=== PATIENT | male | born 1940 | race Caucasian/White ===

== ENCOUNTER → 2017-01-26 | Outpatient (CLI) | payer OTHER, MEDICARE ==
[~2017-01-26] MED LIST: ACET-1311 PO; AMLO-114 PO; AMLO5TAB2 PO; BROM0.0911 OPL; CALC667C4 PO; CLBCRM30 EXT; CYAN100020 PO; DIFL0.0519 OPL; FLUT0.0529 NAE; FLUT0.15 NAE; FRS/40 PO; FURO80TA63 PO; HYDR-4716 PO; HYDR25TA4 PO; LANS30CA12 PO; LOSA1TAB PO; MCRK20 PO; MELO15TA4 PO; MTR500 PO; ONDA4TAB46 PO; PRLSR20 PO; SODI650T8 PO; TAMS0.4C38 PO; ZNTT/150 PO; [UNRECOGNIZED DRUG - CODE] PO
--- NOTE | 2017-01-26 14:50 | DIAGNOSTIC IMAGING REPORT ---
LEFT TOE(S) MIN 2 VIEWS CLINICAL HISTORY: S99.922A Injury of left [id number] COMPARISON STUDY: None. FINDINGS: 3 views of the left first through third toes. Nondisplaced fractures at the base of the distal phalanx of the left first toe. There is associated soft tissue swelling. This extends to the DIP joint. No fracture or dislocation within the second or third toes. Mild osteoarthritis at the first MTP joint IMPRESSION: Nondisplaced fractures at the base of the distal phalanx of the left first toe. Electronically signed by: Oleg Navarro M.D. 01/26/2017 2:47 PM Dictated Date/Time: 01/26/2017 2:46 PM
== END | disposition home or self-care (01) ==
LOC: C.RADBC 13:57
PROVIDERS: ATTEND Family Medicine
DX: S92.425A Nondisplaced fracture of distal phalanx of left great toe, initial encounter for closed fracture (principal); X58.XXXA Exposure to other specified factors, initial encounter

== ENCOUNTER → 2017-02-16 | Outpatient (CLI) | payer OTHER, MEDICARE ==
[2017-02-16 14:57] LABS: ALB/GLOB RATIO 1.3 (0.9-2); ALKALINE PHOSPHATASE 52 U/L (45-117); ALT/SGPT 24 U/L (12-78); AST/SGOT 18 U/L (15-37); BLOOD UREA NITROGEN 22 mg/dl (7-18); BUN/CREATININE RATIO 20.3 (10-20); CALCIUM 8.8 mg/dl (8.5-10.1); CARBON DIOXIDE 26 mmol/L (21-32); CHLORIDE 106 mmol/L (98-107); GLUCOSE 91 mg/dl (70-99); MAGNESIUM 2.3 mg/dl (1.8-2.4); POTASSIUM 4.4 mmol/L (3.5-5.1); SODIUM 140 mmol/L (136-145)
== END | disposition home or self-care (01) ==
LOC: C.LAB1850 13:42
PROVIDERS: ATTEND Family Medicine
DX: G47.62 Sleep related leg cramps (principal); N40.1 Benign prostatic hyperplasia with lower urinary tract symptoms; I10 Essential (primary) hypertension

== ENCOUNTER → 2017-05-12 | Day surgery (SDC) | payer OTHER, MEDICARE ==
[2017-04-08 12:36] VITALS: Ht 180.3 cm; Wt 81.8 kg
[~2017-05-12] VITALS: Ht 180.3 cm; Wt 81.8 kg
[~2017-05-12] MED LIST changes: +500ML BSS 0.3ML EPI 1:1000PF IRRIG ONE; +ACETAMINOPHEN 325 MG TAB PO PRN; -AMLO5TAB2 PO; +AMVISC PLAIN 0.8ML SYRINGE INT OCU ONE; +AMVISC PLUS 0.8ML SYRINGE INT OCU ONE; +APR/25 PO; +ATROPINE SULFATE 0.1 MG/ML 5ML SYR IV PRN; +BSS FLUSH ONE; +EpHEDrine SULFATE INJ 50 MG/ML AMP IV PRN; +EpINEphrine INJ 1MG/ML AMP 1 MG/ML AMP ONE; -HYDR-4716 PO; +LACTATED RINGER'S 1000ML 500 ML IV SCH; +LIDOCAINE 3.5% OPH GEL PER APPLICATION CHARGE ONE; +LIDOCAINE HCL 1% MPF 2 ML VIAL ONE; +MIDAZOLAM HCL 1 MG/ML 2ML VIAL ONE; +OCUCOAT 1 ML SOLN IO ONE; +ONDANSETRON INJ 2 MG/ML 2 ML VIAL IV PRN; +PHENYLEPHRINE HCL 10% OP SOLN PER DROP CHARGE OPL SCH; +POVIDONE-IODINE OP SOLN 30 ML BTL ONE; -PRLSR20 PO; +PROPARACAINE 0.5% OP SOLN PER DROP CHARGE OPL SCH; +TOBRAMYCIN/DEXAMETHASONE OPH OINT PER APPLN CHARGE ONE; -[UNRECOGNIZED DRUG - CODE] PO
[2017-05-12] MEDS: PHENYLEPHRINE HCL 2.5% OP SOLN PER DROP CHARGE OPL SCH ×2 (08:33→08:38)
[2017-05-12] MEDS: TROPICAMIDE 1% OP SOLN PER DROP CHARGE OPL SCH ×2 (08:34→08:38)
[2017-05-12] MEDS: CYCLOPENTOLATE HCL 1% OP SOLN PER DROP CHARGE OPL SCH ×2 (08:35→08:39)
[2017-05-12] MEDS: KETOROLAC 0.5% OP SOLN PER DROP CHARGE OPL SCH ×2 (08:36→08:39)
[2017-05-12] MEDS: GATIFLOXACIN OP SOLN PER DROP CHARGE OPL SCH ×2 (08:36→08:45)
--- NOTE | 2017-05-12 09:08 | History & Physical Bridge - SC ---
H&P Re-Evaluation Bridge Note: I have examined the patient, reviewed the History & Physical and in the interval since the performance of the History & Physical I have noted the following changes of clinical significance: No changes noted
--- NOTE | 2017-05-12 09:47 | Discharge Instructions-SurgCtr ---
Discharge Instructions Date of Service May 12, 2017. Visit Reason for Visit: Cataract Left Eye Discharge Discharge Diagnosis / Problem: cataract Discharge Goals Goal(s): Improve function Activity Recommendations Activity Limitations: per Instructions/Follow-up section Anesthesia . Post Anesthesia Instructions: If you have had General Anesthesia or IV Sedation: * Do not drive today. * Resume driving when surgeon permits. * Do not make important decisions or sign legal documents today. * Call surgeon for: 1. Temperature elevations greater than 101 degrees F. 2. Uncontrollable pain. 3. Excessive bleeding. 4. Persistent nausea and vomiting. 5. Medication intolerance (nausea, vomiting or rash). * For nausea and vomiting use only clear liquids such as: tea, soda, bouillon until nausea subsides, then gradually increase diet as tolerated. * If you have any concerns or questions, call your surgeon's office. If physician is unavailable and it is an emergency, call 911 or go to the nearest emergency room. . Instructions / Follow-Up Instructions / Follow-Up ACTIVITY RECOMMENDATIONS: * No strenuous lifting, jogging or running for 4 days * No swimming or yard work for 1 week. * Limited bending is permitted, such as putting on shoes. RETURN TO SCHOOL/WORK: No work until seen by physician in office. MEDICATIONS: Resume previous medications unless instructed otherwise by your surgeon. This includes eye drops for glaucoma. Zymaxid/Gatifloxacin (levi cap) - one drop every 2 hours until bedtime Nevanac/Ilevro/Prolensa/Ketorolac (ramirez cap) - one drop every 4 hours until bedtime Prednisolone/Durezol (white/pink cap, SHAKE WELL) - one drop every 2 hours until bedtime Starting tomorrow - all 3 drops every 4 hours until seen in the office Optive drops - as needed for discomfort SPECIAL CARE INSTRUCTIONS: * Wear eyeshield when sleeping, for four nights. * You may wear your own glasses or sunglasses while awake. * You may read or watch TV * You may shower and wash your face, but be gentle around the eye and pat dry. * Blurry vision and mild irritation are normal. * Call office if pain is more severe or vision becomes dark at . FOLLOW UP VISIT: Follow-up with Dr Salazar tomorrow. Diet Recommendations Home Diet: resume previous diet Procedures Procedures Performed: Left Cataract Phacoemulsification With Intraocular Lens Implant, Toric Lens Pending Studies Studies pending at discharge: no Medical Emergencies . Who to Call and When: Medical Emergencies: If at any time you feel your situation is an emergency, please call 911 immediately. . Non-Emergent Contact Non-Emergency issues call your: Restaurant Kitchen Manager . . "Provider Documentation" section prepared by Timothy Salazar. .
--- NOTE | 2017-05-12 09:48 | [facility] Operative Report ---
Operative Report Date of Service May 12, 2017. Operative Report 1. PREOPERATIVE DIAGNOSIS: Cataract of the left eye. 2. POSTOPERATIVE DIAGNOSIS: Same. 3. PROCEDURE: Phacoemulsification with intraocular lens implantation of the left eye. SURGEON: Dr. Timothy Salazar. ANESTHESIA: Topical Lidocaine gel, 1% Non- Preserved intracameral Lidocaine, and monitored intravenous sedation. INDICATIONS FOR THE PROCEDURE: The patient is a 76 - year-old male with a history of cataract of the left eye causing significant visual impairment. The details of the proposed procedure were explained to the patient who asked appropriate questions and following discussion of all risks, benefits and alternatives agreed to have the procedure done. Patient had corneal astigmatism and therefore elected to have a toric lens placed. 4. OPERATION AND FINDINGS: DESCRIPTION OF PROCEDURE: After informed consent was obtained, patient was placed in an upright position and the cornea was marked at 168 degrees using the CeQur corneal marking tool. The the patient was brought to the Operating Room at the [facility]. The patient was placed in a supine position and then the left eye was prepped and draped in the usual sterile fashion for intraocular surgery. A drop of topical Lidocaine gel was placed in the operative eye. A wire lid speculum was then placed in the fornices. A corneal paracentesis was then created temporally. The Non-Preserved Lidocaine was then instilled into the anterior chamber. The anterior chamber was then pressurized with viscoelastic. A 2.0 mm clear corneal incision was then created temporally. A cystotome was inserted into the anterior chamber and used to create a tear in the anterior lens capsule. This capsular tear was then used to create a small flap and the flap was dragged in a counterclockwise direction in order to create a continuous curvilinear capsulorrhexis. Hydrodissection was accomplished with balanced salt solution. Phacoemulsification of the lens nucleus was then performed in a standard divide- and-conquer technique. The phaco time was 28 seconds with an average power of 12 %. The remaining cortical material was removed using irrigation aspiration. The capsular bag was then filled with viscoelastic. A Elliot [id number] +22.0 diopters lens was then loaded into the injector and injected into the capsular bag. The lens was aligned with the previously made corneal kemp. The remaining viscoelastic was removed with the irrigation aspiration handpiece. The wound was hydrated and then checked and found to be watertight. The intraocular pressure was checked and found to be adequate. The wire lid speculum was removed and the patient's face was cleaned and dried. TobraDex ointment was placed in the inferior fornix. The patient was discharged to the Recovery Room having tolerated the procedure well. There were no complications. The patient will be seen tomorrow in the office for follow-up. I attest to the content of the Intraoperative Record and any orders documented therein. Any exceptions are noted below.
--- NOTE | 2017-05-12 09:55 | Anesthesia Progress Nt - [facility] ---
Anesthesia Post Op Note Date & Time May 12, 2017 at 09:55 Vital Signs Pain Intensity: 0 Vital Signs Past 12 Hours Date Time Temp Pulse Resp B/P (MAP) Pulse Ox O2 Delivery O2 Flow Rate FiO2 05/12/17 08:23 36.6 69 16 129/77 (94) 97 Room Air Notes Mental Status: alert / awake / arousable, participated in evaluation Pt Amnestic to Procedure: Yes Nausea / Vomiting: adequately controlled Pain: adequately controlled Airway Patency, RR, SpO2: stable & adequate BP & HR: stable & adequate Hydration State: stable & adequate Anesthetic Complications: no major complications apparent
[2017-05-12 10:11] VITALS: BP 139/75; PULSE 64; O2SAT 97
== END | disposition home or self-care (01) ==
LOC: X.SURG 07:51
PROVIDERS: ATTEND Ophthalmology
DX: H26.9 Unspecified cataract (principal); N40.0 Benign prostatic hyperplasia without lower urinary tract symptoms; N13.8 Other obstructive and reflux uropathy; C44.81 Basal cell carcinoma of overlapping sites of skin; I10 Essential (primary) hypertension; K21.9 Gastro-esophageal reflux disease without esophagitis; N48.6 Induration penis plastica; G47.33 Obstructive sleep apnea (adult) (pediatric); Z87.891 Personal history of nicotine dependence

== ENCOUNTER 2017-05-16 16:07 | Inpatient (IN) | payer OTHER, MEDICARE ==
[~2017-05-16] VITALS: Ht 180.3 cm; Wt 84.8 kg
[~2017-05-16 16:07] MED LIST changes: -500ML BSS 0.3ML EPI 1:1000PF IRRIG ONE; -ACET-1311 PO; -ACETAMINOPHEN 325 MG TAB PO PRN; -AMVISC PLAIN 0.8ML SYRINGE INT OCU ONE; -AMVISC PLUS 0.8ML SYRINGE INT OCU ONE; -APR/25 PO; -ATROPINE SULFATE 0.1 MG/ML 5ML SYR IV PRN; -BROM0.0911 OPL; -BSS FLUSH ONE; -CALC667C4 PO; -DIFL0.0519 OPL; -EpHEDrine SULFATE INJ 50 MG/ML AMP IV PRN; -EpINEphrine INJ 1MG/ML AMP 1 MG/ML AMP ONE; -FLUT0.15 NAE; -FRS/40 PO; -FURO80TA63 PO; -HYDR25TA4 PO; -LACTATED RINGER'S 1000ML 500 ML IV SCH; -LANS30CA12 PO; -LIDOCAINE 3.5% OPH GEL PER APPLICATION CHARGE ONE; -LIDOCAINE HCL 1% MPF 2 ML VIAL ONE; -MCRK20 PO; -MIDAZOLAM HCL 1 MG/ML 2ML VIAL ONE; -MTR500 PO; -OCUCOAT 1 ML SOLN IO ONE; -ONDA4TAB46 PO; -ONDANSETRON INJ 2 MG/ML 2 ML VIAL IV PRN; -PHENYLEPHRINE HCL 10% OP SOLN PER DROP CHARGE OPL SCH; -POVIDONE-IODINE OP SOLN 30 ML BTL ONE; -PROPARACAINE 0.5% OP SOLN PER DROP CHARGE OPL SCH; -SODI650T8 PO; -TOBRAMYCIN/DEXAMETHASONE OPH OINT PER APPLN CHARGE ONE
[2017-05-16] MEDS ORDERED: ONDANSETRON INJ 2 MG/ML 2 ML VIAL IV STA (16:44)
[2017-05-16] MEDS ORDERED: SODIUM CHLORIDE 0.9% 1000ML 1,000 ML IV STA ×2 (16:44→18:16)
--- NOTE | 2017-05-16 17:00 | EMERGENCY ROOM VISIT NOTE ---
History Report prepared by Vicente: Ela Hernández Under the Supervision of: Dr. Segundo Muse D.O. First contact with patient: 16:38 Chief Complaint: NAUSEA Stated Complaint: NAUSEA,COLD Nursing Triage Summary: Nausea, chills, aches all over per the pt, noticed yellowing under his eyelids per pt. History of Present Illness The patient is a 76 year old male who presents to the Emergency Room with complaints of persistent weakness for the past week. He also reports lower abdominal pain, sneezing, nausea, rhinorrhea, and fatigue. He has slept for 90% of the past week. He thinks that he might have the flu. His significant other has recently been sick with the flu. He had cataract surgery less than 1 week ago. He noticed some jaundice in his left eye today. He is urinating less than usual. He denies any chest pain, SOB, or cough. He has not had these symptoms before. He has a history of hypertension, hernia surgery, skin cancer, and TURP. He admits to drinking alcohol daily. He has had a colonoscopy in the past which was normal. He quit tobacco over 30 years ago. Source of History: patient, spouse/significant other Onset: past week Position: other (global) Quality: other (weakness) Timing: other (persistent) Associated Symptoms: + nausea, + abdominal pain, + fatigue, No cough, No chest pain, No SOB Note: Pt reports sneezing, rhinorrhea, jaundice to the eye, urinating less than usual. Review of Systems See HPI for pertinent positives & negatives. A total of 10 systems reviewed and were otherwise negative. Past Medical & Surgical Medical Problems: (1) Basal cell carcinoma (2) Chronic back pain (3) Gastroesophageal reflux disease Family History No pertinent family history stated. Social History Smoking Status: Former Smoker Alcohol Use: other (daily) Marital Status: in relationship Occupation Status: employed Current/Historical Medications Scheduled Amlodipine (Norvasc), 10 MG PO DAILY Clobetasol Propionate (Clobetasol Propionate Cream 0.05%), 1 APPLN EXT DIRECTED Cyanocobalamin (Vitamin B12), 1,000 MCG PO DAILY Fluticasone Propionate (Nasal) (Flonase Allergy Relief), 4 SPRAYS JAMILAH QPM Losartan Potassium (Cozaar), 25 MG PO DAILY Meloxicam (Meloxicam), 15 MG PO DAILY Ranitidine (Zantac), 150 MG PO DAILY Allergies Coded Allergies: No Known Allergies (Verified , 05/12/17) Physical Exam Vital Signs Date Time Temp Pulse Resp B/P (MAP) Pulse Ox O2 Delivery O2 Flow Rate FiO2 05/16/17 21:47 70 18 135/68 93 Room Air 05/16/17 19:53 147/77 05/16/17 19:39 147/77 05/16/17 18:47 69 20 05/16/17 18:37 74 19 05/16/17 18:27 70 17 05/16/17 18:17 69 19 05/16/17 18:07 69 19 05/16/17 17:57 68 19 05/16/17 17:54 153/75 05/16/17 17:53 73 18 153/75 96 Room Air 05/16/17 17:47 66 18 05/16/17 17:37 66 16 05/16/17 17:30 67 05/16/17 16:12 36.3 78 18 148/74 96 Room Air Physical Exam GENERAL: Patient is awake, alert, and in no acute distress. Patient is resting comfortably and showing no signs of anxiety EYES: Slight jaundice noted at the sclera. The pupils are equal round and reactive to light. EARS, NOSE, MOUTH AND THROAT: The nose is without any evidence of any deformity. Mucous membranes are moist tongue is midline NECK: The neck is nontender and supple. RESPIRATORY: Normal respiratory effort is noted there is no evidence of wheezing rhonchi or rales CARDIOVASCULAR: Regular rate and rhythm noted there no murmurs rubs or gallops normal S1 normal S2 GASTROINTESTINAL: The abdomen is mildly distended and diffusely tender, no guarding or rigidity noted. MUSCULOSKELETAL/EXTREMITIES: There is no evidence of gross deformity full range of motion is noted in the hips and shoulders SKIN: There is trace pedal edema bilaterally. NEUROLOGIC: Patient is awake alert and oriented x3 Medical Decision & Procedures ER Provider Diagnostic Interpretation: X-ray results as stated below per interpretation by me and the radiologist. Radiology results as stated below per my review and radiologist interpretation: CHEST ONE VIEW PORTABLE CLINICAL HISTORY: ABDOMINAL PAIN/GI COMPARISON STUDY: Chest radiograph and chest CT June 17, 2013. FINDINGS: Lung volumes are normal. No pneumothorax or pleural effusion is present. There is no consolidation to suggest pneumonia and there is no evidence of pulmonary edema. Cardiomediastinal silhouette is normal. IMPRESSION: No acute cardiopulmonary findings. Electronically signed by: Manny Topete M.D. 05/16/2017 5:50 PM Dictated Date/Time: 05/16/2017 5:50 PM ABD/PELVIS ORAL CONT ONLY CLINICAL HISTORY: Right-sided abdominal pain. COMPARISON STUDY: CT of the abdomen and pelvis June 17, 2013. TECHNIQUE: Axial images of the abdomen and pelvis were obtained without IV contrast. Oral contrast was administered. FINDINGS: Groundglass opacities within visualized portions of the lungs suggest atelectasis. A 5 mm subpleural right lower lobe nodule shown image 21 of [address] of June 17, 2013. This is benign. The heart is mildly enlarged. Evaluation of the abdomen and pelvis is suboptimal on this unenhanced exam. A left hepatic lobe cyst is noted. Right hepatic lobe calcifications are present. Unenhanced images of the spleen, adrenal glands, kidneys and pancreas are unremarkable. There is no hydronephrosis. There may be punctate right renal calculi. There are no ureteral calculi. There is colonic diverticulosis. The appendix is normal. Note is made of multifocal moderate colonic wall thickening which is most pronounced within the cecum, ascending colon, transverse colon and proximal descending colon. There is no free air or abscess. A small amount of ascites is noted. No suspicious skeletal lesions are present. There is no lymphadenopathy. IMPRESSION: 1. Moderate multifocal colonic wall thickening with mild pericolonic infiltration and ascites, most pronounced within the cecum, ascending colon and proximal descending colon. This reflects a nonspecific colitis, although an infectious etiology is favored. Normal appendix. No free air, pneumatosis or portal venous gas. 2. No bowel obstruction. 3. Colonic diverticulosis without evidence of acute diverticulitis. Electronically signed by: Manny Topete M.D. 05/16/2017 8:48 PM Dictated Date/Time: 05/16/2017 8:38 PM Laboratory Results 05/16/17 17:10 Red Blood Count 4.07, Mean Corpuscular Volume 84.8, Mean Corpuscular Hemoglobin 29.7, Mean Corpuscular Hemoglobin Concent 35.1, Mean Platelet Volume 10.4, Neutrophils (%) (Auto) 70.7, Lymphocytes (%) (Auto) 15.2, Monocytes (%) (Auto) 9.9, Eosinophils (%) (Auto) 1.9, Basophils (%) (Auto) 0.4, Neutrophils # (Auto) 5.31, Lymphocytes # (Auto) 1.14, Monocytes # (Auto) 0.74, Eosinophils # (Auto) 0.14, Basophils # (Auto) 0.03 05/16/17 17:10 Test 05/16/17 17:10 05/16/17 20:00 White Blood Count 7.50 K/uL (4.8-10.8) Red Blood Count 4.07 M/uL (4.7-6.1) Hemoglobin 12.1 g/dL (14.0-18.0) Hematocrit 34.5 % (42-52) Mean Corpuscular Volume 84.8 fL (80-100) Mean Corpuscular Hemoglobin 29.7 pg (25-34) Mean Corpuscular Hemoglobin Concent 35.1 g/dl (32-36) Platelet Count 40 K/uL (130-400) Mean Platelet Volume 10.4 fL (7.4-10.4) Neutrophils (%) (Auto) 70.7 % Lymphocytes (%) (Auto) 15.2 % Monocytes (%) (Auto) 9.9 % Eosinophils (%) (Auto) 1.9 % Basophils (%) (Auto) 0.4 % Neutrophils # (Auto) 5.31 K/uL (1.4-6.5) Lymphocytes # (Auto) 1.14 K/uL (1.2-3.4) Monocytes # (Auto) 0.74 K/uL (0.11-0.59) Eosinophils # (Auto) 0.14 K/uL (0-0.5) Basophils # (Auto) 0.03 K/uL (0-0.2) RDW Standard Deviation 42.7 fL (36.4-46.3) RDW Coefficient of Variation 13.8 % (11.5-14.5) Immature Granulocyte % (Auto) 1.9 % Immature Granulocyte # (Auto) 0.14 K/uL (0.00-0.02) Platelet Estimate DECREASED Absolute Reticulocyte Count 0.06 10^6/uL (0.02-0.10) Percent Reticulocyte Count 1.3 % (0.5-2.0) Immature Reticulocyte Fraction 5.1 % (2.3-13.4) Reticulocyte Hemoglobin Content 31.8 PG (28.2-36.6) Prothrombin Time 10.4 SECONDS (9.0-12.0) Prothromb Time International Ratio 1.0 (0.9-1.1) Activated Partial Thromboplast Time 31.0 SECONDS (21.0-31.0) Partial Thromboplastin Ratio 1.2 Anion Gap 8.0 mmol/L (3-11) Est Creatinine Clear Calc Drug Dose 26.1 ml/min Estimated GFR () 26.8 Estimated GFR (Non- 23.1 BUN/Creatinine Ratio 30.6 (10-20) Calcium Level 8.5 mg/dl (8.5-10.1) Total Bilirubin 2.7 mg/dl (0.2-1) Direct Bilirubin 0.4 mg/dl (0-0.2) Aspartate Amino Transf (AST/SGOT) 71 U/L (15-37) Alanine Aminotransferase (ALT/SGPT) 20 U/L (12-78) Alkaline Phosphatase 63 U/L (45-117) Total Creatine Kinase 110 U/L (39-308) Creatine Kinase MB 0.8 ng/ml (0.5-3.6) Creatine Kinase MB Ratio 0.7 (0-3.0) Troponin I < 0.015 ng/ml (0-0.045) Total Protein 6.5 gm/dl (6.4-8.2) Albumin 3.0 gm/dl (3.4-5.0) Lipase 154 U/L (73-393) Hepatitis B Surface Antigen NEG (NEG) Hepatitis C Antibody NEG (NEG) Urine Color DK YELLOW Urine Appearance TURBID (CLEAR) Urine pH 5.0 (4.5-7.5) Urine Specific [place] 1.027 (1.000-1.030) Urine Protein 4+ (NEG) Urine Glucose (UA) NEG (NEG) Urine Ketones TRACE (NEG) Urine Occult Blood 3+ (NEG) Urine Nitrite POS (NEG) Urine Bilirubin NEG (NEG) Urine Urobilinogen NEG (NEG) Urine Leukocyte Esterase TRACE (NEG) Urine WBC (Auto) 10-30 /hpf (0-5) Urine RBC (Auto) 10-30 /hpf (0-4) Urine Hyaline Casts (Auto) 10-30 /lpf (0-5) Urine Epithelial Cells (Auto) >30 /lpf (0-5) Urine Bacteria (Auto) NEG (NEG) Urine Renal Epithelial Cells /lpf (0-5) Urine Pathogenic Casts 5-10 GRANULAR CASTS /lpf (0) Urine Yeast (Auto) (NONE PRSENT) Laboratory results per my review. Medications Administered Medications (Trade) Dose Ordered Sig/Aziza Route Start Time Stop Time Status Last Admin Dose Admin Sodium Chloride 1,000 ml @ 999 mls/hr Q1H1M STAT IV 05/16/17 16:44 05/16/17 17:44 DC 05/16/17 17:11 999 MLS/HR Ondansetron HCl (Zofran Inj) 4 mg NOW STAT IV 05/16/17 16:44 05/16/17 16:45 DC 05/16/17 17:11 4 MG Sodium Chloride 1,000 ml @ 999 mls/hr Q1H1M STAT IV 05/16/17 18:16 05/16/17 19:16 DC 05/16/17 18:53 999 MLS/HR Ceftriaxone Sodium (Rocephin Inj) 1 gm NOW STAT IV 05/16/17 20:50 05/16/17 20:52 DC 05/16/17 21:47 1 GM ECG Indication: weakness Rate (beats per minute): 65 Rhythm: normal sinus Findings: RBBB, other (no PVC) Comparison ECG Date: 21-Sep-2015 Change: no significant change ED Course 1641: The patient was evaluated in room B6. A complete history and physical examination were performed. 1643: Zofran Inj 4 mg IV, NSS 1000 ml @ 999 mls/hr IV. 1815: NSS 1000 ml @ 999 mls/hr IV. 2049: Rocephin Inj 1 gm IV. 2057: Upon reevaluation, the patient is resting comfortably. I discussed results and treatment plan with him. He verbalizes agreement and understanding. The patient will be evaluated for further management and care. 2110: I discussed the patient's case with Dr. Ye, [facility] hospitalist. The patient will be evaluated for further management. Medical Decision Prior records/ancillary studies reviewed. Triage Nursing notes reviewed. Additional history obtained from significant other. The patient's history was concerning for abdominal pain. Differential diagnosis: Etiologies such as appendicitis, diverticulitis, PUD, biliary pathology, UTI, pancreatitis, obstruction, mesenteric ischemia, aortic pathology, infections, inflammatory bowel disease, renal colic, as well as others were entertained. The patient is a 76-year-old male who presented to the emergency department for evaluation of generalized weakness nausea and jaundice. The patient was treated with IV fluids in the emergency department. He was reevaluated multiple times. He was also started on IV antibiotics for presumed urinary tract infection. I discussed the patient's laboratory and radiographic studies with him. I also discussed his case with the on-call [facility] hospitalist. They've agreed to evaluate the patient in the [facility] department for further management and disposition. Medication Reconcilliation Current Medication List: was personally reviewed by me Blood Pressure Screening Patient's blood pressure: Elevated blood pressure Blood pressure disposition: Elevated BP felt to be situational Consults Time Called: 2057 Consulting Physician: Dr. Ye, [facility] hospitalist Returned Call: 2110 I discussed the patient's case with him. The patient will be evaluated for further management. Impression Primary Impression: UTI (urinary tract infection) Additional Impressions: Acute kidney injury Colitis Indirect hyperbilirubinemia Heart murmur Scribe Attestation The scribe's documentation has been prepared under my direction and personally reviewed by me in its entirety. I confirm that the note above accurately reflects all work, treatment, procedures, and medical decision making performed by me. Departure Information Dispostion Being Evaluated By Hospitalist Referrals No Doctor, Assigned (PCP) Patient Instructions My [facility] Problem Qualifiers Primary Impression: UTI (urinary tract infection)
[2017-05-16] MEDS ORDERED: FLUT0.15 NAE (17:13)
[2017-05-16 17:30] LABS: PARTIAL THROMBOPLASTIN RATIO 1.2; PROTHROMBIN TIME (PATIENT) 10.4 SECONDS (9.0-12.0)
--- NOTE | 2017-05-16 17:52 | DIAGNOSTIC IMAGING REPORT ---
CHEST ONE VIEW PORTABLE CLINICAL HISTORY: ABDOMINAL PAIN/GI COMPARISON STUDY: Chest radiograph and chest CT June 17, 2013. FINDINGS: Lung volumes are normal. No pneumothorax or pleural effusion is present. There is no consolidation to suggest pneumonia and there is no evidence of pulmonary edema. Cardiomediastinal silhouette is normal. IMPRESSION: No acute cardiopulmonary findings. Electronically signed by: Manny Topete M.D. 05/16/2017 5:50 PM Dictated Date/Time: 05/16/2017 5:50 PM
[2017-05-16 17:58] LABS: ALKALINE PHOSPHATASE 63 U/L (45-117); ALT/SGPT 20 U/L (12-78); AST/SGOT 71 U/L (15-37); BLOOD UREA NITROGEN 80 mg/dl (7-18); BUN/CREATININE RATIO 30.6 (10-20); CALCIUM 8.5 mg/dl (8.5-10.1); CARBON DIOXIDE 24 mmol/L (21-32); CHLORIDE 108 mmol/L (98-107); CKMB/CK RATIO 0.7 (0-3.0); GLUCOSE 95 mg/dl (70-99); POTASSIUM 4.3 mmol/L (3.5-5.1); SODIUM 140 mmol/L (136-145)
[2017-05-16 18:05] LABS: HEMATOCRIT 34.5 % (42-52); MEAN CELL VOLUME 84.8 fL (80-100); MEAN CORPUSCULAR HEMOGLOBIN 29.7 pg (25-34); MEAN CORPUSCULAR HGB CONC 35.1 g/dl (32-36); MEAN PLATELET VOLUME 10.4 fL (7.4-10.4); PLATELET COUNT 40 K/uL (130-400); RED BLOOD COUNT 4.07 M/uL (4.7-6.1)
[2017-05-16 18:07] LABS: BASO % 0.4 %; BASO ABS # 0.03 K/uL (0-0.2); COMPLETE YES; EOS % 1.9 %; IG% 1.9 %; LYMPH % 15.2 %; LYMPH ABS # 1.14 K/uL (1.2-3.4); MONO % 9.9 %; NEUT % 70.7 %; PLT ESTIMATE DECREASED
[2017-05-16 19:08] LABS: IMMATURE RETIC FRACTION 5.1 % (2.3-13.4); RETHE 31.8 PG (28.2-36.6)
[2017-05-16 20:42] LABS: URINE APPEARANCE TURBID (CLEAR); URINE EPITHELIAL CELL AUTO >30 /lpf (0-5); URINE NITRITE POS (NEG); URINE SPECIFIC GRAVITY 1.027 (1.000-1.030); UROBILINOGEN NEG (NEG)
[2017-05-16 20:44] LABS: MANUAL MICROSCOPIC REQUIRED? NO; REVIEW REQ? YES; URINE COLOR DK YELLOW
[2017-05-16 20:47] LABS: URINE BILIRUBIN NEG (NEG)
[2017-05-16 20:48] LABS: URINE PATH CASTS 5-10 GRANULAR CASTS /lpf (0)
[2017-05-16] MEDS ORDERED: CEFTRIAXONE SOD INJ 1 GM ADDVIAL IV STA (20:50)
--- NOTE | 2017-05-16 20:50 | DIAGNOSTIC IMAGING REPORT ---
ABD/PELVIS ORAL CONT ONLY CLINICAL HISTORY: Right-sided abdominal pain. COMPARISON STUDY: CT of the abdomen and pelvis June 17, 2013. TECHNIQUE: Axial images of the abdomen and pelvis were obtained without IV contrast. Oral contrast was administered. FINDINGS: Groundglass opacities within visualized portions of the lungs suggest atelectasis. A 5 mm subpleural right lower lobe nodule shown image 21 of [address] of June 17, 2013. This is benign. The heart is mildly enlarged. Evaluation of the abdomen and pelvis is suboptimal on this unenhanced exam. A left hepatic lobe cyst is noted. Right hepatic lobe calcifications are present. Unenhanced images of the spleen, adrenal glands, kidneys and pancreas are unremarkable. There is no hydronephrosis. There may be punctate right renal calculi. There are no ureteral calculi. There is colonic diverticulosis. The appendix is normal. Note is made of multifocal moderate colonic wall thickening which is most pronounced within the cecum, ascending colon, transverse colon and proximal descending colon. There is no free air or abscess. A small amount of ascites is noted. No suspicious skeletal lesions are present. There is no lymphadenopathy. IMPRESSION: 1. Moderate multifocal colonic wall thickening with mild pericolonic infiltration and ascites, most pronounced within the cecum, ascending colon and proximal descending colon. This reflects a nonspecific colitis, although an infectious etiology is favored. Normal appendix. No free air, pneumatosis or portal venous gas. 2. No bowel obstruction. 3. Colonic diverticulosis without evidence of acute diverticulitis. Electronically signed by: Manny Topete M.D. 05/16/2017 8:48 PM Dictated Date/Time: 05/16/2017 8:38 PM
[2017-05-16] MEDS ORDERED: CLOBETASOL PROPIONATE EXT SCH (23:00)
[2017-05-16] MEDS ORDERED: [UNRECOGNIZED DRUG - OTHER] EXT SCH (23:00)
[2017-05-16] MEDS ORDERED: APPL EXT SCH (23:00)
[2017-05-16 23:32] VITALS: BP 133/71; PULSE 64; TEMP 36.7; Ht 180.3 cm; Wt 84.8 kg
[2017-05-16] MEDS ORDERED: PIPERACILL/TAZOBAC CONSULT ACTIVE PRN (23:45)
[2017-05-16] MEDS ORDERED: VANCOMYCIN CONSULT ACTIVE PRN (23:45)
--- NOTE | 2017-05-16 23:54 | History and Physical ---
History & Physical Date & Time of Service: May 16, 2017 at 23:53 Chief Complaint: Acute Renal Insufficiency, Colitis Primary Care Physician: No Doctor, Assigned History of Present Illness Source: patient This patient is a 76-year-old male who reports progressively worsening generalized weakness, lower abdominal pain, sneezing, nausea, rhinorrhea and excessive sleepiness over the past week. He describes his symptoms as similar to that of the flu. He did have cataract surgery within the past week, and he also reports a trip to [place] about one week ago as well. He feels that he is urinating less than usual, although because of his increased sleepiness, he is overall eating and drinking less than usual. He drinks alcohol on daily basis area. He reports that his significant other at the initial similar start to symptoms, but she is resolved at this time. Past Medical/Surgical History Medical Problems: (1) Basal cell carcinoma Status: Chronic (2) Chronic back pain Status: Chronic (3) Gastroesophageal reflux disease Status: Chronic Family History noncontributory Social History Smoking Status: Former Smoker Smokeless Tobacco Use: No Alcohol Use: none Drug Use: none Marital Status: in relationship Housing status: lives with family Occupational Status: employed Immunizations History of Influenza Vaccine: Yes History of Tetanus Vaccine?: >10 yrs History of Pneumococcal: Yes History of Hepatitis B Vaccine: Unknown Multi-Drug Resistant Organisms History of MDRO: No Allergies Coded Allergies: No Known Allergies (Verified , 05/12/17) Home Medications Scheduled Amlodipine (Norvasc), 10 MG PO DAILY Clobetasol Propionate (Clobetasol Propionate Cream 0.05%), 1 APPLN EXT DIRECTED Cyanocobalamin (Vitamin B12), 1,000 MCG PO DAILY Fluticasone Propionate (Nasal) (Flonase Allergy Relief), 4 SPRAYS JAMILAH QPM Losartan Potassium (Cozaar), 25 MG PO DAILY Meloxicam (Meloxicam), 15 MG PO DAILY Ranitidine (Zantac), 150 MG PO DAILY Review of Systems The patient denies chest pain, palpitations, shortness of breath, lower extremity swelling, sore throat, fevers, chills, sweats, weight change, vomiting , blood in urine or stool, dysuria, urinary frequency or urgency, headache, memory loss, rash, abnormal bruising or bleeding, imbalance, focal weakness, numbness or tingling in arms or legs, back or neck pain. He is not aware of any tick bites. The review of systems is otherwise negative other than for that already noted above, and at least 10 systems have been reviewed. Physical Exam Vital Signs Date Time Temp Pulse Resp B/P (MAP) Pulse Ox O2 Delivery O2 Flow Rate FiO2 05/16/17 22:13 66 05/16/17 21:47 70 18 135/68 93 Room Air 05/16/17 19:53 147/77 05/16/17 19:39 147/77 05/16/17 18:47 69 20 05/16/17 18:37 74 19 05/16/17 18:27 70 17 05/16/17 18:17 69 19 05/16/17 18:07 69 19 05/16/17 17:57 68 19 05/16/17 17:54 153/75 05/16/17 17:53 73 18 153/75 96 Room Air 05/16/17 17:47 66 18 05/16/17 17:37 66 16 05/16/17 17:30 67 05/16/17 16:12 36.3 78 18 148/74 96 Room Air The patient is awake, well-developed and adequately nourished, alert and oriented 3, normocephalic and atraumatic, looks fatigued, lying in bed and in no acute distress. HEENT--PERRL, EOMI, mucous membranes and oropharynx dry. Neck--supple, no JVD or bruits, thyroid normal, trachea midline, no adenopathy. Heart--normal S1 and S2, no extra beats, no murmurs, rubs or gallops. Lungs--clear bilaterally but diminished throughout, no respiratory distress, no accessory muscle use. Abdomen--normal bowel sounds and soft, nontender and nondistended, no hernias or masses, no organomegaly. Extremities--no cyanosis, clubbing or edema. There are good distal pulses b/l. Dermatologic--normal skin turgor, normal color, warm and dry, no abnormal lymph nodes, no rash. Neurologic--cranial nerves II through XII grossly intact, motor and sensory examination normal. Rheumatologic--normal range of motion, nontender, muscles and joints. Psychiatric--normal affect. Diagnostics Laboratory Results Results Past 24 Hours Test 05/16/17 17:10 05/16/17 20:00 Range/Units White Blood Count 7.50 4.8-10.8 K/uL Red Blood Count 4.07 4.7-6.1 M/uL Hemoglobin 12.1 14.0-18.0 g/dL Hematocrit 34.5 42-52 % Mean Corpuscular Volume 84.8 80-100 fL Mean Corpuscular Hemoglobin 29.7 25-34 pg Mean Corpuscular Hemoglobin Concent 35.1 32-36 g/dl Platelet Count 40 130-400 K/uL Mean Platelet Volume 10.4 7.4-10.4 fL Neutrophils (%) (Auto) 70.7 % Lymphocytes (%) (Auto) 15.2 % Monocytes (%) (Auto) 9.9 % Eosinophils (%) (Auto) 1.9 % Basophils (%) (Auto) 0.4 % Neutrophils # (Auto) 5.31 1.4-6.5 K/uL Lymphocytes # (Auto) 1.14 1.2-3.4 K/uL Monocytes # (Auto) 0.74 0.11-0.59 K/uL Eosinophils # (Auto) 0.14 0-0.5 K/uL Basophils # (Auto) 0.03 0-0.2 K/uL RDW Standard Deviation 42.7 36.4-46.3 fL RDW Coefficient of Variation 13.8 11.5-14.5 % Immature Granulocyte % (Auto) 1.9 % Immature Granulocyte # (Auto) 0.14 0.00-0.02 K/uL Platelet Estimate DECREASED Absolute Reticulocyte Count 0.06 0.02-0.10 10^6/uL Percent Reticulocyte Count 1.3 0.5-2.0 % Immature Reticulocyte Fraction 5.1 2.3-13.4 % Reticulocyte Hemoglobin Content 31.8 28.2-36.6 PG Prothrombin Time 10.4 9.0-12.0 SECONDS Prothromb Time International Ratio 1.0 0.9-1.1 Activated Partial Thromboplast Time 31.0 21.0-31.0 SECONDS Partial Thromboplastin Ratio 1.2 Sodium Level 140 136-145 mmol/L Potassium Level 4.3 3.5-5.1 mmol/L Chloride Level 108 98-107 mmol/L Carbon Dioxide Level 24 21-32 mmol/L Anion Gap 8.0 3-11 mmol/L Blood Urea Nitrogen 80 7-18 mg/dl Creatinine 2.60 0.60-1.40 mg/dl Est Creatinine Clear Calc Drug Dose 26.1 ml/min Estimated GFR () 26.8 Estimated GFR (Non- 23.1 BUN/Creatinine Ratio 30.6 10-20 Random Glucose 95 70-99 mg/dl Calcium Level 8.5 8.5-10.1 mg/dl Total Bilirubin 2.7 0.2-1 mg/dl Direct Bilirubin 0.4 0-0.2 mg/dl Aspartate Amino Transf (AST/SGOT) 71 15-37 U/L Alanine Aminotransferase (ALT/SGPT) 20 12-78 U/L Alkaline Phosphatase 63 45-117 U/L Total Creatine Kinase 110 39-308 U/L Creatine Kinase MB 0.8 0.5-3.6 ng/ml Creatine Kinase MB Ratio 0.7 0-3.0 Troponin I < 0.015 0-0.045 ng/ml Total Protein 6.5 6.4-8.2 gm/dl Albumin 3.0 3.4-5.0 gm/dl Lipase 154 73-393 U/L Hepatitis B Surface Antigen NEG NEG Hepatitis C Antibody NEG NEG Urine Color DK YELLOW Urine Appearance TURBID CLEAR Urine pH 5.0 4.5-7.5 Urine Specific [place] 1.027 1.000-1.030 Urine Protein 4+ NEG Urine Glucose (UA) NEG NEG Urine Ketones TRACE NEG Urine Occult Blood 3+ NEG Urine Nitrite POS NEG Urine Bilirubin NEG NEG Urine Urobilinogen NEG NEG Urine Leukocyte Esterase TRACE NEG Urine WBC (Auto) 10-30 0-5 /hpf Urine RBC (Auto) 10-30 0-4 /hpf Urine Hyaline Casts (Auto) 10-30 0-5 /lpf Urine Epithelial Cells (Auto) >30 0-5 /lpf Urine Bacteria (Auto) NEG NEG Urine Renal Epithelial Cells 0-5 /lpf Urine Pathogenic Casts 5-10 GRANULAR CASTS 0 /lpf Urine Yeast (Auto) NONE PRSENT Microbiology Results 05/16/17 Urine Culture, Received Pending Diagnostic Radiology Patient Name: ABBY FOX Unit Number: [id number] Dictated: 05/16/171749 Transcribed: 05/16/171749 [facility] Printed Date/Time: [~ rep prt dt]/[~ rep prt tm] [~ rep ct labl] - [~ rep ct ivnm] [facility] [place] [address] Dictated: 05/16/171749 Transcribed: 05/16/171749 JA Printed Date/Time: [~ rep prt dt]/[~ rep prt tm] [~ rep ct labl] - [~ rep ct ivnm] CHEST ONE VIEW PORTABLE CLINICAL HISTORY: ABDOMINAL PAIN/GI COMPARISON STUDY: Chest radiograph and chest CT June 17, 2013. FINDINGS: Lung volumes are normal. No pneumothorax or pleural effusion is present. There is no consolidation to suggest pneumonia and there is no evidence of pulmonary edema. Cardiomediastinal silhouette is normal. IMPRESSION: No acute cardiopulmonary findings. Electronically signed by: Manny Topete M.D. 05/16/2017 5:50 PM Dictated Date/Time: 05/16/2017 5:50 PM The status of this report is Signed. Draft = Not yet reviewed or approved by Radiologist. Signed = Reviewed and approved by Radiologist. <AttendingPhy></AttendingPhy> <FamilyPhy>No Doctor, Assigned</FamilyPhy> < PrimaryPhy>No Doctor, Assigned</PrimaryPhy> <UnitNumber>[id number]</UnitNumber> <VisitNumber>[id number]</VisitNumber> <PatientName>ABBY FOX JR</ PatientName> <DateOfBirth>1940</DateOfBirth> <Location>C[facility]</Location> < ServiceDate>05/16/17</ServiceDate> <MNE>ESINDI</MNE> <OrderingPhy>Segundo Muse D.O.</OrderingPhy> <OrderingPhyMNE>f rep ord dr choudhury</OrderingPhyMNE> <DictatingPhyMNE>f rep dict dr choudhury</DictatingPhyMNE> <CCListMNE>f rep ct traciee</ CCListMNE> <AdmittingPhyMNE>f pt admit dr choudhury</AdmittingPhyMNE> <AttendingPhyMNE >f pt attend dr choudhury</AttendingPhyMNE> <ConsultingPhyMNE>f pt consult dr choudhury</ConsultingPhyMNE> <FamilyPhyMNE>f pt fam dr choudhury</FamilyPhyMNE> <OtherPhyMNE>f pt other dr choudhury</OtherPhyMNE> < PrimaryPhyMNE>f pt prim care dr choudhury</PrimaryPhyMNE> <ReferringPhyMNE>f pt referring dr choudhury</ReferringPhyMNE> Patient Name: ABBY FOX JR Unit Number: [id number] Dictated: 05/16/172037 Transcribed: 05/16/172037 [facility] Printed Date/Time: [~ rep prt dt]/[~ rep prt tm] [~ rep ct labl] - [~ rep ct ivnm] [facility] Radiology Department [place] [id number] Dictated: 05/16/172037 Transcribed: 05/16/172037 [facility] Printed Date/Time: [~ rep prt dt]/[~ rep prt tm] [~ rep ct labl] - [~ rep ct ivnm] ABD/PELVIS ORAL CONT ONLY CLINICAL HISTORY: Right-sided abdominal pain. COMPARISON STUDY: CT of the abdomen and pelvis June 17, 2013. TECHNIQUE: Axial images of the abdomen and pelvis were obtained without IV contrast. Oral contrast was administered. FINDINGS: Groundglass opacities within visualized portions of the lungs suggest atelectasis. A 5 mm subpleural right lower lobe nodule shown image 21 of [address] of June 17, 2013. This is benign. The heart is mildly enlarged. Evaluation of the abdomen and pelvis is suboptimal on this unenhanced exam. A left hepatic lobe cyst is noted. Right hepatic lobe calcifications are present. Unenhanced images of the spleen, adrenal glands, kidneys and pancreas are unremarkable. There is no hydronephrosis. There may be punctate right renal calculi. There are no ureteral calculi. There is colonic diverticulosis. The appendix is normal. Note is made of multifocal moderate colonic wall thickening which is most pronounced within the cecum, ascending colon, transverse colon and proximal descending colon. There is no free air or abscess. A small amount of ascites is noted. No suspicious skeletal lesions are present. There is no lymphadenopathy. IMPRESSION: 1. Moderate multifocal colonic wall thickening with mild pericolonic infiltration and ascites, most pronounced within the cecum, ascending colon and proximal descending colon. This reflects a nonspecific colitis, although an infectious etiology is favored. Normal appendix. No free air, pneumatosis or portal venous gas. 2. No bowel obstruction. 3. Colonic diverticulosis without evidence of acute diverticulitis. Electronically signed by: Manny Topete M.D. 05/16/2017 8:48 PM Dictated Date/Time: 05/16/2017 8:38 PM The status of this report is Signed. Draft = Not yet reviewed or approved by Radiologist. Signed = Reviewed and approved by Radiologist. <AttendingPhy></AttendingPhy> <FamilyPhy>No Doctor, Assigned</FamilyPhy> < PrimaryPhy>No Doctor, Assigned</PrimaryPhy> <UnitNumber>[id number]</UnitNumber> <VisitNumber>[id number]</VisitNumber> <PatientName>ABBY FOX JR</ PatientName> <DateOfBirth>1940</DateOfBirth> <Location>C.EDB</Location> < ServiceDate>05/16/17</ServiceDate> <MNE>ESINDI</MNE> <OrderingPhy>Segundo Muse D.O.</OrderingPhy> <OrderingPhyMNE>f rep ord dr choudhury</OrderingPhyMNE> <DictatingPhyMNE>f rep dict dr choudhury</DictatingPhyMNE> <CCListMNE>f rep ct kei</ CCListMNE> <AdmittingPhyMNE>f pt admit dr choudhury</AdmittingPhyMNE> <AttendingPhyMNE >f pt attend dr choudhury</AttendingPhyMNE> <ConsultingPhyMNE>f pt consult dr choudhury</ConsultingPhyMNE> <FamilyPhyMNE>f pt fam dr choudhury</FamilyPhyMNE> <OtherPhyMNE>f pt other dr choudhury</OtherPhyMNE> < PrimaryPhyMNE>f pt prim care dr choudhury</PrimaryPhyMNE> <ReferringPhyMNE>f pt referring dr choudhury</ReferringPhyMNE> EKG EKG shows normal sinus rhythm at 65 bpm, right bundle branch block, no change compared to 09/21/2015. Impression Assessment and Plan Colitis/ascites/urinary tract infection/acute renal insufficiency--of symptoms have been present over the past week. He'll be placed empirically on vancomycin IV and Zosyn IV. Follow urine culture and sensitivity results and blood culture results. Renal insufficiency/hypertension--creatinine on admission was 2.6. We'll hold losartan 25 mg by mouth daily and meloxicam 15 mg by mouth daily. Follow serial BMP and magnesium levels. place on normal saline at 100 ML's per hour. Continue amlodipine 10 mg by mouth daily. Thrombocytopenia unknown etiology at this time, send peripheral smear for pathology review. Hold ranitidine and meloxicam. Daily alcohol use--will not place him on CIWA protocol at this time, but he will need to be followed closely. This may be a contributing factor to several of the conditions above. Abnormal LFTs--be secondary to alcohol use, may be secondary to general colitis issue. Acute hepatitis panel is pending. No obvious abnormality on CT. Level of Care Med/Surg Advanced Directives Existing Advance Directive: No Existing Living Will: No Existing Power of [place] Clerk: No Resuscitation Status FULL RESUSCITATION VTE Prophylaxis VTE Risk Assessment Done? Y/N: Yes Risk Level: Moderate Given or contraindicated: SCD's Social Service Consult None Apply
[2017-05-17] MEDS: SODIUM CHLORIDE 0.9% 1000ML 1,000 ML IV SCH ×3 (00:12→19:38)
[2017-05-17] MEDS ORDERED: VANCOMYCIN INJ 2,100 MG in SODIUM CHLORIDE 0.9% 250ML 250 ML IV ONE (00:30)
[2017-05-17] MEDS ORDERED: PIPERACILL/TAZOBAC IV 3.375 GM in DEXTROSE 5% 100ML 100 ML IV ONE (00:30)
[2017-05-17] MEDS: PIPERACILL/TAZOBAC IV 3.375 GM in DEXTROSE 5% 100ML 100 ML IV SCH ×2 (05:33→14:01)
[2017-05-17 07:09] VITALS: BP 110/61; PULSE 60; TEMP 36.5; O2SAT 96
[2017-05-17 08:20] LABS: HEMATOCRIT 28.3 % (42-52); MEAN CELL VOLUME 84.7 fL (80-100); MEAN CORPUSCULAR HEMOGLOBIN 29.6 pg (25-34); RED BLOOD COUNT 3.34 M/uL (4.7-6.1); WHITE BLOOD COUNT 6.29 K/uL (4.8-10.8)
[2017-05-17 08:36] LABS: PLATELET COUNT 32 K/uL (130-400)
[2017-05-17 08:39] LABS: BUN/CREATININE RATIO 31.4 (10-20); CALCIUM 7.8 mg/dl (8.5-10.1); CREATININE 2.9 mg/dl (0.60-1.40); MAGNESIUM 2.2 mg/dl (1.8-2.4)
[2017-05-17] MEDS ORDERED: AMLODIPINE BESYLATE 5 MG TAB PO SCH (09:00)
[2017-05-17 09:01] LABS: BASO % 0.3 %; BASO ABS # 0.02 K/uL (0-0.2); EOS % 2.1 %; HELMET CELLS 1+; IG% 2.2 %; LYMPH % 14.5 %; LYMPH ABS # 0.91 K/uL (1.2-3.4); MONO % 12.7 %; NEUT % 68.2 %; SCHISTOCYTES 1+; SPHEROCYTE 1+
[2017-05-17] MEDS: CYANOCOBALAMIN 500 MCG TAB (VIT B-12) PO SCH (09:04)
[2017-05-17] MEDS ORDERED: METRONIDAZOLE / NSS 500 MG in PREMIXED NSS 100 ML IV SCH (10:00)
[2017-05-17 12:53] LABS: LYME DISEASE AB IGG NEG (NEG)
[2017-05-17 12:54] LABS: LYME DISEASE AB IGM NEG (NEG)
[2017-05-17 13:20] LABS: MEAN CELL VOLUME 84.4 fL (80-100); MEAN CORPUSCULAR HEMOGLOBIN 29.5 pg (25-34); RED BLOOD COUNT 3.08 M/uL (4.7-6.1); WHITE BLOOD COUNT 5.63 K/uL (4.8-10.8)
[2017-05-17 13:34] LABS: PLATELET COUNT 30 K/uL (130-400)
[2017-05-17 13:37] LABS: BUN/CREATININE RATIO 28.9 (10-20); CALCIUM 7.9 mg/dl (8.5-10.1); CREATININE 3.1 mg/dl (0.60-1.40); POTASSIUM 3.9 mmol/L (3.5-5.1)
[2017-05-17 13:41] LABS: HELMET CELLS 1+; PLT ESTIMATE SIGNIFIC DECREASED; SCHISTOCYTES 1+; SPHEROCYTE 1+
[2017-05-17 13:46] LABS: COMPLETE YES; LYMPH ABS # 0.56 K/uL (1.2-3.4)
--- NOTE | 2017-05-17 14:43 | Pharmacy Progress Note ---
Pharmacy Antibiotic Consult Date of Service: May 17, 2017. Pharmacy Dosing Scope Pharmacy is consulted to initiate Zosyn and vancomycin IV dosing therapy, order appropriate labs and adjust drug dose/frequency. Subjective The patient is a 76 year old male admitted on May 16, 2017 at 22:51 with abdominal pain, possibly colitis or complicated UTI. Objective Height (Feet): 5 Height (Inches): 11.00 Weight (Kilograms): 84.800 Lab Results (24hrs): Test 05/16/17 17:10 05/16/17 20:00 05/17/17 07:10 05/17/17 12:41 White Blood Count 7.50 K/uL (4.8-10.8) 6.29 K/uL (4.8-10.8) 5.63 K/uL (4.8-10.8) Red Blood Count 4.07 M/uL (4.7-6.1) 3.34 M/uL (4.7-6.1) 3.08 M/uL (4.7-6.1) Hemoglobin 12.1 g/dL (14.0-18.0) 9.9 g/dL (14.0-18.0) 9.1 g/dL (14.0-18.0) Hematocrit 34.5 % (42-52) 28.3 % (42-52) 26.0 % (42-52) Mean Corpuscular Volume 84.8 fL (80-100) 84.7 fL (80-100) 84.4 fL (80-100) Mean Corpuscular Hemoglobin 29.7 pg (25-34) 29.6 pg (25-34) 29.5 pg (25-34) Mean Corpuscular Hemoglobin Concent 35.1 g/dl (32-36) 35.0 g/dl (32-36) 35.0 g/dl (32-36) Platelet Count 40 K/uL (130-400) 32 K/uL (130-400) 30 K/uL (130-400) Mean Platelet Volume 10.4 fL (7.4-10.4) fL (7.4-10.4) Neutrophils (%) (Auto) 70.7 % 68.2 % Lymphocytes (%) (Auto) 15.2 % 14.5 % Monocytes (%) (Auto) 9.9 % 12.7 % Eosinophils (%) (Auto) 1.9 % 2.1 % Basophils (%) (Auto) 0.4 % 0.3 % Neutrophils # (Auto) 5.31 K/uL (1.4-6.5) 4.29 K/uL (1.4-6.5) Lymphocytes # (Auto) 1.14 K/uL (1.2-3.4) 0.91 K/uL (1.2-3.4) Monocytes # (Auto) 0.74 K/uL (0.11-0.59) 0.80 K/uL (0.11-0.59) Eosinophils # (Auto) 0.14 K/uL (0-0.5) 0.13 K/uL (0-0.5) Basophils # (Auto) 0.03 K/uL (0-0.2) 0.02 K/uL (0-0.2) Immature Granulocyte % (Auto) 1.9 % 2.2 % Immature Granulocyte # (Auto) 0.14 K/uL (0.00-0.02) 0.14 K/uL (0.00-0.02) Platelet Estimate DECREASED SIGNIFIC DECREASED Absolute Reticulocyte Count 0.06 10^6/uL (0.02-0.10) Percent Reticulocyte Count 1.3 % (0.5-2.0) Immature Reticulocyte Fraction 5.1 % (2.3-13.4) Reticulocyte Hemoglobin Content 31.8 PG (28.2-36.6) Prothrombin Time 10.4 SECONDS (9.0-12.0) Prothromb Time International Ratio 1.0 (0.9-1.1) Activated Partial Thromboplast Time 31.0 SECONDS (21.0-31.0) Partial Thromboplastin Ratio 1.2 Total Bilirubin 2.7 mg/dl (0.2-1) 1.8 mg/dl (0.2-1) Direct Bilirubin 0.4 mg/dl (0-0.2) 0.4 mg/dl (0-0.2) Aspartate Amino Transf (AST/SGOT) 71 U/L (15-37) 59 U/L (15-37) Alanine Aminotransferase (ALT/SGPT) 20 U/L (12-78) 16 U/L (12-78) Alkaline Phosphatase 63 U/L (45-117) 48 U/L (45-117) Total Creatine Kinase 110 U/L (39-308) Creatine Kinase MB 0.8 ng/ml (0.5-3.6) Creatine Kinase MB Ratio 0.7 (0-3.0) Troponin I < 0.015 ng/ml (0-0.045) Total Protein 6.5 gm/dl (6.4-8.2) 5.3 gm/dl (6.4-8.2) Albumin 3.0 gm/dl (3.4-5.0) 2.5 gm/dl (3.4-5.0) Lipase 154 U/L (73-393) Hepatitis B Surface Antigen NEG (NEG) Hepatitis C Antibody NEG (NEG) Urine Color DK YELLOW Urine Appearance TURBID (CLEAR) Urine pH 5.0 (4.5-7.5) Urine Specific [place] 1.027 (1.000-1.030) Urine Protein 4+ (NEG) Urine Glucose (UA) NEG (NEG) Urine Ketones TRACE (NEG) Urine Occult Blood 3+ (NEG) Urine Nitrite POS (NEG) Urine Bilirubin NEG (NEG) Urine Urobilinogen NEG (NEG) Urine Leukocyte Esterase TRACE (NEG) Urine WBC (Auto) 10-30 /hpf (0-5) Urine RBC (Auto) 10-30 /hpf (0-4) Urine Hyaline Casts (Auto) 10-30 /lpf (0-5) Urine Epithelial Cells (Auto) >30 /lpf (0-5) Urine Bacteria (Auto) NEG (NEG) Urine Renal Epithelial Cells /lpf (0-5) Urine Pathogenic Casts 5-10 GRANULAR CASTS /lpf (0) Urine Yeast (Auto) (NONE PRSENT) RDW Standard Deviation 43.8 fL (36.4-46.3) 43.3 fL (36.4-46.3) RDW Coefficient of Variation 14.0 % (11.5-14.5) 14.2 % (11.5-14.5) Spherocytes 1+ 1+ Helmet Cells 1+ 1+ Schistocytes 1+ 1+ Sodium Level 142 mmol/L (136-145) 141 mmol/L (136-145) Potassium Level 4.0 mmol/L (3.5-5.1) 3.9 mmol/L (3.5-5.1) Chloride Level 110 mmol/L (98-107) 109 mmol/L (98-107) Carbon Dioxide Level 21 mmol/L (21-32) 22 mmol/L (21-32) Anion Gap 11.0 mmol/L (3-11) 10.0 mmol/L (3-11) Blood Urea Nitrogen 91 mg/dl (7-18) 90 mg/dl (7-18) Creatinine 2.90 mg/dl (0.60-1.40) 3.10 mg/dl (0.60-1.40) Est Creatinine Clear Calc Drug Dose 23.4 ml/min 21.9 ml/min Estimated GFR () 23.4 21.6 Estimated GFR (Non- 20.2 18.7 BUN/Creatinine Ratio 31.4 (10-20) 28.9 (10-20) Random Glucose 88 mg/dl (70-99) 97 mg/dl (70-99) Calcium Level 7.8 mg/dl (8.5-10.1) 7.9 mg/dl (8.5-10.1) Magnesium Level 2.2 mg/dl (1.8-2.4) Lyme Disease IgG Antibody NEG (NEG) Lyme Disease IgM Antibody NEG (NEG) Neutrophils % (Manual) 83.0 % Lymphocytes % (Manual) 10.0 % Monocytes % (Manual) 5.0 % Eosinophils % (Manual) 2.0 % Neutrophils # (Manual) 4.67 K/uL (1.4-6.5) Total Absolute Neutrophils 4.67 K/uL (1.4-6.5) Lymphocytes # (Manual) 0.56 K/uL (1.2-3.4) Total Absolute Lymphocytes 0.56 K/uL (1.2-3.4) Monocytes # (Manual) 0.28 K/uL (0.11-0.59) Eosinophils # (Manual) 0.11 K/uL (0-0.5) Test 05/17/17 14:28 05/17/17 14:32 Micro Results: 05/16 clean catch urine NG Recent Pertinent Medications Item Value Date Time Metronidazole 500 100 ml @ 100 mls/hr 05/17/17 1000 mg/Prmx Q8H/IV 05/17/17 1013 Piperacillin Sod/ 115 ml @ 28.75 mls/hr 05/17/17 0600 Tazobactam Sod Q8@0600,1400,2200/IV 05/17/17 1401 3.375 gm/Dextrose Vancomycin HCl 292 ml @ 200 mls/hr 05/17/17 0030 2100 mg/Sodium NOW ONCE/IV 05/17/17 0012 Chloride Piperacillin Sod/ 115 ml @ 230 mls/hr 05/17/17 0030 Tazobactam Sod NOW ONCE/IV 05/17/17 0012 3.375 gm/Dextrose Ceftriaxone Sodium 1 gm 05/16/172049 (Rocephin Inj) NOW STAT/IV 05/16/172146 Assessment & Plan Loading dose: vancomycin 2100 mg IV X 1 dose (~25 mg/kg) then: since renal function is getting worse, will redose empirically when random vanco level is less than 18 (or expected to be less than 18). Goal trough level estimate: between 15-20 mcg/mL. Random level has been ordered for: 05/18/17 with am labs. Zosyn 3.375 Gm IV (infused over 4 hours) every 8 hours if CrCl is greater than 20 ml/min, or 3.375 Gm (infused over 4 hr) every 12 hours if CrCl is less than 20 ml/min. Pharmacy will continue to follow and will adjust dose/frequency as necessary. Thank you
[2017-05-17 15:31] VITALS: BP 138/72; PULSE 68; TEMP 36.7; O2SAT 97
--- NOTE | 2017-05-17 15:34 | Oncology Consultation ---
Oncology/Heme Consultation Date of Consultation: May 17, 2017. Attending Physician: Fredy Becerra D.O. Reason for Consultation: Hemolytic uremic syndrome History of Present Illness Mr. Tadeo is a 76 year old gentleman with a history of hypertension and chronic back pain treated with NSAIDs. He returned from a vacation to [place] last weekend. On his way home, on last Thursday, he ate at what his describes as a "gross " [employer] and he had a hamburger that tasted odd. They both experienced flu- like symptoms and diarrhea over the last week since. He also notes abdominal pain and excess fatigue. He denies any hematochezia or fevers. His got better, but he has spent the last few days mostly sleeping, so they came to the ER. Here, he was found to be anemic and thrombocytopenic with a hyperbilirubinemia. He reports cola-colored urine. Since admission, his hemoglobin fell from 12 to 9, but has been stable since. His bilirubin is also down a bit from yesterday. He denies any confusion, delirium, or loss of consciousness. He did not start any new medications recently. He has no personal or family history of blood disorders, though his father of leukemia. Past Medical/Surgical History Medical Problems: (1) Acute kidney injury Status: Acute (2) Colitis Status: Acute (3) Heart murmur Status: Acute (4) Indirect hyperbilirubinemia Status: Acute (5) UTI (urinary tract infection) Status: Acute Social History Smoking Status: Never Smoker Smokeless Tobacco Use: No Alcohol Use: none Drug Use: none Marital Status: in relationship Occupation Status: employed Allergies Coded Allergies: No Known Allergies (Verified , 05/12/17) Home Medications Scheduled Amlodipine (Norvasc), 10 MG PO DAILY Clobetasol Propionate (Clobetasol Propionate Cream 0.05%), 1 APPLN EXT DIRECTED Cyanocobalamin (Vitamin B12), 1,000 MCG PO DAILY Fluticasone Propionate (Nasal) (Flonase Allergy Relief), 4 SPRAYS JAMILAH QPM Losartan Potassium (Cozaar), 25 MG PO DAILY Meloxicam (Meloxicam), 15 MG PO DAILY Ranitidine (Zantac), 150 MG PO DAILY Current Inpatient Medications Current Inpatient Medications Medications (Trade) Dose Ordered Sig/Aziza Route Start Time Stop Time Status Last Admin Dose Admin Amlodipine Besylate (Norvasc Tab) 10 mg DAILY PO 05/17/17 09:00 06/16/17 08:59 05/17/17 09:04 10 MG Fluticasone Propionate (Flonase Nasal [place]) 2 sprays QPM JAMILAH 05/17/17 21:00 06/16/17 20:59 Cyanocobalamin (Vitamin B-12 Tab) 1,000 mcg QAM PO 05/17/17 09:00 06/16/17 08:59 05/17/17 09:04 1,000 MCG Ondansetron HCl (Zofran Inj) 4 mg Q6H PRN IV 05/16/17 23:00 06/15/17 22:59 Piperacillin Sod/ Tazobactam Sod 3.375 gm/Dextrose 115 ml @ 28.75 mls/ hr Q8@0600,1400,2200 IV 05/17/17 06:00 05/27/17 05:59 05/17/17 14:01 28.75 MLS/HR Sodium Chloride 1,000 ml @ 100 mls/hr Q10H IV 05/16/17 23:15 06/15/17 23:14 05/17/17 09:04 100 MLS/HR Vancomycin HCl (Consult) 1 ea UD PRN N/A 05/16/17 23:45 06/15/17 23:44 Piperacillin Sod/ Tazobactam Sod (Consult) 1 ea UD PRN N/A 05/16/17 23:45 06/15/17 23:44 Miscellaneous Information (Order Awaiting Action) 1 ea QS N/A 05/17/17 08:00 06/16/17 07:59 Review of Systems Constitutional: + weakness, + fatigue, No fever Eyes: No worsening of vision ENT: No unusual epistaxis Respiratory: No cough, No shortness of breath, No hemoptysis Cardiovascular: No chest pain Abdomen: + pain, + nausea, + diarrhea, No GI bleeding Musculoskeletal: No joint pain, No muscle pain Genitourinary - Male: No hematuria, No dysuria Hematologic / Lymphatic: No abnormal bleeding/bruising, No night sweats Integumentary: No rash, No color change Physical Exam Date Time Temp Pulse Resp B/P (MAP) Pulse Ox O2 Delivery O2 Flow Rate FiO2 05/17/17 08:15 Room Air 05/17/17 07:09 36.5 60 16 110/61 (77) 96 Room Air 05/16/17 23:32 Room Air 05/16/17 23:32 36.7 64 18 133/71 05/16/17 22:13 66 05/16/17 21:47 70 18 135/68 93 Room Air 05/16/17 19:53 147/77 05/16/17 19:39 147/77 05/16/17 18:47 69 20 05/16/17 18:37 74 19 05/16/17 18:27 70 17 05/16/17 18:17 69 19 05/16/17 18:07 69 19 05/16/17 17:57 68 19 05/16/17 17:54 153/75 05/16/17 17:53 73 18 153/75 96 Room Air 05/16/17 17:47 66 18 05/16/17 17:37 66 16 05/16/17 17:30 67 05/16/17 16:12 36.3 78 18 148/74 96 Room Air General Appearance: WD/WN, no apparent distress Eyes: EOMI, sclerae normal (anicteric) ENT: pharynx normal (no purpura or bleeding) Respiratory/Chest: lungs clear Cardiovascular: regular rate, rhythm, no murmur Abdomen/GI: non tender, soft Extremities/Musculoskelatal: no pedal edema 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, alert, oriented x 3 Skin: normal color, no rash Laboratory Results Last 24 Hours Test 05/16/17 17:10 05/16/17 20:00 05/17/17 07:10 05/17/17 12:41 White Blood Count 7.50 K/uL 6.29 K/uL 5.63 K/uL Red Blood Count 4.07 M/uL 3.34 M/uL 3.08 M/uL Hemoglobin 12.1 g/dL 9.9 g/dL 9.1 g/dL Hematocrit 34.5 % 28.3 % 26.0 % Mean Corpuscular Volume 84.8 fL 84.7 fL 84.4 fL Mean Corpuscular Hemoglobin 29.7 pg 29.6 pg 29.5 pg Mean Corpuscular Hemoglobin Concent 35.1 g/dl 35.0 g/dl 35.0 g/dl Platelet Count 40 K/uL 32 K/uL 30 K/uL Mean Platelet Volume 10.4 fL fL Neutrophils (%) (Auto) 70.7 % 68.2 % Lymphocytes (%) (Auto) 15.2 % 14.5 % Monocytes (%) (Auto) 9.9 % 12.7 % Eosinophils (%) (Auto) 1.9 % 2.1 % Basophils (%) (Auto) 0.4 % 0.3 % Neutrophils # (Auto) 5.31 K/uL 4.29 K/uL Lymphocytes # (Auto) 1.14 K/uL 0.91 K/uL Monocytes # (Auto) 0.74 K/uL 0.80 K/uL Eosinophils # (Auto) 0.14 K/uL 0.13 K/uL Basophils # (Auto) 0.03 K/uL 0.02 K/uL RDW Standard Deviation 42.7 fL 43.8 fL 43.3 fL RDW Coefficient of Variation 13.8 % 14.0 % 14.2 % Immature Granulocyte % (Auto) 1.9 % 2.2 % Immature Granulocyte # (Auto) 0.14 K/uL 0.14 K/uL Platelet Estimate DECREASED SIGNIFIC DECREASED Absolute Reticulocyte Count 0.06 10^6/uL Percent Reticulocyte Count 1.3 % Immature Reticulocyte Fraction 5.1 % Reticulocyte Hemoglobin Content 31.8 PG Prothrombin Time 10.4 SECONDS Prothromb Time International Ratio 1.0 Activated Partial Thromboplast Time 31.0 SECONDS Partial Thromboplastin Ratio 1.2 Sodium Level 140 mmol/L 142 mmol/L 141 mmol/L Potassium Level 4.3 mmol/L 4.0 mmol/L 3.9 mmol/L Chloride Level 108 mmol/L 110 mmol/L 109 mmol/L Carbon Dioxide Level 24 mmol/L 21 mmol/L 22 mmol/L Anion Gap 8.0 mmol/L 11.0 mmol/L 10.0 mmol/L Blood Urea Nitrogen 80 mg/dl 91 mg/dl 90 mg/dl Creatinine 2.60 mg/dl 2.90 mg/dl 3.10 mg/dl Est Creatinine Clear Calc Drug Dose 26.1 ml/min 23.4 ml/min 21.9 ml/min Estimated GFR () 26.8 23.4 21.6 Estimated GFR (Non- 23.1 20.2 18.7 BUN/Creatinine Ratio 30.6 31.4 28.9 Random Glucose 95 mg/dl 88 mg/dl 97 mg/dl Calcium Level 8.5 mg/dl 7.8 mg/dl 7.9 mg/dl Total Bilirubin 2.7 mg/dl 1.8 mg/dl Direct Bilirubin 0.4 mg/dl 0.4 mg/dl Aspartate Amino Transf (AST/SGOT) 71 U/L 59 U/L Alanine Aminotransferase (ALT/SGPT) 20 U/L 16 U/L Alkaline Phosphatase 63 U/L 48 U/L Total Creatine Kinase 110 U/L Creatine Kinase MB 0.8 ng/ml Creatine Kinase MB Ratio 0.7 Troponin I < 0.015 ng/ml Total Protein 6.5 gm/dl 5.3 gm/dl Albumin 3.0 gm/dl 2.5 gm/dl Lipase 154 U/L Hepatitis B Surface Antigen NEG Hepatitis C Antibody NEG Urine Color DK YELLOW Urine Appearance TURBID Urine pH 5.0 Urine Specific [place] 1.027 Urine Protein 4+ Urine Glucose (UA) NEG Urine Ketones TRACE Urine Occult Blood 3+ Urine Nitrite POS Urine Bilirubin NEG Urine Urobilinogen NEG Urine Leukocyte Esterase TRACE Urine WBC (Auto) 10-30 /hpf Urine RBC (Auto) 10-30 /hpf Urine Hyaline Casts (Auto) 10-30 /lpf Urine Epithelial Cells (Auto) >30 /lpf Urine Bacteria (Auto) NEG Urine Renal Epithelial Cells /lpf Urine Pathogenic Casts 5-10 GRANULAR CASTS /lpf Urine Yeast (Auto) Spherocytes 1+ 1+ Helmet Cells 1+ 1+ Schistocytes 1+ 1+ Magnesium Level 2.2 mg/dl Lyme Disease IgG Antibody NEG Lyme Disease IgM Antibody NEG Neutrophils % (Manual) 83.0 % Lymphocytes % (Manual) 10.0 % Monocytes % (Manual) 5.0 % Eosinophils % (Manual) 2.0 % Neutrophils # (Manual) 4.67 K/uL Total Absolute Neutrophils 4.67 K/uL Lymphocytes # (Manual) 0.56 K/uL Total Absolute Lymphocytes 0.56 K/uL Monocytes # (Manual) 0.28 K/uL Eosinophils # (Manual) 0.11 K/uL Test 05/17/17 15:07 Assessment & Plan Mr. Tadeo's blood smear revealed 3-4 schistocytes/high-powered field and markedly reduced platelets with occasional giant platelets. His WBCs also revealed a modest left-shift with toxic granulation. 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 Given his classic presentation, I am less suspicious of atypical HUS, though if his workup for E. coli and shiga toxin is negative, this diagnosis needs to be entertained. His mentation is normal and he has been afebrile, making TTP less likely than HUS. However, TTP can present in atypical ways and remains in the differential. He has been ordered for a haptoglobin, LDH, [id number] activity, stool cultures, and shiga toxin assay. Dr. Ricks from Nephrology has also been consulted and I reviewed this case extensively with him. Treatment for HUS is primarily supportive. However, more severe cases do sometimes require urgent dialysis or even plasmapheresis. For now, he can likely be safely observed with frequent lab checks. If any of his laboratory or clinical parameters worsen, especially the development of fevers or altered mental status, he will need urgent transfer to [place] for consideration of plasma exchange.
--- NOTE | 2017-05-17 15:40 | Progress Note ---
Subjective Date of Service: May 17, 2017. Subjective Pt evaluation today including: conversation w/ patient, conversation w/ family (), physical exam, lab review, review of studies, conversation w/ business system consultant , review of inpatient medication list Pain: no pain PO Intake: tolerating clears Voiding: no voiding problems visited with patient and patient still feeling weak, moved his bowels this AM but mostly oral contrast as discussed in H&P, had some diarrhea earlier in the week, no bloody diarrhea poor appetite, no vomiting had the same illness but she recovered fully in 4 days he was not drinking much at all, sleeping most of the day yesterday his noticed yellow discoloration, though he needed to be seen in hospital reviewed lab work, Cr trending up despite IV fluids and Hb dropped from 12 to 9.9, platelets low, Bili at 2.7 discussed results with patient and planned to repeat labs repeat labs this afternoon show Cr worsening, Hb dropped to 9.1, schistocytes seen on smear consulted nephrology and oncology, d/w Dr. Ricks and Dr. Proctor most likely HUS, ate an undercooked hamburger at a restaurant in [facility] one week ago will follow labs closely, no need for transfer to tertiary care at this time Problem List Medical Problems: (1) Acute kidney injury Status: Acute (2) Colitis Status: Acute (3) Heart murmur Status: Acute (4) Indirect hyperbilirubinemia Status: Acute (5) UTI (urinary tract infection) Status: Acute Review of Systems Constitutional: + weakness, + fatigue Abdomen: + diarrhea (earlier in the week, no blood, since resolved), + problem reported (poor appetite) All Other Systems: Reviewed and Negative Medications Current Inpatient Medications Medications (Trade) Dose Ordered Sig/Aziza Route Start Time Stop Time Status Last Admin Dose Admin Amlodipine Besylate (Norvasc Tab) 10 mg DAILY PO 05/17/17 09:00 06/16/17 08:59 05/17/17 09:04 10 MG Fluticasone Propionate (Flonase Nasal [place]) 2 sprays QPM JAMILAH 05/17/17 21:00 06/16/17 20:59 Cyanocobalamin (Vitamin B-12 Tab) 1,000 mcg QAM PO 05/17/17 09:00 06/16/17 08:59 05/17/17 09:04 1,000 MCG Ondansetron HCl (Zofran Inj) 4 mg Q6H PRN IV 05/16/17 23:00 06/15/17 22:59 Piperacillin Sod/ Tazobactam Sod 3.375 gm/Dextrose 115 ml @ 28.75 mls/ hr Q8@0600,1400,2200 IV 05/17/17 06:00 05/27/17 05:59 05/17/17 14:01 28.75 MLS/HR Sodium Chloride 1,000 ml @ 100 mls/hr Q10H IV 05/16/17 23:15 06/15/17 23:14 05/17/17 09:04 100 MLS/HR Vancomycin HCl (Consult) 1 ea UD PRN N/A 05/16/17 23:45 06/15/17 23:44 Piperacillin Sod/ Tazobactam Sod (Consult) 1 ea UD PRN N/A 05/16/17 23:45 06/15/17 23:44 Miscellaneous Information (Order Awaiting Action) 1 ea QS N/A 05/17/17 08:00 06/16/17 07:59 Objective Vital Signs Date Time Temp Pulse Resp B/P (MAP) Pulse Ox O2 Delivery O2 Flow Rate FiO2 05/17/17 08:15 Room Air 05/17/17 07:09 36.5 60 16 110/61 (77) 96 Room Air 05/16/17 23:32 Room Air 05/16/17 23:32 36.7 64 18 133/71 05/16/17 22:13 66 05/16/17 21:47 70 18 135/68 93 Room Air 05/16/17 19:53 147/77 05/16/17 19:39 147/77 05/16/17 18:47 69 20 05/16/17 18:37 74 19 05/16/17 18:27 70 17 05/16/17 18:17 69 19 05/16/17 18:07 69 19 05/16/17 17:57 68 19 05/16/17 17:54 153/75 05/16/17 17:53 73 18 153/75 96 Room Air 05/16/17 17:47 66 18 05/16/17 17:37 66 16 05/16/17 17:30 67 05/16/17 16:12 36.3 78 18 148/74 96 Room Air Physical Exam General Appearance: WD/WN, no apparent distress Eyes: normal inspection, EOMI, sclerae normal ENT: normal ENT inspection, hearing grossly normal, pharynx normal Neck: supple, no adenopathy, no JVD, trachea midline Respiratory/Chest: chest non-tender, lungs clear, normal breath sounds, no respiratory distress, no accessory muscle use Cardiovascular: regular rate, rhythm, no edema, no gallop, no JVD, no murmur Abdomen: normal bowel sounds, non tender, soft, no organomegaly Extremities: normal range of motion, non-tender, normal inspection, no pedal edema, no calf tenderness 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, no motor/sensory deficits, alert, normal mood/affect, oriented x 3 Skin: warm/dry, no rash, + jaundice (mild) Lymphatic: no adenopathy Laboratory Results Last 24 Hours Test 05/16/17 17:10 05/16/17 20:00 05/17/17 07:10 05/17/17 12:41 White Blood Count 7.50 K/uL 6.29 K/uL 5.63 K/uL Red Blood Count 4.07 M/uL 3.34 M/uL 3.08 M/uL Hemoglobin 12.1 g/dL 9.9 g/dL 9.1 g/dL Hematocrit 34.5 % 28.3 % 26.0 % Mean Corpuscular Volume 84.8 fL 84.7 fL 84.4 fL Mean Corpuscular Hemoglobin 29.7 pg 29.6 pg 29.5 pg Mean Corpuscular Hemoglobin Concent 35.1 g/dl 35.0 g/dl 35.0 g/dl Platelet Count 40 K/uL 32 K/uL 30 K/uL Mean Platelet Volume 10.4 fL fL Neutrophils (%) (Auto) 70.7 % 68.2 % Lymphocytes (%) (Auto) 15.2 % 14.5 % Monocytes (%) (Auto) 9.9 % 12.7 % Eosinophils (%) (Auto) 1.9 % 2.1 % Basophils (%) (Auto) 0.4 % 0.3 % Neutrophils # (Auto) 5.31 K/uL 4.29 K/uL Lymphocytes # (Auto) 1.14 K/uL 0.91 K/uL Monocytes # (Auto) 0.74 K/uL 0.80 K/uL Eosinophils # (Auto) 0.14 K/uL 0.13 K/uL Basophils # (Auto) 0.03 K/uL 0.02 K/uL RDW Standard Deviation 42.7 fL 43.8 fL 43.3 fL RDW Coefficient of Variation 13.8 % 14.0 % 14.2 % Immature Granulocyte % (Auto) 1.9 % 2.2 % Immature Granulocyte # (Auto) 0.14 K/uL 0.14 K/uL Platelet Estimate DECREASED SIGNIFIC DECREASED Absolute Reticulocyte Count 0.06 10^6/uL Percent Reticulocyte Count 1.3 % Immature Reticulocyte Fraction 5.1 % Reticulocyte Hemoglobin Content 31.8 PG Prothrombin Time 10.4 SECONDS Prothromb Time International Ratio 1.0 Activated Partial Thromboplast Time 31.0 SECONDS Partial Thromboplastin Ratio 1.2 Sodium Level 140 mmol/L 142 mmol/L 141 mmol/L Potassium Level 4.3 mmol/L 4.0 mmol/L 3.9 mmol/L Chloride Level 108 mmol/L 110 mmol/L 109 mmol/L Carbon Dioxide Level 24 mmol/L 21 mmol/L 22 mmol/L Anion Gap 8.0 mmol/L 11.0 mmol/L 10.0 mmol/L Blood Urea Nitrogen 80 mg/dl 91 mg/dl 90 mg/dl Creatinine 2.60 mg/dl 2.90 mg/dl 3.10 mg/dl Est Creatinine Clear Calc Drug Dose 26.1 ml/min 23.4 ml/min 21.9 ml/min Estimated GFR () 26.8 23.4 21.6 Estimated GFR (Non- 23.1 20.2 18.7 BUN/Creatinine Ratio 30.6 31.4 28.9 Random Glucose 95 mg/dl 88 mg/dl 97 mg/dl Calcium Level 8.5 mg/dl 7.8 mg/dl 7.9 mg/dl Total Bilirubin 2.7 mg/dl 1.8 mg/dl Direct Bilirubin 0.4 mg/dl 0.4 mg/dl Aspartate Amino Transf (AST/SGOT) 71 U/L 59 U/L Alanine Aminotransferase (ALT/SGPT) 20 U/L 16 U/L Alkaline Phosphatase 63 U/L 48 U/L Total Creatine Kinase 110 U/L Creatine Kinase MB 0.8 ng/ml Creatine Kinase MB Ratio 0.7 Troponin I < 0.015 ng/ml Total Protein 6.5 gm/dl 5.3 gm/dl Albumin 3.0 gm/dl 2.5 gm/dl Lipase 154 U/L Hepatitis B Surface Antigen NEG Hepatitis C Antibody NEG Urine Color DK YELLOW Urine Appearance TURBID Urine pH 5.0 Urine Specific [place] 1.027 Urine Protein 4+ Urine Glucose (UA) NEG Urine Ketones TRACE Urine Occult Blood 3+ Urine Nitrite POS Urine Bilirubin NEG Urine Urobilinogen NEG Urine Leukocyte Esterase TRACE Urine WBC (Auto) 10-30 /hpf Urine RBC (Auto) 10-30 /hpf Urine Hyaline Casts (Auto) 10-30 /lpf Urine Epithelial Cells (Auto) >30 /lpf Urine Bacteria (Auto) NEG Urine Renal Epithelial Cells /lpf Urine Pathogenic Casts 5-10 GRANULAR CASTS /lpf Urine Yeast (Auto) Spherocytes 1+ 1+ Helmet Cells 1+ 1+ Schistocytes 1+ 1+ Magnesium Level 2.2 mg/dl Lyme Disease IgG Antibody NEG Lyme Disease IgM Antibody NEG Neutrophils % (Manual) 83.0 % Lymphocytes % (Manual) 10.0 % Monocytes % (Manual) 5.0 % Eosinophils % (Manual) 2.0 % Neutrophils # (Manual) 4.67 K/uL Total Absolute Neutrophils 4.67 K/uL Lymphocytes # (Manual) 0.56 K/uL Total Absolute Lymphocytes 0.56 K/uL Monocytes # (Manual) 0.28 K/uL Eosinophils # (Manual) 0.11 K/uL Test 05/17/17 15:07 Assessment and Plan 76 yo male presenting with weakness, abdominal pain, diarrhea, poor appetite and jaundice, found to have DARLINE with Cr of 2.3, thrombocytopenia, bili of 2.[address] abdomen/pelvis showed colitis and some ascites. One week earlier he and his ate at a restaurant in [place], they both had hamburger that may have been undercooked, both developed diarrhea, recovered after 4 days but patient continued to get weaker. - HUS: DARLINE, thrombocytopenia, hemolytic anemia and recent diarrheal illness follow BMP and CBC closely, Cr up to 3.1, follow urine output send for stool culture, E coli testing in stool although he has not had diarrhea for a few days continue Zosyn for now, d/c Vancomycin discussed with Dr. Proctor and Dr. Ricks, close monitoring for next 12 hours , decide tomorrow morning about need for transfer - Colitis: likely infection from undercooked hamburger continue Zosyn IV for gram negative and anaerobic coverage no further diarrhea obtain stool sample if he can provide one - DARLINE: component of HUS, Cr getting worse despite aggressive IV fluids patient was clinically dehydrated on admission plus he was taking ARB and NSAIDs daily, both these held nephrology consulted for further recommendations - HTN: Norvasc given this AM, BP in the 110's currently, will hold Norvasc tomorrow given HUS and dehydration - Hyperbilirubinemia: likely due to hemolysis, check liver US trending down, potentially good sign consumes alcohol daily, but both he and state only 2-3 drinks, not excessive, no alcohol all week with his illness DVT proph: contraindicated with platelets low Plan: follow labs closely, reassess tomorrow AM and discuss with nephrology and hematology, will he need transferred to tertiary care for plasmapheresis?
[2017-05-17] MEDS ORDERED: NURSING VERBAL MED ORDER ONE (16:00)
[2017-05-17] MEDS ORDERED: CLOBETASOL PROPIONATE 0.05% OINT 15 GM TUBE EXT PRN (16:15)
--- NOTE | 2017-05-17 16:26 | Nephrology Consultation ---
Nephrology Consultation Date & Providers Date of Consultation: May 17, 2017. Primary Care Provider: No Doctor, Assigned Referring Provider: Reason for Consultation DARLINE, TMA History of Present Illness Mr. Emmett Tadeo is a 76-year-old male who presented to [facility] yesterday with generalized malaise, abdominal discomfort and several days of diarrhea. Symptoms started after eating at a fast food restaurant while returning from vacation in [place]. His had similar symptoms. He has not been febrile. He does not endorse any mental status changes. He denies any blood in his stool. There are no new medications. He had noticed a change in urine output. He attributed decreased urine output to dehydration and to the fact that Flomax was recently stopped prior to cataract replacement. Cataract surgery was performed on the without complications. Initial laboratory studies notable for anemia and thrombocytopenia as well as acute renal insufficiency. An indirect hyperbilirubinemia is also appreciated. LFTs are normal. Urine analysis is notable for WBCs, RBCs as well as granular casts and hyaline cast. Schistocytes are noted on peripheral smear. Abdominal CT scan was personally reviewed noting signs of colitis. Kidneys are normal in appearance without signs of infection. Antibiotic therapy with Zosyn and vancomycin started on admission. Mr. Tadeo uses meloxicam daily for arthritis pain in his right shoulder. He has a history of hypertension which was well controlled with Losartan and amlodipine. The last dose of Losartan was yesterday at 4 PM. I discussed the plan of care with Dr. Proctor and Dr. Becerra in detail. Past Medical/Surgical History Medical: Hypertension Osteoarthritis BPH GERD Chronic back pain Daily ETOH use Surgical: Cataract surgery Allergies Coded Allergies: No Known Allergies (Verified , 05/12/17) Inpatient Medications Current Inpatient Medications Medications (Trade) Dose Ordered Sig/Aziza Route Start Time Stop Time Status Last Admin Dose Admin Amlodipine Besylate (Norvasc Tab) 10 mg DAILY PO 05/17/17 09:00 06/16/17 08:59 Future Hold 05/17/17 09:04 10 MG Fluticasone Propionate (Flonase Nasal [place]) 2 sprays QPM JAMILAH 05/17/17 21:00 06/16/17 20:59 Cyanocobalamin (Vitamin B-12 Tab) 1,000 mcg QAM PO 05/17/17 09:00 06/16/17 08:59 05/17/17 09:04 1,000 MCG Ondansetron HCl (Zofran Inj) 4 mg Q6H PRN IV 05/16/17 23:00 06/15/17 22:59 Piperacillin Sod/ Tazobactam Sod 3.375 gm/Dextrose 115 ml @ 28.75 mls/ hr Q8@0600,1400,2200 IV 05/17/17 06:00 05/27/17 05:59 05/17/17 14:01 28.75 MLS/HR Sodium Chloride 1,000 ml @ 100 mls/hr Q10H IV 05/16/17 23:15 06/15/17 23:14 05/17/17 09:04 100 MLS/HR Vancomycin HCl (Consult) 1 ea UD PRN N/A 05/16/17 23:45 06/15/17 23:44 Piperacillin Sod/ Tazobactam Sod (Consult) 1 ea UD PRN N/A 05/16/17 23:45 06/15/17 23:44 Miscellaneous Information (Order Awaiting Action) 1 ea QS N/A 05/17/17 08:00 06/16/17 07:59 Family History Father of leukemia Social History Smoking Status: Never Smoker Smokeless Tobacco Use: No Alcohol Use: none Drug Use: none Marital Status: in relationship Housing Status: lives with family Occupation: employed Review of Systems A complete review of systems was performed. Pertinent positives are noted above. All other systems are negative. Physical Exam Date Time Temp Pulse Resp B/P (MAP) Pulse Ox O2 Delivery O2 Flow Rate FiO2 05/17/17 15:31 36.7 68 16 138/72 (94) 97 Room Air 05/17/17 08:15 Room Air 05/17/17 07:09 36.5 60 16 110/61 (77) 96 Room Air 05/16/17 23:32 Room Air 05/16/17 23:32 36.7 64 18 133/71 05/16/17 22:13 66 05/16/17 21:47 70 18 135/68 93 Room Air 05/16/17 19:53 147/77 05/16/17 19:39 147/77 05/16/17 18:47 69 20 05/16/17 18:37 74 19 05/16/17 18:27 70 17 05/16/17 18:17 69 19 05/16/17 18:07 69 19 05/16/17 17:57 68 19 05/16/17 17:54 153/75 05/16/17 17:53 73 18 153/75 96 Room Air 05/16/17 17:47 66 18 05/16/17 17:37 66 16 05/16/17 17:30 67 05/16/17 16:12 36.3 78 18 148/74 96 Room Air General Appearance: WD/WN, no apparent distress Head: normocephalic, atraumatic Eyes: normal inspection, sclerae normal ENT: normal ENT inspection, pharynx normal Neck: supple, no JVD Respiratory/Chest: lungs clear, no respiratory distress, no accessory muscle use Cardiovascular: regular rate, rhythm, no gallop, no murmur Abdomen/GI: soft, + tenderness (mild right lower quadrant), + pertinent finding (hyperactive bowel sounds) Back: normal inspection, no CVA tenderness Extremities/Musculoskelatal: normal inspection, no pedal edema Neurologic/Psych: alert, normal mood/affect Skin: no rash Laboratory Results Last 24 Hours Test 05/16/17 17:10 05/16/17 20:00 05/17/17 07:10 05/17/17 12:41 White Blood Count 7.50 K/uL 6.29 K/uL 5.63 K/uL Red Blood Count 4.07 M/uL 3.34 M/uL 3.08 M/uL Hemoglobin 12.1 g/dL 9.9 g/dL 9.1 g/dL Hematocrit 34.5 % 28.3 % 26.0 % Mean Corpuscular Volume 84.8 fL 84.7 fL 84.4 fL Mean Corpuscular Hemoglobin 29.7 pg 29.6 pg 29.5 pg Mean Corpuscular Hemoglobin Concent 35.1 g/dl 35.0 g/dl 35.0 g/dl Platelet Count 40 K/uL 32 K/uL 30 K/uL Mean Platelet Volume 10.4 fL fL Neutrophils (%) (Auto) 70.7 % 68.2 % Lymphocytes (%) (Auto) 15.2 % 14.5 % Monocytes (%) (Auto) 9.9 % 12.7 % Eosinophils (%) (Auto) 1.9 % 2.1 % Basophils (%) (Auto) 0.4 % 0.3 % Neutrophils # (Auto) 5.31 K/uL 4.29 K/uL Lymphocytes # (Auto) 1.14 K/uL 0.91 K/uL Monocytes # (Auto) 0.74 K/uL 0.80 K/uL Eosinophils # (Auto) 0.14 K/uL 0.13 K/uL Basophils # (Auto) 0.03 K/uL 0.02 K/uL RDW Standard Deviation 42.7 fL 43.8 fL 43.3 fL RDW Coefficient of Variation 13.8 % 14.0 % 14.2 % Immature Granulocyte % (Auto) 1.9 % 2.2 % Immature Granulocyte # (Auto) 0.14 K/uL 0.14 K/uL Platelet Estimate DECREASED SIGNIFIC DECREASED Absolute Reticulocyte Count 0.06 10^6/uL Percent Reticulocyte Count 1.3 % Immature Reticulocyte Fraction 5.1 % Reticulocyte Hemoglobin Content 31.8 PG Prothrombin Time 10.4 SECONDS Prothromb Time International Ratio 1.0 Activated Partial Thromboplast Time 31.0 SECONDS Partial Thromboplastin Ratio 1.2 Sodium Level 140 mmol/L 142 mmol/L 141 mmol/L Potassium Level 4.3 mmol/L 4.0 mmol/L 3.9 mmol/L Chloride Level 108 mmol/L 110 mmol/L 109 mmol/L Carbon Dioxide Level 24 mmol/L 21 mmol/L 22 mmol/L Anion Gap 8.0 mmol/L 11.0 mmol/L 10.0 mmol/L Blood Urea Nitrogen 80 mg/dl 91 mg/dl 90 mg/dl Creatinine 2.60 mg/dl 2.90 mg/dl 3.10 mg/dl Est Creatinine Clear Calc Drug Dose 26.1 ml/min 23.4 ml/min 21.9 ml/min Estimated GFR () 26.8 23.4 21.6 Estimated GFR (Non- 23.1 20.2 18.7 BUN/Creatinine Ratio 30.6 31.4 28.9 Random Glucose 95 mg/dl 88 mg/dl 97 mg/dl Calcium Level 8.5 mg/dl 7.8 mg/dl 7.9 mg/dl Total Bilirubin 2.7 mg/dl 1.8 mg/dl Direct Bilirubin 0.4 mg/dl 0.4 mg/dl Aspartate Amino Transf (AST/SGOT) 71 U/L 59 U/L Alanine Aminotransferase (ALT/SGPT) 20 U/L 16 U/L Alkaline Phosphatase 63 U/L 48 U/L Total Creatine Kinase 110 U/L Creatine Kinase MB 0.8 ng/ml Creatine Kinase MB Ratio 0.7 Troponin I < 0.015 ng/ml Total Protein 6.5 gm/dl 5.3 gm/dl Albumin 3.0 gm/dl 2.5 gm/dl Lipase 154 U/L Hepatitis B Surface Antigen NEG Hepatitis C Antibody NEG Urine Color DK YELLOW Urine Appearance TURBID Urine pH 5.0 Urine Specific [place] 1.027 Urine Protein 4+ Urine Glucose (UA) NEG Urine Ketones TRACE Urine Occult Blood 3+ Urine Nitrite POS Urine Bilirubin NEG Urine Urobilinogen NEG Urine Leukocyte Esterase TRACE Urine WBC (Auto) 10-30 /hpf Urine RBC (Auto) 10-30 /hpf Urine Hyaline Casts (Auto) 10-30 /lpf Urine Epithelial Cells (Auto) >30 /lpf Urine Bacteria (Auto) NEG Urine Renal Epithelial Cells /lpf Urine Pathogenic Casts 5-10 GRANULAR CASTS /lpf Urine Yeast (Auto) Spherocytes 1+ 1+ Helmet Cells 1+ 1+ Schistocytes 1+ 1+ Magnesium Level 2.2 mg/dl Lyme Disease IgG Antibody NEG Lyme Disease IgM Antibody NEG Neutrophils % (Manual) 83.0 % Lymphocytes % (Manual) 10.0 % Monocytes % (Manual) 5.0 % Eosinophils % (Manual) 2.0 % Neutrophils # (Manual) 4.67 K/uL Total Absolute Neutrophils 4.67 K/uL Lymphocytes # (Manual) 0.56 K/uL Total Absolute Lymphocytes 0.56 K/uL Monocytes # (Manual) 0.28 K/uL Eosinophils # (Manual) 0.11 K/uL Test 05/17/17 15:07 Fibrinogen 427 mg/dl Fibrin Degradation Products >40 mcg/ml Impression (1) Thrombotic microangiopathy (2) Anemia (3) Hypertension (4) Acute kidney injury Mr. Tadeo is a 76-year-old male with hypertension, BPH and osteoarthritis who presented with malaise, abdominal pain and diarrhea. Symptoms started after eating at a fast food restaurant. Baseline creatinine is 1.1 mg/dL. The patient presented with acute renal insufficiency and thrombotic microangiopathy. 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 He has not had fevers or mental status changes. DARLINE is also likely multifactorial with evidence of prerenal azotemia and superimposed ATN. UA notable for 10-30 WBC, 10-30 RBC as well as hyaline and granular cast. Urine output has not been accurately documented. CT of the abdomen does not show evidence of obstruction. Urgent PLEX is not indicated but close clinical follow up is required. At this time, kidney biopsy is unlikely to change management specialist. I discussed the plan of care with Dr. Becerra and Dr. Proctor in detail. PLEX should not be performed for at least 24 hours after taking ARB. No signs of infection appreciated otherwise. Blood pressure is appropriate. Meloxicam and losartan have been held. Recommendations -- Supportive care, continue NS @ 125 ml/hr -- No clear benefit to antibiotic therapy and potential risk noted: consider stopping vanco and Zosyn -- Stool culture for E coli sent -- Check [id number] activity level -- Fibrinogen and FDP's pending -- Monitor CBC, hemolysis labs and metabolic profile at least 12 hours -- Document I/O's -- Hold losartan and avoid NSAIDs -- Medications are otherwise currently appropriately dosed for renal function
--- NOTE | 2017-05-17 20:20 | DIAGNOSTIC IMAGING REPORT ---
ABDOMEN COMPLETE (US) HISTORY: Nausea. Abnormal liver function tests. Elevated bili and AST. COMPARISON: None. FINDINGS: Pancreas: The pancreas demonstrates a normal echotexture. Liver: Fatty infiltration. Small left hepatic lobe cyst measuring 1.4 cm. Gallbladder: No gallbladder wall thickening. No gallstones. CBD: 3 mm Kidneys: No hydronephrosis. Spleen: Normal in size. Aorta: Normal in caliber. IVC: Patent. IMPRESSION: Small hepatic cysts. Fatty infiltration of liver. Otherwise negative study. The above report was generated using voice recognition software. It may contain grammatical, syntax or spelling errors. Electronically signed by: Graham Elliott M.D. 05/17/2017 8:18 PM Dictated Date/Time: 05/17/2017 8:17 PM
[2017-05-17 20:54] LABS: MEAN CORPUSCULAR HGB CONC 35.6 g/dl (32-36)
[2017-05-17] MEDS: FLUTICASONE PROPIONATE NA SPR 16 GM BTL NAE SCH (21:00)
[2017-05-17 21:03] LABS: MEAN CELL VOLUME 84.2 fL (80-100); RED BLOOD COUNT 2.97 M/uL (4.7-6.1); WHITE BLOOD COUNT 5.98 K/uL (4.8-10.8)
[2017-05-17 21:25] LABS: COMPLETE YES; HELMET CELLS 1+; LYMPHOCYTE % 21.7 %; META ABS # 0.05 K/uL (0-0); METAMYELOCYTE % 0.9 %; MYELOCYTE % 0.9 %; NEUTROPHILS % 73.9 %; PLATELET COUNT 28 K/uL (130-400); PLT ESTIMATE DECREASED; SCHISTOCYTES 1+; SPHEROCYTE 1+
[2017-05-17 22:08] LABS: CALCIUM 7.9 mg/dl (8.5-10.1); CREATININE 3.4 mg/dl (0.60-1.40)
[2017-05-18] VITALS: BP 116/65; PULSE 68; TEMP 36.7; O2SAT 94
[2017-05-18] MEDS: SODIUM CHLORIDE 0.9% 1000ML 1,000 ML IV SCH ×3 (05:18→23:31)
[2017-05-18 07:17] VITALS: BP 139/70; PULSE 73; TEMP 36.8; O2SAT 93
[2017-05-18] MEDS: ONDANSETRON INJ 2 MG/ML 2 ML VIAL IV PRN ×4 (07:47→22:21)
[2017-05-18 07:53] LABS: HEMATOCRIT 24.1 % (42-52); MEAN CELL VOLUME 83.7 fL (80-100); MEAN CORPUSCULAR HEMOGLOBIN 29.2 pg (25-34); MEAN CORPUSCULAR HGB CONC 34.9 g/dl (32-36); PLATELET COUNT 45 K/uL (130-400); RED BLOOD COUNT 2.88 M/uL (4.7-6.1); WHITE BLOOD COUNT 5.83 K/uL (4.8-10.8)
[2017-05-18 07:54] LABS: BUN/CREATININE RATIO 26.2 (10-20); CALCIUM 7.9 mg/dl (8.5-10.1); CREATININE 3.6 mg/dl (0.60-1.40); MAGNESIUM 2.1 mg/dl (1.8-2.4); POTASSIUM 3.9 mmol/L (3.5-5.1)
[2017-05-18 08:00] VITALS: O2SAT 93
[2017-05-18 08:00] LABS: COMPLETE YES; EOSINOPHIL % 1.7 %; GIANT PLATELETS 2+; LYMPH ABS # 1.22 K/uL (1.2-3.4); LYMPHOCYTE % 20.9 %; META ABS # 0.05 K/uL (0-0); METAMYELOCYTE % 0.9 %; MYELOCYTE % 0.9 %; NEUTROPHILS % 72.1 %; PLT ESTIMATE DECREASED
[2017-05-18] MEDS: CYANOCOBALAMIN 500 MCG TAB (VIT B-12) PO SCH (08:36)
--- NOTE | 2017-05-18 08:48 | Hematology/Oncology Prog Note ---
Hematology/Onc Progress Note Date of Service May 18, 2017. Diagnoses Thrombotic thrombocytopenic purpura. Acute renal injury. Subjective 76-year-old gentleman admitted now on hospital day #2 with diarrhea and low- grade fever. Consumed hamburger which was believed to be spoiled. Resulting in profound cytopenias in particular anemia and thrombocytopenia. Clinically doing better however still reports diarrhea and mild nausea this morning. Shiga toxin pending. Platelets are improved. Fever has abated. Review of Systems: Gen. without fever or chills Skin no rash or lesions HEENT denies headaches lightheadedness or dizziness Cardiac negative for angina Pulmonary negative for shortness of breath Gastrointestinal positive for nausea and diarrhea. Vital Signs Vital Signs Past 12 Hours Date Time Temp Pulse Resp B/P (MAP) Pulse Ox O2 Delivery O2 Flow Rate FiO2 05/18/17 07:17 36.8 73 16 139/70 (93) 93 Room Air 05/18/17 00:00 Room Air 05/18/17 00:00 36.7 68 16 116/65 (82) 94 Room Air Physical Exam Head: normocephalic, atraumatic ENMT: normal ENT inspection Neck: supple Lungs: Respiratory Effort: good air movement Auscuitation: breath sounds normal Cardiovascular: Apical Impulse: not displaced Heart Auscultation: RRR Abdomen: Bowel Sounds: normal Inspection & Palpation: soft, non-distended, no tenderness, guarding & rebound Extremities: no cyanosis, no edema, no mottling Assessment & Plan 1. TTP 2. Acute renal injury. Clinically, Mr. Tadeo seems to be improving. I am encouraged by the fact his platelets have risen considerably. He remains anemic. Unfortunately, renal function continues to worsen. Nephrology on board. Continue supportive care and observe another 24 hours. I do not believe he requires plasmapheresis. Await Shiga toxin results. Please order CBC reticulocytes, LDH, serum chemistries including LFTs for tomorrow.
--- NOTE | 2017-05-18 10:28 | Nephrology Progress Note ---
Nephrology Progress Note Date of Service May 18, 2017. Chief Complaint DARLINE, TMA Subjective Mr. Tadeo was seen & examined in his hospital room this morning. His was present at the time of my evaluation. Mr. Tadeo complains of persistent diarrhea and melena. He notes that his abdominal discomfort and appetite have improved. He reports that he is increasing is free water intake and his urine output is gradually improving as well. He denies fever or flank pain. Review of Systems Constitutional: No fever Cardiovascular: No chest pain Respiratory: No dyspnea at rest Abdomen: No pain, No nausea Extremities: No leg edema A complete review of systems was performed. Pertinent positives are noted above. All other systems are negative. Vital Signs Last 8 Hrs Date Time Temp Pulse Resp B/P (MAP) Pulse Ox O2 Delivery O2 Flow Rate FiO2 05/18/17 08:00 93 Room Air 05/18/17 07:17 36.8 73 16 139/70 (93) 93 Room Air Last Recorded Weight Weight (Kilograms): 84.800 Physical Exam General Appearance: no apparent distress Head: normocephalic, atraumatic Eyes: PERRL, EOMI Neck: no adenopathy Respiratory/Chest: lungs clear Cardiovascular: regular rate, rhythm Abdomen/GI: normal bowel sounds, non tender, soft Extremities/Musculoskelatal: no calf tenderness, no pedal edema Neurologic/Psych: alert, oriented x 3 Family History Father of leukemia Social History Smoking Status: Unknown if ever smoked Smokeless Tobacco Use: No Alcohol Use: none Drug Use: none Marital Status: in relationship Housing Status: lives with family Occupation: employed Laboratory Results Past 24 Hours 05/17/17 12:41 Red Blood Count 3.08, Mean Corpuscular Volume 84.4, Mean Corpuscular Hemoglobin 29.5, Mean Corpuscular Hemoglobin Concent 35.0 05/17/17 20:43 Red Blood Count 2.97, Mean Corpuscular Volume 84.2, Mean Corpuscular Hemoglobin 30.0, Mean Corpuscular Hemoglobin Concent 35.6 05/18/17 07:04 Red Blood Count 2.88, Mean Corpuscular Volume 83.7, Mean Corpuscular Hemoglobin 29.2, Mean Corpuscular Hemoglobin Concent 34.9, Mean Platelet Volume 12.0 05/17/17 12:41 05/17/17 20:43 05/18/17 07:04 Test 05/17/17 12:41 05/17/17 15:07 05/17/17 20:43 05/18/17 07:04 White Blood Count 5.63 K/uL (4.8-10.8) 5.98 K/uL (4.8-10.8) 5.83 K/uL (4.8-10.8) Red Blood Count 3.08 M/uL (4.7-6.1) 2.97 M/uL (4.7-6.1) 2.88 M/uL (4.7-6.1) Hemoglobin 9.1 g/dL (14.0-18.0) 8.9 g/dL (14.0-18.0) 8.4 g/dL (14.0-18.0) Hematocrit 26.0 % (42-52) 25.0 % (42-52) 24.1 % (42-52) Mean Corpuscular Volume 84.4 fL (80-100) 84.2 fL (80-100) 83.7 fL (80-100) Mean Corpuscular Hemoglobin 29.5 pg (25-34) 30.0 pg (25-34) 29.2 pg (25-34) Mean Corpuscular Hemoglobin Concent 35.0 g/dl (32-36) 35.6 g/dl (32-36) 34.9 g/dl (32-36) Platelet Count 30 K/uL (130-400) 28 K/uL (130-400) 45 K/uL (130-400) RDW Standard Deviation 43.3 fL (36.4-46.3) 43.8 fL (36.4-46.3) 42.9 fL (36.4-46.3) RDW Coefficient of Variation 14.2 % (11.5-14.5) 14.2 % (11.5-14.5) 14.1 % (11.5-14.5) Neutrophils % (Manual) 83.0 % 73.9 % 72.1 % Lymphocytes % (Manual) 10.0 % 21.7 % 20.9 % Monocytes % (Manual) 5.0 % 2.6 % 3.5 % Eosinophils % (Manual) 2.0 % 1.7 % Neutrophils # (Manual) 4.67 K/uL (1.4-6.5) 4.42 K/uL (1.4-6.5) 4.20 K/uL (1.4-6.5) Total Absolute Neutrophils 4.67 K/uL (1.4-6.5) 4.42 K/uL (1.4-6.5) 4.20 K/uL (1.4-6.5) Lymphocytes # (Manual) 0.56 K/uL (1.2-3.4) 1.30 K/uL (1.2-3.4) 1.22 K/uL (1.2-3.4) Total Absolute Lymphocytes 0.56 K/uL (1.2-3.4) 1.30 K/uL (1.2-3.4) 1.22 K/uL (1.2-3.4) Monocytes # (Manual) 0.28 K/uL (0.11-0.59) 0.16 K/uL (0.11-0.59) 0.20 K/uL (0.11-0.59) Eosinophils # (Manual) 0.11 K/uL (0-0.5) 0.10 K/uL (0-0.5) Platelet Estimate SIGNIFIC DECREASED DECREASED DECREASED Spherocytes 1+ 1+ Helmet Cells 1+ 1+ Schistocytes 1+ 1+ Anion Gap 10.0 mmol/L (3-11) 9.0 mmol/L (3-11) 10.0 mmol/L (3-11) Est Creatinine Clear Calc Drug Dose 21.9 ml/min 20.0 ml/min 18.9 ml/min Estimated GFR () 21.6 19.3 18.1 Estimated GFR (Non- 18.7 16.7 15.6 BUN/Creatinine Ratio 28.9 (10-20) 28.0 (10-20) 26.2 (10-20) Calcium Level 7.9 mg/dl (8.5-10.1) 7.9 mg/dl (8.5-10.1) 7.9 mg/dl (8.5-10.1) Total Bilirubin 1.8 mg/dl (0.2-1) 1.8 mg/dl (0.2-1) Direct Bilirubin 0.4 mg/dl (0-0.2) 0.4 mg/dl (0-0.2) Aspartate Amino Transf (AST/SGOT) 59 U/L (15-37) 57 U/L (15-37) Alanine Aminotransferase (ALT/SGPT) 16 U/L (12-78) 17 U/L (12-78) Alkaline Phosphatase 48 U/L (45-117) 47 U/L (45-117) Total Protein 5.3 gm/dl (6.4-8.2) 5.3 gm/dl (6.4-8.2) Albumin 2.5 gm/dl (3.4-5.0) 2.5 gm/dl (3.4-5.0) Fibrinogen 427 mg/dl (184-400) Fibrin Degradation Products >40 mcg/ml (<10) Lactate Dehydrogenase 2093 U/L (87-241) Metamyelocytes % 0.9 % 0.9 % Myelocytes % 0.9 % 0.9 % Metamyelocytes # 0.05 K/uL (0-0) 0.05 K/uL (0-0) Myelocytes # 0.05 K/uL (0-0) 0.05 K/uL (0-0) Mean Platelet Volume 12.0 fL (7.4-10.4) Giant Platelets 2+ Magnesium Level 2.1 mg/dl (1.8-2.4) Random Vancomycin Level 14.9 mcg/ml Allergies Coded Allergies: No Known Allergies (Verified , 05/12/17) Medications Current Inpatient Medications Medications (Trade) Dose Ordered Sig/Aziza Route Start Time Stop Time Status Last Admin Dose Admin Amlodipine Besylate (Norvasc Tab) 10 mg DAILY PO 05/17/17 09:00 06/16/17 08:59 Future Hold 05/17/17 09:04 10 MG Fluticasone Propionate (Flonase Nasal [place]) 2 sprays QPM JAMILAH 05/17/17 21:00 06/16/17 20:59 Cyanocobalamin (Vitamin B-12 Tab) 1,000 mcg QAM PO 05/17/17 09:00 06/16/17 08:59 05/18/17 08:36 1,000 MCG Ondansetron HCl (Zofran Inj) 4 mg Q6H PRN IV 05/16/17 23:00 06/15/17 22:59 05/18/17 08:34 4 MG Sodium Chloride 1,000 ml @ 100 mls/hr Q10H IV 05/16/17 23:15 06/15/17 23:14 05/18/17 05:18 100 MLS/HR Vancomycin HCl (Consult) 1 ea UD PRN N/A 05/16/17 23:45 06/15/17 23:44 Clobetasol Propionate (Clobetasol Propionate Oint) 1 appln BID PRN EXT 05/17/17 16:15 06/16/17 16:14 Impression (1) Thrombotic microangiopathy (2) Anemia (3) Hypertension (4) Acute kidney injury Mr. Tadeo is a 76-year-old male with hypertension, BPH and osteoarthritis who presented with malaise, abdominal pain and diarrhea. Symptoms started after eating at a fast food restaurant. Baseline creatinine is 1.1 mg/dL. The patient presented with acute renal insufficiency and thrombotic microangiopathy. 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 He has not had fevers or mental status changes. DARLINE is also likely multifactorial with evidence of prerenal azotemia and superimposed ATN. UA notable for 10-30 WBC, 10-30 RBC as well as hyaline and granular cast. Urine output has not been accurately documented. CT of the abdomen does not show evidence of obstruction. Urgent PLEX is not indicated but close clinical follow up is required. At this time, kidney biopsy is unlikely to change management consultant. PLEX should not be performed for at least 24 hours after taking ARB. Meloxicam and losartan have been held. Recommendations ACUTE KIDNEY INJURY: -- Volume status and electrolyte balance remain acceptable. No acute indication for HD at this time. -- Continue supportive care, continue NS @ 125 ml/hr -- Hold Losartan and avoid NSAIDs -- Monitor daily PRP -- 05/16/17 UA shows granular casts -- Document I/O's. housekeeping staff to record all UO MAHA: -- No clear benefit to antibiotic therapy. Agree w/ stopping Vanco and Zosyn -- Stool culture for E coli sent (results pending 05/18/17 am) -- Check [id number] activity level -- Fibrinogen and FDP's pending -- LDH was markedly elevated. Haptoglobin is pending -- 05/18/17 Oncology notes reviewed. Continue supportive care
[2017-05-18 10:30] LABS: SCHISTOCYTES 1+; SPHEROCYTE 1+
--- NOTE | 2017-05-18 14:29 | Hospitalist Progress Note ---
Hospitalist Progress Note Date of Service May 18, 2017. (Selene Abad ., CEZAR) I personally interviewed and examined the patient I discussed the above plan with Miss Selene Abad I agree with her Hx and PE 76/m p/w weakness, abd pain, diarrhea and jaundice, found to have DARLINE with Cr of 2.3, thrombocytopenia, bili of 2.[address] abdomen/pelvis showed colitis and some ascites. presentation is suspicious for HUS ROS/PMHx: as HPI FHx/SHx/labs/meds reviewed as needed PE: average built, not in acute distress LUNGs: normal exam, no wheezing/R Heart: s1/s2 normal, no G/R/M ABD: soft, ND, N tender Ext: B/L LE no edema or swelling Neuro: pleasant,AAOX3, EOMI, moves all ext, CN 2-12 intact - HUS: DARLINE, thrombocytopenia, hemolytic anemia and recent diarrheal illness continue to observe off Abx Dr. Proctor and Dr. Ricks are on board Stool culture for E coli sent (results pending 05/18/17 am) Dr. Ricks checking [id number] activity level - Colitis: likely infection from undercooked hamburger continue to observe off abx no further diarrhea - DARLINE: component of HUS, Cr getting worse despite aggressive IV fluids continues to make urine, no fluid over load, electrolytes are stable No indication for HD at this time. Continue holding Losartan and nephrotoxic, continue IVF hydration - HTN: hold BP meds - Hyperbilirubinemia: likely due to hemolysis, check liver US trending down, potentially good sign consumes alcohol daily, but both he and state only 2-3 drinks, not excessive, no alcohol all week with his illness DVT proph: contraindicated with platelets low . (Kyler Elaine MD) Subjective Pt evaluation today including: conversation w/ patient, conversation w/ family (- at bedside ), physical exam, chart review, lab review, review of studies , review of inpatient medication list Patient resting in bed with at bedside. Feels slightly improved since admission. +Melena, started on 05/17- fecal Hemoccult negative. Diarrhea has resolved. Still little UO. Encourage PO fluid intake. +decreased appetite. Encouraged good PO intake. Patient denies any fever, chills, sweats, lightheadedness, dizziness, vision changes, CP, palpitations, edema, SOB, wheezing, cough, abdominal pain, nausea, vomiting, diarrhea, numbness/tingling, weakness, muscle/joint pain, anxiety/ depression, active bleeding, or new skin discoloration/changes. (Selene Abad ., PA-C) Medications Last 24 Hours Test 05/17/17 15:07 05/17/17 20:43 05/18/17 07:04 05/18/17 11:50 Fibrinogen 427 mg/dl Fibrin Degradation Products >40 mcg/ml Lactate Dehydrogenase 2093 U/L White Blood Count 5.98 K/uL 5.83 K/uL Red Blood Count 2.97 M/uL 2.88 M/uL Hemoglobin 8.9 g/dL 8.4 g/dL Hematocrit 25.0 % 24.1 % Mean Corpuscular Volume 84.2 fL 83.7 fL Mean Corpuscular Hemoglobin 30.0 pg 29.2 pg Mean Corpuscular Hemoglobin Concent 35.6 g/dl 34.9 g/dl Platelet Count 28 K/uL 45 K/uL RDW Standard Deviation 43.8 fL 42.9 fL RDW Coefficient of Variation 14.2 % 14.1 % Neutrophils % (Manual) 73.9 % 72.1 % Lymphocytes % (Manual) 21.7 % 20.9 % Monocytes % (Manual) 2.6 % 3.5 % Metamyelocytes % 0.9 % 0.9 % Myelocytes % 0.9 % 0.9 % Neutrophils # (Manual) 4.42 K/uL 4.20 K/uL Total Absolute Neutrophils 4.42 K/uL 4.20 K/uL Lymphocytes # (Manual) 1.30 K/uL 1.22 K/uL Total Absolute Lymphocytes 1.30 K/uL 1.22 K/uL Monocytes # (Manual) 0.16 K/uL 0.20 K/uL Metamyelocytes # 0.05 K/uL 0.05 K/uL Myelocytes # 0.05 K/uL 0.05 K/uL Platelet Estimate DECREASED DECREASED Spherocytes 1+ 1+ Helmet Cells 1+ Schistocytes 1+ 1+ Sodium Level 141 mmol/L 142 mmol/L Potassium Level 4.0 mmol/L 3.9 mmol/L Chloride Level 110 mmol/L 112 mmol/L Carbon Dioxide Level 22 mmol/L 20 mmol/L Anion Gap 9.0 mmol/L 10.0 mmol/L Blood Urea Nitrogen 95 mg/dl 94 mg/dl Creatinine 3.40 mg/dl 3.60 mg/dl Est Creatinine Clear Calc Drug Dose 20.0 ml/min 18.9 ml/min Estimated GFR () 19.3 18.1 Estimated GFR (Non- 16.7 15.6 BUN/Creatinine Ratio 28.0 26.2 Random Glucose 105 mg/dl 88 mg/dl Calcium Level 7.9 mg/dl 7.9 mg/dl Total Bilirubin 1.8 mg/dl Direct Bilirubin 0.4 mg/dl Aspartate Amino Transf (AST/SGOT) 57 U/L Alanine Aminotransferase (ALT/SGPT) 17 U/L Alkaline Phosphatase 47 U/L Total Protein 5.3 gm/dl Albumin 2.5 gm/dl Mean Platelet Volume 12.0 fL Eosinophils % (Manual) 1.7 % Eosinophils # (Manual) 0.10 K/uL Giant Platelets 2+ Magnesium Level 2.1 mg/dl Random Vancomycin Level 14.9 mcg/ml Stool Occult Blood NEGATIVE Test 05/18/17 13:55 (Selene Abad, PA-C) Objective Vital Signs Date Time Temp Pulse Resp B/P (MAP) Pulse Ox O2 Delivery O2 Flow Rate FiO2 05/18/17 08:00 93 Room Air 05/18/17 07:17 36.8 73 16 139/70 (93) 93 Room Air 05/18/17 00:00 Room Air 05/18/17 00:00 36.7 68 16 116/65 (82) 94 Room Air 05/17/17 16:00 Room Air 05/17/17 15:31 36.7 68 16 138/72 (94) 97 Room Air (Selene Abad, PA-C) Physical Exam General Appearance: no apparent distress, + pertinent finding (ill appearing ) Eyes: normal inspection, PERRL ENT: hearing grossly normal Neck: supple Respiratory/Chest: lungs clear, no respiratory distress, no accessory muscle use Cardiovascular: regular rate, rhythm Abdomen: normal bowel sounds, non tender, soft Extremities: no pedal edema, no calf tenderness Neurologic/Psychiatric: alert, normal mood/affect, oriented x 3 Skin: warm/dry, no rash, + jaundice (mild) (Selene Abad, PA-C) Laboratory Results Last 24 Hours Test 05/17/17 15:07 05/17/17 20:43 05/18/17 07:04 05/18/17 11:50 Fibrinogen 427 mg/dl Fibrin Degradation Products >40 mcg/ml Lactate Dehydrogenase 2093 U/L White Blood Count 5.98 K/uL 5.83 K/uL Red Blood Count 2.97 M/uL 2.88 M/uL Hemoglobin 8.9 g/dL 8.4 g/dL Hematocrit 25.0 % 24.1 % Mean Corpuscular Volume 84.2 fL 83.7 fL Mean Corpuscular Hemoglobin 30.0 pg 29.2 pg Mean Corpuscular Hemoglobin Concent 35.6 g/dl 34.9 g/dl Platelet Count 28 K/uL 45 K/uL RDW Standard Deviation 43.8 fL 42.9 fL RDW Coefficient of Variation 14.2 % 14.1 % Neutrophils % (Manual) 73.9 % 72.1 % Lymphocytes % (Manual) 21.7 % 20.9 % Monocytes % (Manual) 2.6 % 3.5 % Metamyelocytes % 0.9 % 0.9 % Myelocytes % 0.9 % 0.9 % Neutrophils # (Manual) 4.42 K/uL 4.20 K/uL Total Absolute Neutrophils 4.42 K/uL 4.20 K/uL Lymphocytes # (Manual) 1.30 K/uL 1.22 K/uL Total Absolute Lymphocytes 1.30 K/uL 1.22 K/uL Monocytes # (Manual) 0.16 K/uL 0.20 K/uL Metamyelocytes # 0.05 K/uL 0.05 K/uL Myelocytes # 0.05 K/uL 0.05 K/uL Platelet Estimate DECREASED DECREASED Spherocytes 1+ 1+ Helmet Cells 1+ Schistocytes 1+ 1+ Sodium Level 141 mmol/L 142 mmol/L Potassium Level 4.0 mmol/L 3.9 mmol/L Chloride Level 110 mmol/L 112 mmol/L Carbon Dioxide Level 22 mmol/L 20 mmol/L Anion Gap 9.0 mmol/L 10.0 mmol/L Blood Urea Nitrogen 95 mg/dl 94 mg/dl Creatinine 3.40 mg/dl 3.60 mg/dl Est Creatinine Clear Calc Drug Dose 20.0 ml/min 18.9 ml/min Estimated GFR () 19.3 18.1 Estimated GFR (Non- 16.7 15.6 BUN/Creatinine Ratio 28.0 26.2 Random Glucose 105 mg/dl 88 mg/dl Calcium Level 7.9 mg/dl 7.9 mg/dl Total Bilirubin 1.8 mg/dl Direct Bilirubin 0.4 mg/dl Aspartate Amino Transf (AST/SGOT) 57 U/L Alanine Aminotransferase (ALT/SGPT) 17 U/L Alkaline Phosphatase 47 U/L Total Protein 5.3 gm/dl Albumin 2.5 gm/dl Mean Platelet Volume 12.0 fL Eosinophils % (Manual) 1.7 % Eosinophils # (Manual) 0.10 K/uL Giant Platelets 2+ Magnesium Level 2.1 mg/dl Random Vancomycin Level 14.9 mcg/ml Stool Occult Blood NEGATIVE Test 05/18/17 13:55 (Selene Abad, PA-C) Assessment and Plan 76 yo male presenting with weakness, abdominal pain, diarrhea, poor appetite and jaundice, found to have DARLINE with Cr of 2.3, thrombocytopenia, bili of 2.[address] abdomen/pelvis showed colitis and some ascites. One week earlier he and his ate at a restaurant in [place], they both had hamburger that may have been undercooked, both developed diarrhea, recovered after 4 days but patient continued to get weaker. HUS: DARLINE, thrombocytopenia, hemolytic anemia and recent diarrheal illness: - DARLINE- WORSENING, Cr. now 3.6: Nephrology following, appreciate recommendations -- IVF @ 100 ml/hr and follow strict I&Os -- Hold Losartan and avoid NSAIDs -- Monitor daily PRP -- 05/16/17 UA shows granular casts HUS: Nephrology and hematology follow, appreciate recommendations -- Stool culture for E coli sent (results pending 05/18/17 am) -- Check [id number] activity level -- Fibrinogen and FDP's pending -- LDH was markedly elevated- repeat tomorrow AM -- Haptoglobin is pending -- Supportive care - Anemia- STABLE: -- Follow CBC -- Fecal Hemoccult- negative - Thrombocytopenia- IMPROVING: continue to follow CBC - Hyperalbuminemia, likely secondary to hemolysis: -- Follow CMP -- Liver US- Fatty infiltration. Small left hepatic lobe cyst measuring 1.4 cm. -- Consumes alcohol daily, but both he and state only 2-3 drinks, not excessive, no alcohol all week with his illness- no s/s of withdrawal Colitis, likely from undercooked hamburger: - Prophylactically treated w/ IV Rocephin, Zosyn + Vancomycin x1 dose- no indication for antibiotic therapy at this time, continue to monitor - Stool studies pending as above HTN- STABLE: Norvasc and ARB held due to HUS/dehydration DVT prophylaxis: Contraindicated due to thrombocytopenia Code Status: LEVEL I, FULL Dispo: Continue to follow closely- may need transferred to tertiary care for plasmapheresis (Selene Abad ., PA-C)
[2017-05-18 14:34] LABS: COMPLETE YES
[2017-05-18 14:43] LABS: BUN/CREATININE RATIO 25.8 (10-20); CALCIUM 7.7 mg/dl (8.5-10.1); CREATININE 3.8 mg/dl (0.60-1.40)
[2017-05-18 15:30] VITALS: BP 150/72; PULSE 70; TEMP 36.7; O2SAT 94
[2017-05-18] MEDS: FLUTICASONE PROPIONATE NA SPR 16 GM BTL NAE SCH (20:35)
[2017-05-18 23:09] VITALS: BP 144/69; PULSE 70; TEMP 36.7; O2SAT 93
[2017-05-19 07:08] VITALS: BP 133/73; PULSE 75; TEMP 36.5; O2SAT 96
[2017-05-19] MEDS: SODIUM CHLORIDE 0.9% 1000ML 1,000 ML IV SCH ×3 (07:19→23:38)
[2017-05-19] MEDS: CYANOCOBALAMIN 500 MCG TAB (VIT B-12) PO SCH (08:10)
[2017-05-19 08:17] LABS: BUN/CREATININE RATIO 21.6 (10-20); CALCIUM 7.9 mg/dl (8.5-10.1); CREATININE 4.4 mg/dl (0.60-1.40); MAGNESIUM 2.1 mg/dl (1.8-2.4); POTASSIUM 3.9 mmol/L (3.5-5.1)
[2017-05-19 08:20] LABS: ALB/GLOB RATIO 0.9 (0.9-2); PHOSPHORUS 5.1 mg/dl (2.5-4.9)
[2017-05-19 08:22] LABS: HEMATOCRIT 25.8 % (42-52); MEAN CELL VOLUME 85.1 fL (80-100); MEAN CORPUSCULAR HEMOGLOBIN 28.7 pg (25-34); MEAN CORPUSCULAR HGB CONC 33.7 g/dl (32-36); PLATELET COUNT 70 K/uL (130-400); RED BLOOD COUNT 3.03 M/uL (4.7-6.1)
[2017-05-19 08:33] LABS: BASO % 0.3 %; BASO ABS # 0.02 K/uL (0-0.2); COMPLETE YES; EOS % 1.4 %; IG% 6.7 %; LYMPH % 16.3 %; LYMPH ABS # 1.14 K/uL (1.2-3.4); MONO % 10.6 %; NEUT % 64.7 %; PLT ESTIMATE DECREASED
--- NOTE | 2017-05-19 09:06 | Hematology/Oncology Prog Note ---
Hematology/Onc Progress Note Date of Service May 19, 2017. Diagnoses Thrombotic thrombocytopenic purpura. Acute renal injury. Subjective 76-year-old gentleman now on hospital day 3 for fever and diarrhea. He was originally seen by Dr. Proctor and suspected to suffer from HUS/TTP. Clinically doing much better today less nausea however still complains of persistent diarrhea. Peripheral blood counts have improved dramatically and renal function steadily worsening. Vital Signs Vital Signs Past 12 Hours Date Time Temp Pulse Resp B/P (MAP) Pulse Ox O2 Delivery O2 Flow Rate FiO2 05/19/17 07:31 Room Air 05/19/17 07:08 36.5 75 18 133/73 (93) 96 Room Air 05/18/17 23:15 Room Air 05/18/17 23:09 36.7 70 20 144/69 (94) 93 Room Air Physical Exam Head: normocephalic, atraumatic ENMT: normal ENT inspection Neck: supple Lungs: Respiratory Effort: good air movement Auscuitation: breath sounds normal Cardiovascular: Apical Impulse: not displaced Heart Auscultation: RRR Abdomen: Bowel Sounds: normal Inspection & Palpation: soft, non-distended, no tenderness, guarding & rebound Extremities: no cyanosis, no edema, no mottling Assessment & Plan 1. TTP/ HUS 2. Acute renal injury. 3. Diarrhea. 4. Fever Mr. Tadeo seems to be doing a bit better today. His peripheral counts are certainly improved however his renal function has continued to decline. From a hematologic standpoint there is no further intervention required. Shiga toxin is negative. No specific organisms have been identified. Recommend continuing supportive care and empiric antibiotics. Will continue to follow throughout his hospital stay.
--- NOTE | 2017-05-19 11:17 | Nephrology Progress Note ---
Nephrology Progress Note Date of Service May 19, 2017. Chief Complaint DARLINE, TMA Subjective Mr. Tadeo was seen and examined in his hospital room this morning. He continues to have diarrhea but reports that the frequency and volume is less. He currently denies fever or abdominal pain. He reports that he is making urine. medical staffing coordinator has recorded 525 cc UO overnight. Review of Systems Constitutional: No fever Cardiovascular: No chest pain Respiratory: No dyspnea at rest Abdomen: + diarrhea, No pain, No nausea, No vomiting Genitourinary - Male: No dysuria, No gross hematuria Extremities: No leg edema Integumentary: No rash A complete review of systems was performed. Pertinent positives are noted above. All other systems are negative. Vital Signs Last 8 Hrs Date Time Temp Pulse Resp B/P (MAP) Pulse Ox O2 Delivery O2 Flow Rate FiO2 05/19/17 07:31 Room Air 05/19/17 07:08 36.5 75 18 133/73 (93) 96 Room Air Last Recorded Weight Weight (Kilograms): 84.800 Physical Exam General Appearance: no apparent distress Head: normocephalic, atraumatic Eyes: PERRL, EOMI Neck: no adenopathy Respiratory/Chest: lungs clear, no respiratory distress Cardiovascular: regular rate, rhythm Abdomen/GI: normal bowel sounds, non tender, soft Extremities/Musculoskelatal: no calf tenderness, no pedal edema Neurologic/Psych: alert, oriented x 3 Family History Father of leukemia Social History Smoking Status: Unknown if ever smoked Smokeless Tobacco Use: No Alcohol Use: none Drug Use: none Marital Status: in relationship Housing Status: lives with family Occupation: employed Laboratory Results Past 24 Hours 05/19/17 06:56 Red Blood Count 3.03, Mean Corpuscular Volume 85.1, Mean Corpuscular Hemoglobin 28.7, Mean Corpuscular Hemoglobin Concent 33.7, Neutrophils (%) (Auto) 64.7, Lymphocytes (%) (Auto) 16.3, Monocytes (%) (Auto) 10.6, Eosinophils (%) (Auto) 1.4, Basophils (%) (Auto) 0.3, Neutrophils # (Auto) 4.53, Lymphocytes # (Auto) 1.14, Monocytes # (Auto) 0.74, Eosinophils # (Auto) 0.10, Basophils # (Auto) 0.02 05/18/17 13:55 05/19/17 06:56 Test 05/18/17 11:50 05/18/17 13:55 05/19/17 06:56 Stool Occult Blood NEGATIVE (NEGATIVE) Anion Gap 10.0 mmol/L (3-11) 10.0 mmol/L (3-11) Est Creatinine Clear Calc Drug Dose 17.9 ml/min 15.4 ml/min Estimated GFR () 16.9 14.2 Estimated GFR (Non- 14.6 12.2 BUN/Creatinine Ratio 25.8 (10-20) 21.6 (10-20) Calcium Level 7.7 mg/dl (8.5-10.1) 7.9 mg/dl (8.5-10.1) Chemistry Specimen Hemolysis White Blood Count 7.00 K/uL (4.8-10.8) Red Blood Count 3.03 M/uL (4.7-6.1) Hemoglobin 8.7 g/dL (14.0-18.0) Hematocrit 25.8 % (42-52) Mean Corpuscular Volume 85.1 fL (80-100) Mean Corpuscular Hemoglobin 28.7 pg (25-34) Mean Corpuscular Hemoglobin Concent 33.7 g/dl (32-36) Platelet Count 70 K/uL (130-400) Neutrophils (%) (Auto) 64.7 % Lymphocytes (%) (Auto) 16.3 % Monocytes (%) (Auto) 10.6 % Eosinophils (%) (Auto) 1.4 % Basophils (%) (Auto) 0.3 % Neutrophils # (Auto) 4.53 K/uL (1.4-6.5) Lymphocytes # (Auto) 1.14 K/uL (1.2-3.4) Monocytes # (Auto) 0.74 K/uL (0.11-0.59) Eosinophils # (Auto) 0.10 K/uL (0-0.5) Basophils # (Auto) 0.02 K/uL (0-0.2) RDW Standard Deviation 45.3 fL (36.4-46.3) RDW Coefficient of Variation 14.6 % (11.5-14.5) Immature Granulocyte % (Auto) 6.7 % Immature Granulocyte # (Auto) 0.47 K/uL (0.00-0.02) Platelet Estimate DECREASED Phosphorus Level 5.1 mg/dl (2.5-4.9) Magnesium Level 2.1 mg/dl (1.8-2.4) Total Bilirubin 1.1 mg/dl (0.2-1) Direct Bilirubin 0.2 mg/dl (0-0.2) Aspartate Amino Transf (AST/SGOT) 64 U/L (15-37) Alanine Aminotransferase (ALT/SGPT) 36 U/L (12-78) Alkaline Phosphatase 50 U/L (45-117) Lactate Dehydrogenase 1362 U/L (87-241) Total Protein 5.6 gm/dl (6.4-8.2) Albumin 2.7 gm/dl (3.4-5.0) Globulin 2.9 gm/dl (2.5-4.0) Albumin/Globulin Ratio 0.9 (0.9-2) Date/Time Source Procedure Growth Status 05/18/17 11:50 Stool WBC Smear - Final Complete Allergies Coded Allergies: No Known Allergies (Verified , 05/12/17) Medications Current Inpatient Medications Medications (Trade) Dose Ordered Sig/Aziza Route Start Time Stop Time Status Last Admin Dose Admin Amlodipine Besylate (Norvasc Tab) 10 mg DAILY PO 05/17/17 09:00 06/16/17 08:59 Future Hold 05/17/17 09:04 10 MG Fluticasone Propionate (Flonase Nasal [place]) 2 sprays QPM JAMILAH 05/17/17 21:00 06/16/17 20:59 Cyanocobalamin (Vitamin B-12 Tab) 1,000 mcg QAM PO 05/17/17 09:00 06/16/17 08:59 05/19/17 08:10 1,000 MCG Ondansetron HCl (Zofran Inj) 4 mg Q6H PRN IV 05/16/17 23:00 06/15/17 22:59 05/18/17 22:21 4 MG Sodium Chloride 1,000 ml @ 125 mls/hr Q8H IV 05/16/17 23:15 06/15/17 23:14 05/19/17 07:19 125 MLS/HR Clobetasol Propionate (Clobetasol Propionate Oint) 1 appln BID PRN EXT 05/17/17 16:15 06/16/17 16:14 Impression (1) Thrombotic microangiopathy (2) Anemia (3) Hypertension (4) Acute kidney injury Mr. Tadeo is a 76-year-old male with hypertension, BPH and osteoarthritis who presented with malaise, abdominal pain and diarrhea. Symptoms started after eating at a fast food restaurant. Baseline creatinine is 1.1 mg/dL. The patient presented with acute renal insufficiency and thrombotic microangiopathy. 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 He has not had fevers or mental status changes. DARLINE is also likely multifactorial with evidence of prerenal azotemia and superimposed ATN. UA notable for 10-30 WBC, 10-30 RBC as well as hyaline and granular cast. Urine output has not been accurately documented. CT of the abdomen does not show evidence of obstruction. Urgent PLEX is not indicated but close clinical follow up is required. At this time, kidney biopsy is unlikely to regional climate change analyst. PLEX should not be performed for at least 24 hours after taking ARB. Meloxicam and losartan have been held. Recommendations ACUTE KIDNEY INJURY: -- Volume status and electrolyte balance remain acceptable. No acute indication for HD at this time. -- Continue supportive care, continue NS @ 125 ml/hr -- Hold Losartan and avoid NSAIDs -- Monitor daily PRP -- 05/16/17 UA shows granular casts -- Document I/O's. medical staffing coordinator to record all UO MAHA: -- No clear benefit to antibiotic therapy. Agree w/ stopping Vanco and Zosyn -- Stool culture for E coli sent (results pending 05/18/17 am) -- Check [id number] activity level -- Fibrinogen and FDP's pending -- LDH was markedly elevated. Haptoglobin is pending -- 05/18/17 Oncology notes reviewed. Continue supportive care
[2017-05-19] MEDS ORDERED: SODIUM BICARBONATE 650 MG TAB PO ONE (12:00)
--- NOTE | 2017-05-19 12:20 | Hospitalist Progress Note ---
Hospitalist Progress Note Date of Service May 19, 2017. (Selene Abad ., CEZAR) Subjective Pt evaluation today including: conversation w/ patient, physical exam, chart review, lab review, review of inpatient medication list Patient states he is feeling well. Continued decreased appetite- encouraged good intake. UO has increased. +diarrhea, no more melena. Patient denies any fever, chills, sweats, lightheadedness, dizziness, vision changes, CP, palpitations, edema, SOB, wheezing, cough, abdominal pain, nausea, vomiting, urinary symptoms, melena, numbness/tingling, weakness, muscle/joint pain, anxiety/depression, active bleeding, or new skin discoloration/changes. (Selene Abad ., ALEXEYC) Medications Current Inpatient Medications Medications (Trade) Dose Ordered Sig/Aziza Route Start Time Stop Time Status Last Admin Dose Admin Amlodipine Besylate (Norvasc Tab) 10 mg DAILY PO 05/17/17 09:00 06/16/17 08:59 Future Hold 05/17/17 09:04 10 MG Fluticasone Propionate (Flonase Nasal [place]) 2 sprays QPM JAMILAH 05/17/17 21:00 06/16/17 20:59 Cyanocobalamin (Vitamin B-12 Tab) 1,000 mcg QAM PO 05/17/17 09:00 06/16/17 08:59 05/19/17 08:10 1,000 MCG Ondansetron HCl (Zofran Inj) 4 mg Q6H PRN IV 05/16/17 23:00 06/15/17 22:59 05/18/17 22:21 4 MG Sodium Chloride 1,000 ml @ 125 mls/hr Q8H IV 05/16/17 23:15 06/15/17 23:14 05/19/17 07:19 125 MLS/HR Clobetasol Propionate (Clobetasol Propionate Oint) 1 appln BID PRN EXT 05/17/17 16:15 06/16/17 16:14 (Selene Abad ., ALEXEYC) Objective Vital Signs Date Time Temp Pulse Resp B/P (MAP) Pulse Ox O2 Delivery O2 Flow Rate FiO2 05/19/17 07:31 Room Air 05/19/17 07:08 36.5 75 18 133/73 (93) 96 Room Air 05/18/17 23:15 Room Air 05/18/17 23:09 36.7 70 20 144/69 (94) 93 Room Air 05/18/17 16:00 Room Air 05/18/17 15:30 36.7 70 16 150/72 (98) 94 Room Air (Selene Abad PA-C) Physical Exam General Appearance: no apparent distress Eyes: normal inspection, PERRL ENT: hearing grossly normal Neck: supple Respiratory/Chest: lungs clear, no respiratory distress, no accessory muscle use Cardiovascular: regular rate, rhythm Abdomen: normal bowel sounds, non tender, soft Extremities: no pedal edema, no calf tenderness Neurologic/Psychiatric: alert, normal mood/affect, oriented x 3 Skin: warm/dry, no rash (Selene Abad PA-C) Laboratory Results Last 24 Hours Test 05/18/17 11:50 05/18/17 13:55 05/19/17 06:56 Stool Occult Blood NEGATIVE Sodium Level 140 mmol/L 142 mmol/L Potassium Level 4.0 mmol/L 3.9 mmol/L Chloride Level 113 mmol/L 114 mmol/L Carbon Dioxide Level 17 mmol/L 18 mmol/L Anion Gap 10.0 mmol/L 10.0 mmol/L Blood Urea Nitrogen 98 mg/dl 95 mg/dl Creatinine 3.80 mg/dl 4.40 mg/dl Est Creatinine Clear Calc Drug Dose 17.9 ml/min 15.4 ml/min Estimated GFR () 16.9 14.2 Estimated GFR (Non- 14.6 12.2 BUN/Creatinine Ratio 25.8 21.6 Random Glucose 101 mg/dl 82 mg/dl Calcium Level 7.7 mg/dl 7.9 mg/dl Chemistry Specimen Hemolysis White Blood Count 7.00 K/uL Red Blood Count 3.03 M/uL Hemoglobin 8.7 g/dL Hematocrit 25.8 % Mean Corpuscular Volume 85.1 fL Mean Corpuscular Hemoglobin 28.7 pg Mean Corpuscular Hemoglobin Concent 33.7 g/dl Platelet Count 70 K/uL Neutrophils (%) (Auto) 64.7 % Lymphocytes (%) (Auto) 16.3 % Monocytes (%) (Auto) 10.6 % Eosinophils (%) (Auto) 1.4 % Basophils (%) (Auto) 0.3 % Neutrophils # (Auto) 4.53 K/uL Lymphocytes # (Auto) 1.14 K/uL Monocytes # (Auto) 0.74 K/uL Eosinophils # (Auto) 0.10 K/uL Basophils # (Auto) 0.02 K/uL RDW Standard Deviation 45.3 fL RDW Coefficient of Variation 14.6 % Immature Granulocyte % (Auto) 6.7 % Immature Granulocyte # (Auto) 0.47 K/uL Platelet Estimate DECREASED Phosphorus Level 5.1 mg/dl Magnesium Level 2.1 mg/dl Total Bilirubin 1.1 mg/dl Direct Bilirubin 0.2 mg/dl Aspartate Amino Transf (AST/SGOT) 64 U/L Alanine Aminotransferase (ALT/SGPT) 36 U/L Alkaline Phosphatase 50 U/L Lactate Dehydrogenase 1362 U/L Total Protein 5.6 gm/dl Albumin 2.7 gm/dl Globulin 2.9 gm/dl Albumin/Globulin Ratio 0.9 (Selene Abad, PA-C) Assessment and Plan 76 y/o male presenting with weakness, abdominal pain, diarrhea, poor appetite and jaundice, found to have DARLINE with Cr of 2.3, thrombocytopenia, bili of 2.[address] abdomen/pelvis showed colitis and some ascites. One week earlier he and his ate at a restaurant in [place], they both had hamburger that may have been undercooked, both developed diarrhea, recovered after 4 days but patient continued to get weaker. HUS: DARLINE, thrombocytopenia, hemolytic anemia and recent diarrheal illness: - DARLINE- WORSENING, Cr. now 4.4: Nephrology following, appreciate recommendations -- IVF @ 100 ml/hr and follow strict I&Os -- Hold Losartan and avoid NSAIDs -- Monitor daily PRP -- 05/16/17 UA shows granular casts HUS: Nephrology and hematology follow, appreciate recommendations -- Stool culture and WBC- negative -- Check [id number] activity level -- Fibrinogen and FDP's- elevated -- LDH was markedly elevated- repeat trending down -- Haptoglobin is pending -- Supportive care -- Sodium bicarbonate 650 mg BID - Anemia- STABLE: -- Follow CBC -- Fecal Hemoccult- negative - Thrombocytopenia- IMPROVING: continue to follow CBC - Hyperalbuminemia, likely secondary to hemolysis- IMPROVING: -- Follow CMP -- Liver US- Fatty infiltration. Small left hepatic lobe cyst measuring 1.4 cm. -- Consumes alcohol daily, but both he and state only 2-3 drinks, not excessive, no alcohol all week with his illness- no s/s of withdrawal Colitis, likely from undercooked hamburger: - Prophylactically treated w/ IV Rocephin, Zosyn + Vancomycin x1 dose- no indication for antibiotic therapy at this time, continue to monitor - Stool studies negative HTN- STABLE: Norvasc and ARB held due to HUS/dehydration DVT prophylaxis: Contraindicated due to thrombocytopenia Code Status: LEVEL I, FULL Dispo: Continue to follow closely- may need transferred to tertiary care for plasmapheresis (Selene Abad ., PADanette) I personally interviewed and examined the patient I discussed the above plan with Miss Selene Abad I agree with her Hx and PE 76/m p/w weakness, abd pain, diarrhea and jaundice, found to have DARLINE with Cr of 2.3, thrombocytopenia, bili of 2.[address] abdomen/pelvis showed colitis and some ascites. presentation is suspicious for HUS ROS/PMHx: as HPI FHx/SHx/labs/meds reviewed as needed PE: average built, not in acute distress LUNGs: normal exam, no wheezing/R Heart: s1/s2 normal, no G/R/M ABD: soft, ND, N tender Ext: B/L LE no edema or swelling Neuro: pleasant,AAOX3, EOMI, moves all ext, CN 2-12 intact - HUS: DARLINE, thrombocytopenia, hemolytic anemia and recent diarrheal illness continue to observe off Abx Dr. Proctor and Dr. Ricks are on board Stool culture is negative Dr. Ricks checking [id number] activity level - Colitis: likely infection from undercooked hamburger continue to observe off abx no further diarrhea - DARLINE: component of HUS, Cr getting worse despite aggressive IV fluids continues to make urine, no fluid over load, electrolytes are stable No indication for HD at this time. (making more urine today) Continue holding Losartan and nephrotoxic, continue IVF hydration - HTN: hold BP meds - Hyperbilirubinemia: likely due to hemolysis, hepatitis serology is negative trending down, potentially good sign used consumes alcohol daily, but not excessive, no alcohol at all since his illness DVT proph: contraindicated with platelets low . (Kyler Elaine MD)
[2017-05-19 14:38] LABS: URINE APPEARANCE CLOUDY (CLEAR); URINE COLOR DK YELLOW; URINE EPITHELIAL CELL AUTO >30 /lpf (0-5); URINE NITRITE NEG (NEG); URINE SPECIFIC GRAVITY 1.022 (1.000-1.030); UROBILINOGEN NEG (NEG)
[2017-05-19 14:48] VITALS: BP 153/74; PULSE 71; TEMP 36.6; O2SAT 94
[2017-05-19 14:56] LABS: MANUAL MICROSCOPIC REQUIRED? NO; REVIEW REQ? YES
[2017-05-19 14:57] LABS: URINE BILIRUBIN NEG (NEG)
[2017-05-19 15:01] LABS: URINE PATH CASTS 5-10 GRANULAR CASTS /lpf (0)
[2017-05-19 16:00] VITALS: O2SAT 94
[2017-05-19 16:29] LABS: BUN/CREATININE RATIO 21.8 (10-20); CALCIUM 7.8 mg/dl (8.5-10.1); CREATININE 4.4 mg/dl (0.60-1.40)
[2017-05-19] MEDS: ONDANSETRON INJ 2 MG/ML 2 ML VIAL IV PRN (16:53)
[2017-05-19] MEDS: FLUTICASONE PROPIONATE NA SPR 16 GM BTL NAE SCH (20:49)
[2017-05-19] MEDS: SODIUM BICARBONATE 650 MG TAB PO SCH (20:49)
[2017-05-19 23:33] VITALS: BP 139/69; PULSE 71; TEMP 36.4; O2SAT 92
[2017-05-20] MEDS: ONDANSETRON INJ 2 MG/ML 2 ML VIAL IV PRN (00:12)
[2017-05-20 07:33] VITALS: BP 149/64; PULSE 75; TEMP 36.4; O2SAT 91
[2017-05-20] MEDS: CYANOCOBALAMIN 500 MCG TAB (VIT B-12) PO SCH (07:47)
[2017-05-20] MEDS: SODIUM CHLORIDE 0.9% 1000ML 1,000 ML IV SCH (07:47)
[2017-05-20] MEDS: SODIUM BICARBONATE 650 MG TAB PO SCH (07:47)
[2017-05-20 08:00] VITALS: O2SAT 91
[2017-05-20 08:01] LABS: HEMATOCRIT 21.4 % (42-52); MEAN CELL VOLUME 84.9 fL (80-100); MEAN CORPUSCULAR HEMOGLOBIN 29.8 pg (25-34); RED BLOOD COUNT 2.52 M/uL (4.7-6.1); WHITE BLOOD COUNT 6.55 K/uL (4.8-10.8)
[2017-05-20 08:10] LABS: MEAN PLATELET VOLUME 10.5 fL (7.4-10.4); PLATELET COUNT 79 K/uL (130-400)
[2017-05-20 08:28] LABS: COMPLETE YES; EOSINOPHIL % 3.5 %; LYMPH ABS # 0.92 K/uL (1.2-3.4); META ABS # 0.06 K/uL (0-0); METAMYELOCYTE % 0.9 %; MYELOCYTE % 3.5 %; NEUTROPHILS % 72.8 %; POLYCHROMASIA 1+; SCHISTOCYTES 3+
--- NOTE | 2017-05-20 08:46 | Hematology/Oncology Prog Note ---
Hematology/Onc Progress Note Date of Service May 20, 2017. Diagnoses Thrombotic thrombocytopenic purpura. Acute renal injury. Subjective 76-year-old gentleman now on hospital day 4 for fever and diarrhea. He was originally seen by Dr. Proctor and suspected to suffer from HUS/TTP. Clinically, diarrhea has slowed but unfortunately his renal function is worsening. Peripheral smear reveals many schistocytes and considering drop in hemoglobin and no further rise and platelets is consistent with refractory MAHA. Vital Signs Vital Signs Past 12 Hours Date Time Temp Pulse Resp B/P (MAP) Pulse Ox O2 Delivery O2 Flow Rate FiO2 05/20/17 07:33 36.4 75 18 149/64 (92) 91 Room Air 05/19/17 23:33 36.4 71 20 139/69 (92) 92 Room Air 05/19/17 23:30 Room Air Physical Exam Head: normocephalic, atraumatic ENMT: normal ENT inspection Neck: supple Lungs: Respiratory Effort: good air movement Auscuitation: breath sounds normal Cardiovascular: Apical Impulse: not displaced Heart Auscultation: RRR Abdomen: Bowel Sounds: normal Inspection & Palpation: soft, non-distended, no tenderness, guarding & rebound Extremities: no cyanosis, no edema, no mottling Assessment & Plan 1. TTP/ HUS 2. Acute renal injury. 3. Diarrhea. 4. Fever Mr. Tadeo was seen and examined at bedside today. He admits improvement in his appetite and slow resolution of diarrhea. Review of his most recent peripheral smear confirms an increase in schistocytosis. ADAMTS 13 results are pending. Hemoglobin dropped 1 g/dL in the past 24 hours. My fear is relapse and recommend transfer to a tertiary center ([facility]). I discussed today's findings with Mr. Tadeo and he agrees with the above plan. Antibiotics have been discontinued. Microbiology thus far has been inconclusive.
[2017-05-20 08:48] LABS: BUN/CREATININE RATIO 20.5 (10-20); CALCIUM 7.7 mg/dl (8.5-10.1); CREATININE 4.6 mg/dl (0.60-1.40); POTASSIUM 3.8 mmol/L (3.5-5.1)
[2017-05-20] MEDS ORDERED: SODI650T8 PO ×2 (09:57)
--- NOTE | 2017-05-20 10:00 | Discharge Summary ---
Discharge Summary Date of Service May 20, 2017. (Selene Abad, CEZAR) Discharge Summary Admission Date: May 16, 2017 at 22:51 Discharge Date: May 20, 2017 Discharge Disposition: Acute care facility Principal Diagnosis: HUS/TTP Problems/Secondary Diagnoses: HUS/TTP: DARLINE, thrombocytopenia, hemolytic anemia and recent diarrheal illness Colitis, likely from undercooked hamburger HTN Immunizations: Have You Had Influenza Vaccine: Yes History of Tetanus Vaccine?: >10 yrs History of Pneumococcal: Yes History of Hepatitis B Vaccine: Unknown Procedures: CHEST ONE VIEW PORTABLE CLINICAL HISTORY: ABDOMINAL PAIN/GI COMPARISON STUDY: Chest radiograph and chest CT June 17, 2013. FINDINGS: Lung volumes are normal. No pneumothorax or pleural effusion is present. There is no consolidation to suggest pneumonia and there is no evidence of pulmonary edema. Cardiomediastinal silhouette is normal. IMPRESSION: No acute cardiopulmonary findings. Electronically signed by: Manny Topete M.D. 05/16/2017 5:50 PM Dictated Date/Time: 05/16/2017 5:50 PM The status of this report is Signed. Draft = Not yet reviewed or approved by Radiologist. Signed = Reviewed and approved by Radiologist. ABD/PELVIS ORAL CONT ONLY CLINICAL HISTORY: Right-sided abdominal pain. COMPARISON STUDY: CT of the abdomen and pelvis June 17, 2013. TECHNIQUE: Axial images of the abdomen and pelvis were obtained without IV contrast. Oral contrast was administered. FINDINGS: Groundglass opacities within visualized portions of the lungs suggest atelectasis. A 5 mm subpleural right lower lobe nodule shown image 21 of [address] of June 17, 2013. This is benign. The heart is mildly enlarged. Evaluation of the abdomen and pelvis is suboptimal on this unenhanced exam. A left hepatic lobe cyst is noted. Right hepatic lobe calcifications are present. Unenhanced images of the spleen, adrenal glands, kidneys and pancreas are unremarkable. There is no hydronephrosis. There may be punctate right renal calculi. There are no ureteral calculi. There is colonic diverticulosis. The appendix is normal. Note is made of multifocal moderate colonic wall thickening which is most pronounced within the cecum, ascending colon, transverse colon and proximal descending colon. There is no free air or abscess. A small amount of ascites is noted. No suspicious skeletal lesions are present. There is no lymphadenopathy. IMPRESSION: 1. Moderate multifocal colonic wall thickening with mild pericolonic infiltration and ascites, most pronounced within the cecum, ascending colon and proximal descending colon. This reflects a nonspecific colitis, although an infectious etiology is favored. Normal appendix. No free air, pneumatosis or portal venous gas. 2. No bowel obstruction. 3. Colonic diverticulosis without evidence of acute diverticulitis. Electronically signed by: Manny Topete M.D. 05/16/2017 8:48 PM Dictated Date/Time: 05/16/2017 8:38 PM The status of this report is Signed. Draft = Not yet reviewed or approved by Radiologist. Signed = Reviewed and approved by Radiologist. ABDOMEN COMPLETE (US) HISTORY: Nausea. Abnormal liver function tests. Elevated bili and AST. COMPARISON: None. FINDINGS: Pancreas: The pancreas demonstrates a normal echotexture. Liver: Fatty infiltration. Small left hepatic lobe cyst measuring 1.4 cm. Gallbladder: No gallbladder wall thickening. No gallstones. CBD: 3 mm Kidneys: No hydronephrosis. Spleen: Normal in size. Aorta: Normal in caliber. IVC: Patent. IMPRESSION: Small hepatic cysts. Fatty infiltration of liver. Otherwise negative study. The above report was generated using voice recognition software. It may contain grammatical, syntax or spelling errors. Electronically signed by: Graham Elliott M.D. 05/17/2017 8:18 PM Dictated Date/Time: 05/17/2017 8:17 PM The status of this report is Signed. Draft = Not yet reviewed or approved by Radiologist. Signed = Reviewed and approved by Radiologist. Consultations: Nephrology- Dr. Ricks and Dr. Alejandre Hematology- Dr. Proctor and Dr. Chambers (Selene Abad PA-C) Medication Reconciliation New Medications: Sodium Bicarbonate (Sodium Bicarbonate) 650 Mg Tab 650 MG PO BID for 1 Day Continued Medications: Clobetasol Propionate (Clobetasol Propionate Cream 0.05%) 90 Appln/30 Gm Cr 1 APPLN EXT DIRECTED, TUBE Cyanocobalamin (Vitamin B12) 1,000 Mcg Tab 1000 MCG PO DAILY Fluticasone Propionate (Nasal) (Flonase Allergy Relief) 50 Mcg/Act Spr 4 SPRAYS JAMILAH QPM Discontinued Medications: Amlodipine (Norvasc) 10 Mg Tab 10 MG PO DAILY, TAB Losartan Potassium (Cozaar) 25 Mg Tab 25 MG PO DAILY, TAB Meloxicam (Meloxicam) 15 Mg Tab 15 MG PO DAILY Ranitidine (Zantac) 150 Mg Tab 150 MG PO DAILY Discharge Exam Patient states he is feeling well. +diarrhea- no longer melanous, describes at yellow/clear UO has increased since admission- no longer red/pink urine. +decreased appetite- encouraged good oral intake. +headache +weakness/fatigue Review of Systems: Constitutional: + weakness, + fatigue, No fever, No chills, No sweats Respiratory: No cough, No sputum, No wheezing, No shortness of breath, No hemoptysis Cardiovascular: No chest pain, No edema, No palpitations Abdomen: + diarrhea, No pain, No nausea, No vomiting, No constipation Musculoskeletal: No joint pain, No muscle pain, No swelling, No calf pain Genitourinary - Male: No hematuria, No dysuria Neurologic: No numbness/tingling Psychiatric: No depression symptoms, No anxiety Hematologic / Lymphatic: No abnormal bleeding/bruising Integumentary: No rash, No itch, No new/changing skin lesions Physical Exam: General Appearance: WD/WN, no apparent distress Eyes: PERRL ENT: hearing grossly normal Neck: supple Respiratory/Chest: lungs clear, no respiratory distress, no accessory muscle use Cardiovascular: regular rate, rhythm Abdomen / GI: normal bowel sounds, non tender, soft Extremities: no calf tenderness, no pedal edema Neurologic/Psychiatric: alert, normal mood/affect, oriented x 3 Skin: normal color, warm/dry, no rash (Selene Abad, PA-C) Hospital Course Admission H&P: This patient is a 76-year-old male who reports progressively worsening generalized weakness, lower abdominal pain, sneezing, nausea, rhinorrhea and excessive sleepiness over the past week. He describes his symptoms as similar to that of the flu. He did have cataract surgery within the past week, and he also reports a trip to [place] about one week ago as well. He feels that he is urinating less than usual, although because of his increased sleepiness, he is overall eating and drinking less than usual. He drinks alcohol on daily basis area. He reports that his significant other at the initial similar start to symptoms, but she is resolved at this time. Physical Exam Vital Signs Date Time Temp Pulse Resp B/P (MAP) Pulse Ox O2 Delivery O2 Flow Rate FiO2 05/16/17 22:13 66 05/16/17 21:47 70 18 135/68 93 Room Air 05/16/17 19:53 147/77 05/16/17 19:39 147/77 05/16/17 18:47 69 20 05/16/17 18:37 74 19 05/16/17 18:27 70 17 05/16/17 18:17 69 19 05/16/17 18:07 69 19 05/16/17 17:57 68 19 05/16/17 17:54 153/75 05/16/17 17:53 73 18 153/75 96 Room Air 05/16/17 17:47 66 18 05/16/17 17:37 66 16 05/16/17 17:30 67 05/16/17 16:12 36.3 78 18 148/74 96 Room Air The patient is awake, well-developed and adequately nourished, alert and oriented 3, normocephalic and atraumatic, looks fatigued, lying in bed and in no acute distress. HEENT--PERRL, EOMI, mucous membranes and oropharynx dry. Neck--supple, no JVD or bruits, thyroid normal, trachea midline, no adenopathy. Heart--normal S1 and S2, no extra beats, no murmurs, rubs or gallops. Lungs--clear bilaterally but diminished throughout, no respiratory distress, no accessory muscle use. Abdomen--normal bowel sounds and soft, nontender and nondistended, no hernias or masses, no organomegaly. Extremities--no cyanosis, clubbing or edema. There are good distal pulses b/l. Dermatologic--normal skin turgor, normal color, warm and dry, no abnormal lymph nodes, no rash. Neurologic--cranial nerves II through XII grossly intact, motor and sensory examination normal. Rheumatologic--normal range of motion, nontender, muscles and joints. Psychiatric--normal affect. Hospital Course: HUS/TTP: DARLINE, thrombocytopenia, hemolytic anemia and recent diarrheal illness: - DARLINE- WORSENING, Cr. now 4.6 from 2.6 at admission: Nephrology following, appreciate recommendations- ?element of ATN: -- Treated w/ IVF @ 100 ml/hr and followed strict I&Os -- Hold Losartan and avoid NSAIDs -- 05/16/17 and 05/20/17 UA shows granular casts HUS: Nephrology and hematology follow, appreciate recommendations -- Stool culture (including e.coli 0157 H7) and WBC smear- negative -- [id number] activity level pending -- Fibrinogen and FDP's- elevated -- LDH was markedly elevated at 2093 at admission- repeat on 05/19 at 1362 -- Haptoglobin <15 -- Supportive care -- Sodium bicarbonate 650 mg BID started on 05/19 - Anemia- 7.5 from 12.1 on admission : -- Fecal Hemoccult- negative - Thrombocytopenia- IMPROVING, plt now 79 from 28 on 05/17: continue to follow CBC - Hyperalbuminemia, likely secondary to hemolysis- RESOLVED: -- Hepatitis panel- negative -- Liver US- Fatty infiltration. Small left hepatic lobe cyst measuring 1.4 cm. -- Consumes alcohol daily, but both he and state only 2-3 drinks, not excessive, no alcohol all week with his illness- no s/s of withdrawal - Lyme screen- negative Colitis, likely from undercooked hamburger: - Prophylactically treated w/ IV Rocephin, Zosyn + Vancomycin x1 dose- no indication for antibiotic therapy at this time, continue to monitor - Stool studies negative - Diarrhea- IMPROVING HTN- STABLE: Norvasc 10 mg daily and Losartan 25 mg daily held due to HUS/TTP/ dehydration DVT prophylaxis: Contraindicated due to thrombocytopenia Code Status: LEVEL I, FULL Dispo: Transfer to [facility] (accepting physician is Dr. Otero) for plasmapheresis due to increase in schistocytosis on peripheral smear, 1g/dL drop in hemoglobin over the last 24 hours, and continue decline in kidney function. Total Time Spent: Greater than 30 minutes This includes examination of the patient, discharge planning, medication reconciliation, and communication with other providers. (Selene Abad ., PABatshevaC) Attending Discharge Note & Attestation: Pt seen/examined, chart reviewed, discharge care plan d/w SY Abad. I agree w/ the platt components of her discharge summary. 76yo male with history of HTN who presented with a diarrhea illness that began after eating [employer] while traveling out of [facility]. His diarrhea was severe over the following few days and ultimately he presented with severe dehydration, abdominal pain, and weakness. Initial labs showed severe thrombocytopenia and acute renal failure with evidence of proteinuria & hematuria on urinalysis. Microscopy confirmed the presence of schistocytosis. A tentative diagnosis of HUS/TTP perhaps from food-borne illness was given. He was followed by both nephrology and hematology/oncology. Although his platelets recovered modestly during his stay his anemia and acute renal failure worsened. Due to concerns he would require plasmapheresis he was transferred to [facility]'s ICU. Discharge exam - gen - NAD mouth - MMM heart - RRR lungs - CTA b/l abd - soft, NT, ND, BS+, no HSM ext - no edema skin - no rash or petechiae Live Motley MD (Live Motley MD) Discharge Instructions Please refer to the electronic Patient Visit Report (Discharge Instructions) for additional information. (Selene Abad, PA-C) Follow-Up Please follow-up with your PCP within 5-7 days after discharge from [facility] Please follow-up/keep all of your subspecialty appointments (Selene Abad, PA-C) Additional Copies To Carl Alejandre M.D.; Ramiro Chambers D.O.
--- NOTE | 2017-05-20 10:54 | Nephrology Progress Note ---
Nephrology Progress Note Date of Service May 20, 2017. Chief Complaint DARLINE, TMA Subjective Mr. Tadeo was seen & evaluated in his hospital room this morning. The patient and his report that arrangements are being made for transfer to [facility] for ongoing management. Mr. Tadeo denied fever. He reports that his diarrhea is slowing. He expressed some concern about the possibility of dialysis. Review of Systems Constitutional: No fever Cardiovascular: No chest pain Respiratory: No dyspnea at rest Abdomen: No pain, No nausea, No vomiting Extremities: No leg edema A complete review of systems was performed. Pertinent positives are noted above. All other systems are negative. Vital Signs Last 8 Hrs Date Time Temp Pulse Resp B/P (MAP) Pulse Ox O2 Delivery O2 Flow Rate FiO2 05/20/17 07:33 36.4 75 18 149/64 (92) 91 Room Air Last Recorded Weight Weight (Kilograms): 84.800 Physical Exam General Appearance: no apparent distress Head: normocephalic, atraumatic Eyes: PERRL, EOMI Neck: no adenopathy Respiratory/Chest: lungs clear, no respiratory distress Cardiovascular: regular rate, rhythm Abdomen/GI: normal bowel sounds, non tender, soft Extremities/Musculoskelatal: no calf tenderness, no pedal edema Neurologic/Psych: alert, oriented x 3 Family History Father of leukemia Social History Smoking Status: Unknown if ever smoked Smokeless Tobacco Use: No Alcohol Use: none Drug Use: none Marital Status: in relationship Housing Status: lives with family Occupation: employed Laboratory Results Past 24 Hours 05/20/17 07:21 Red Blood Count 2.52, Mean Corpuscular Volume 84.9, Mean Corpuscular Hemoglobin 29.8, Mean Corpuscular Hemoglobin Concent 35.0, Mean Platelet Volume 10.5 05/19/17 15:20 05/20/17 07:21 Test 05/19/17 13:25 05/19/17 15:20 05/20/17 07:21 Urine Color DK YELLOW Urine Appearance CLOUDY (CLEAR) Urine pH 5.0 (4.5-7.5) Urine Specific [place] 1.022 (1.000-1.030) Urine Protein 3+ (NEG) Urine Glucose (UA) NEG (NEG) Urine Ketones TRACE (NEG) Urine Occult Blood 3+ (NEG) Urine Nitrite NEG (NEG) Urine Bilirubin NEG (NEG) Urine Urobilinogen NEG (NEG) Urine Leukocyte Esterase TRACE (NEG) Urine WBC (Auto) 5-10 /hpf (0-5) Urine RBC (Auto) 0-4 /hpf (0-4) Urine Hyaline Casts (Auto) 10-30 /lpf (0-5) Urine Epithelial Cells (Auto) >30 /lpf (0-5) Urine Bacteria (Auto) NEG (NEG) Urine Renal Epithelial Cells 0-5 /lpf (0-5) Urine Pathogenic Casts 5-10 GRANULAR CASTS /lpf (0) Urine Yeast (Auto) (NONE PRSENT) Anion Gap 9.0 mmol/L (3-11) 9.0 mmol/L (3-11) Est Creatinine Clear Calc Drug Dose 15.4 ml/min 14.8 ml/min Estimated GFR () 14.2 13.4 Estimated GFR (Non- 12.2 11.6 BUN/Creatinine Ratio 21.8 (10-20) 20.5 (10-20) Calcium Level 7.8 mg/dl (8.5-10.1) 7.7 mg/dl (8.5-10.1) White Blood Count 6.55 K/uL (4.8-10.8) Red Blood Count 2.52 M/uL (4.7-6.1) Hemoglobin 7.5 g/dL (14.0-18.0) Hematocrit 21.4 % (42-52) Mean Corpuscular Volume 84.9 fL (80-100) Mean Corpuscular Hemoglobin 29.8 pg (25-34) Mean Corpuscular Hemoglobin Concent 35.0 g/dl (32-36) Platelet Count 79 K/uL (130-400) Mean Platelet Volume 10.5 fL (7.4-10.4) RDW Standard Deviation 44.4 fL (36.4-46.3) RDW Coefficient of Variation 14.5 % (11.5-14.5) Neutrophils % (Manual) 72.8 % Lymphocytes % (Manual) 14.0 % Monocytes % (Manual) 5.3 % Eosinophils % (Manual) 3.5 % Metamyelocytes % 0.9 % Myelocytes % 3.5 % Neutrophils # (Manual) 4.77 K/uL (1.4-6.5) Total Absolute Neutrophils 4.77 K/uL (1.4-6.5) Lymphocytes # (Manual) 0.92 K/uL (1.2-3.4) Total Absolute Lymphocytes 0.92 K/uL (1.2-3.4) Monocytes # (Manual) 0.35 K/uL (0.11-0.59) Eosinophils # (Manual) 0.23 K/uL (0-0.5) Metamyelocytes # 0.06 K/uL (0-0) Myelocytes # 0.23 K/uL (0-0) Polychromasia 1+ Schistocytes 3+ Total Bilirubin 0.9 mg/dl (0.2-1) Direct Bilirubin 0.2 mg/dl (0-0.2) Aspartate Amino Transf (AST/SGOT) 63 U/L (15-37) Alanine Aminotransferase (ALT/SGPT) 47 U/L (12-78) Alkaline Phosphatase 46 U/L (45-117) Total Protein 5.3 gm/dl (6.4-8.2) Albumin 2.7 gm/dl (3.4-5.0) Allergies Coded Allergies: No Known Allergies (Verified , 05/12/17) Medications Current Inpatient Medications Medications (Trade) Dose Ordered Sig/Aziza Route Start Time Stop Time Status Last Admin Dose Admin Amlodipine Besylate (Norvasc Tab) 10 mg DAILY PO 05/17/17 09:00 06/16/17 08:59 Future Hold 05/17/17 09:04 10 MG Fluticasone Propionate (Flonase Nasal [place]) 2 sprays QPM JAMILAH 05/17/17 21:00 06/16/17 20:59 05/19/17 20:49 2 SPRAYS Cyanocobalamin (Vitamin B-12 Tab) 1,000 mcg QAM PO 05/17/17 09:00 06/16/17 08:59 05/20/17 07:47 1,000 MCG Ondansetron HCl (Zofran Inj) 4 mg Q6H PRN IV 05/16/17 23:00 06/15/17 22:59 05/20/17 00:12 4 MG Sodium Chloride 1,000 ml @ 125 mls/hr Q8H IV 05/16/17 23:15 06/15/17 23:14 05/20/17 07:47 125 MLS/HR Clobetasol Propionate (Clobetasol Propionate Oint) 1 appln BID PRN EXT 05/17/17 16:15 06/16/17 16:14 Sodium Bicarbonate (Sodium Bicarbonate Tab) 650 mg BID PO 05/19/17 21:00 06/18/17 20:59 05/20/17 07:47 650 MG Impression (1) Thrombotic microangiopathy (2) Anemia (3) Hypertension (4) Acute kidney injury Mr. Tadeo is a 76-year-old male with hypertension, BPH and osteoarthritis who presented with malaise, abdominal pain and diarrhea. Symptoms started after eating at a fast food restaurant. Baseline creatinine is 1.1 mg/dL. The patient presented with acute renal insufficiency and thrombotic microangiopathy. Clinical presentation is consistent w/ HUS. Shiga toxin was negative. Urine sediment revealed granular casts. Meloxicam and losartan have been held. Recommendations ACUTE KIDNEY INJURY: -- Volume status and electrolyte balance remain acceptable. No acute indication for HD at this time. -- Urine sediment shows granular casts. Patient likely has an element of ATN. Kidney function has not yet begun to stabilize -- Continue supportive care, continue NS @ 125 ml/hr -- Hold Losartan and avoid NSAIDs -- Discussed the possibility of HD if clinical condition fails to stabilize. Discussed placement of IJ THC and acute HD. If outpatient HD is needed this can be set up at the [facility] HD [facility] ([phone]) at the time of discharge MAHA: -- Stool shiga toxin was negative -- Check [id number] activity level -- Fibrinogen and FDP's pending -- LDH was markedly elevated. Haptoglobin < 15 -- 05/20/17 Oncology notes reviewed. Patient has progressive anemia and increasing number of schistocytes. He is in the process of being [place] [facility] [place]
[2017-05-20 11:18] VITALS: BP 149/64; PULSE 75; TEMP 36.4; O2SAT 91
--- NOTE | 2017-05-20 12:09 | Discharge Instructions ---
Discharge Instructions Date of Service May 20, 2017. Admission Reason for Admission: Acute Renal Insufficiency, Colitis Discharge Discharge Diagnosis / Problem: HUS/TTP Discharge Goals Goal(s): Decrease discomfort, Improve function, Increase independence, Improve disease control, Improve nutritional status, Learn about illness, Diagnostic testing, Therapeutic intervention, Prevent Disease Progression Activity Recommendations Activity Limitations: resume your previous activity . Current Hospital Diet Patient's current hospital diet: Regular Diet Discharge Diet Recommended Diet: Regular Diet Pending Studies Studies pending at discharge: no Medical Emergencies . Who to Call and When: Medical Emergencies: If at any time you feel your situation is an emergency, please call 911 immediately. . Non-Emergent Contact Non-Emergency issues call your: Primary Care Provider . . "Provider Documentation" section prepared by Selene Abad. . VTE Core Measure Inpt VTE Proph given/why not?: SCD's
[2017-05-21 14:17] LABS: VWF PROTEASE ACT (ADAMTS 13) 120 % Activity (68-163)
[2017-07-13] MEDS ORDERED: HYDR25TA4 PO (09:20)
== END 2017-05-20 15:00 | disposition short-term general hospital (02) | DRG 682 ==
LOC: C.EDB 16:08 → C.MS2W 22:51 → ENRESERV 22:59
PROVIDERS: ADMIT Hospitalist; ATTEND Internal Medicine
DX: N17.9 Acute kidney failure, unspecified (principal); M31.1 Thrombotic microangiopathy; D59.3 Hemolytic-uremic syndrome; R17 Unspecified jaundice; D59.4 Other nonautoimmune hemolytic anemias; K21.9 Gastro-esophageal reflux disease without esophagitis; I10 Essential (primary) hypertension; K52.9 Noninfective gastroenteritis and colitis, unspecified; N40.0 Benign prostatic hyperplasia without lower urinary tract symptoms; Z79.899 Other long term (current) drug therapy; Z98.49 Cataract extraction status, unspecified eye

== ENCOUNTER 2017-05-31 02:41 | Inpatient (IN) | payer OTHER, MEDICARE ==
[~2017-05-31] VITALS: Ht 180.3 cm; Wt 82.7 kg
[2017-05-31] VITALS (19 sets, daily range): BP systolic 132–157; BP diastolic 65–77; PULSE 78–102; TEMP 36.5–37.1; O2SAT 91–95; Ht 180.3 cm; Wt 82.7 kg
[~2017-05-31 02:41] MED LIST changes: -AMLO-114 PO; -FLUT0.0529 NAE; +FLUT0.15 NAE; -LOSA1TAB PO; -MELO15TA4 PO; +SODI650T8 PO; -TAMS0.4C38 PO; -ZNTT/150 PO
[2017-05-31] MEDS ORDERED: FUROSEMIDE 40 MG/4 ML VIAL IV STA (02:44)
[2017-05-31] MEDS ORDERED: ALBUT/IPRATROP 3MG/0.5MG NEB 3 ML VIAL INH ONE (02:45)
[2017-05-31] MEDS ORDERED: METHYLPREDNISOLONE 125 MG VIAL IV STA (02:46)
[2017-05-31 03:14] LABS: HEMATOCRIT 23.9 % (42-52); MEAN CELL VOLUME 91.6 fL (80-100); MEAN CORPUSCULAR HEMOGLOBIN 29.9 pg (25-34); MEAN CORPUSCULAR HGB CONC 32.6 g/dl (32-36); MEAN PLATELET VOLUME 8.7 fL (7.4-10.4); PLATELET COUNT 234 K/uL (130-400); RED BLOOD COUNT 2.61 M/uL (4.7-6.1); WHITE BLOOD COUNT 11.55 K/uL (4.8-10.8)
--- NOTE | 2017-05-31 03:27 | EMERGENCY ROOM VISIT NOTE ---
History Report prepared by Vicente: William Garay Under the Supervision of: Dr. Kei Allen M.D. First contact with patient: 02:42 Chief Complaint: SHORTNESS OF BREATH Stated Complaint: SHORTNESS OF BREATH History of Present Illness The patient is a 76 year old male who presents to the Emergency Room with complaints of constant shortness of breath starting last night. The patient states that he was unable to sleep due to the shortness of breath. He states that he is not normally on oxygen, and he is unsure if he is on any blood thinners. Source of History: patient Onset: last night Position: other (global ) Quality: other (shortness of breath) Timing: constant Review of Systems See HPI for pertinent positives & negatives. A total of 10 systems reviewed and were otherwise negative. Past Medical & Surgical Medical Problems: (1) Acute renal insufficiency (2) Anemia (3) Basal cell carcinoma (4) Chronic back pain (5) Gastroesophageal reflux disease (6) Hypertension (7) Thrombotic microangiopathy Social History Smoking Status: Never Smoker Alcohol Use: other Drug Use: none Marital Status: in relationship Occupation Status: employed Current/Historical Medications Scheduled Amlodipine (Norvasc), 10 MG PO DAILY Bromfenac Sodium (Ophth) (Bromfenac), 1 DROP OPL DAILY Calcium Acetate (Phoslo 667 Mg), 1 CAP PO TIDM Difluprednate (Durezol), 1 DROP OPL DAILY Fluticasone Propionate (Nasal) (Flonase Allergy Relief), 2 SPRAYS JAMILAH BID Furosemide (Lasix), 40 MG PO QAM Hydralazine HCl (Hydralazine HCl), 25 MG PO TID Lansoprazole (Prevacid), 30 MG PO QAM Ranitidine (Zantac), 150 MG PO DAILY Scheduled PRN Acetaminophen (Tylenol), 650 MG PO Q4 PRN for Pain or Fever Ondansetron Hcl (Zofran), 4 MG PO Q6 PRN for Nausea Allergies Coded Allergies: No Known Allergies (Verified , 05/31/17) Physical Exam Vital Signs Date Time Temp Pulse Resp B/P (MAP) Pulse Ox O2 Delivery O2 Flow Rate FiO2 05/31/17 04:52 111 18 148/84 93 Nasal Cannula 2.0 05/31/17 02:58 Nasal Cannula 4.0 05/31/17 02:58 95 Nasal Cannula 4.0 05/31/17 02:55 37.0 87 24 185/92 93 Nasal Cannula 4.0 05/31/17 02:55 85 Room Air 05/31/17 02:52 96 Physical Exam GENERAL: Patient is a healthy-appearing well-nourished male HEAD: Normocephalic atraumatic EYES: Ocular movements intact pupils equal and react to light OROPHARYNX mucous membranes are moist no exudates present no erythema or edema present NECK: Supple no nuchal rigidity CHEST: Good equal expansion LUNGS: Clear and equal to auscultation CARDIAC: Normal S1 and S2 ABDOMEN: Soft nontender no guarding BACK: No CVA tenderness EXTREMITIES: No pain upon palpation normal muscle strength in all groups no clubbing cyanosis or edema NEURO: Patient is following commands and answering questions appropriately. Alert and oriented x3 Cranial Nerves 2-12 grossly intact Medical Decision & Procedures ER Provider Diagnostic Interpretation: X-ray results as stated below per interpretation by me: One View Chest: No evidence of pneumonia or pneumothorax. Large amount of congestion throughout the lungs. Laboratory Results 05/31/17 03:05 Red Blood Count 2.61, Mean Corpuscular Volume 91.6, Mean Corpuscular Hemoglobin 29.9, Mean Corpuscular Hemoglobin Concent 32.6, Mean Platelet Volume 8.7, Neutrophils (%) (Auto) 82.6, Lymphocytes (%) (Auto) 5.8, Monocytes (%) (Auto) 9.6, Eosinophils (%) (Auto) 1.6, Basophils (%) (Auto) 0.2, Neutrophils # (Auto) 9.55, Lymphocytes # (Auto) 0.67, Monocytes # (Auto) 1.11, Eosinophils # (Auto) 0.18, Basophils # (Auto) 0.02 05/31/17 03:05 Test 05/31/17 03:05 05/31/17 03:45 White Blood Count 11.55 K/uL (4.8-10.8) Red Blood Count 2.61 M/uL (4.7-6.1) Hemoglobin 7.8 g/dL (14.0-18.0) Hematocrit 23.9 % (42-52) Mean Corpuscular Volume 91.6 fL (80-100) Mean Corpuscular Hemoglobin 29.9 pg (25-34) Mean Corpuscular Hemoglobin Concent 32.6 g/dl (32-36) Platelet Count 234 K/uL (130-400) Mean Platelet Volume 8.7 fL (7.4-10.4) Neutrophils (%) (Auto) 82.6 % Lymphocytes (%) (Auto) 5.8 % Monocytes (%) (Auto) 9.6 % Eosinophils (%) (Auto) 1.6 % Basophils (%) (Auto) 0.2 % Neutrophils # (Auto) 9.55 K/uL (1.4-6.5) Lymphocytes # (Auto) 0.67 K/uL (1.2-3.4) Monocytes # (Auto) 1.11 K/uL (0.11-0.59) Eosinophils # (Auto) 0.18 K/uL (0-0.5) Basophils # (Auto) 0.02 K/uL (0-0.2) RDW Standard Deviation 51.4 fL (36.4-46.3) RDW Coefficient of Variation 15.3 % (11.5-14.5) Immature Granulocyte % (Auto) 0.2 % Immature Granulocyte # (Auto) 0.02 K/uL (0.00-0.02) Schistocytes 1+ Anion Gap 4.0 mmol/L (3-11) Est Creatinine Clear Calc Drug Dose 36.1 ml/min Estimated GFR () 36.7 Estimated GFR (Non- 31.7 BUN/Creatinine Ratio 20.2 (10-20) Calcium Level 8.1 mg/dl (8.5-10.1) Total Bilirubin 0.7 mg/dl (0.2-1) Aspartate Amino Transf (AST/SGOT) 25 U/L (15-37) Alanine Aminotransferase (ALT/SGPT) 52 U/L (12-78) Alkaline Phosphatase 72 U/L (45-117) Total Creatine Kinase 61 U/L (39-308) Creatine Kinase MB < 0.5 ng/ml (0.5-3.6) Creatine Kinase MB Ratio (0-3.0) Troponin I < 0.015 ng/ml (0-0.045) Pro-B-Type Natriuretic Peptide 3496 pg/ml (0-900) Total Protein 5.9 gm/dl (6.4-8.2) Albumin 3.1 gm/dl (3.4-5.0) Globulin 2.8 gm/dl (2.5-4.0) Albumin/Globulin Ratio 1.1 (0.9-2) Urine Color YELLOW Urine Appearance CLEAR (CLEAR) Urine pH 6.5 (4.5-7.5) Urine Specific [place] 1.010 (1.000-1.030) Urine Protein TRACE (NEG) Urine Glucose (UA) NEG (NEG) Urine Ketones NEG (NEG) Urine Occult Blood TRACE (NEG) Urine Nitrite NEG (NEG) Urine Bilirubin NEG (NEG) Urine Urobilinogen NEG (NEG) Urine Leukocyte Esterase NEG (NEG) Urine WBC (Auto) 1-5 /hpf (0-5) Urine RBC (Auto) 0-4 /hpf (0-4) Urine Hyaline Casts (Auto) 1-5 /lpf (0-5) Urine Epithelial Cells (Auto) 5-10 /lpf (0-5) Urine Bacteria (Auto) NEG (NEG) Labs reviewed by ED physician. Medications Administered Medications (Trade) Dose Ordered Sig/Aziza Route Start Time Stop Time Status Last Admin Dose Admin Albuterol/ Ipratropium (Duoneb) 12 ml ONE ONCE INH 05/31/17 02:45 05/31/17 02:46 DC 05/31/17 03:18 12 ML Furosemide (Lasix Inj) 40 mg NOW STAT IV 05/31/17 02:44 05/31/17 02:46 DC 05/31/17 03:12 40 MG Methylprednisolone Sodium Succinate (Solu-Medrol IV) 60 mg NOW STAT IV 05/31/17 02:46 05/31/17 02:47 DC 05/31/17 03:12 60 MG ECG Indication: SOB/dyspnea Rate (beats per minute): 93 Rhythm: normal sinus Findings: RBBB, no acute ischemic change, no ectopy ED Course 0242: Past medical records reviewed. The patient was evaluated in room B12. A complete history and physical examination was performed. 0244: Lasix Inj 40mg IV 0245: DuoNeb 12ml INH 0246: Solu-Medrol 60mg IV 0359: I discussed the patient's case with Dr. Gardner, he has agreed to evaluate the patient for further management and care. Medical Decision Differential diagnosis: Etiologies such as infections, reactive airway disease, pneumonia, pneumothorax , COPD, CHF, cardiac ischemia, pulmonary embolism, musculoskeletal, gastrointestinal, as well as others were entertained. This is a 76-year-old male presents emergency department after recently being discharged for HUS and TTP. The patient is complaining of shortness of breath is hypoxic upon arrival. He is anemic with a hemoglobin 7.8. He was typed and screened for 2 units of packed red blood cells. He is also given Lasix here in emergency department along with an hour-long breathing treatment. I did discuss the case with the hospitalist service who agreed to admit the patient. Patient was in agreement with the treatment plan. Medication Reconcilliation Current Medication List: was personally reviewed by me Blood Pressure Screening Patient's blood pressure: Elevated blood pressure Consults Time Called: [phone] Consulting Physician: Dr. Gardner Returned Call: [phone] I discussed the patient's case with Dr. Gardner, he has agreed to evaluate the patient for further management and care. Impression Primary Impression: Anemia Additional Impression: Hypoxia Critical Care I have personally spent greater than 90 minutes of critical care time in the direct management of this patient. This includes bedside care, interpretation of diagnostic studies, and testing, discussion with consultants, patient, and family members, and other required patient management activities. This 90 minutes is in excess of all separately billable procedures. Scribe Attestation The scribe's documentation has been prepared under my direction and personally reviewed by me in its entirety. I confirm that the note above accurately reflects all work, treatment, procedures, and medical decision making performed by me. Departure Information Dispostion Being Evaluated By Hospitalist Referrals No Doctor, Assigned (PCP) Patient Instructions My [facility] Problem Qualifiers Primary Impression: Anemia Anemia type: unspecified type Qualified Codes: D64.9 - Anemia, unspecified
[2017-05-31 03:31] LABS: ALT/SGPT 52 U/L (12-78); AST/SGOT 25 U/L (15-37); BLOOD UREA NITROGEN 40 mg/dl (7-18); BUN/CREATININE RATIO 20.2 (10-20); CALCIUM 8.1 mg/dl (8.5-10.1); CARBON DIOXIDE 27 mmol/L (21-32); CHLORIDE 115 mmol/L (98-107); GLUCOSE 94 mg/dl (70-99); POTASSIUM 4.1 mmol/L (3.5-5.1); SODIUM 146 mmol/L (136-145)
[2017-05-31 03:36] LABS: ALB/GLOB RATIO 1.1 (0.9-2); ALKALINE PHOSPHATASE 72 U/L (45-117)
[2017-05-31 03:41] LABS: BASO % 0.2 %; BASO ABS # 0.02 K/uL (0-0.2); COMPLETE YES; EOS % 1.6 %; IG% 0.2 %; LYMPH % 5.8 %; LYMPH ABS # 0.67 K/uL (1.2-3.4); MONO % 9.6 %; NEUT % 82.6 %; SCHISTOCYTES 1+
[2017-05-31 04:03] LABS: URINE APPEARANCE CLEAR (CLEAR); URINE BILIRUBIN NEG (NEG); URINE COLOR YELLOW; URINE NITRITE NEG (NEG); URINE PH 6.5 (4.5-7.5); UROBILINOGEN NEG (NEG)
[2017-05-31 04:05] LABS: MANUAL MICROSCOPIC REQUIRED? NO; REVIEW REQ? NO
[2017-05-31] MEDS ORDERED: AMLO-114 PO (04:09)
[2017-05-31] MEDS ORDERED: CALC667C4 PO (04:10)
[2017-05-31] MEDS ORDERED: LANS30CA12 PO (04:13)
[2017-05-31] MEDS ORDERED: FRS/40 PO (04:13)
[2017-05-31] MEDS ORDERED: APR/25 PO (04:13)
[2017-05-31] MEDS ORDERED: BROM0.0911 OPL (04:13)
[2017-05-31] MEDS ORDERED: DIFL0.0519 OPL (04:14)
[2017-05-31] MEDS ORDERED: ZNTT/150 PO (04:14)
[2017-05-31] MEDS ORDERED: ACET-1311 PO (04:16)
[2017-05-31] MEDS ORDERED: ONDA4TAB46 PO (04:16)
[2017-05-31] MEDS ORDERED: ONDANSETRON INJ 2 MG/ML 2 ML VIAL IV PRN (05:45)
[2017-05-31] MEDS ORDERED: ALUMINUM/MAGNESIUM/SIMETH (MAALOX MAX) 30 ML UDC PO PRN (05:45)
[2017-05-31] MEDS ORDERED: ACETAMINOPHEN 325 MG TAB PO PRN (05:45)
[2017-05-31] MEDS ORDERED: POLYETHYLENE (MIRALAX) 17 GM PACK PO PRN (05:45)
[2017-05-31] MEDS ORDERED: MAGNESIUM HYDROXIDE SUSP 30 ML UDC PO PRN (05:45)
[2017-05-31] MEDS ORDERED: PIPERACILL/TAZOBAC IV 3.375 GM in DEXTROSE 5% 100ML 100 ML IV SCH (06:00)
--- NOTE | 2017-05-31 06:07 | History and Physical ---
History & Physical Date & Time of Service: May 31, 2017 at 04:51 Chief Complaint: Shortness Of Breath Primary Care Physician: No Doctor, Assigned History of Present Illness Source: patient (her where he is on MRI), spouse The patient presents for increasing shortness of breath and weakness. 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 He was admitted on 05/16 for TTP-HUS. 05/20 He was transferred to [facility] for possible need for plasmapheresis. Review of [facility] records indicated that he was transfused with RBCs with CBC monitoring but did not get plasmapheresis. He notes that he was being transfused with RBCs every second day. He was never transfused with platelets. He was discharged to [facility] 5 days ago. Partner notes that he was having breathing for many days, even at rehabilitation. He has been fatigued and weak. Patient notes that he has had increased shortness of breath both at rest and exertion. He denies any coughing. He has felt wheezy with chest tightness. He has had palpitations without any overt chest pain. He has also been lightheaded and dizzy. The patient is due for follow-up with Dr. Ricks 06/03 and has a [place] from hematology. Since being discharged from [facility], he denies any rectal bleeding, hematuria, no nose or gum bleeds. Patient last had labs at [facility] on 05/29 and is due for repeat labs tomorrow on 06/01 He has been feeling cold but has not had fevers, chills or sweats. He has had a poor appetite. Regarding his recent admission to [facility] - The patient arrived with a Hb of 7.3; cbc remained between 6.5 - 8.0 during admission; the patient's discharged Hb was 7.2. He received a total of 2 units PRBC transfusion [place] at < 7.0 - Platelets on on arrival to [facility] were 89 and at discharge, platelets had recovered to 255 - The patients creatinine at discharge was 2.78 Today in the ED, labs are noted to be stable with Hb 7.8, Platelets at 234 and Cr 2.0 The patient does not have an updated medication list on-hand at this time. Review of his [facility] discharge instructions showed his discharged medications as follows: Discharge Medications: 1.AmLODIPine (amLODIPine 10 mg oral tablet) 10 mg (1 tab) by mouth once daily. 2.Clobetasol topical (clobetasol 0.05% topical cream) . 3.Fluticasone nasal (Flonase 50 mcg/inh nasal spray) 2 spray in each nostril 2 times daily. 4.RaNITIdine (raNITIdine 150 mg oral capsule) 150 mg (1 cap) by mouth once daily. 5.Acetaminophen (Tylenol 325 mg oral tablet) 650 mg (2 tab) by mouth every 6 hours, as needed for Pain - Mild. 6.Calcium acetate (PhosLo Gelcap 667 mg oral capsule) 667 mg (1 cap) by mouth with meals(0800,1200,1700). 7.Furosemide (Lasix 40 mg oral tablet) 40 mg (1 tab) by mouth once daily. 8.HydrALAZINE (hydrALAZINE 25 mg oral tablet) 25 mg (1 tab) by mouth 3 times daily. 9.Lansoprazole (lansoprazole 30 mg oral delayed release capsule) 30 mg (1 cap) by mouth once daily. 10.NonFormulary MED (bromfenac) 1 drop in left eye once daily. 11.NonFormulary MED (difluprednate 0.05% opth) once daily. 1 drop left eye Daily. 12.Ondansetron (Zofran 4 mg oral tablet) 4 mg (1 tab) by mouth every 6 hours, as needed for Nausea and Vomiting. I have addended a copy of his discharge summary below: [facility] For medical concerns, call: . Address: [address] [place] [address] (HOME) : 1940 . Date of Admission: 05/20/2017 Date of Discharge: 05/27/2017 Physician: DO Brady Stephanie L Service: Internal Medicine Destination: [facility], [phone], ext [phone], fax [phone]. 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 Patient says that about two weeks ago, he developed an acute gastroenteritis where he was having several bloody diarrhea episodes a day, abdominal pain, nausea after eating a "gross hamburger" on a road trip back from [place]. He also had profound fatigue where he was having difficulty ambulating. He was also sleeping about 20 hours a day due to the fatigue. He began to notice that his urine output in less frequency and darker color. This is still the case but is increasing in the last week. He then went to the hospital for evaluation on 05/16 to [facility]. The medical record confirms this story. On admission, his creatinine was 2.6 and continued to rise to 4.6. Nephrology at [facility] suspected ATN and he was treated with IVF at 100 ml/hr. His nephrotoxic drugs were held. UA continued to show granular casts. Stool was collected and was negative for Shiga toxin, Campylobacter, and Salmonella were negative. Reportedly E. coli 0157H7 was tested for in culture and was negative. No fecal WBC's. [id number] activity level is pending. Fibrinogen and FDP's were elevated. LDH was 2093 at admission and decreased to 1362. haptoglobin < 15. His hemoglobin decreased from 12.1 on admission to 7.5. he was thrombocytopenic on 05/17 at 28 and [place] to 79. Peripheral smear showed schistocytosis on peripheral smear. Urine was analyzed and showed granular casts. Patient was transferee for possible HUS/TTP requiring plasma phoresis. [1] [1] Hospital Course: NAGMA in the setting of acute renal failure and colitis: At admission the patients bicarb was low but improved along with the DARLINE. RESOLVED at the time of discharge. Colitis in the setting of HUS/TTP: Diarrhea RESOLVED; C. diff assay negative 05/21. OSH abd CT w/ mural colonic thickening suggesting colitis and diverticulosis w/o diverticulitis. Our stool cultures were negative for vibrio, yersinia, salmonella, Campylobacter, shigella, and shiga toxin. OSH stool cx negative for E.coli 0517 Microangiopathic Hemolytic Anemia and thrombocytopenia 2/2 HUS: -Hematology consulted at admission. Hgb stable s/p transfusion 05/21 & 8/ of pRBCs C3 mildly low at 86, C4 wnl, CH50 171 (high) [id number] 89. Haptoglobin and reticulocyte production consistent with hemolysis. Transfusion of blood productions unless Hgb < 7 or platelets <10k. Hgb stabilized over past few days. Exam on Discharge : Vitals & Measurements: T: 36.6 C HR: 75 (Monitored) RR: 18 BP: 147/67 BP: 153/ 75 (Sitting) BP: 149/70 (Standing) BP: 148/75 (Supine) General: Well nourished male, appears stated age, no acute distress. HEENT: No scleral icterus. Moist mucus membranes. Neck: Supple, Cardiac: Regular rate and rhythm, S1, S2. No murmurs/rubs/gallops appreciated. Lungs: Clear bilaterally without wheeze, rales or rhonchi. Good respiratory effort. No accessory muscle use. Abdomen: +BS, soft, nontender, nondistended. No guarding or rebound tenderness. Extremities: 3+ edema bilaterally. Neuro: A&Ox3. Answering questions appropriately Psych: Pleasant and cooperative. Affect appropriate. Insight and judgement good. Skin: Warm, well perfused. No jaundice or rashes. Major Tests and Procedures: CT REVIEW OF OUTSIDE IMAGES DATE OF SERVICE: 05/20/2017 [3] 1. Mural thickening of the colon, most pronounced at the proximal ascending colon and proximal descending colon. Findings may be seen with colitis, likely infectious given distribution. 2. Colonic diverticulosis without findings of diverticulitis. Blood smear interpretation: Automated CBC and peripheral blood smear reveal normocytic normochromic anemia, lymphopenia and thrombocytopenia. RBC shows mild anisocytosis and few schistocytes. Lymphocytes small to medium and mature. Neutrophils are mature. . Platelets have normal morphology. The reticulocyte production index (1.06) is inadequate for the degree of anemia consistent with a hypoproliferative process. This patient's anemia and thrombocytopenia are consistent with patients history of TTP/HUS. Labs Na 139 mmol/L 05/27/2017 05:25 K 3.9 mmol/L 05/27/2017 05:25 Cl- 111 mmol/L 05/27/2017 05:25 (High) HCO3 23 mmol/L 05/27/2017 05:25 BUN 67 mg/dL 05/27/2017 05:25 (High) BUN 76 mg/dL 05/23/2017 18:22 (High) Cret 2.78 mg/dL 05/27/2017 05:25 (High) PO4 5.3 mg/dL 05/27/2017 05:25 (High) PO4 6.0 mg/dL 05/23/2017 18:22 (High) WBC 5.36 K/uL 05/27/2017 05:25 Hgb 7.2 g/dL 05/27/2017 05:25 (Low) Hgb 7.7 g/dL 05/21/2017 11:59 (Low) Haptoglobin (sent to [facility]) <10 05/20/2017 17:48 (Low) LDH 1477 unit/L 05/27/2017 05:25 (High) LDH 2603 unit/L 05/21/2017 04:45 (High) C3 86 mg/dL 05/21/2017 11:59 (Low) C4 32 mg/dL 05/21/2017 11:59 CH 50 171 05/21/2017 11:59 (High) Retics (abs) 111.3 K/uL 05/21/2017 11:59 (High) [2] Discharge Medications: 1.AmLODIPine (amLODIPine 10 mg oral tablet) 10 mg (1 tab ) by mouth once daily. 2.Clobetasol topical (clobetasol 0.05% topical cream) . 3.Fluticasone nasal (Flonase 50 mcg/inh nasal spray) 2 spray in each nostril 2 times daily. 4.RaNITIdine (raNITIdine 150 mg oral capsule) 150 mg (1 cap) by mouth once daily. 5.Acetaminophen (Tylenol 325 mg oral tablet) 650 mg (2 tab) by mouth every 6 hours, as needed for Pain - Mild. 6.Calcium acetate (PhosLo Gelcap 667 mg oral capsule) 667 mg (1 cap) by mouth with meals(0800,1200,1700). 7.Furosemide (Lasix 40 mg oral tablet) 40 mg (1 tab) by mouth once daily. 8.HydrALAZINE (hydrALAZINE 25 mg oral tablet) 25 mg (1 tab) by mouth 3 times daily. 9.Lansoprazole (lansoprazole 30 mg oral delayed release capsule) 30 mg (1 cap) by mouth once daily. 10.NonFormulary MED (bromfenac) 1 drop in left eye once daily. 11.NonFormulary MED (difluprednate 0.05% opth) once daily. 1 drop left eye Daily. 12.Ondansetron (Zofran 4 mg oral tablet) 4 mg (1 tab) by mouth every 6 hours, as needed for Nausea and Vomiting. Allergies and Sensitivities: No Known Medication Allergies Discharge Home Services: Home Services Ordered #1 - Other: . Name of Agency/Phone Number #1 - 0 Home Services Details #1 - 0 Care Instructions: INSTRUCTIONS FOR REHAB FACILITY Follow up appointments: You will follow up with the physician at the rehab facility. Have the physician at the rehab facility requested appointment with your primary care provider within 1 week of discharge. Keep all your follow up appointments as already scheduled. 1) Follow up with Nephrology (kidney specialist) in 1 -2 weeks after discharge. They will follow up your labs as well was measure the protein in your urine once the creatinine has stablized. Follow up laboratory testing: Have your blood drawn weekly on Thursday for CBC and Nephrology Panel Further instructions will be per the rehab physician and primary care physician. Services: We have requested continued Physical and Occupational evaluation and treatment to address Balance Training, Bed Mobility Training, Gait Training, Transfer Training & Safety Education. Medications: Please review your medications and ask your physician if you have any questions. Your medication list has been reviewed and reconciled upon discharge to ensure accuracy and continuity of care. You are provided with a list of all your current medications at this time. Please review closely and make note of any changes. Take all of your medications exactly as prescribed. Tell your primary care provider if you cannot afford your medications. Call your primary care provider if you are having any side effects or any other problems. Call your primary care provider before taking any over the counter medications or supplements, including herbals and vitamins, because some of these may interact with your current medications and/or make your symptoms worse. Follow up imaging studies and other diagnostics: Incidentally found fatty infiltration of the liver and a small left hepatic lobe cyst measuring 1.4 cm noted on US. Diet Instructions: Regular Diet Adult Choose a diet rich in fruits, vegetables, and low-fat dairy products, and low in sweets and processed flours. Eat lean meats. For example, choose whole grain breads and pastas over white bread or pasta. Limit desserts and foods high in saturated fats. Eating a healthy diet is an important component of a healthy lifestyle. Activity Instructions: Resume your regular activity. We recommend physical therapy to help improve your walking, balance, mobility, strength and endurance. . Advance Directive: Living will Surrogate Decision Maker: Viviana Peña personally spent 40 minutes in discharge planning. [1] Facility Discharge Instructions; DO Brady Stephanie L 05/27/2017 08:50 [2] Facility Discharge Instructions; DO Brady Stephanie L 05/27/2017 08:50 [3] Facility Discharge Instructions; DO Brady Stephanie L 05/27/2017 08:50 [4] Facility Discharge Instructions; DO Brady Stephanie L 05/27/2017 08:50 Signature Line Electronic Signature on File Electronically Reviewed/Signed by: Shu Brady DO Author Signature Dt/Tm :05/27/2017 03:55 PM Division of Internal Medicine [facility] Result Type: .D/C Summary Date of Service: May 27, 2017 00:00 Authorization Status: Final Subject: Discharge Summary Author or Import Date: DO Brady Stephanie L on May 27, 2017 15:55 Verified By: DO Brady Stephanie L on May 27, 2017 15:55 Encounter info: [id number], [facility], Inpatient, 05/20/2017 - 05/27/2017 Past Medical/Surgical History Medical Problems: (1) Basal cell carcinoma Status: Chronic (2) Chronic back pain Status: Chronic (3) Gastroesophageal reflux disease Status: Chronic Hypertension History of TTP-HUS Family History Noncontributory Social History Smoking Status: Never Smoker Smokeless Tobacco Use: No Alcohol Use: 3 drinks daily; either beer or spirits Drug Use: none Marital Status: in relationship Housing status: lives with family Occupational Status: employed Immunizations History of Influenza Vaccine: Yes History of Tetanus Vaccine?: >10 yrs History of Pneumococcal: Yes History of Hepatitis B Vaccine: Unknown Multi-Drug Resistant Organisms History of MDRO: No Allergies Coded Allergies: No Known Allergies (Verified , 05/31/17) Home Medications Scheduled Amlodipine (Norvasc), 10 MG PO DAILY Bromfenac Sodium (Ophth) (Bromfenac), 1 DROP OPL DAILY Calcium Acetate (Phoslo 667 Mg), 1 CAP PO TIDM Difluprednate (Durezol), 1 DROP OPL DAILY Fluticasone Propionate (Nasal) (Flonase Allergy Relief), 2 SPRAYS JAMILAH BID Furosemide (Lasix), 40 MG PO QAM Hydralazine HCl (Hydralazine HCl), 25 MG PO TID Lansoprazole (Prevacid), 30 MG PO QAM Ranitidine (Zantac), 150 MG PO DAILY Scheduled PRN Acetaminophen (Tylenol), 650 MG PO Q4 PRN for Pain or Fever Ondansetron Hcl (Zofran), 4 MG PO Q6 PRN for Nausea Review of Systems A 10 point review of systems was negative unless stated above. Physical Exam Vital Signs Date Time Temp Pulse Resp B/P (MAP) Pulse Ox O2 Delivery O2 Flow Rate FiO2 05/31/17 02:58 Nasal Cannula 4.0 05/31/17 02:58 95 Nasal Cannula 4.0 05/31/17 02:55 37.0 87 24 185/92 93 Nasal Cannula 4.0 05/31/17 02:55 85 Room Air 05/31/17 02:52 96 General Appearance: WD/WN, no apparent distress Head: normocephalic, atraumatic Eyes: normal inspection, EOMI ENT: hearing grossly normal, pharynx normal Neck: supple, no adenopathy, no JVD Respiratory/Chest: + pertinent finding (diminished breath sounds at right base) Cardiovascular: no gallop, no murmur, + tachycardia Abdomen/GI: normal bowel sounds, non tender, soft Back: no CVA tenderness, no muscle spasm Extremities/Musculoskelatal: no calf tenderness, no pedal edema Neurologic/Psych: alert, normal mood/affect, oriented x 3 Skin: normal color, + pallor Lymphatic: no adenopathy Diagnostics Laboratory Results Results Past 24 Hours Test 05/31/17 03:05 05/31/17 03:45 Range/Units White Blood Count 11.55 4.8-10.8 K/uL Red Blood Count 2.61 4.7-6.1 M/uL Hemoglobin 7.8 14.0-18.0 g/dL Hematocrit 23.9 42-52 % Mean Corpuscular Volume 91.6 80-100 fL Mean Corpuscular Hemoglobin 29.9 25-34 pg Mean Corpuscular Hemoglobin Concent 32.6 32-36 g/dl Platelet Count 234 130-400 K/uL Mean Platelet Volume 8.7 7.4-10.4 fL Neutrophils (%) (Auto) 82.6 % Lymphocytes (%) (Auto) 5.8 % Monocytes (%) (Auto) 9.6 % Eosinophils (%) (Auto) 1.6 % Basophils (%) (Auto) 0.2 % Neutrophils # (Auto) 9.55 1.4-6.5 K/uL Lymphocytes # (Auto) 0.67 1.2-3.4 K/uL Monocytes # (Auto) 1.11 0.11-0.59 K/uL Eosinophils # (Auto) 0.18 0-0.5 K/uL Basophils # (Auto) 0.02 0-0.2 K/uL RDW Standard Deviation 51.4 36.4-46.3 fL RDW Coefficient of Variation 15.3 11.5-14.5 % Immature Granulocyte % (Auto) 0.2 % Immature Granulocyte # (Auto) 0.02 0.00-0.02 K/uL Schistocytes 1+ Sodium Level 146 136-145 mmol/L Potassium Level 4.1 3.5-5.1 mmol/L Chloride Level 115 98-107 mmol/L Carbon Dioxide Level 27 21-32 mmol/L Anion Gap 4.0 3-11 mmol/L Blood Urea Nitrogen 40 7-18 mg/dl Creatinine 2.00 0.60-1.40 mg/dl Est Creatinine Clear Calc Drug Dose 36.1 ml/min Estimated GFR () 36.7 Estimated GFR (Non- 31.7 BUN/Creatinine Ratio 20.2 10-20 Random Glucose 94 70-99 mg/dl Calcium Level 8.1 8.5-10.1 mg/dl Total Bilirubin 0.7 0.2-1 mg/dl Aspartate Amino Transf (AST/SGOT) 25 15-37 U/L Alanine Aminotransferase (ALT/SGPT) 52 12-78 U/L Alkaline Phosphatase 72 45-117 U/L Total Creatine Kinase 61 39-308 U/L Creatine Kinase MB < 0.5 0.5-3.6 ng/ml Creatine Kinase MB Ratio 0-3.0 Troponin I < 0.015 0-0.045 ng/ml Pro-B-Type Natriuretic Peptide 3496 0-900 pg/ml Total Protein 5.9 6.4-8.2 gm/dl Albumin 3.1 3.4-5.0 gm/dl Globulin 2.8 2.5-4.0 gm/dl Albumin/Globulin Ratio 1.1 0.9-2 Urine Color YELLOW Urine Appearance CLEAR CLEAR Urine pH 6.5 4.5-7.5 Urine Specific [place] 1.010 1.000-1.030 Urine Protein TRACE NEG Urine Glucose (UA) NEG NEG Urine Ketones NEG NEG Urine Occult Blood TRACE NEG Urine Nitrite NEG NEG Urine Bilirubin NEG NEG Urine Urobilinogen NEG NEG Urine Leukocyte Esterase NEG NEG Urine WBC (Auto) 1-5 0-5 /hpf Urine RBC (Auto) 0-4 0-4 /hpf Urine Hyaline Casts (Auto) 1-5 0-5 /lpf Urine Epithelial Cells (Auto) 5-10 0-5 /lpf Urine Bacteria (Auto) NEG NEG Diagnostic Radiology Right-sided PNA; final read pending Impression Assessment and Plan 76 year old male with resolving TTP-HUS and DARLINE presenting with right-sided PNA. Review of [facility] records indicated that Hb today is stable compared to Hb at [facility]. His DARLINE continues to resolve slowly as well. Our plan for him is as follows. Right-Sided PNA - Hypoxic; titrate O2 to > 94% - Vancomycin and Zosyn IV - Will order blood cultures Acute Kidney Injury - Resolving - Cr. 2.0 today; continues to downtrend from Cr measured 2.78 at discharge from [facility] on 05/27 - Hold Nephrotoxic medications - Renal dosing of antibiotics Normocytic Anemia - 2/2 HUS-TTP - Hb stable in the 7s; no evidence of active bleeding on history or examination - Monitor CBC daily - Consented for blood productive; in the absence of active STEMI, would maintain goal to transfuse at < 7.0 Thrombocytopenia - Resolved, stable in the 200s - Likely also 2/2 HUS TTP Hypertension - Patient discharged from [facility] On Hydralazine and Amlodipine GERD - Continue Ranitidine DVT Prophylaxis - SCD - TOYA - Hold pharmacological anticoagulation due to low Hb Code Status: Level I Disposition - Telemetry - OT and PT evaluations to determine discharge needs Attending Addendum: I have physically seen and examined this patient, have supervised the medical residents activities, and agree with the H&P as noted above with the following exceptions as noted. The patient denies chest pain, palpitations, vision change, hearing change, sore throat, fevers, chills, sweats, nausea, vomiting, abdominal pain, pelvic pain, blood in urine or stool, dysuria, urinary frequency or urgency, headache, memory loss, rash, abnormal bruising or bleeding, focal weakness, numbness or tingling in arms or legs, generalized arthralgias or myalgias, back or neck pain , night sweats, or allergy symptoms. The review of systems is otherwise negative other than for that already noted above, and at least 10 systems have been reviewed. The patient is awake, well-developed and adequately nourished, alert and oriented 3, normocephalic and atraumatic, looks very fatigued, sitting upright in bed and in no acute distress. HEENT--PERRL, EOMI, mucous membranes and oropharynx dry. Neck--supple, no JVD or bruits, thyroid normal, trachea midline, no adenopathy. Heart--normal S1 and S2, no extra beats, no murmurs, rubs or gallops. Lungs--decreased breath sounds right compared to left, coarse breath sounds on the right, no respiratory distress, no accessory muscle use. Abdomen--normal bowel sounds and soft, nontender and nondistended, no hernias or masses, no organomegaly. Extremities--no cyanosis, clubbing or edema. There are good distal pulses b/l. Dermatologic--normal skin turgor, normal color, warm and dry, no abnormal lymph nodes, no rash. Neurologic--cranial nerves II through XII grossly intact, motor and sensory examination normal. Rheumatologic--normal range of motion, nontender, muscles and joints. Psychiatric--normal affect. Assessment and Plan: 1. Pneumonia involving right lung-- Placed on vancomycin IV and Zosyn IV. Do nebs every 4 hours while awake and every 2 hours when necessary. Follow blood cultures. 2. Acute kidney injury --creatinine at its worse at last admission was 4.6. Upon entry today is 2.0, and when discharged from [facility] on [address] on IV fluids, optimize hemoglobin, follow serial BMP and magnesium levels. 3. HUS/TTP--platelets have improved significantly, will continue to follow CBC with differential closely. --Anemia hemoglobin 7.6 with normal blood pressure and mildly increased heart rate. We'll continue to follow closely, type and screen has been sent. 4. Hypertension--continue hydralazine and amlodipine with hold parameters. 5. GERD--continue ranitidine. Level of Care Telemetry Advanced Directives Existing Advance Directive: No Existing Living Will: No Existing Power of Geomagnetician: No Resuscitation Status FULL RESUSCITATION VTE Prophylaxis VTE Risk Assessment Done? Y/N: Yes Risk Level: Moderate Given or contraindicated: Enoxaparin (Lovenox)SQ, Contraindicated (anemia) Social Service Consult None Apply
[2017-05-31] MEDS ORDERED: ONDANSETRON 4 MG TAB PO PRN (06:15)
[2017-05-31] MEDS ORDERED: VANCOMYCIN CONSULT ACTIVE PRN (06:30)
[2017-05-31] MEDS ORDERED: PIPERACILL/TAZOBAC CONSULT ACTIVE PRN (06:30)
--- NOTE | 2017-05-31 07:36 | Family Medicine Progress Note ---
Progress Note Date of Service May 31, 2017. Assessment and Plan 76M admitted for hypoxia with RT sided pneumonia, likely hospital-acquired ( [facility] 05/16, transferred to [place], then rehab). Acute respiratory failure, 2/2 HAP - O2 sat 85 on room air in ED, 93 on 2L NC - Goal: titrate O2 >94 - Vanc and Zosyn - awaiting blood cx's DARLINE - improved since last admission: Cr 4 [facility] 05/16, 2.78 on DC from [facility] 05/27, currently 2.0 on admission 05/31. - holding nephrotoxic medications - abx renally dosed - Nephro aware Normocytic anemia - 2/2 HUS TTP. Heme onc consulted. - While at [facility], was transfused with 2 units of blood. - Hb stable since last admission, remains unchanged at 7. - no evidence of active bleeding Thrombocytopenia - 2/2 HUS TTP - resolved, Plt 234 on admission Hypertension - Patient discharged from [facility] On Hydralazine and Amlodipine GERD - Continue Ranitidine DVT Prophylaxis - SCD - TOYA - Hold pharmacological anticoagulation due to low Hb Code Status: Level I Disposition - Telemetry - OT and PT evaluations to determine discharge needs Continued [facility] stay due to: multiple IV medications needed, home environment unsafe for pt Resident Tracking Resident Involvement: Resident Care Provided Care Provided: Adult Hospital Medicine
[2017-05-31] MEDS: BROMFENAC~ORDER AWAITING ACTION SCH ×2 (08:00→16:00)
[2017-05-31] MEDS: DUREZOL~ORDER AWAITING ACTION SCH ×2 (08:00→16:00)
[2017-05-31] MEDS ORDERED: VANCOMYCIN INJ 2,500 MG in SODIUM CHLORIDE 0.9% 500ML 500 ML IV SCH (08:00)
[2017-05-31] MEDS ORDERED: PIPERACILL/TAZOBAC IV 3.375 GM in DEXTROSE 5% 100ML IV ONE (08:00)
--- NOTE | 2017-05-31 08:11 | DIAGNOSTIC IMAGING REPORT ---
CHEST ONE VIEW PORTABLE HISTORY: Short of breath. COMPARISON: Chest 05/16/2017. FINDINGS: Interval development of a right lower lobe consolidation. The heart is mildly enlarged. No pneumothorax. Probable small right pleural effusion. Diffuse interstitial and vascular thickening has progressed which suggests mild pulmonary edema. IMPRESSION: 1. Interval development of a right lower lobe airspace opacity. This likely represents a pneumonia. 2. Mild interstitial pulmonary edema, cardiomegaly, and a small right pleural effusion. Electronically signed by: Oleg Navarro M.D. 05/31/2017 8:09 AM Dictated Date/Time: 05/31/2017 8:08 AM
[2017-05-31] MEDS: FLUTICASONE PROPIONATE NA SPR 16 GM BTL NAE SCH ×2 (08:51→20:49)
[2017-05-31] MEDS: RANITIDINE HCL 150 MG TAB PO SCH (08:52)
[2017-05-31] MEDS: PANTOprazole SOD 40 MG TAB PO SCH (08:52)
[2017-05-31] MEDS: AMLODIPINE BESYLATE 5 MG TAB PO SCH (08:52)
[2017-05-31] MEDS: CALCIUM ACETATE 667MG GELCAP PO SCH ×3 (08:53→16:23)
--- NOTE | 2017-05-31 09:24 | Pharmacy Progress Note ---
Pharmacy Abx Initial Consult Date of Service May 31, 2017. Pharmacy Dosing Scope Date of Consult: 05/31/17 Consultation requested by: Dr. Gardner Pharmacy is consulted to initiate Vancomycin and Zosyn IV dosing therapy, order appropriate labs and adjust drug dose/frequency. Subjective The patient is a 76 year old male admitted on May 31, 2017 at 05:46. Objective Height (Feet): 5 Height (Inches): 11.00 Weight (Kilograms): 92.800 Vital Signs (Past 12Hrs) Vital Signs Past 12 Hours Date Time Temp Pulse Resp B/P (MAP) Pulse Ox O2 Delivery O2 Flow Rate FiO2 05/31/17 07:20 37.0 102 22 146/66 93 Partial Rebreather 3.0 05/31/17 06:08 102 05/31/17 04:52 111 18 148/84 93 Nasal Cannula 2.0 05/31/17 02:58 Nasal Cannula 4.0 05/31/17 02:58 95 Nasal Cannula 4.0 05/31/17 02:55 37.0 87 24 185/92 93 Nasal Cannula 4.0 05/31/17 02:55 85 Room Air 05/31/17 02:52 96 Lab Results (24Hrs) Laboratory Tests (24 Hours) Test 05/31/17 03:05 White Blood Count 11.55 K/uL (4.8-10.8) H Red Blood Count 2.61 M/uL (4.7-6.1) L Hemoglobin 7.8 g/dL (14.0-18.0) L Hematocrit 23.9 % (42-52) L Mean Corpuscular Volume 91.6 fL (80-100) Mean Corpuscular Hemoglobin 29.9 pg (25-34) Mean Corpuscular Hemoglobin Concent 32.6 g/dl (32-36) Platelet Count 234 K/uL (130-400) Mean Platelet Volume 8.7 fL (7.4-10.4) Neutrophils (%) (Auto) 82.6 % Lymphocytes (%) (Auto) 5.8 % Monocytes (%) (Auto) 9.6 % Eosinophils (%) (Auto) 1.6 % Basophils (%) (Auto) 0.2 % Neutrophils # (Auto) 9.55 K/uL (1.4-6.5) H Lymphocytes # (Auto) 0.67 K/uL (1.2-3.4) L Monocytes # (Auto) 1.11 K/uL (0.11-0.59) H Eosinophils # (Auto) 0.18 K/uL (0-0.5) Basophils # (Auto) 0.02 K/uL (0-0.2) Total Creatine Kinase 61 U/L (39-308) Micro Results Date/Time Source Procedure Growth Status 05/31/17 06:12 Blood Blood Culture Pending Received 05/31/17 06:00 Blood Blood Culture Pending Received Risk Factors for Resistance * Hospitalization for 48 hours or more within the past 90 days Assessment & Plan Assessment 76 year old male on empiric IV Vancomycin and Zosyn for pneumonia. * Recent acute kidney injury that is still resolving. Most recent sCr = 2 mg/ dL with estimated CrCl ~36 mL/min. Given fluctuating renal function, unable to safely initiate a maintenance regimen. Will check random Vancomycin levels and dose as appropriate. Plan Vancomycin IV * Loading dose: 2500 mg (~25 mg/kg) x 1 * Goal "trough" level for pneumonia : 15 to 20 mcg/mL * Random level ordered for 06/01 with AM labs Piperacillin/tazobactam * 3.375 g bolus administered over 30 minutes, then 3.375 g IV extended infusion every 8 hours for CrCl greater than 20 mL/min Pharmacy will continue to follow and will adjust dose/frequency as necessary. Thank you.
--- NOTE | 2017-05-31 09:51 | Oncology Consultation ---
Oncology/Heme Consultation Date of Consultation: May 31, 2017. Attending Physician: Sandy Streeter M.D. Reason for Consultation: History of micro-angiopathic hemolytic anemia and thrombocytopenia History of Present Illness Patient was recently hospitalized with hematologic findings consistent with Red cell fragmentation of thrombocytopenia in the background history consistent with a colitis. His process seem to wax and wane. However with an increasing LDH and need for red cell transfusion the patient was transferred to [facility] in anticipation of plasmapheresis. He stabilized without the need for plasmapheresis. Red cell transfusions have had to be part of his supportive care. Renal function has mildly improved. [id number] was normal. He is admitted now with shortness of breath with chest x-ray findings consistent with a right lower lobe pneumonia. Plan account now is 234,000. Hemoglobin is 7.8. Past Medical/Surgical History Medical Problems: (1) Acute kidney injury Status: Acute (2) Colitis Status: Acute (3) Heart murmur Status: Acute (4) Hypoxia Status: Acute (5) Indirect hyperbilirubinemia Status: Acute (6) UTI (urinary tract infection) Status: Acute Social History Smoking Status: Never Smoker Smokeless Tobacco Use: No Alcohol Use: 3 drinks daily; either beer or spirits Drug Use: none Marital Status: in relationship Occupation Status: employed Allergies Coded Allergies: No Known Allergies (Verified , 05/31/17) Home Medications Scheduled Amlodipine (Norvasc), 10 MG PO DAILY Bromfenac Sodium (Ophth) (Bromfenac), 1 DROP OPL DAILY Calcium Acetate (Phoslo 667 Mg), 1 CAP PO TIDM Difluprednate (Durezol), 1 DROP OPL DAILY Fluticasone Propionate (Nasal) (Flonase Allergy Relief), 2 SPRAYS JAMILAH BID Furosemide (Lasix), 40 MG PO QAM Hydralazine HCl (Hydralazine HCl), 25 MG PO TID Lansoprazole (Prevacid), 30 MG PO QAM Ranitidine (Zantac), 150 MG PO DAILY Scheduled PRN Acetaminophen (Tylenol), 650 MG PO Q4 PRN for Pain or Fever Ondansetron Hcl (Zofran), 4 MG PO Q6 PRN for Nausea Current Inpatient Medications Current Inpatient Medications Medications (Trade) Dose Ordered Sig/Aziza Route Start Time Stop Time Status Last Admin Dose Admin Acetaminophen (Tylenol Tab) 650 mg Q4H PRN PO 05/31/17 05:45 06/30/17 05:44 Al Hydrox/Mg Hydrox/Simethicone (Maalox Max Susp) 15 ml Q4H PRN PO 05/31/17 05:45 06/30/17 05:44 Magnesium Hydroxide (Milk Of Magnesia Susp) 30 ml Q12H PRN PO 05/31/17 05:45 06/30/17 05:44 Ondansetron HCl (Zofran Inj) 4 mg Q6H PRN IV 05/31/17 05:45 06/30/17 05:44 Polyethylene (Miralax Powder Packet) 17 gm DAILY PRN PO 05/31/17 05:45 06/30/17 05:44 Vancomycin HCl 2500 mg/Sodium Chloride 550 ml @ 200 mls/hr 0800 IV 05/31/17 08:00 05/31/17 10:44 Amlodipine Besylate (Norvasc Tab) 10 mg DAILY PO 05/31/17 09:00 06/30/17 08:59 05/31/17 08:52 10 MG Calcium Acetate (Phoslo Cap) 667 mg TIDM PO 05/31/17 07:30 06/30/17 07:59 05/31/17 08:53 667 MG Fluticasone Propionate (Flonase Nasal Buda) 2 sprays BID JAMILAH 05/31/17 09:00 06/30/17 08:59 Hydralazine HCl (Apresoline Tab) 25 mg TID PO 05/31/17 09:00 06/30/17 08:59 05/31/17 08:52 25 MG Ondansetron HCl (Zofran Tab) 4 mg Q6 PRN PO 05/31/17 06:15 06/30/17 06:14 Ranitidine HCl (zANTac TAB) 150 mg DAILY PO 05/31/17 09:00 06/30/17 08:59 05/31/17 08:52 150 MG Miscellaneous Information (Order Awaiting Action) 1 ea QS N/A 05/31/17 08:00 06/30/17 07:59 Miscellaneous Information (Order Awaiting Action) 1 ea QS N/A 05/31/17 08:00 06/30/17 07:59 Pantoprazole Sodium (Protonix Tab) 40 mg QAM PO 05/31/17 09:00 06/30/17 08:59 05/31/17 08:52 40 MG Piperacillin Sod/ Tazobactam Sod (Consult) 1 ea UD PRN N/A 05/31/17 06:30 06/30/17 06:29 Vancomycin HCl (Consult) 1 ea UD PRN N/A 05/31/17 06:30 06/30/17 06:29 Piperacillin Sod/ Tazobactam Sod 3.375 gm/Dextrose 115 ml @ 28.75 mls/ hr Q8H IV 05/31/17 14:00 06/07/17 05:59 Review of Systems Constitutional: Negative for weight loss, night sweats, or fever Eyes: Negative for event change of vision ENT: Negative for epistaxis, nasal discharge, sore throat, or deafness Cardiovascular: Negative for chest pain, palpitations, dizziness, diaphoresis Respiratory: Negative for purulent cough or pleuritic chest pain Gastrointestinal: Negative for diarrhea, hematemesis, melena, nausea, vomiting , or dyspepsia Integumentary (skin): Negative for rash or jaundice discoloration Genitourinary: Negative for urinary frequency, hematuria, or dysuria. He states the color of his urine is not dark Neurological: Negative for weakness, seizure activity, headache, or dizziness Lymphatic/Hematologic: Negative for petechiae, bleeding or new adenopathy Musculoskeletal: Negative for new joint or back pain Allergic/Immunologic: Negative for unusual rash or pruritis. Physical Exam Date Time Temp Pulse Resp B/P (MAP) Pulse Ox O2 Delivery O2 Flow Rate FiO2 05/31/17 07:20 37.0 102 22 146/66 93 Partial Rebreather 3.0 05/31/17 06:08 102 05/31/17 04:52 111 18 148/84 93 Nasal Cannula 2.0 05/31/17 02:58 Nasal Cannula 4.0 05/31/17 02:58 95 Nasal Cannula 4.0 05/31/17 02:55 37.0 87 24 185/92 93 Nasal Cannula 4.0 05/31/17 02:55 85 Room Air 05/31/17 02:52 96 Constitutional: vitals are stable. Alert and oriented appears mildly pale Eyes: Eyes are VANE EOMI without conjuctival erythema or icterus. ENT: External examination was negative for masses. Neck: Negative for masses or palpable thyromegaly Respiratory: Lung sounds were generally clear bilaterally Cardiovascular: Heart was RRR without significant murmur, gallops aoe rubs Gastrointestinal: No palpable hepatic or splenomegaly. The abdomen was soft with normal bowel sounds. Lymphatic system: there was no palpable peripheral lymphadenopathy Musculoskeletal System: The musculoskeletal system seemed concordant with age. Skin: The skin was negative for jaundice. Neurologic exam: The exam was negative for any focal findings. Deep tendon reflexes were equal and symmetrical. Psychiatric exam: Was essentially negative with normal mood and effect. Extremities: Negative for edema erythema Laboratory Results Last 24 Hours Test 05/31/17 03:05 05/31/17 03:45 White Blood Count 11.55 K/uL Red Blood Count 2.61 M/uL Hemoglobin 7.8 g/dL Hematocrit 23.9 % Mean Corpuscular Volume 91.6 fL Mean Corpuscular Hemoglobin 29.9 pg Mean Corpuscular Hemoglobin Concent 32.6 g/dl Platelet Count 234 K/uL Mean Platelet Volume 8.7 fL Neutrophils (%) (Auto) 82.6 % Lymphocytes (%) (Auto) 5.8 % Monocytes (%) (Auto) 9.6 % Eosinophils (%) (Auto) 1.6 % Basophils (%) (Auto) 0.2 % Neutrophils # (Auto) 9.55 K/uL Lymphocytes # (Auto) 0.67 K/uL Monocytes # (Auto) 1.11 K/uL Eosinophils # (Auto) 0.18 K/uL Basophils # (Auto) 0.02 K/uL RDW Standard Deviation 51.4 fL RDW Coefficient of Variation 15.3 % Immature Granulocyte % (Auto) 0.2 % Immature Granulocyte # (Auto) 0.02 K/uL Schistocytes 1+ Sodium Level 146 mmol/L Potassium Level 4.1 mmol/L Chloride Level 115 mmol/L Carbon Dioxide Level 27 mmol/L Anion Gap 4.0 mmol/L Blood Urea Nitrogen 40 mg/dl Creatinine 2.00 mg/dl Est Creatinine Clear Calc Drug Dose 36.1 ml/min Estimated GFR () 36.7 Estimated GFR (Non- 31.7 BUN/Creatinine Ratio 20.2 Random Glucose 94 mg/dl Calcium Level 8.1 mg/dl Total Bilirubin 0.7 mg/dl Aspartate Amino Transf (AST/SGOT) 25 U/L Alanine Aminotransferase (ALT/SGPT) 52 U/L Alkaline Phosphatase 72 U/L Total Creatine Kinase 61 U/L Creatine Kinase MB < 0.5 ng/ml Creatine Kinase MB Ratio Troponin I < 0.015 ng/ml Pro-B-Type Natriuretic Peptide 3496 pg/ml Total Protein 5.9 gm/dl Albumin 3.1 gm/dl Globulin 2.8 gm/dl Albumin/Globulin Ratio 1.1 Urine Color YELLOW Urine Appearance CLEAR Urine pH 6.5 Urine Specific [place] 1.010 Urine Protein TRACE Urine Glucose (UA) NEG Urine Ketones NEG Urine Occult Blood TRACE Urine Nitrite NEG Urine Bilirubin NEG Urine Urobilinogen NEG Urine Leukocyte Esterase NEG Urine WBC (Auto) 1-5 /hpf Urine RBC (Auto) 0-4 /hpf Urine Hyaline Casts (Auto) 1-5 /lpf Urine Epithelial Cells (Auto) 5-10 /lpf Urine Bacteria (Auto) NEG Assessment & Plan History of microbiologic hemolytic anemia with thrombocytopenia. This is occurred along with renal dysfunction. He never needed plasmapheresis for apparent atypical HUS. His platelet number has recovered. Hemoglobin is 7.8 and I understand a blood transfusion is being planned. He does have a follow- up in our clinic. Creatinine is better at 2.0. He is been mildly hypertensive but appears controlled. No recommendations from the hematologic standpoint this time. He continues to have red cell fragmentation on his peripheral smear but fortunately his platelet numbers are stable. I suspect with his now background of renal dysfunction exogenous erythropoietin will be part of his therapy in the future and he will have a follow-up in our clinic. We will check an LDH as well as a PT/APTT. Please watch his CBC daily
[2017-05-31 10:47] LABS: PARTIAL THROMBOPLASTIN RATIO 1.1; PROTHROMBIN TIME (PATIENT) 11.2 SECONDS (9.0-12.0)
--- NOTE | 2017-05-31 11:21 | Nephrology Consultation ---
Nephrology Consultation Date & Providers Date of Consultation: May 31, 2017. Primary Care Provider: No Doctor, Assigned Referring Provider: Reason for Consultation DARLINE, TMA History of Present Illness Mr. Emmett Tadeo is a 76-year-old male who I initially met when he presented to [facility] at the end of April with generalized malaise, abdominal discomfort and several days of diarrhea. Symptoms started after eating at a fast food restaurant while returning from vacation in [place]. His had similar symptoms. He was admitted with thrombocytopenia and MAHA as well as acute renal insufficiency. 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 He was not febrile and did not have significant mental status changes. Urine analysis and microscopy were consistent with ATN. This was attributed to hypotension, prerenal azotemia and ARB as well as NSAID use. After several days of monitoring, the patient was transferred to [facility] due to progressive anemia. He received transfusion support and after additional monitoring in [place], he was discharged home with home PT. He states that he has slowly been rehabilitating from his hospitalization. Serum creatinine on discharge from [place] was 2.7 mg /dL. He did not require renal replacement therapy. He was mildly anemic with a hemoglobin of 7.5 and platelet count had normalized. ADAMTS 13 activity level was normal. Mr. Tadeo describes increasing shortness of breath over the past 3 days. He reports some mild persistent orthopnea since hospital discharge. His activity tolerance has been improving. He started riding his bike at home within the past week. He experiences mild lightheadedness with exertion. He has some weakness. Appetite is good. He does not experience orthostatic lightheadedness. He denies any chest pain. He does report an occasional fluttering in his chest when he would lay down in bed at night. He also reports that laying flat made his dyspnea worse. Mr. Tadeo was started on Phos lo for hyperphosphatemia associated with renal insufficiency. Mr. Tadeo had previously used meloxicam daily for arthritis pain in his right shoulder. This was stopped during his prior admission. He has a history of hypertension which was well controlled with Losartan and amlodipine. Blood pressure has been reportedly acceptable hydralazine and amlodipine. 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 Hypertension Osteoarthritis BPH GERD Chronic back pain Surgical: Cataract surgery Allergies Coded Allergies: No Known Allergies (Verified , 05/31/17) Inpatient Medications Current Inpatient Medications Medications (Trade) Dose Ordered Sig/Aziza Route Start Time Stop Time Status Last Admin Dose Admin Acetaminophen (Tylenol Tab) 650 mg Q4H PRN PO 05/31/17 05:45 06/30/17 05:44 Al Hydrox/Mg Hydrox/Simethicone (Maalox Max Susp) 15 ml Q4H PRN PO 05/31/17 05:45 06/30/17 05:44 Magnesium Hydroxide (Milk Of Magnesia Susp) 30 ml Q12H PRN PO 05/31/17 05:45 06/30/17 05:44 Ondansetron HCl (Zofran Inj) 4 mg Q6H PRN IV 05/31/17 05:45 06/30/17 05:44 Polyethylene (Miralax Powder Packet) 17 gm DAILY PRN PO 05/31/17 05:45 06/30/17 05:44 Vancomycin HCl 2500 mg/Sodium Chloride 550 ml @ 200 mls/hr 0800 IV 05/31/17 08:00 05/31/17 10:44 05/31/17 09:57 200 MLS/HR Amlodipine Besylate (Norvasc Tab) 10 mg DAILY PO 05/31/17 09:00 06/30/17 08:59 05/31/17 08:52 10 MG Calcium Acetate (Phoslo Cap) 667 mg TIDM PO 05/31/17 07:30 06/30/17 07:59 05/31/17 08:53 667 MG Fluticasone Propionate (Flonase Nasal [place]) 2 sprays BID JAMILAH 05/31/17 09:00 06/30/17 08:59 Hydralazine HCl (Apresoline Tab) 25 mg TID PO 05/31/17 09:00 06/30/17 08:59 05/31/17 08:52 25 MG Ondansetron HCl (Zofran Tab) 4 mg Q6 PRN PO 05/31/17 06:15 06/30/17 06:14 Ranitidine HCl (zANTac TAB) 150 mg DAILY PO 05/31/17 09:00 06/30/17 08:59 05/31/17 08:52 150 MG Miscellaneous Information (Order Awaiting Action) 1 ea QS N/A 05/31/17 08:00 06/30/17 07:59 Miscellaneous Information (Order Awaiting Action) 1 ea QS N/A 05/31/17 08:00 06/30/17 07:59 Pantoprazole Sodium (Protonix Tab) 40 mg QAM PO 05/31/17 09:00 06/30/17 08:59 05/31/17 08:52 40 MG Piperacillin Sod/ Tazobactam Sod (Consult) 1 ea UD PRN N/A 05/31/17 06:30 06/30/17 06:29 Vancomycin HCl (Consult) 1 ea UD PRN N/A 05/31/17 06:30 06/30/17 06:29 Piperacillin Sod/ Tazobactam Sod 3.375 gm/Dextrose 115 ml @ 28.75 mls/ hr Q8H IV 05/31/17 14:00 06/07/17 05:59 Family History Father had a hematologic malignancy Social History Smoking Status: Never Smoker Smokeless Tobacco Use: No Alcohol Use: 3 drinks daily; either beer or spirits Drug Use: none Marital Status: in relationship Housing Status: lives with family Occupation: employed Review of Systems A complete review of systems was performed. Pertinent positives are noted above. All other systems are negative. Physical Exam Date Time Temp Pulse Resp B/P (MAP) Pulse Ox O2 Delivery O2 Flow Rate FiO2 05/31/17 07:20 37.0 102 22 146/66 93 Partial Rebreather 3.0 05/31/17 06:08 102 05/31/17 04:52 111 18 148/84 93 Nasal Cannula 2.0 05/31/17 02:58 Nasal Cannula 4.0 05/31/17 02:58 95 Nasal Cannula 4.0 05/31/17 02:55 37.0 87 24 185/92 93 Nasal Cannula 4.0 05/31/17 02:55 85 Room Air 05/31/17 02:52 96 General Appearance: no apparent distress, + thin Head: normocephalic, atraumatic Eyes: normal inspection, sclerae normal ENT: normal ENT inspection, pharynx normal Neck: supple, + JVD (12-14 cm JVP) Respiratory/Chest: no respiratory distress, no accessory muscle use, + decreased breath sounds (at the right base), + rales, + pertinent finding (no rhonchi) Cardiovascular: regular rate, rhythm, no gallop, no murmur Abdomen/GI: non tender, soft Back: normal inspection, no muscle spasm Extremities/Musculoskelatal: normal inspection, + pedal edema Neurologic/Psych: alert, normal mood/affect, oriented x 3 Skin: normal color, no rash Laboratory Results Last 24 Hours Test 05/31/17 03:05 05/31/17 03:45 05/31/17 10:14 White Blood Count 11.55 K/uL Red Blood Count 2.61 M/uL Hemoglobin 7.8 g/dL Hematocrit 23.9 % Mean Corpuscular Volume 91.6 fL Mean Corpuscular Hemoglobin 29.9 pg Mean Corpuscular Hemoglobin Concent 32.6 g/dl Platelet Count 234 K/uL Mean Platelet Volume 8.7 fL Neutrophils (%) (Auto) 82.6 % Lymphocytes (%) (Auto) 5.8 % Monocytes (%) (Auto) 9.6 % Eosinophils (%) (Auto) 1.6 % Basophils (%) (Auto) 0.2 % Neutrophils # (Auto) 9.55 K/uL Lymphocytes # (Auto) 0.67 K/uL Monocytes # (Auto) 1.11 K/uL Eosinophils # (Auto) 0.18 K/uL Basophils # (Auto) 0.02 K/uL RDW Standard Deviation 51.4 fL RDW Coefficient of Variation 15.3 % Immature Granulocyte % (Auto) 0.2 % Immature Granulocyte # (Auto) 0.02 K/uL Schistocytes 1+ Sodium Level 146 mmol/L Potassium Level 4.1 mmol/L Chloride Level 115 mmol/L Carbon Dioxide Level 27 mmol/L Anion Gap 4.0 mmol/L Blood Urea Nitrogen 40 mg/dl Creatinine 2.00 mg/dl Est Creatinine Clear Calc Drug Dose 36.1 ml/min Estimated GFR () 36.7 Estimated GFR (Non- 31.7 BUN/Creatinine Ratio 20.2 Random Glucose 94 mg/dl Calcium Level 8.1 mg/dl Total Bilirubin 0.7 mg/dl Aspartate Amino Transf (AST/SGOT) 25 U/L Alanine Aminotransferase (ALT/SGPT) 52 U/L Alkaline Phosphatase 72 U/L Total Creatine Kinase 61 U/L Creatine Kinase MB < 0.5 ng/ml Creatine Kinase MB Ratio Troponin I < 0.015 ng/ml Pro-B-Type Natriuretic Peptide 3496 pg/ml Total Protein 5.9 gm/dl Albumin 3.1 gm/dl Globulin 2.8 gm/dl Albumin/Globulin Ratio 1.1 Urine Color YELLOW Urine Appearance CLEAR Urine pH 6.5 Urine Specific [place] 1.010 Urine Protein TRACE Urine Glucose (UA) NEG Urine Ketones NEG Urine Occult Blood TRACE Urine Nitrite NEG Urine Bilirubin NEG Urine Urobilinogen NEG Urine Leukocyte Esterase NEG Urine WBC (Auto) 1-5 /hpf Urine RBC (Auto) 0-4 /hpf Urine Hyaline Casts (Auto) 1-5 /lpf Urine Epithelial Cells (Auto) 5-10 /lpf Urine Bacteria (Auto) NEG Impression (1) Right lower lobe pneumonia (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 Tadeo is a 76-year-old male recently hospitalized with TMA manifested by MAHA, thrombocytopenia and acute renal insufficiency. He also had evidence of superimposed ATN. Clinical presentation was consistent with ST- HUS though stool testing for E coli was negative. ADAMTS 13 activity level was normal. Basic complete levels of C3, C4 and CH50 were acceptable though no anti CFH testing was completed. The patient clinically improved with supportive care and monitoring. He did require PRBC transfusion support. The patient was documented to be in a significant net positive fluid balance. He also notes that his weight had increased significantly. He has not experienced fevers or chills. He denies cough but does have symptomatic orthopnea. Activity tolerance is limited by dyspnea but this appears to be improving. Renal function continues to show evidence of renal recovery. Creatinine now 2.0 mg/dL. Hemoglobin is stable. Platelet count is normal. A few persistent schistocytes are noted. Hemolysis labs have been requested by hematology for follow up. Differential for shortness of breath may include PE given his history of travel from [place] and avoidance of pharmacologic prophylaxis given thrombocytopenia. Symptoms seem to be more consistent with cardiogenic pulmonary edema or symptomatic pleural effusion. CXR was reviewed which shows pulmonary vascular congestion and at least mild interstitial edema as well as a unilateral effusion or infiltrate in the right base. A non contrast chest CT scan may help better appreciate this. Clinically, the patient is reporting early improvement with diuretics and antibiotics. I would encourage continued use of loop diuretics to encourage a net negative fluid balance. I would also suggest decreasing obligatory intake via IVF as able. Recommendations -- Monitor CBC and renal panel daily -- Give furosemide 40 mg with any blood transfusions -- Consider non contrast chest CT scan and/or PA/lateral and decubitus plain films -- Continue daily furosemide as needed to maintain a net negative fluid balance of approximately 1-2 L daily -- Continue amlodipine and hydralazine for hypertension and avoid RAAS blockade -- Phoslo QAC for now and check phosphorus tomorrow AM
[2017-05-31] MEDS ORDERED: FUROSEMIDE 40 MG TAB PO ONE (12:30)
[2017-05-31] MEDS: PIPERACILL/TAZOBAC IV 3.375 GM in DEXTROSE 5% 100ML IV SCH ×2 (15:18→21:25)
--- NOTE | 2017-05-31 15:40 | DIAGNOSTIC IMAGING REPORT ---
LEFT LOWER EXTREMITY VENOUS DOPPLER CLINICAL HISTORY: Left calf pain. COMPARISON STUDY: No previous studies for comparison. TECHNIQUE: Sonography of the deep venous system of the left lower extremity was performed. Compression and augmentation were evaluated. FINDINGS: The common femoral, superficial femoral and popliteal veins were compressible. Augmentation was normal. Flow was shown within the deep calf vessels. IMPRESSION: No evidence of deep venous thrombus within the left lower extremity. Electronically signed by: Manny Topete M.D. 05/31/2017 3:38 PM Dictated Date/Time: 05/31/2017 3:38 PM
--- NOTE | 2017-05-31 16:29 | DIAGNOSTIC IMAGING REPORT ---
CT OF THE CHEST WITHOUT IV CONTRAST CLINICAL HISTORY: SOB, pulmonary congestion on CXR COMPARISON STUDY: Chest CT June 17, 2013 and chest radiograph performed earlier today. CT DOSE: 488.84 mGy.cm TECHNIQUE: Axial images of the chest were obtained without IV contrast. Images were reviewed in the axial, sagittal, and coronal planes. IV contrast was not administered for this examination. A dose lowering technique was utilized adhering to the principles of ALARA. FINDINGS: The heart is mildly enlarged. There is no pericardial effusion. No enlarged thoracic lymph nodes are identified on this unenhanced exam. There is a prominent subcarinal lymph node. A moderate to large right pleural effusion is noted. There is a moderate left pleural effusion. Lungs are suboptimally assessed due to respiratory motion. There is no pneumothorax. There is extensive right lower lobe volume loss with airspace opacity. This suggest subpleural compressive atelectasis of the right lower lobe. There is extensive left lower lobe volume loss which suggest atelectasis. There are mild groundglass opacities within the lungs. No central obstructing mass is identified. No suspicious osseous lesions are present. There is a left hepatic lobe cyst. Calcifications within the right hepatic lobe are incidentally noted. Anasarca is noted. IMPRESSION: 1. Moderate to large right pleural effusion and moderate left pleural effusion. Bilateral lower lobe opacities with significant volume loss, right more severe than left. This favors compressive atelectasis. 2. Mild cardiomegaly. 3. Mild groundglass opacities within the lungs. This favors mild pulmonary edema although an infectious process could appear similar. Electronically signed by: Manny Topete M.D. 05/31/2017 4:28 PM Dictated Date/Time: 05/31/2017 4:21 PM
--- NOTE | 2017-05-31 18:39 | Family Medicine Progress Note ---
Progress Note Date of Service May 31, 2017. Subjective Pt evaluation today including: conversation w/ patient, physical exam, lab review Pain: denies Voiding: no voiding problems Patient was seen at the bedside. He states that he is feeling better than yesterday. Denies any other complaints. Constitutional: No fever Respiratory: + shortness of breath, No cough, No wheezing Cardiovascular: No chest pain Abdomen: No pain, No nausea, No vomiting, No diarrhea, No constipation Male : No dysuria Skin: No rash Medications Current Inpatient Medications Medications (Trade) Dose Ordered Sig/Aziza Route Start Time Stop Time Status Last Admin Dose Admin Acetaminophen (Tylenol Tab) 650 mg Q4H PRN PO 05/31/17 05:45 06/30/17 05:44 Al Hydrox/Mg Hydrox/Simethicone (Maalox Max Susp) 15 ml Q4H PRN PO 05/31/17 05:45 06/30/17 05:44 Magnesium Hydroxide (Milk Of Magnesia Susp) 30 ml Q12H PRN PO 05/31/17 05:45 06/30/17 05:44 Ondansetron HCl (Zofran Inj) 4 mg Q6H PRN IV 05/31/17 05:45 06/30/17 05:44 Polyethylene (Miralax Powder Packet) 17 gm DAILY PRN PO 05/31/17 05:45 06/30/17 05:44 Amlodipine Besylate (Norvasc Tab) 10 mg DAILY PO 05/31/17 09:00 06/30/17 08:59 05/31/17 08:52 10 MG Calcium Acetate (Phoslo Cap) 667 mg TIDM PO 05/31/17 07:30 06/30/17 07:59 05/31/17 16:23 667 MG Fluticasone Propionate (Flonase Nasal [place]) 2 sprays BID JAMILAH 05/31/17 09:00 06/30/17 08:59 Hydralazine HCl (Apresoline Tab) 25 mg TID PO 05/31/17 09:00 06/30/17 08:59 05/31/17 13:05 25 MG Ondansetron HCl (Zofran Tab) 4 mg Q6 PRN PO 05/31/17 06:15 06/30/17 06:14 Ranitidine HCl (zANTac TAB) 150 mg DAILY PO 05/31/17 09:00 06/30/17 08:59 05/31/17 08:52 150 MG Miscellaneous Information (Order Awaiting Action) 1 ea QS N/A 05/31/17 08:00 06/30/17 07:59 Miscellaneous Information (Order Awaiting Action) 1 ea QS N/A 05/31/17 08:00 06/30/17 07:59 Pantoprazole Sodium (Protonix Tab) 40 mg QAM PO 05/31/17 09:00 06/30/17 08:59 05/31/17 08:52 40 MG Piperacillin Sod/ Tazobactam Sod (Consult) 1 ea UD PRN N/A 05/31/17 06:30 06/30/17 06:29 Vancomycin HCl (Consult) 1 ea UD PRN N/A 05/31/17 06:30 06/30/17 06:29 Piperacillin Sod/ Tazobactam Sod 3.375 gm/Dextrose 115 ml @ 28.75 mls/ hr Q8H IV 05/31/17 14:00 06/07/17 05:59 05/31/17 15:18 28.75 MLS/HR Objective Vital Signs Date Time Temp Pulse Resp B/P (MAP) Pulse Ox O2 Delivery O2 Flow Rate FiO2 05/31/17 16:00 95 Nasal Cannula 3.0 05/31/17 15:27 36.9 87 20 132/65 (87) 91 Nasal Cannula 3.0 05/31/17 14:41 90 93 05/31/17 12:00 93 Nasal Cannula 3.0 05/31/17 11:47 36.5 90 20 147/73 (97) 93 Nasal Cannula 3.0 05/31/17 07:20 37.0 102 22 146/66 93 Partial Rebreather 3.0 05/31/17 06:08 102 05/31/17 04:52 111 18 148/84 93 Nasal Cannula 2.0 05/31/17 02:58 Nasal Cannula 4.0 05/31/17 02:58 95 Nasal Cannula 4.0 05/31/17 02:55 37.0 87 24 185/92 93 Nasal Cannula 4.0 05/31/17 02:55 85 Room Air 05/31/17 02:52 96 Physical Exam General Appearance: WD/WN, no apparent distress Neck: supple, trachea midline Respiratory/Chest: chest non-tender, no respiratory distress, no accessory muscle use Cardiovascular: regular rate, rhythm, no edema Abdomen: normal bowel sounds, non tender, soft Extremities: non-tender, no pedal edema Neurologic/Psychiatric: alert, normal mood/affect, oriented x 3 Skin: normal color, warm/dry, no rash Laboratory Results Results Past 24 Hours Test 05/31/17 03:05 05/31/17 03:45 05/31/17 10:14 Range/Units White Blood Count 11.55 4.8-10.8 K/uL Red Blood Count 2.61 4.7-6.1 M/uL Hemoglobin 7.8 14.0-18.0 g/dL Hematocrit 23.9 42-52 % Mean Corpuscular Volume 91.6 80-100 fL Mean Corpuscular Hemoglobin 29.9 25-34 pg Mean Corpuscular Hemoglobin Concent 32.6 32-36 g/dl Platelet Count 234 130-400 K/uL Mean Platelet Volume 8.7 7.4-10.4 fL Neutrophils (%) (Auto) 82.6 % Lymphocytes (%) (Auto) 5.8 % Monocytes (%) (Auto) 9.6 % Eosinophils (%) (Auto) 1.6 % Basophils (%) (Auto) 0.2 % Neutrophils # (Auto) 9.55 1.4-6.5 K/uL Lymphocytes # (Auto) 0.67 1.2-3.4 K/uL Monocytes # (Auto) 1.11 0.11-0.59 K/uL Eosinophils # (Auto) 0.18 0-0.5 K/uL Basophils # (Auto) 0.02 0-0.2 K/uL RDW Standard Deviation 51.4 36.4-46.3 fL RDW Coefficient of Variation 15.3 11.5-14.5 % Immature Granulocyte % (Auto) 0.2 % Immature Granulocyte # (Auto) 0.02 0.00-0.02 K/uL Schistocytes 1+ Sodium Level 146 136-145 mmol/L Potassium Level 4.1 3.5-5.1 mmol/L Chloride Level 115 98-107 mmol/L Carbon Dioxide Level 27 21-32 mmol/L Anion Gap 4.0 3-11 mmol/L Blood Urea Nitrogen 40 7-18 mg/dl Creatinine 2.00 0.60-1.40 mg/dl Est Creatinine Clear Calc Drug Dose 36.1 ml/min Estimated GFR () 36.7 Estimated GFR (Non- 31.7 BUN/Creatinine Ratio 20.2 10-20 Random Glucose 94 70-99 mg/dl Calcium Level 8.1 8.5-10.1 mg/dl Total Bilirubin 0.7 0.2-1 mg/dl Aspartate Amino Transf (AST/SGOT) 25 15-37 U/L Alanine Aminotransferase (ALT/SGPT) 52 12-78 U/L Alkaline Phosphatase 72 45-117 U/L Total Creatine Kinase 61 39-308 U/L Creatine Kinase MB < 0.5 0.5-3.6 ng/ml Creatine Kinase MB Ratio 0-3.0 Troponin I < 0.015 0-0.045 ng/ml Pro-B-Type Natriuretic Peptide 3496 0-900 pg/ml Total Protein 5.9 6.4-8.2 gm/dl Albumin 3.1 3.4-5.0 gm/dl Globulin 2.8 2.5-4.0 gm/dl Albumin/Globulin Ratio 1.1 0.9-2 Urine Color YELLOW Urine Appearance CLEAR CLEAR Urine pH 6.5 4.5-7.5 Urine Specific [place] 1.010 1.000-1.030 Urine Protein TRACE NEG Urine Glucose (UA) NEG NEG Urine Ketones NEG NEG Urine Occult Blood TRACE NEG Urine Nitrite NEG NEG Urine Bilirubin NEG NEG Urine Urobilinogen NEG NEG Urine Leukocyte Esterase NEG NEG Urine WBC (Auto) 1-5 0-5 /hpf Urine RBC (Auto) 0-4 0-4 /hpf Urine Hyaline Casts (Auto) 1-5 0-5 /lpf Urine Epithelial Cells (Auto) 5-10 0-5 /lpf Urine Bacteria (Auto) NEG NEG Prothrombin Time 11.2 9.0-12.0 SECONDS Prothromb Time International Ratio 1.0 0.9-1.1 Activated Partial Thromboplast Time 27.3 21.0-31.0 SECONDS Partial Thromboplastin Ratio 1.1 Lactate Dehydrogenase 486 87-241 U/L Microbiology Results 05/31/17 Blood Culture, Received Pending 05/31/17 Blood Culture, Received Pending 05/31/17 MRSA DNA Surveillance Screen - Final, Complete Specimen Negative for MRSA by DNA Probe Assessment and Plan This is a 76 y/o male with resolving TTP-HUS and DARLINE presented to the hospital with increasing SOB and weakness. He was recently admitted to [facility] on 05/16 and transferred to [facility] on 05/20 due to TTP-HUS 2/2 presumed GI etiology. He received RBC transfusion in [facility] and never needed plasmapheresis. [id number] was normal. Review of [facility] records indicated that Hb this time is stable compared to Hb at [facility]. His DARLINE continues to resolve slowly as well. Red cell transfusions have had to be part of his supportive care. Renal function has mildly improved. [id number] was normal. * Acute hypoxic respiratory failure - 2/2 right sided pneumonia - CXR: Right lower lobe airspace opacity, likely represents a PNA, mild interstitial pulmonary edema, cardiomegaly and a small right pleural effusion. - CT chest: moderate to large pleural effusion and moderate left pleural effusion. B/l LL opacities with significant vol loss, R>L. Mild cardiomegaly. Mild groundglass opacitis within lung, favor mild pulmonary edema, though infectious process could appear similar. - Currently on 3L NC - Left LE venous dropper : No evidence of DVT (pt was complaining of left calf pain) - Echo is ordered given his last Echo was done in 2004, also to rule out any cardiac etiology. * Right-Sided PNA - CXR showed right lower lobe airspace opacity, likely represents PNA. - Con't with Vancomycin and Zosyn IV - BCx pending - MRSA negative * Acute Kidney Injury - Resolving - Cr. 2.0 today; continues to downtrend from Cr measured 2.78 at discharge from [facility] on 05/27 - Hold Nephrotoxic medications - Renal dosing of antibiotics - Continue Lasix 40mg daily (net negative fluid balance of approximately 1- 2L daily) - Daily I/O and weight - Nephrology was consulted and Dr. 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 Dr. Starks saw the patient and didn't recommended any intervention this time. Recommended to con't monitor CBC. -- LDH is elevated and coag profile is normal * Hypertension - Patient discharged from [facility] On Hydralazine 25mg TID and Amlodipine 10mg daily * GERD - Continue Ranitidine * DVT Prophylaxis - SCD - TOYA - Hold pharmacological anticoagulation due to low Hb Code Status: Level I - OT and PT evaluations to determine discharge needs
[2017-05-31] MEDS: DIFLUPREDNATE OP SCH (19:00)
[2017-05-31] MEDS: BROMFENAC OP SCH (19:00)
[2017-06-01] VITALS (13 sets, daily range): BP systolic 134–157; BP diastolic 66–79; PULSE 75–92; TEMP 36.5–37.1; O2SAT 89–95
[2017-06-01 02:09] LABS: HEMATOCRIT 27.1 % (42-52)
[2017-06-01] MEDS: PIPERACILL/TAZOBAC IV 3.375 GM in DEXTROSE 5% 100ML IV SCH (05:35)
[2017-06-01 05:46] LABS: HEMATOCRIT 25.8 % (42-52); MEAN CELL VOLUME 90.2 fL (80-100); MEAN CORPUSCULAR HEMOGLOBIN 30.8 pg (25-34); MEAN CORPUSCULAR HGB CONC 34.1 g/dl (32-36); MEAN PLATELET VOLUME 8.6 fL (7.4-10.4); PLATELET COUNT 196 K/uL (130-400); RED BLOOD COUNT 2.86 M/uL (4.7-6.1); WHITE BLOOD COUNT 13.91 K/uL (4.8-10.8)
[2017-06-01 06:18] LABS: BUN/CREATININE RATIO 19.6 (10-20); CALCIUM 8.3 mg/dl (8.5-10.1); CREATININE 2.4 mg/dl (0.60-1.40); PHOSPHORUS 4.3 mg/dl (2.5-4.9); POTASSIUM 4.3 mmol/L (3.5-5.1)
[2017-06-01] MEDS: CALCIUM ACETATE 667MG GELCAP PO SCH (08:25)
[2017-06-01] MEDS: AMLODIPINE BESYLATE 5 MG TAB PO SCH (08:26)
[2017-06-01] MEDS: PANTOprazole SOD 40 MG TAB PO SCH (08:27)
[2017-06-01] MEDS: RANITIDINE HCL 150 MG TAB PO SCH (08:27)
[2017-06-01] MEDS: FLUTICASONE PROPIONATE NA SPR 16 GM BTL NAE SCH ×2 (08:28→21:39)
--- NOTE | 2017-06-01 08:36 | ECHOCARDIOGRAM REPORT ---
*NOTICE TO RECEIVING LIBERTARIAN AGENCY This information is strictly Confidential and protected under [place] law. [place] law prohibits you from making any further disclosure of this information unless further disclosure is expressly permitted by the written consent of the person to whom it pertains or is authorized by law. A general authorization for the release of medical or other information is not sufficient for this purpose. Hospital accepts no responsibility if the information is made available to any other person, INCLUDING THE PATIENT. Interpretation Summary * Name: ABBY FOX JR Study Date: 05/31/2017 12:27 PM BP: 147/73 mmHg * Patient Location: C.2E\S\E207\S\1 HR: 90 * : 1940 (M/d/yyyy) Gender: Male Height: 71 in * Age: 76 yrs Ethnicity: CA Weight: 204 lb * Ordering Physician: Leslie Sawyer * Performed By: Alejandrina Almonte * * Reason For Study: SOB, PULM EDEMA * BSA: 2.1 m2 * -- Conclusions -- * The left ventricle is hyperdynamic. * No regional wall motion abnormalities noted. * Ejection Fraction = >70 %. * There is mild mitral regurgitation. * There is mild tricuspid regurgitation. * Bilateral pleural effusions. Procedure Details * A complete two-dimensional transthoracic echocardiogram was performed (2D, M-mode, Doppler and color flow Doppler). Left Ventricle * The left ventricle is normal in size. * There is normal left ventricular wall thickness. * Ejection Fraction = >70 %. * The left ventricle is hyperdynamic. * No regional wall motion abnormalities noted. Right Ventricle * The right ventricle is not well visualized. * The right ventricular systolic function is normal as assessed by tricuspid annular plane systolic excursion (TAPSE) (normal >1.5 cm). Atria * The left atrium is moderately dilated. * The right atrium is mildly dilated. * No ASD detected; PFO is not assessed. Mitral Valve * The mitral valve anatomy is normal. * There is no mitral valve stenosis. * There is mild mitral regurgitation. Tricuspid Valve * The tricuspid valve is not well visualized, but is grossly normal. * There is no tricuspid stenosis. * There is mild tricuspid regurgitation. Aortic Valve * The aortic valve is normal in structure and function. * No hemodynamically significant valvular aortic stenosis. * No aortic regurgitation is present. Pulmonic Valve * The pulmonary valve is not well seen, but the Doppler examination is normal without significant regurgitation or stenosis. Great Vessels * The aortic root is normal size. * The pulmonary is not well visualized. Pericardium/Pleural * There is no pericardial effusion. * Moderate size right pleural effusion. * Moderate size left pleural effusion. Great Vessels * Normal inferior vena cava size and collapsability with sniff indicates a normal right atrial pressure of 3 mmHg MMode 2D Measurements and Calculations IVSd 1.4 cm IVSs 2.3 cm LVIDd 4.7 cm LVIDs 2.6 cm LVPWd 1.4 cm LVPWs 1.9 cm IVS/LVPW 1.0 FS 44.6 % EDV(Teich) 102.2 ml ESV(Teich) 24.7 ml EF(Teich) 75.8 % EDV(cubed) 103.6 ml ESV(cubed) 17.7 ml EF(cubed) 83.0 % % IVS thick 58.6 % % LVPW thick 34.1 % LV mass(C)d 276.0 grams LV mass(C)dI 129.8 grams/m\S\2 LV mass(C)s 249.5 grams LV mass(C)sI 117.3 grams/m\S\2 SV(Teich) 77.5 ml SI(Teich) 36.4 ml/m\S\2 SV(cubed) 85.9 ml SI(cubed) 40.4 ml/m\S\2 ACS 1.6 cm LA dimension 5.1 cm asc Aorta Diam 3.2 cm LVOT diam 2.0 cm LVOT area 3.1 cm\S\2 LVAd ap4 30.5 cm\S\2 LVLd ap4 8.2 cm EDV(MOD-sp4) 91.8 ml EDV(sp4-el) 97.1 ml LVAs ap4 11.7 cm\S\2 LVLs ap4 5.7 cm ESV(MOD-sp4) 21.4 ml ESV(sp4-el) 20.3 ml EF(MOD-sp4) 76.7 % EF(sp4-el) 79.1 % LVAd ap2 35.5 cm\S\2 LVLd ap2 8.4 cm EDV(MOD-sp2) 119.5 ml EDV(sp2-el) 126.5 ml LVAs ap2 15.7 cm\S\2 LVLs ap2 6.9 cm ESV(MOD-sp2) 30.7 ml ESV(sp2-el) 30.4 ml EF(MOD-sp2) 74.3 % EF(sp2-el) 76.0 % LVLd %diff 3.3 % EDV(MOD-bp) 106.4 ml LVLs %diff 17.2 % ESV(MOD-bp) 27.6 ml EF(MOD-bp) 74.1 % SV(MOD-sp4) 70.4 ml SI(MOD-sp4) 33.1 ml/m\S\2 SV(MOD-sp2) 88.8 ml SI(MOD-sp2) 41.7 ml/m\S\2 SV(MOD-bp) 78.8 ml SI(MOD-bp) 37.1 ml/m\S\2 SV(sp4-el) 76.7 ml SI(sp4-el) 36.1 ml/m\S\2 SV(sp2-el) 96.1 ml SI(sp2-el) 45.2 ml/m\S\2 Doppler Measurements and Calculations MV E max telma 113.8 cm/sec MV A max telma 62.0 cm/sec MV E/A 1.8 MV dec time 0.25 sec Ao V2 max 182.5 cm/sec Ao max PG 13.3 mmHg Ao max PG (full) 3.5 mmHg SUDHEER(V,A) 2.6 cm\S\2 SUDHEER(V,D) 2.6 cm\S\2 LV V1 max PG 9.8 mmHg LV V1 max 156.8 cm/sec MR max telma 554.8 cm/sec MR max PG 123.4 mmHg PA V2 max 113.8 cm/sec PA max PG 5.2 mmHg TR max telma 343.0 cm/sec
[2017-06-01] MEDS ORDERED: FUROSEMIDE 40 MG TAB PO SCH (09:00)
[2017-06-01] MEDS ORDERED: FUROSEMIDE 40 MG TAB PO STA (10:28)
[2017-06-01] MEDS ORDERED: AMOXICILLIN/CLAVULANATE TAB 875 MG TAB PO ONE (10:29)
--- NOTE | 2017-06-01 10:50 | Nephrology Progress Note ---
Nephrology Progress Note Date of Service Jun 01, 2017. Chief Complaint DARLINE, TMA Subjective Carlyle was seen and evaluated this morning with the hospitalist team. He was resting comfortably in a chair and denies any significant complaints. He reports some improvement in symptoms following PRBC transfusion yesterday. He denies fevers, chills or cough. He did not endorse any urinary complaints. Review of Systems A complete review of systems was performed. Pertinent positives are noted above. All other systems are negative. Vital Signs Last 8 Hrs Date Time Temp Pulse Resp B/P (MAP) Pulse Ox O2 Delivery O2 Flow Rate FiO2 06/01/17 07:30 Room Air 06/01/17 07:30 37.1 78 16 139/70 (93) 93 Room Air 06/01/17 04:17 94 Room Air 3.0 06/01/17 04:00 36.9 78 19 140/71 (94) 93 Nasal Cannula 3.0 Last Recorded Weight Weight (Kilograms): 95.300 Physical Exam General Appearance: WD/WN, no apparent distress, + thin Head: normocephalic, atraumatic Eyes: normal inspection, sclerae normal ENT: normal ENT inspection, pharynx normal Neck: supple, + JVD Respiratory/Chest: lungs clear, no respiratory distress, no accessory muscle use, + decreased breath sounds Cardiovascular: regular rate, rhythm, no gallop Abdomen/GI: non tender, soft Extremities/Musculoskelatal: normal inspection, + pedal edema Neurologic/Psych: alert, oriented x 3 Family History Father had a hematologic malignancy Social History Smoking Status: Unknown if ever smoked Smokeless Tobacco Use: No Alcohol Use: 3 drinks daily; either beer or spirits Drug Use: none Marital Status: in relationship Housing Status: lives with family Occupation: employed Laboratory Results Past 24 Hours 06/01/17 01:46 06/01/17 05:34 06/01/17 05:34 Test 06/01/17 05:34 Red Blood Count 2.86 M/uL (4.7-6.1) Mean Corpuscular Volume 90.2 fL (80-100) Mean Corpuscular Hemoglobin 30.8 pg (25-34) Mean Corpuscular Hemoglobin Concent 34.1 g/dl (32-36) RDW Standard Deviation 51.4 fL (36.4-46.3) RDW Coefficient of Variation 15.7 % (11.5-14.5) Mean Platelet Volume 8.6 fL (7.4-10.4) Anion Gap 6.0 mmol/L (3-11) Est Creatinine Clear Calc Drug Dose 30.9 ml/min Estimated GFR () 29.5 Estimated GFR (Non- 25.4 BUN/Creatinine Ratio 19.6 (10-20) Calcium Level 8.3 mg/dl (8.5-10.1) Phosphorus Level 4.3 mg/dl (2.5-4.9) Albumin 3.0 gm/dl (3.4-5.0) Random Vancomycin Level 18.1 mcg/ml Allergies Coded Allergies: No Known Allergies (Verified , 05/31/17) Medications Current Inpatient Medications Medications (Trade) Dose Ordered Sig/Aziza Route Start Time Stop Time Status Last Admin Dose Admin Acetaminophen (Tylenol Tab) 650 mg Q4H PRN PO 05/31/17 05:45 06/30/17 05:44 Al Hydrox/Mg Hydrox/Simethicone (Maalox Max Susp) 15 ml Q4H PRN PO 05/31/17 05:45 06/30/17 05:44 Magnesium Hydroxide (Milk Of Magnesia Susp) 30 ml Q12H PRN PO 05/31/17 05:45 06/30/17 05:44 Ondansetron HCl (Zofran Inj) 4 mg Q6H PRN IV 05/31/17 05:45 06/30/17 05:44 Polyethylene (Miralax Powder Packet) 17 gm DAILY PRN PO 05/31/17 05:45 06/30/17 05:44 Amlodipine Besylate (Norvasc Tab) 10 mg DAILY PO 05/31/17 09:00 06/30/17 08:59 06/01/17 08:26 10 MG Calcium Acetate (Phoslo Cap) 667 mg TIDM PO 05/31/17 07:30 06/30/17 07:59 06/01/17 08:25 667 MG Fluticasone Propionate (Flonase Nasal [place]) 2 sprays BID JAMILAH 05/31/17 09:00 06/30/17 08:59 06/01/17 08:28 2 SPRAYS Hydralazine HCl (Apresoline Tab) 25 mg TID PO 05/31/17 09:00 06/30/17 08:59 06/01/17 08:27 25 MG Ondansetron HCl (Zofran Tab) 4 mg Q6 PRN PO 05/31/17 06:15 06/30/17 06:14 Ranitidine HCl (zANTac TAB) 150 mg DAILY PO 05/31/17 09:00 06/30/17 08:59 06/01/17 08:27 150 MG Pantoprazole Sodium (Protonix Tab) 40 mg QAM PO 05/31/17 09:00 06/30/17 08:59 06/01/17 08:27 40 MG Non-Formulary Medication (Non-Formulary Patient'S Own Med) 1 ea DAILY@1600 OP 05/31/17 19:00 06/30/17 18:59 05/31/17 19:00 1 EA Non-Formulary Medication (Non-Formulary Patient'S Own Med) 1 ea DAILY@1600 OP 05/31/17 19:00 06/30/17 18:59 05/31/17 19:00 1 EA Furosemide (Lasix Tab) 40 mg QAM PO 06/01/17 09:00 07/01/17 08:59 06/01/17 08:27 40 MG Amoxicillin/ Clavulanate Potassium (Augmentin Tab) 875 mg BIDM PO 06/01/17 16:45 06/07/17 16:46 Impression (1) Right lower lobe pneumonia (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 Tadeo is a 76-year-old male who was recently hospitalized with TMA manifested by MAHA, thrombocytopenia and acute renal insufficiency. He also had evidence of superimposed ATN. Clinical presentation was consistent with ST- HUS though stool testing for E coli was negative. ADAMTS 13 activity level was normal. He was admitted to [facility] with shortness of breath and notable orthopnea. CT of the chest reveals at least moderate bilateral pleural effusions. Creatinine has increase over the past 24 hours. Platelet count dropped slightly but this could be dilutional. It is difficult to assess for ongoing hemolysis but this is not overtly concerning. At this time, I strongly recommend a negative fluid balance and close monitoring. Clinically, the patient is reporting early improvement with diuretics and antibiotics. I would encourage continued use of loop diuretics to encourage a net negative fluid balance. I would also suggest decreasing obligatory intake as much as possible. Recommendations -- Monitor CBC, hemolysis and renal panel daily -- Suggest furosemide at least 40-80 mg BID, and adjust as needed to continue diuresis. Given edema, IV may be preferable. -- Maintain a net negative fluid balance of at least 1-2 L daily -- Continue amlodipine and hydralazine for hypertension and avoid RAAS blockade -- OK to hold Phoslo as we monitor serum phosphate
--- NOTE | 2017-06-01 14:03 | DIAGNOSTIC IMAGING REPORT ---
VIDEO SWALLOW HISTORY: CXR showed R pleural effusion, ?aspiration PNA TECHNIQUE: Video fluoroscopic evaluation of swallowing was performed in the AP and lateral projections by the speech pathology staff. The patient is fed nectar-thick and thin liquid barium, a barium coated wafer, and barium pudding. FLUOROSCOPY TIME: 1.9 minutes. A cine loop submitted.. COMPARISON STUDY: None. FINDINGS: There is normal hyoid excursion and epiglottic deflection. There are a few episodes of penetration with the thin liquid and nectar thick liquid barium. No aspiration identified. Swallowing function is within normal limits. IMPRESSION: 1. No aspiration identified. 2. Please see the speech pathologist report for detailed findings and recommendations. Electronically signed by: Oleg Navarro M.D. 06/01/2017 2:02 PM Dictated Date/Time: 06/01/2017 2:00 PM
--- NOTE | 2017-06-01 14:25 | Clinical Documentation Query ---
CLINICAL VALIDATION QUERY Dr. RODRIGUEZ, Thank you for your documentation of acute respiratory failure noted on 05/31/17 in the progress note. Due to recent RAC audit denials and stringent requirements passed on by our coding department, clear clinical indicators and treatment must be present. Please include the clinical support and treatment in your next progress note. Our coding department is requiring at least 2 of the indicators below or they will not code this diagnosis: Acute Respiratory Failure indicators include: * Respirations >28 or tachypnea * Air hunger * Use of accessory muscles of respiration * Inability to speak in full sentences *Cyanosis * Pulse ox <90% on RA or <95% on O2 Thank You, Amber Mullins, RN [phone] Patient had pulse ox<90% and inability to speak in full sentences
--- NOTE | 2017-06-01 14:28 | Clinical Documentation Query ---
CLINICAL VALIDATION QUERY Dr. KING, Thank you for your documentation of acute respiratory failure noted on 05/31/17 in the progress note. Due to recent RAC audit denials and stringent requirements passed on by our coding department, clear clinical indicators and treatment must be present. Please include the clinical support and treatment in your next progress note. Our coding department is requiring at least 2 of the indicators below or they will not code this diagnosis: Acute Respiratory Failure indicators include: * Respirations >28 or tachypnea * Air hunger * Use of accessory muscles of respiration * Inability to speak in full sentences *Cyanosis * Pulse ox <90% RA or <95% on O2 Thank You, Amber Mullins RN [phone]
[2017-06-01] MEDS: DIFLUPREDNATE OP SCH (16:12)
[2017-06-01] MEDS: BROMFENAC OP SCH (16:22)
--- NOTE | 2017-06-01 16:57 | Hematology/Oncology Prog Note ---
Hematology/Onc Progress Note Date of Service Jun 01, 2017. Diagnoses Atypical HUS Renal failure Volume overload Medications Medications Administered Medications (Trade) Dose Ordered Sig/Aziza Route Start Time Stop Time Status Last Admin Dose Admin Albuterol/ Ipratropium (Duoneb) 12 ml ONE ONCE INH 05/31/17 02:45 05/31/17 02:46 DC 05/31/17 03:18 12 ML Furosemide (Lasix Inj) 40 mg NOW STAT IV 05/31/17 02:44 05/31/17 02:46 DC 05/31/17 03:12 40 MG Methylprednisolone Sodium Succinate (Solu-Medrol IV) 60 mg NOW STAT IV 05/31/17 02:46 05/31/17 02:47 DC 05/31/17 03:12 60 MG Vancomycin HCl 2500 mg/Sodium Chloride 550 ml @ 200 mls/hr 0800 IV 05/31/17 08:00 05/31/17 10:44 DC 05/31/17 09:57 200 MLS/HR Amlodipine Besylate (Norvasc Tab) 10 mg DAILY PO 05/31/17 09:00 06/30/17 08:59 06/01/17 08:26 10 MG Calcium Acetate (Phoslo Cap) 667 mg TIDM PO 05/31/17 07:30 06/30/17 07:59 Future Hold 06/01/17 08:25 667 MG Fluticasone Propionate (Flonase Nasal [place]) 2 sprays BID JAMILAH 05/31/17 09:00 06/30/17 08:59 06/01/17 08:28 2 SPRAYS Hydralazine HCl (Apresoline Tab) 25 mg TID PO 05/31/17 09:00 06/30/17 08:59 06/01/17 13:54 25 MG Ranitidine HCl (zANTac TAB) 150 mg DAILY PO 05/31/17 09:00 06/30/17 08:59 06/01/17 08:27 150 MG Pantoprazole Sodium (Protonix Tab) 40 mg QAM PO 05/31/17 09:00 06/30/17 08:59 06/01/17 08:27 40 MG Piperacillin Sod/ Tazobactam Sod 3.375 gm/Dextrose 115 ml @ 230 mls/hr NOW ONCE IV 05/31/17 08:00 05/31/17 08:29 DC 05/31/17 08:53 230 MLS/HR Piperacillin Sod/ Tazobactam Sod 3.375 gm/Dextrose 115 ml @ 28.75 mls/ hr Q8H IV 05/31/17 14:00 06/01/17 10:34 DC 06/01/17 05:35 28.75 MLS/HR Furosemide (Lasix Tab) 40 mg NOW ONCE PO 05/31/17 12:30 05/31/17 12:31 DC 05/31/17 13:03 40 MG Non-Formulary Medication (Non-Formulary Patient'S Own Med) 1 ea DAILY@1600 OP 05/31/17 19:00 06/30/17 18:59 06/01/17 16:22 1 EA Non-Formulary Medication (Non-Formulary Patient'S Own Med) 1 ea DAILY@1600 OP 05/31/17 19:00 06/30/17 18:59 06/01/17 16:12 1 EA Furosemide (Lasix Tab) 40 mg QAM PO 06/01/17 09:00 07/01/17 08:59 06/01/17 08:27 40 MG Furosemide (Lasix Tab) 40 mg NOW STAT PO 06/01/17 10:28 06/01/17 10:37 DC 06/01/17 10:58 40 MG Amoxicillin/ Clavulanate Potassium (Augmentin Tab) 875 mg 1029 ONCE PO 06/01/17 10:29 06/01/17 10:37 DC 06/01/17 10:58 875 MG Subjective Mr. Tadeo states he feels much better today. He was transfused, which is part of his improvement. However, he continues to have significant edema in his legs. He denies any bleeding or bruising. Review of Systems: Constitutional: No fever, No chills ENT: No unusual epistaxis Respiratory: + shortness of breath Cardiovascular: + edema, No chest pain Abdomen: No pain, No nausea Musculoskeletal: No joint pain, No muscle pain Male : No dysuria Heme: No abnormal bleeding/bruising, No clotting problems Vital Signs Vital Signs Past 12 Hours Date Time Temp Pulse Resp B/P (MAP) Pulse Ox O2 Delivery O2 Flow Rate FiO2 06/01/17 15:18 36.6 85 18 149/73 (98) 90 Room Air 06/01/17 15:15 92 93 06/01/17 12:15 36.5 85 20 157/75 (102) 94 Room Air 06/01/17 11:29 Room Air 06/01/17 10:45 37.1 78 16 93 3.0 06/01/17 07:30 Room Air 06/01/17 07:30 37.1 78 16 139/70 (93) 93 Room Air Physical Exam Constitutional: General Apperance: heathly-appearing Level of Distress: NAD Psychiatric: Mental Status: active & alert Orientation: oriented except where noted Lungs: Respiratory Effort: no dyspnea Cardiovascular: Heart Auscultation: RRR Extremities: edema (2+ non-pitting edema in both ankles) Laboratory Last 24 Hours Test 06/01/17 01:46 06/01/17 05:34 Hemoglobin 8.7 g/dL 8.8 g/dL Hematocrit 27.1 % 25.8 % White Blood Count 13.91 K/uL Red Blood Count 2.86 M/uL Mean Corpuscular Volume 90.2 fL Mean Corpuscular Hemoglobin 30.8 pg Mean Corpuscular Hemoglobin Concent 34.1 g/dl RDW Standard Deviation 51.4 fL RDW Coefficient of Variation 15.7 % Platelet Count 196 K/uL Mean Platelet Volume 8.6 fL Sodium Level 145 mmol/L Potassium Level 4.3 mmol/L Chloride Level 114 mmol/L Carbon Dioxide Level 25 mmol/L Anion Gap 6.0 mmol/L Blood Urea Nitrogen 47 mg/dl Creatinine 2.40 mg/dl Est Creatinine Clear Calc Drug Dose 30.9 ml/min Estimated GFR () 29.5 Estimated GFR (Non- 25.4 BUN/Creatinine Ratio 19.6 Random Glucose 103 mg/dl Calcium Level 8.3 mg/dl Phosphorus Level 4.3 mg/dl Albumin 3.0 gm/dl Random Vancomycin Level 18.1 mcg/ml Assessment & Plan 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 His platelets remain normal. He is still anemic, but given the lifespan of RBCs, it may take time for this to resolve. His creatinine is up a bit today, which may reflect his difficult fluid balance. Dr. Ricks from nephrology is following. His coagulation times are also normal. I would not recommend any particular changes in management at this time. I will continue to monitor his counts, but will likely not check in daily unless issues arise.
[2017-06-01] MEDS: AMOXICILLIN/CLAVULANATE TAB 875 MG TAB PO SCH (17:11)
--- NOTE | 2017-06-01 17:34 | Family Medicine Progress Note ---
Progress Note Date of Service Jun 01, 2017. Subjective Pt evaluation today including: conversation w/ patient, physical exam, lab review Pain: Denies Voiding: no voiding problems Patient was seen at the bedside. He is currently on RA and maintaining oxygen sat. Denies SOB, chest pain, or any other complaints. Constitutional: No fever Respiratory: No cough, No sputum, No wheezing, No shortness of breath Cardiovascular: No chest pain, No edema Abdomen: No pain, No nausea, No vomiting, No diarrhea Skin: No rash Medications Current Inpatient Medications Medications (Trade) Dose Ordered Sig/Aziza Route Start Time Stop Time Status Last Admin Dose Admin Acetaminophen (Tylenol Tab) 650 mg Q4H PRN PO 05/31/17 05:45 06/30/17 05:44 Magnesium Hydroxide (Milk Of Magnesia Susp) 30 ml Q12H PRN PO 05/31/17 05:45 06/30/17 05:44 Ondansetron HCl (Zofran Inj) 4 mg Q6H PRN IV 05/31/17 05:45 06/30/17 05:44 Polyethylene (Miralax Powder Packet) 17 gm DAILY PRN PO 05/31/17 05:45 06/30/17 05:44 Amlodipine Besylate (Norvasc Tab) 10 mg DAILY PO 05/31/17 09:00 06/30/17 08:59 06/01/17 08:26 10 MG Calcium Acetate (Phoslo Cap) 667 mg TIDM PO 05/31/17 07:30 06/30/17 07:59 Future Hold 06/01/17 08:25 667 MG Fluticasone Propionate (Flonase Nasal [place]) 2 sprays BID JAMILAH 05/31/17 09:00 06/30/17 08:59 06/01/17 08:28 2 SPRAYS Hydralazine HCl (Apresoline Tab) 25 mg TID PO 05/31/17 09:00 06/30/17 08:59 06/01/17 13:54 25 MG Ondansetron HCl (Zofran Tab) 4 mg Q6 PRN PO 05/31/17 06:15 06/30/17 06:14 Ranitidine HCl (zANTac TAB) 150 mg DAILY PO 05/31/17 09:00 06/30/17 08:59 06/01/17 08:27 150 MG Pantoprazole Sodium (Protonix Tab) 40 mg QAM PO 05/31/17 09:00 06/30/17 08:59 06/01/17 08:27 40 MG Non-Formulary Medication (Non-Formulary Patient'S Own Med) 1 ea DAILY@1600 OP 05/31/17 19:00 06/30/17 18:59 06/01/17 16:22 1 EA Non-Formulary Medication (Non-Formulary Patient'S Own Med) 1 ea DAILY@1600 OP 05/31/17 19:00 06/30/17 18:59 06/01/17 16:12 1 EA Furosemide (Lasix Tab) 40 mg QAM PO 06/01/17 09:00 07/01/17 08:59 06/01/17 08:27 40 MG Amoxicillin/ Clavulanate Potassium (Augmentin Tab) 875 mg BIDM PO 06/01/17 16:45 06/07/17 17:01 06/01/17 17:11 875 MG Objective Vital Signs Date Time Temp Pulse Resp B/P (MAP) Pulse Ox O2 Delivery O2 Flow Rate FiO2 06/01/17 15:18 36.6 85 18 149/73 (98) 90 Room Air 06/01/17 15:15 92 93 06/01/17 12:15 36.5 85 20 157/75 (102) 94 Room Air 06/01/17 11:29 Room Air 06/01/17 10:45 37.1 78 16 93 3.0 06/01/17 07:30 Room Air 06/01/17 07:30 37.1 78 16 139/70 (93) 93 Room Air 06/01/17 04:17 94 Room Air 3.0 06/01/17 04:00 36.9 78 19 140/71 (94) 93 Nasal Cannula 3.0 06/01/17 00:00 94 Room Air 3.0 06/01/17 00:00 36.7 75 19 134/78 (96) 95 Nasal Cannula 3.0 05/31/17 23:52 37.1 78 14 145/75 94 05/31/17 23:46 94 Room Air 3.0 05/31/17 23:00 37.0 80 14 141/77 93 05/31/17 22:00 37.1 81 12 142/71 94 05/31/17 21:30 37.0 79 14 144/77 94 05/31/17 21:15 36.7 80 14 147/69 94 05/31/17 20:45 36.7 84 14 148/74 95 05/31/17 20:15 36.8 86 14 147/68 94 05/31/17 19:20 37.0 87 16 152/72 (98) 95 Room Air 05/31/17 19:15 86 14 157/74 94 05/31/17 18:45 37.0 85 16 151/70 95 3.0 05/31/17 18:30 37.0 88 16 146/73 93 2.0 05/31/17 18:15 36.9 86 24 149/68 95 Physical Exam General Appearance: WD/WN, no apparent distress Neck: supple, trachea midline Respiratory/Chest: chest non-tender, lungs clear, normal breath sounds, no respiratory distress, no accessory muscle use Cardiovascular: regular rate, rhythm Abdomen: normal bowel sounds, non tender, soft Extremities: non-tender, no calf tenderness, + pedal edema (trace of edema b/l LE) Neurologic/Psychiatric: alert, normal mood/affect, oriented x 3 Skin: normal color, warm/dry, no rash Laboratory Results Results Past 24 Hours Test 06/01/17 01:46 06/01/17 05:34 Range/Units Hemoglobin 8.7 8.8 14.0-18.0 g/dL Hematocrit 27.1 25.8 42-52 % White Blood Count 13.91 4.8-10.8 K/uL Red Blood Count 2.86 4.7-6.1 M/uL Mean Corpuscular Volume 90.2 80-100 fL Mean Corpuscular Hemoglobin 30.8 25-34 pg Mean Corpuscular Hemoglobin Concent 34.1 32-36 g/dl RDW Standard Deviation 51.4 36.4-46.3 fL RDW Coefficient of Variation 15.7 11.5-14.5 % Platelet Count 196 130-400 K/uL Mean Platelet Volume 8.6 7.4-10.4 fL Sodium Level 145 136-145 mmol/L Potassium Level 4.3 3.5-5.1 mmol/L Chloride Level 114 98-107 mmol/L Carbon Dioxide Level 25 21-32 mmol/L Anion Gap 6.0 3-11 mmol/L Blood Urea Nitrogen 47 7-18 mg/dl Creatinine 2.40 0.60-1.40 mg/dl Est Creatinine Clear Calc Drug Dose 30.9 ml/min Estimated GFR () 29.5 Estimated GFR (Non- 25.4 BUN/Creatinine Ratio 19.6 10-20 Random Glucose 103 70-99 mg/dl Calcium Level 8.3 8.5-10.1 mg/dl Phosphorus Level 4.3 2.5-4.9 mg/dl Albumin 3.0 3.4-5.0 gm/dl Random Vancomycin Level 18.1 mcg/ml Assessment and Plan This is a 76 y/o male with resolving TTP-HUS and DARLINE presented to the hospital with increasing SOB and weakness. He was recently admitted to [facility] on 05/16 and transferred to [facility] on 05/20 due to TTP-HUS 2/2 presumed GI etiology. He received RBC transfusion in [facility] and never needed plasmapheresis. [id number] was normal. Review of [facility] records indicated that Hb this time is stable compared to Hb at [facility]. His DARLINE continues to resolve slowly as well. Renal function has mildly improved. Patient received 2 units of blood overnight. Started on IV Lasix 40mg BID per Nephro recommendation. Monitor I/O and adjust accordingly. Stop Vanco and Zosyn and start on Augmentin 875 BID. Patient was transferred to the Med/Surg given improvement in his condition and normal sinus rhythm in Tele. * Acute hypoxic respiratory failure - 2/2 right sided pneumonia - CXR: Right lower lobe airspace opacity, likely represents a PNA, mild interstitial pulmonary edema, cardiomegaly and a small right pleural effusion. - CT chest: moderate to large pleural effusion and moderate left pleural effusion. B/l LL opacities with significant vol loss, R>L. Mild cardiomegaly. Mild groundglass opacitis within lung, favor mild pulmonary edema, though infectious process could appear similar. - Currently on room air maintaining oxygen - Left LE venous dropper : No evidence of DVT (pt was complaining of left calf pain) - Echo (06/01): no wall abnormalities, LV is hyperdynamic with EF >70% * Right-Sided PNA - CXR showed right lower lobe airspace opacity, represents PNA vs pulmonary edema - D/haven Vanco given negative nasal swab for MRSA. - Switched Zosyn to PO Augmentin 875 BID X3days (Day #1) - BCx NG X24hrs * Acute Kidney Injury - Improving - Hold Nephrotoxic medications - Renal dosing of antibiotics - IV Lasix 40mg BID (net negative fluid balance of approximately 1-2L daily ) per nephro recommendation - Daily I/O and weight - Nephrology was consulted and Dr. 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 Dr. Starks saw the patient and didn't recommended any intervention this time. Recommended to con't monitor CBC. Will continue to appreciate his recommendations - LDH is elevated and coag profile is normal * Hypertension - Patient discharged from [facility] On Hydralazine 25mg TID and Amlodipine 10mg daily * GERD - Continue Ranitidine * DVT Prophylaxis - SCD - TOYA - Hold pharmacological anticoagulation due to low Hb Code Status: Level I - OT and PT evaluations to determine discharge needs Resident Physician Supervision Note: I was present with Dr. Sawyer during the history and exam. I discussed the case with the resident and agree with the findings and plan as documented in the note. Any exceptions or clarifications are listed here: The patient's had a substantial weight gain over the past several weeks and chest x-ray and physical exam consistent with volume overload. There is not a clear infectious process here; I suspect this is more volume overload than pneumonia. Increased diuretics as noted above. Monitor hematology labs with respect to his recent diagnosis of hemolytic anemia Discontinue IV antibiotics; continue Augmentin by mouth pending final results of blood cultures Discussed with nephrology Documented By: Shamir Robins
[2017-06-01] MEDS ORDERED: FUROSEMIDE INJ 40 MG in SYRINGE 0 ML IV SCH (18:00)
[2017-06-01] MEDS ORDERED: FUROSEMIDE INJ 80 MG in SYRINGE 0 ML IV SCH (18:30)
[2017-06-02 06:16] LABS: HEMATOCRIT 27.9 % (42-52); MEAN CELL VOLUME 91.8 fL (80-100); MEAN CORPUSCULAR HEMOGLOBIN 30.3 pg (25-34); MEAN PLATELET VOLUME 8.9 fL (7.4-10.4); PLATELET COUNT 228 K/uL (130-400); RED BLOOD COUNT 3.04 M/uL (4.7-6.1); WHITE BLOOD COUNT 14.55 K/uL (4.8-10.8)
[2017-06-02 06:46] LABS: BUN/CREATININE RATIO 19.8 (10-20); CALCIUM 8.4 mg/dl (8.5-10.1); CREATININE 2.2 mg/dl (0.60-1.40); PHOSPHORUS 3.2 mg/dl (2.5-4.9); POTASSIUM 3.3 mmol/L (3.5-5.1)
[2017-06-02] MEDS ORDERED: POTASSIUM CHLORIDE 10 MEQ TABCR PO ONE (07:45)
[2017-06-02 07:54] VITALS: BP 154/71; PULSE 88; TEMP 36.5; O2SAT 91
[2017-06-02 08:00] VITALS: O2SAT 93
[2017-06-02 08:20] VITALS: O2SAT 93
[2017-06-02] MEDS: FLUTICASONE PROPIONATE NA SPR 16 GM BTL NAE SCH ×2 (08:20→21:01)
[2017-06-02] MEDS: AMOXICILLIN/CLAVULANATE TAB 875 MG TAB PO SCH (08:20)
[2017-06-02] MEDS: AMLODIPINE BESYLATE 5 MG TAB PO SCH (08:21)
[2017-06-02] MEDS: PANTOprazole SOD 40 MG TAB PO SCH (08:21)
[2017-06-02] MEDS: RANITIDINE HCL 150 MG TAB PO SCH (08:21)
[2017-06-02] MEDS ORDERED: NURSING VERBAL MED ORDER ONE (08:45)
--- NOTE | 2017-06-02 08:52 | Family Medicine Progress Note ---
Progress Note Date of Service Jun 02, 2017. Subjective Pt evaluation today including: conversation w/ patient, physical exam, lab review Pain: Denies Voiding: no voiding problems Patient was seen at the bedside. Complains of diarrhea, will send stool for C.diff. Denies SOB, chest pain, nausea or vomiting. Constitutional: No fever Respiratory: No cough, No shortness of breath Cardiovascular: No chest pain Abdomen: + diarrhea, No pain, No nausea, No vomiting Musculoskeletal: No muscle pain Skin: No rash Medications Current Inpatient Medications Medications (Trade) Dose Ordered Sig/Aziza Route Start Time Stop Time Status Last Admin Dose Admin Acetaminophen (Tylenol Tab) 650 mg Q4H PRN PO 05/31/17 05:45 06/30/17 05:44 Magnesium Hydroxide (Milk Of Magnesia Susp) 30 ml Q12H PRN PO 05/31/17 05:45 06/30/17 05:44 Ondansetron HCl (Zofran Inj) 4 mg Q6H PRN IV 05/31/17 05:45 06/30/17 05:44 Polyethylene (Miralax Powder Packet) 17 gm DAILY PRN PO 05/31/17 05:45 06/30/17 05:44 Amlodipine Besylate (Norvasc Tab) 10 mg DAILY PO 05/31/17 09:00 06/30/17 08:59 06/02/17 08:21 10 MG Calcium Acetate (Phoslo Cap) 667 mg TIDM PO 05/31/17 07:30 06/30/17 07:59 Future Hold 06/01/17 08:25 667 MG Fluticasone Propionate (Flonase Nasal [place]) 2 sprays BID JAMILAH 05/31/17 09:00 06/30/17 08:59 06/02/17 08:20 2 SPRAYS Hydralazine HCl (Apresoline Tab) 25 mg TID PO 05/31/17 09:00 06/30/17 08:59 06/02/17 08:21 25 MG Ondansetron HCl (Zofran Tab) 4 mg Q6 PRN PO 05/31/17 06:15 06/30/17 06:14 Ranitidine HCl (zANTac TAB) 150 mg DAILY PO 05/31/17 09:00 06/30/17 08:59 06/02/17 08:21 150 MG Pantoprazole Sodium (Protonix Tab) 40 mg QAM PO 05/31/17 09:00 06/30/17 08:59 06/02/17 08:21 40 MG Non-Formulary Medication (Non-Formulary Patient'S Own Med) 1 ea DAILY@1600 OP 05/31/17 19:00 06/30/17 18:59 06/01/17 16:22 1 EA Non-Formulary Medication (Non-Formulary Patient'S Own Med) 1 ea DAILY@1600 OP 05/31/17 19:00 06/30/17 18:59 06/01/17 16:12 1 EA Amoxicillin/ Clavulanate Potassium (Augmentin Tab) 875 mg BIDM PO 06/01/17 16:45 06/07/17 17:01 06/02/17 08:20 875 MG Miscellaneous Information (Nursing Verbal Med Order) 1 ea ONE ONCE N/A 06/02/17 08:45 06/02/17 08:46 UNV Objective Vital Signs Date Time Temp Pulse Resp B/P (MAP) Pulse Ox O2 Delivery O2 Flow Rate FiO2 06/02/17 07:54 36.5 88 20 154/71 (98) 91 Room Air 06/02/17 00:00 Nasal Cannula 2.0 06/01/17 23:09 36.8 89 16 143/66 (91) 92 Nasal Cannula 2.0 06/01/17 22:10 94 Nasal Cannula 2.0 06/01/17 22:10 Nasal Cannula 06/01/17 22:00 89 Room Air 06/01/17 21:35 89 149/73 (98) 06/01/17 18:10 88 153/79 (103) 06/01/17 16:00 Room Air 06/01/17 15:18 36.6 85 18 149/73 (98) 90 Room Air 06/01/17 15:15 92 93 06/01/17 12:15 36.5 85 20 157/75 (102) 94 Room Air 06/01/17 11:29 Room Air 06/01/17 10:45 37.1 78 16 93 3.0 Physical Exam General Appearance: WD/WN, no apparent distress Neck: supple, trachea midline Respiratory/Chest: chest non-tender, lungs clear, normal breath sounds, no respiratory distress, no accessory muscle use Cardiovascular: regular rate, rhythm Abdomen: normal bowel sounds, non tender, soft Extremities: non-tender, no calf tenderness, + pertinent finding (noted trace of edema on b/l LE) Neurologic/Psychiatric: alert, normal mood/affect, oriented x 3 Skin: normal color, warm/dry, no rash Laboratory Results Results Past 24 Hours Test 06/02/17 05:37 Range/Units White Blood Count 14.55 4.8-10.8 K/uL Red Blood Count 3.04 4.7-6.1 M/uL Hemoglobin 9.2 14.0-18.0 g/dL Hematocrit 27.9 42-52 % Mean Corpuscular Volume 91.8 80-100 fL Mean Corpuscular Hemoglobin 30.3 25-34 pg Mean Corpuscular Hemoglobin Concent 33.0 32-36 g/dl RDW Standard Deviation 51.6 36.4-46.3 fL RDW Coefficient of Variation 15.4 11.5-14.5 % Platelet Count 228 130-400 K/uL Mean Platelet Volume 8.9 7.4-10.4 fL Sodium Level 142 136-145 mmol/L Potassium Level 3.3 3.5-5.1 mmol/L Chloride Level 109 98-107 mmol/L Carbon Dioxide Level 28 21-32 mmol/L Anion Gap 5.0 3-11 mmol/L Blood Urea Nitrogen 44 7-18 mg/dl Creatinine 2.20 0.60-1.40 mg/dl Est Creatinine Clear Calc Drug Dose 34.2 ml/min Estimated GFR () 32.7 Estimated GFR (Non- 28.3 BUN/Creatinine Ratio 19.8 10-20 Random Glucose 85 70-99 mg/dl Calcium Level 8.4 8.5-10.1 mg/dl Phosphorus Level 3.2 2.5-4.9 mg/dl Albumin 3.0 3.4-5.0 gm/dl Assessment and Plan This is a 76 y/o male with resolving TTP-HUS and DARLINE presented to the hospital with increasing SOB and weakness. He was recently admitted to [facility] on 05/16 and transferred to [facility] on 05/20 due to TTP-HUS 2/2 presumed GI etiology. He received RBC transfusion in [facility] and never needed plasmapheresis. [id number] was normal. Review of [facility] records indicated that Hb this time is stable compared to Hb at [facility]. His DARLINE continues to resolve slowly as well. Renal function has mildly improved. Patient received 2 units of blood. Started on IV Lasix 80mg BID per Nephro recommendation. Monitor I/O and adjust accordingly. Stopped Augmentin given neg BCx. Patient was on 2L O2 overnight but this morning he was on room air maintaining O2 sat above 90%. CXR tomorrow am. * Right-Sided PNA - CXR showed right lower lobe airspace opacity, represents PNA vs pulmonary edema - D/haven Vanco given negative nasal swab for MRSA. - D/haven Augmentin given neg BCx - BCx NG X48hrs * Acute Kidney Injury - Improving - Hold Nephrotoxic medications - Renal dosing of antibiotics - IV Lasix 80mg BID (net negative fluid balance of approximately 1-2L daily ) per nephro recommendation - Added KCL 20meq daily - Daily I/O and weight - Daily BMP - Nephrology was consulted and Dr. 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 Dr. Starks saw the patient and didn't recommended any intervention this time. Recommended to con't monitor CBC. Will continue to appreciate his recommendations - LDH is elevated and coag profile is normal * Acute hypoxia - Resolved , on room air - Likely 2/2 pleural effusion, continue with diuresis - CXR: Right lower lobe airspace opacity, likely represents a PNA, mild interstitial pulmonary edema, cardiomegaly and a small right pleural effusion. - CT chest: moderate to large pleural effusion and moderate left pleural effusion. B/l LL opacities with significant vol loss, R>L. Mild cardiomegaly. Mild groundglass opacitis within lung, favor mild pulmonary edema, though infectious process could appear similar. - Currently on room air maintaining oxygen - Left LE venous dropper : No evidence of DVT (pt was complaining of left calf pain) - Echo (06/01): no wall abnormalities, LV is hyperdynamic with EF >70% * Diarrhea - Patient is complaining of loose stool X2days - Order C.diff * Hypertension - Patient discharged from [facility] [place] On Hydralazine 25mg TID and Amlodipine 10mg daily * GERD - Continue Ranitidine * DVT Prophylaxis - SCD - TOYA - Hold pharmacological anticoagulation due to low Hb Code Status: Level I - OT and PT evaluations to determine discharge needs Resident Physician Supervision Note: I was present with Dr. Sawyer during the history and exam. I discussed the case with the resident and agree with the findings and plan as documented in the note. Any exceptions or clarifications are listed here: Patient was admitted with SOB that now appears secondary to volume overload. Per history, he had reported dyspnea limited his speech and required supplemental oxygen to maintain adequate oxygen saturations. In reviewing the chart, he is up a significant amount of weight compared to his previous admission here - somewhere in the neighborhood of 25-30 pounds. I do not think he had a pneumonia upon admission; in retrospect, I think his breathing issues were secondary to pulmonary edema. Continue diuresis and potassium supplementation. I/O and daily weights - there was no weight completed this morning but will ask nursing to do so this afternoon. Agree with checking c-diff given his loose stool and multiple recent hospitalizations. Discontinue Augmentin. Documented By: Shamir Robins
[2017-06-02] MEDS: FUROSEMIDE INJ 80 MG in SYRINGE 0 ML IV SCH ×2 (09:23→16:55)
--- NOTE | 2017-06-02 10:29 | Nephrology Progress Note ---
Nephrology Progress Note Date of Service Jun 02, 2017. Chief Complaint DARLINE, TMA Subjective No acute events overnight. No fevers or chills. Mr. Christine was seen and evaluated with his at the bedside. He is resting comfortably in bed but activity tolerance remains diminished. Appetite good. Orthopnea persists. Lower extremity edema actually appears to have increased slightly per his report. He has developed loose stool. Urine output increased overnight (>800 ml). Review of Systems A complete review of systems was performed. Pertinent positives are noted above. All other systems are negative. Vital Signs Last 8 Hrs Date Time Temp Pulse Resp B/P (MAP) Pulse Ox O2 Delivery O2 Flow Rate FiO2 06/02/17 08:20 93 Room Air 06/02/17 08:00 93 Room Air 06/02/17 07:54 36.5 88 20 154/71 (98) 91 Room Air Last Recorded Weight Weight (Kilograms): 95.300 Physical Exam General Appearance: WD/WN, no apparent distress Head: normocephalic, atraumatic Eyes: normal inspection, sclerae normal ENT: normal ENT inspection, pharynx normal Neck: supple, no JVD Respiratory/Chest: no respiratory distress, no accessory muscle use, + decreased breath sounds Cardiovascular: regular rate, rhythm, no gallop, no murmur Abdomen/GI: non tender, soft Extremities/Musculoskelatal: normal inspection, + pedal edema Neurologic/Psych: alert, oriented x 3 Family History Father had a hematologic malignancy Social History Smoking Status: Unknown if ever smoked Smokeless Tobacco Use: No Alcohol Use: 3 drinks daily; either beer or spirits Drug Use: none Marital Status: in relationship Housing Status: lives with family Occupation: employed Laboratory Results Past 24 Hours 06/02/17 05:37 06/02/17 05:37 Test 06/02/17 05:37 Red Blood Count 3.04 M/uL (4.7-6.1) Mean Corpuscular Volume 91.8 fL (80-100) Mean Corpuscular Hemoglobin 30.3 pg (25-34) Mean Corpuscular Hemoglobin Concent 33.0 g/dl (32-36) RDW Standard Deviation 51.6 fL (36.4-46.3) RDW Coefficient of Variation 15.4 % (11.5-14.5) Mean Platelet Volume 8.9 fL (7.4-10.4) Anion Gap 5.0 mmol/L (3-11) Est Creatinine Clear Calc Drug Dose 34.2 ml/min Estimated GFR () 32.7 Estimated GFR (Non- 28.3 BUN/Creatinine Ratio 19.8 (10-20) Calcium Level 8.4 mg/dl (8.5-10.1) Phosphorus Level 3.2 mg/dl (2.5-4.9) Albumin 3.0 gm/dl (3.4-5.0) Allergies Coded Allergies: No Known Allergies (Verified , 05/31/17) Medications Current Inpatient Medications Medications (Trade) Dose Ordered Sig/Aziza Route Start Time Stop Time Status Last Admin Dose Admin Acetaminophen (Tylenol Tab) 650 mg Q4H PRN PO 05/31/17 05:45 06/30/17 05:44 Magnesium Hydroxide (Milk Of Magnesia Susp) 30 ml Q12H PRN PO 05/31/17 05:45 06/30/17 05:44 Ondansetron HCl (Zofran Inj) 4 mg Q6H PRN IV 05/31/17 05:45 06/30/17 05:44 Polyethylene (Miralax Powder Packet) 17 gm DAILY PRN PO 05/31/17 05:45 06/30/17 05:44 Amlodipine Besylate (Norvasc Tab) 10 mg DAILY PO 05/31/17 09:00 06/30/17 08:59 06/02/17 08:21 10 MG Calcium Acetate (Phoslo Cap) 667 mg TIDM PO 05/31/17 07:30 06/30/17 07:59 Future Hold 06/01/17 08:25 667 MG Fluticasone Propionate (Flonase Nasal [place]) 2 sprays BID JAMILAH 05/31/17 09:00 06/30/17 08:59 06/02/17 08:20 2 SPRAYS Hydralazine HCl (Apresoline Tab) 25 mg TID PO 05/31/17 09:00 06/30/17 08:59 06/02/17 08:21 25 MG Ondansetron HCl (Zofran Tab) 4 mg Q6 PRN PO 05/31/17 06:15 06/30/17 06:14 Ranitidine HCl (zANTac TAB) 150 mg DAILY PO 05/31/17 09:00 9/12/17 08:59 06/02/17 08:21 150 MG Pantoprazole Sodium (Protonix Tab) 40 mg QAM PO 05/31/17 09:00 06/30/17 08:59 06/02/17 08:21 40 MG Non-Formulary Medication (Non-Formulary Patient'S Own Med) 1 ea DAILY@1600 OP 05/31/17 19:00 06/30/17 18:59 06/01/17 16:22 1 EA Non-Formulary Medication (Non-Formulary Patient'S Own Med) 1 ea DAILY@1600 OP 05/31/17 19:00 06/30/17 18:59 06/01/17 16:12 1 EA Amoxicillin/ Clavulanate Potassium (Augmentin Tab) 875 mg BIDM PO 06/01/17 16:45 06/07/17 17:01 06/02/17 08:20 875 MG Furosemide 80 mg/ Syringe 8 ml @ 4 mls/min BID17 IV 06/02/17 09:00 07/02/17 08:59 06/02/17 09:23 4 MLS/MIN Potassium Chloride (Klor-Con Tab) 20 meq QAM PO 06/03/17 09:00 07/03/17 08:59 Impression (1) Right lower lobe pneumonia (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 Tadeo is a 76-year-old male who was recently hospitalized with TMA manifested by MAHA, thrombocytopenia and acute renal insufficiency. He also had evidence of superimposed ATN. Clinical presentation was consistent with ST- HUS though stool testing for E coli was negative. ADAMTS 13 activity level was normal. He was admitted to [facility] with shortness of breath and notable orthopnea. CT of the chest reveals at least moderate bilateral pleural effusions (R>L). Creatinine stable. Hemoglobin and platelet count also remain stable. Clinically, the patient is reporting early improvement with diuretics and antibiotics. I would encourage continued use of loop diuretics to encourage a net negative fluid balance. Potassium replacement has been started. Recommendations -- Monitor CBC, hemolysis and renal panel with magnesium daily -- Suggest furosemide at least 80 mg BID, and adjust as needed to continue diuresis -- Maintain a net negative fluid balance of at least 1-2 L daily -- Continue amlodipine and hydralazine for hypertension and avoid RAAS blockade -- Phoslo has been discontinued -- Potassium replacement with at least 40 mEq daily
[2017-06-02 15:39] VITALS: BP 154/72; PULSE 97; TEMP 36.8; O2SAT 91
[2017-06-02] MEDS: DIFLUPREDNATE OP SCH (16:00)
[2017-06-02] MEDS: BROMFENAC OP SCH (16:00)
[2017-06-02] MEDS ORDERED: METRONIDAZOLE 500 MG TAB PO ONE (16:00)
[2017-06-02] MEDS: METRONIDAZOLE 500 MG TAB PO SCH (21:03)
[2017-06-03] VITALS (8 sets, daily range): BP systolic 131–168; BP diastolic 66–83; PULSE 75–85; TEMP 36.7–37; O2SAT 91–96
[2017-06-03 07:28] LABS: HEMATOCRIT 29.8 % (42-52); MEAN CELL VOLUME 90.6 fL (80-100); MEAN CORPUSCULAR HEMOGLOBIN 30.7 pg (25-34); MEAN CORPUSCULAR HGB CONC 33.9 g/dl (32-36); MEAN PLATELET VOLUME 9.2 fL (7.4-10.4); PLATELET COUNT 206 K/uL (130-400); RED BLOOD COUNT 3.29 M/uL (4.7-6.1); WHITE BLOOD COUNT 9.43 K/uL (4.8-10.8)
[2017-06-03] MEDS: METRONIDAZOLE 500 MG TAB PO SCH ×3 (07:54→19:36)
[2017-06-03] MEDS: AMLODIPINE BESYLATE 5 MG TAB PO SCH (07:54)
[2017-06-03] MEDS: FLUTICASONE PROPIONATE NA SPR 16 GM BTL NAE SCH ×2 (07:54→19:37)
[2017-06-03] MEDS: RANITIDINE HCL 150 MG TAB PO SCH (07:55)
[2017-06-03] MEDS: FUROSEMIDE INJ 80 MG in SYRINGE 0 ML IV SCH (07:55)
[2017-06-03] MEDS: PANTOprazole SOD 40 MG TAB PO SCH (07:55)
[2017-06-03 07:58] LABS: BUN/CREATININE RATIO 17.4 (10-20); CALCIUM 8.3 mg/dl (8.5-10.1); POTASSIUM 3.3 mmol/L (3.5-5.1)
[2017-06-03 07:59] LABS: PHOSPHORUS 3.4 mg/dl (2.5-4.9)
--- NOTE | 2017-06-03 08:53 | DIAGNOSTIC IMAGING REPORT ---
CHEST 2 VIEWS ROUTINE CLINICAL HISTORY: shortness of breath, CHF COMPARISON STUDY: 05/31/2017 FINDINGS: The heart is enlarged. There are persistent bilateral pleural effusions. There is been resolution of the previous described congestive failure/pulmonary edema. There is no lobar consolidation.[ IMPRESSION: Interval resolution of the previous described congestive failure/pulmonary edema with residual bilateral pleural effusions Electronically signed by: Shabbir Soriano M.D. 06/03/2017 8:52 AM Dictated Date/Time: 06/03/2017 8:44 AM
[2017-06-03] MEDS ORDERED: POTASSIUM CHLORIDE 20 MEQ TABCR PO SCH ×2 (09:00)
--- NOTE | 2017-06-03 10:27 | Family Medicine Progress Note ---
Progress Note Date of Service Jun 03, 2017. Subjective Pt evaluation today including: conversation w/ patient, physical exam, lab review, conversation w/ life skills consultant Voiding: no voiding problems Patient was seen at the bedside. He states that at night his O2 sat went below 90% and he needs to be on 2L NC. His diarrhea is improving, had 1 episode today and thinks it is less loose. Denies SOB, nausea or vomiting. Currently he is on RA. Constitutional: No fever Respiratory: No cough, No shortness of breath Cardiovascular: No chest pain Abdomen: + diarrhea, No pain, No nausea, No vomiting, No constipation Musculoskeletal: No muscle pain Skin: No rash Medications Current Inpatient Medications Medications (Trade) Dose Ordered Sig/Aziza Route Start Time Stop Time Status Last Admin Dose Admin Acetaminophen (Tylenol Tab) 650 mg Q4H PRN PO 05/31/17 05:45 06/30/17 05:44 Magnesium Hydroxide (Milk Of Magnesia Susp) 30 ml Q12H PRN PO 05/31/17 05:45 06/30/17 05:44 Ondansetron HCl (Zofran Inj) 4 mg Q6H PRN IV 05/31/17 05:45 06/30/17 05:44 Polyethylene (Miralax Powder Packet) 17 gm DAILY PRN PO 05/31/17 05:45 06/30/17 05:44 Amlodipine Besylate (Norvasc Tab) 10 mg DAILY PO 05/31/17 09:00 06/30/17 08:59 06/03/17 07:54 10 MG Calcium Acetate (Phoslo Cap) 667 mg TIDM PO 05/31/17 07:30 06/30/17 07:59 Future Hold 06/01/17 08:25 667 MG Fluticasone Propionate (Flonase Nasal [place]) 2 sprays BID JAMILAH 05/31/17 09:00 06/30/17 08:59 06/03/17 07:54 2 SPRAYS Hydralazine HCl (Apresoline Tab) 25 mg TID PO 05/31/17 09:00 06/30/17 08:59 06/03/17 07:55 25 MG Ondansetron HCl (Zofran Tab) 4 mg Q6 PRN PO 05/31/17 06:15 06/30/17 06:14 Ranitidine HCl (zANTac TAB) 150 mg DAILY PO 05/31/17 09:00 06/30/17 08:59 06/03/17 07:55 150 MG Pantoprazole Sodium (Protonix Tab) 40 mg QAM PO 05/31/17 09:00 06/30/17 08:59 06/03/17 07:55 40 MG Non-Formulary Medication (Non-Formulary Patient'S Own Med) 1 ea DAILY@1600 OP 05/31/17 19:00 06/30/17 18:59 06/02/17 16:00 1 EA Non-Formulary Medication (Non-Formulary Patient'S Own Med) 1 ea DAILY@1600 OP 05/31/17 19:00 06/30/17 18:59 06/02/17 16:00 1 EA Furosemide 80 mg/ Syringe 8 ml @ 4 mls/min BID17 IV 06/02/17 09:00 07/02/17 08:59 06/03/17 07:55 4 MLS/MIN Metronidazole (Flagyl Tab) 500 mg TID PO 06/02/17 21:00 06/16/17 13:59 06/03/17 07:54 500 MG Potassium Chloride (Klor-Con Tab) 40 meq BID PO 06/03/17 21:00 07/03/17 20:59 Objective Vital Signs Date Time Temp Pulse Resp B/P (MAP) Pulse Ox O2 Delivery O2 Flow Rate FiO2 06/03/17 08:00 96 Room Air 06/03/17 07:00 36.9 79 18 168/83 (111) 95 Nasal Cannula 2.0 06/03/17 00:10 37.0 84 20 145/73 (97) 93 Nasal Cannula 2.0 06/03/17 00:00 93 Nasal Cannula 2.0 06/02/17 16:23 Room Air 06/02/17 15:39 36.8 97 18 154/72 (99) 91 Room Air Physical Exam General Appearance: WD/WN, no apparent distress Neck: supple, trachea midline Respiratory/Chest: chest non-tender, lungs clear, normal breath sounds, no respiratory distress, no accessory muscle use Cardiovascular: regular rate, rhythm Abdomen: normal bowel sounds, non tender, soft Extremities: non-tender, no calf tenderness, + pedal edema (b/l LE edema was noted, mostly on ankle, improving) Neurologic/Psychiatric: alert, normal mood/affect, oriented x 3 Skin: normal color, warm/dry, no rash Laboratory Results Results Past 24 Hours Test 06/03/17 06:49 Range/Units White Blood Count 9.43 4.8-10.8 K/uL Red Blood Count 3.29 4.7-6.1 M/uL Hemoglobin 10.1 14.0-18.0 g/dL Hematocrit 29.8 42-52 % Mean Corpuscular Volume 90.6 80-100 fL Mean Corpuscular Hemoglobin 30.7 25-34 pg Mean Corpuscular Hemoglobin Concent 33.9 32-36 g/dl RDW Standard Deviation 47.6 36.4-46.3 fL RDW Coefficient of Variation 14.5 11.5-14.5 % Platelet Count 206 130-400 K/uL Mean Platelet Volume 9.2 7.4-10.4 fL Sodium Level 141 136-145 mmol/L Potassium Level 3.3 3.5-5.1 mmol/L Chloride Level 107 98-107 mmol/L Carbon Dioxide Level 26 21-32 mmol/L Anion Gap 8.0 3-11 mmol/L Blood Urea Nitrogen 35 7-18 mg/dl Creatinine 2.00 0.60-1.40 mg/dl Est Creatinine Clear Calc Drug Dose 34.0 ml/min Estimated GFR () 36.7 Estimated GFR (Non- 31.7 BUN/Creatinine Ratio 17.4 10-20 Random Glucose 87 70-99 mg/dl Calcium Level 8.3 8.5-10.1 mg/dl Phosphorus Level 3.4 2.5-4.9 mg/dl Magnesium Level 2.0 1.8-2.4 mg/dl Albumin 3.0 3.4-5.0 gm/dl Assessment and Plan This is a 76 y/o male with resolving TTP-HUS and DARLINE presented to the hospital with increasing SOB and weakness. He was recently admitted to [facility] on 05/16 and transferred to [facility] on 05/20 due to TTP-HUS 2/2 presumed GI etiology. He received RBC transfusion in [facility] and never needed plasmapheresis. [id number] was normal. Review of [facility] records indicated that Hb this time is stable compared to Hb at [facility]. His DARLINE continues to resolve slowly as well. Renal function has mildly improved. Patient received 2 units of blood. Stopped Augmentin given neg BCx. Patient was on 2L O2 overnight but this morning he was on room air maintaining O2 sat above 90%. CXR today showed interval resolution of the previous described congestive failure/pulmonary edema with residual bilateral pleural effusions Patient is diuresing well (lost more than 2L over 24hrs). Will change IV Lasix to PO 80mg BID per Nephro recommendation. Monitor I/O and adjust accordingly. KCL 40mg BID. * Questionable right-Sided PNA - CXR showed right lower lobe airspace opacity, represents PNA vs pulmonary edema; most likely pulmonary edema - D/haven Vanco given negative nasal swab for MRSA. - D/haven Augmentin given neg BCx - BCx NG to date * Acute Kidney Injury - Improving - Hold Nephrotoxic medications - Renal dosing of antibiotics - PO Lasix 80mg BID (net negative fluid balance of approximately 1-2L daily ) per nephro recommendation - KCL 40meq BID daily - Daily I/O and weight (lost more than 2L over 24hrs) - Daily BMP - Nephrology was consulted and reviewed his notes. Will continue to appreciate his recommendations. 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 Dr. Starks saw the patient and didn't recommended any intervention this time. Recommended to con't monitor CBC. Will continue to appreciate his recommendations - LDH is elevated and coag profile is normal * Acute hypoxia secondary to pleural effusion - Likely 2/2 pleural effusion, continue with diuresis - CXR (06/03): interval resolution of the previous described congestive failure/pulmonary edema with residual bilateral pleural effusions Patient is diuresing well. - CXR: Right lower lobe airspace opacity, likely represents a PNA, mild interstitial pulmonary edema, cardiomegaly and a small right pleural effusion. - CT chest: moderate to large pleural effusion and moderate left pleural effusion. B/l LL opacities with significant vol loss, R>L. Mild cardiomegaly. Mild groundglass opacitis within lung, favor mild pulmonary edema, though infectious process could appear similar. - Currently on room air maintaining oxygen - Left LE venous dropper : No evidence of DVT (pt was complaining of left calf pain) - Echo (06/01): no wall abnormalities, LV is hyperdynamic with EF >70% * Diarrhea - Patient states that he is doing better today, it's less loose - C. diff positive - Day 2 : Metronidazole 500mg TID * Hypertension - Patient discharged from [facility] On Hydralazine 25mg TID and Amlodipine 10mg daily * GERD - Continue Ranitidine * DVT Prophylaxis - SCD - TOYA - Hold pharmacological anticoagulation due to low Hb Code Status: Level I - OT and PT evaluations to determine discharge needs Resident Physician Supervision Note: I was present with Dr. Sawyer during the history and exam. I discussed the case with the resident and agree with the findings and plan as documented in the note. Any exceptions or clarifications are listed here: Overall, the patient continues to improve. I think his symptoms were due to pulmonary edema and nonrepresentative of a pneumonia as suspected upon admission. We'll see if he continues to diurese on oral Lasix; consider discharge in next 1 -2 days if he continues to diurese and renal function is maintained. Unfortunately, he has developed C. difficile infection but is tolerating oral treatments without difficulty. Documented By: Shamir Robins
--- NOTE | 2017-06-03 10:32 | Nephrology Progress Note ---
Nephrology Progress Note Date of Service Jun 03, 2017. Chief Complaint DARLINE, TMA Subjective No acute events overnight. A few loose stool overnight. No fevers or chills. No abdominal pain. Appetite fair. Orthopnea continues to improve. Ambulating in room without difficulty. Review of Systems A complete review of systems was performed. Pertinent positives are noted above. All other systems are negative. Vital Signs Last 8 Hrs Date Time Temp Pulse Resp B/P (MAP) Pulse Ox O2 Delivery O2 Flow Rate FiO2 06/03/17 08:00 96 Room Air 06/03/17 07:00 36.9 79 18 168/83 (111) 95 Nasal Cannula 2.0 Last Recorded Weight Weight (Kilograms): 85.900 Physical Exam General Appearance: WD/WN, no apparent distress Head: normocephalic, atraumatic Eyes: normal inspection, sclerae normal ENT: normal ENT inspection, pharynx normal Neck: supple, + JVD Respiratory/Chest: lungs clear, no respiratory distress, no accessory muscle use, + decreased breath sounds Cardiovascular: regular rate, rhythm Abdomen/GI: non tender, soft Extremities/Musculoskelatal: normal inspection, + pedal edema Neurologic/Psych: alert, normal mood/affect Family History Father had a hematologic malignancy Social History Smoking Status: Unknown if ever smoked Smokeless Tobacco Use: No Alcohol Use: 3 drinks daily; either beer or spirits Drug Use: none Marital Status: in relationship Housing Status: lives with family Occupation: employed Laboratory Results Past 24 Hours 06/03/17 06:49 06/03/17 06:49 Test 06/03/17 06:49 Red Blood Count 3.29 M/uL (4.7-6.1) Mean Corpuscular Volume 90.6 fL (80-100) Mean Corpuscular Hemoglobin 30.7 pg (25-34) Mean Corpuscular Hemoglobin Concent 33.9 g/dl (32-36) RDW Standard Deviation 47.6 fL (36.4-46.3) RDW Coefficient of Variation 14.5 % (11.5-14.5) Mean Platelet Volume 9.2 fL (7.4-10.4) Anion Gap 8.0 mmol/L (3-11) Est Creatinine Clear Calc Drug Dose 34.0 ml/min Estimated GFR () 36.7 Estimated GFR (Non- 31.7 BUN/Creatinine Ratio 17.4 (10-20) Calcium Level 8.3 mg/dl (8.5-10.1) Phosphorus Level 3.4 mg/dl (2.5-4.9) Magnesium Level 2.0 mg/dl (1.8-2.4) Albumin 3.0 gm/dl (3.4-5.0) Allergies Coded Allergies: No Known Allergies (Verified , 05/31/17) Medications Current Inpatient Medications Medications (Trade) Dose Ordered Sig/Aziza Route Start Time Stop Time Status Last Admin Dose Admin Acetaminophen (Tylenol Tab) 650 mg Q4H PRN PO 05/31/17 05:45 06/30/17 05:44 Magnesium Hydroxide (Milk Of Magnesia Susp) 30 ml Q12H PRN PO 05/31/17 05:45 06/30/17 05:44 Ondansetron HCl (Zofran Inj) 4 mg Q6H PRN IV 05/31/17 05:45 06/30/17 05:44 Polyethylene (Miralax Powder Packet) 17 gm DAILY PRN PO 05/31/17 05:45 06/30/17 05:44 Amlodipine Besylate (Norvasc Tab) 10 mg DAILY PO 05/31/17 09:00 06/30/17 08:59 06/03/17 07:54 10 MG Calcium Acetate (Phoslo Cap) 667 mg TIDM PO 05/31/17 07:30 06/30/17 07:59 Future Hold 06/01/17 08:25 667 MG Fluticasone Propionate (Flonase Nasal [place]) 2 sprays BID JAMILAH 05/31/17 09:00 06/30/17 08:59 06/03/17 07:54 2 SPRAYS Hydralazine HCl (Apresoline Tab) 25 mg TID PO 05/31/17 09:00 06/30/17 08:59 06/03/17 07:55 25 MG Ondansetron HCl (Zofran Tab) 4 mg Q6 PRN PO 05/31/17 06:15 06/30/17 06:14 Ranitidine HCl (zANTac TAB) 150 mg DAILY PO 05/31/17 09:00 06/30/17 08:59 06/03/17 07:55 150 MG Pantoprazole Sodium (Protonix Tab) 40 mg QAM PO 05/31/17 09:00 06/30/17 08:59 06/03/17 07:55 40 MG Non-Formulary Medication (Non-Formulary Patient'S Own Med) 1 ea DAILY@1600 OP 05/31/17 19:00 06/30/17 18:59 06/02/17 16:00 1 EA Non-Formulary Medication (Non-Formulary Patient'S Own Med) 1 ea DAILY@1600 OP 05/31/17 19:00 06/30/17 18:59 06/02/17 16:00 1 EA Furosemide 80 mg/ Syringe 8 ml @ 4 mls/min BID17 IV 06/02/17 09:00 07/02/17 08:59 06/03/17 07:55 4 MLS/MIN Metronidazole (Flagyl Tab) 500 mg TID PO 06/02/17 21:00 06/16/17 13:59 06/03/17 07:54 500 MG Potassium Chloride (Klor-Con Tab) 40 meq BID PO 06/03/17 21:00 07/03/17 20:59 Impression (1) Right lower lobe pneumonia (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 Tadeo is a 76-year-old male who was recently hospitalized with TMA manifested by MAHA, thrombocytopenia and acute renal insufficiency. He also had evidence of superimposed ATN. Clinical presentation was consistent with ST- HUS though stool testing for E coli was negative. ADAMTS 13 activity level was normal. He was admitted to [facility] with shortness of breath and notable orthopnea. CT of the chest reveals at least moderate bilateral pleural effusions (R>L). Creatinine stable. Hemoglobin and platelet count also remain stable. Clinically, the patient continues reporting improvement. He has been able to maintain an appropriate negative fluid balance. I would suggest switching diuretics to oral furosemide today. We will increase oral potassium replacement. He has developed diarrhea with C Diff positive. Recommendations -- Monitor CBC, renal panel with magnesium daily while inpatient -- Furosemide switch to 80 mg PO BID, today -- Maintain a net negative fluid balance of at least 1-2 L daily -- Continue amlodipine and hydralazine for hypertension and avoid RAAS blockade. BP elevated but acceptable and I anticipate some improvement with diuresis -- Potassium replacement with at least 40 mEq BID
[2017-06-03] MEDS: BROMFENAC OP SCH (16:13)
[2017-06-03] MEDS: DIFLUPREDNATE OP SCH (16:13)
[2017-06-03] MEDS ORDERED: FUROSEMIDE 80 MG TAB PO SCH (17:00)
[2017-06-03] MEDS: POTASSIUM CHLORIDE 20 MEQ TABCR PO SCH (19:37)
[2017-06-04 06:39] LABS: HEMATOCRIT 29.4 % (42-52); MEAN CELL VOLUME 88.6 fL (80-100); MEAN CORPUSCULAR HEMOGLOBIN 29.8 pg (25-34); MEAN CORPUSCULAR HGB CONC 33.7 g/dl (32-36); MEAN PLATELET VOLUME 8.8 fL (7.4-10.4); PLATELET COUNT 173 K/uL (130-400); RED BLOOD COUNT 3.32 M/uL (4.7-6.1); WHITE BLOOD COUNT 6.96 K/uL (4.8-10.8)
[2017-06-04 07:22] LABS: BUN/CREATININE RATIO 16.1 (10-20); CALCIUM 8.3 mg/dl (8.5-10.1); CREATININE 1.9 mg/dl (0.60-1.40); MAGNESIUM 2.1 mg/dl (1.8-2.4); POTASSIUM 3.6 mmol/L (3.5-5.1)
[2017-06-04 07:23] LABS: PHOSPHORUS 3.2 mg/dl (2.5-4.9)
[2017-06-04 07:47] VITALS: BP 154/76; PULSE 76; TEMP 36.9; O2SAT 93
[2017-06-04 08:00] VITALS: O2SAT 93
[2017-06-04] MEDS: FLUTICASONE PROPIONATE NA SPR 16 GM BTL NAE SCH (08:00)
[2017-06-04] MEDS: METRONIDAZOLE 500 MG TAB PO SCH ×2 (08:00→13:21)
[2017-06-04] MEDS: PANTOprazole SOD 40 MG TAB PO SCH (08:01)
[2017-06-04] MEDS: AMLODIPINE BESYLATE 5 MG TAB PO SCH (08:01)
[2017-06-04] MEDS: RANITIDINE HCL 150 MG TAB PO SCH (08:01)
[2017-06-04] MEDS: POTASSIUM CHLORIDE 20 MEQ TABCR PO SCH (08:01)
[2017-06-04 11:17] VITALS: BP 154/76; PULSE 76; TEMP 36.9; O2SAT 93
--- NOTE | 2017-06-04 11:57 | Nephrology Progress Note ---
Nephrology Progress Note Date of Service Jun 04, 2017. Chief Complaint DARLINE, TMA Subjective No acute events overnight. No complaints this morning. Mr. Christine reports significant improvement in shortness of breath. He denies fevers or chills. He has not experienced significant diarrhea. Stool is loose but not frequent. He denies abdominal pain. Review of Systems A complete review of systems was performed. Pertinent positives are noted above. All other systems are negative. Vital Signs Last 8 Hrs Date Time Temp Pulse Resp B/P (MAP) Pulse Ox O2 Delivery O2 Flow Rate FiO2 06/04/17 08:00 93 Room Air 06/04/17 07:47 36.9 76 18 154/76 (102) 93 Room Air Last Recorded Weight Weight (Kilograms): 82.700 Physical Exam General Appearance: WD/WN, no apparent distress Head: normocephalic, atraumatic Eyes: normal inspection, sclerae normal ENT: normal ENT inspection, pharynx normal Neck: supple, no JVD Respiratory/Chest: lungs clear, no respiratory distress, no accessory muscle use Cardiovascular: regular rate, rhythm, no gallop, no murmur Abdomen/GI: non tender, soft Neurologic/Psych: alert, oriented x 3 Family History Father had a hematologic malignancy Social History Smoking Status: Unknown if ever smoked Smokeless Tobacco Use: No Alcohol Use: 3 drinks daily; either beer or spirits Drug Use: none Marital Status: in relationship Housing Status: lives with family Occupation: employed Laboratory Results Past 24 Hours 06/04/17 06:27 06/04/17 06:27 Test 06/04/17 06:27 06/04/17 07:26 Red Blood Count 3.32 M/uL (4.7-6.1) Mean Corpuscular Volume 88.6 fL (80-100) Mean Corpuscular Hemoglobin 29.8 pg (25-34) Mean Corpuscular Hemoglobin Concent 33.7 g/dl (32-36) RDW Standard Deviation 46.2 fL (36.4-46.3) RDW Coefficient of Variation 14.2 % (11.5-14.5) Mean Platelet Volume 8.8 fL (7.4-10.4) Anion Gap 6.0 mmol/L (3-11) Est Creatinine Clear Calc Drug Dose 35.8 ml/min Estimated GFR () 39.1 Estimated GFR (Non- 33.7 BUN/Creatinine Ratio 16.1 (10-20) Calcium Level 8.3 mg/dl (8.5-10.1) Phosphorus Level 3.2 mg/dl (2.5-4.9) Magnesium Level 2.1 mg/dl (1.8-2.4) Albumin 3.0 gm/dl (3.4-5.0) Bedside Glucose 95 mg/dl (70-99) Allergies Coded Allergies: No Known Allergies (Verified , 05/31/17) Medications Current Inpatient Medications Medications (Trade) Dose Ordered Sig/Aziza Route Start Time Stop Time Status Last Admin Dose Admin Acetaminophen (Tylenol Tab) 650 mg Q4H PRN PO 05/31/17 05:45 06/30/17 05:44 Magnesium Hydroxide (Milk Of Magnesia Susp) 30 ml Q12H PRN PO 05/31/17 05:45 06/30/17 05:44 Ondansetron HCl (Zofran Inj) 4 mg Q6H PRN IV 05/31/17 05:45 06/30/17 05:44 Polyethylene (Miralax Powder Packet) 17 gm DAILY PRN PO 05/31/17 05:45 06/30/17 05:44 Amlodipine Besylate (Norvasc Tab) 10 mg DAILY PO 05/31/17 09:00 06/30/17 08:59 06/04/17 08:01 10 MG Calcium Acetate (Phoslo Cap) 667 mg TIDM PO 05/31/17 07:30 06/30/17 07:59 Future Hold 06/01/17 08:25 667 MG Fluticasone Propionate (Flonase Nasal [place]) 2 sprays BID JAMILAH 05/31/17 09:00 06/30/17 08:59 06/04/17 08:00 2 SPRAYS Hydralazine HCl (Apresoline Tab) 25 mg TID PO 05/31/17 09:00 06/30/17 08:59 06/04/17 08:01 25 MG Ondansetron HCl (Zofran Tab) 4 mg Q6 PRN PO 05/31/17 06:15 06/30/17 06:14 Ranitidine HCl (zANTac TAB) 150 mg DAILY PO 05/31/17 09:00 06/30/17 08:59 06/04/17 08:01 150 MG Pantoprazole Sodium (Protonix Tab) 40 mg QAM PO 05/31/17 09:00 06/30/17 08:59 06/04/17 08:01 40 MG Non-Formulary Medication (Non-Formulary Patient'S Own Med) 1 ea DAILY@1600 OP 05/31/17 19:00 06/30/17 18:59 06/03/17 16:13 1 EA Non-Formulary Medication (Non-Formulary Patient'S Own Med) 1 ea DAILY@1600 OP 05/31/17 19:00 06/30/17 18:59 06/03/17 16:13 1 EA Metronidazole (Flagyl Tab) 500 mg TID PO 06/02/17 21:00 06/16/17 13:59 06/04/17 08:00 500 MG Potassium Chloride (Klor-Con Tab) 40 meq BID PO 06/03/17 21:00 07/03/17 20:59 06/04/17 08:01 40 MEQ Impression (1) Right lower lobe pneumonia (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 Tadeo is a 76-year-old male who was recently hospitalized with TMA manifested by MAHA, thrombocytopenia and acute renal insufficiency. He also had superimposed ATN. Clinical presentation was consistent with ST-HUS though stool testing for E coli was negative. ADAMTS 13 activity level was normal. He was admitted to [facility] with shortness of breath and notable orthopnea. CT of the chest documented moderate bilateral pleural effusions (R>L). Creatinine stable. Hemoglobin and platelet count also stable. Clinically significantly improved. Negative fluid balance appropriate. I discussed the plan of care with Dr. Robins this morning. Outpatient follow up to be arranged in 1 week in the nephrology clinic (I have asked my schedulers to arrange). I have also placed an order for a renal panel early next week. Mr. Tadeo was asked to continue furosemide 80 mg QAM as well as 40 mEq KCl. He has been able to maintain an appropriate negative fluid balance. Recommendations -- Check CBC, renal panel with magnesium early next week (Thursday or Thursday) -- Continue Furosemide 80 mg daily -- Maintain a net negative fluid balance with a goal of 1 L daily -- Continue amlodipine and hydralazine for hypertension and avoid RAAS blockade -- Potassium replacement with 40 mEq daily -- Will arrange follow up in clinic for 1 week from today
[2017-06-04] MEDS ORDERED: MCRK20 PO (13:44)
[2017-06-04] MEDS ORDERED: FURO80TA63 PO (13:44)
[2017-06-04] MEDS ORDERED: MTR500 PO (13:44)
--- NOTE | 2017-06-04 13:49 | Discharge Instructions ---
Discharge Instructions Date of Service Jun 04, 2017. Admission Reason for Admission: History Of Ttp, Right Lower Lobe Pneumonia Discharge Discharge Diagnosis / Problem: Acute Kidney Injury, Pulmonary edema Discharge Goals Goal(s): Decrease discomfort, Increase independence, Improve disease control Activity Recommendations Activity Limitations: resume your previous activity . Instructions / Follow-Up Instructions / Follow-Up You presented to the hospital with increase shortness of breath and weakness. Imaging of your lung showed fluid and we start you on Lasix. You were also started on antibiotics initially but your blood culture was negative so it was stopped. Hematology and oncology was consulted and they didn't recommend any other intervention this time. Nephrology was consulted and Dr. Ricks saw you. He recommended to continue with Lasix and potassium supplement. Unfortunately you also had C. diff while in the hospital. Please take Lasix 80mg daily, Potassium supplement 40meq daily and metronidazole three times daily for 10days. Stop your home dose of Lasix. Follow up with Dr. Ricks in 1 week. Current Hospital Diet Patient's current hospital diet: Regular Diet Discharge Diet Recommended Diet: Regular Diet Pending Studies Studies pending at discharge: no Medical Emergencies . Who to Call and When: Medical Emergencies: If at any time you feel your situation is an emergency, please call 911 immediately. . Non-Emergent Contact Non-Emergency issues call your: Primary Care Provider . . "Provider Documentation" section prepared by Leslie Sawyer. . VTE Core Measure Inpt VTE Proph given/why not?: Enoxaparin (Lovenox)SQ, Contraindicated (anemia)
--- NOTE | 2017-06-04 20:33 | Discharge Summary ---
Discharge Summary Date of Service Jun 04, 2017. 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 Immunizations: Have You Had Influenza Vaccine: Yes History of Tetanus Vaccine?: >10 yrs History of Pneumococcal: Yes History of Hepatitis B Vaccine: Unknown Procedures: Patient Name: ABBY FOX JR Unit Number: [id number] Dictated: 06/03/17843 Transcribed: 06/03/17843 ARG Printed Date/Time: [~ rep prt dt]/[~ rep prt tm] [~ rep ct labl] - [~ rep ct ivnm] [facility] [place] [place] [address] Dictated: 06/03/17843 Transcribed: 06/03/17843 ARG Printed Date/Time: [~ rep prt dt]/[~ rep prt tm] [~ rep ct labl] - [~ rep ct ivnm] Patient: ABBY FOX JR Address1: [address] [facility] Rec: [id number] Address2: Acct ID: [id number] [facility] Zip: [place] [address] Date: 1940 Sex: M Room/Bed: [facility] Ref Phy: No Doctor, Assigned SC: TAYLOR Att Phy: Shamir Robins D.OGhulam Report #: [id number] Megan Phy: No Doctor, Assigned Test: CXR Admit Phy: Thai Gardner MD Reconditioning Associate: TOSHIA Interpreting Phy: Shabbir Soriano M.D. Diagnosis: HISTORY OF TTP, RIGHT LOWER LOBE PNEUMONIA Ordering Phy: Live Herrera MD Service Date: 06/03/17 Admit Date: 05/31/1708/13/17 MNE: PWRSCRIBE CONF: DICTATED BY: Shabbir Soriano M.D.]] CC: Live Herrera MD Berkey, Franklin J.D.OGhulam No Doctor, Assigned Endcc: [~ rep ct add3]] CHEST 2 VIEWS ROUTINE CLINICAL HISTORY: shortness of breath, CHF COMPARISON STUDY: 05/31/2017 FINDINGS: The heart is enlarged. There are persistent bilateral pleural effusions. There is been resolution of the previous described congestive failure/pulmonary edema. There is no lobar consolidation.[ IMPRESSION: Interval resolution of the previous described congestive failure/pulmonary edema with residual bilateral pleural effusions Electronically signed by: Shabbir Soriano M.D. 06/03/2017 8:52 AM Dictated Date/Time: 06/03/2017 8:44 AM The status of this report is Signed. Draft = Not yet reviewed or approved by Radiologist. Signed = Reviewed and approved by Radiologist. <AttendingPhy>Shamir Robins D.O.</AttendingPhy> <FamilyPhy>No Doctor, Assigned</FamilyPhy> <PrimaryPhy>No Doctor, Assigned</PrimaryPhy> <UnitNumber> [id number]</UnitNumber> <VisitNumber>[id number]</VisitNumber> <PatientName> ABBY FOX JR</PatientName> <DateOfBirth>1940</DateOfBirth> <Location> C.MS2W</Location> <ServiceDate>05/31/17</ServiceDate> <MNE>ESINDI</MNE> < OrderingPhy>Live Herrera MD</OrderingPhy> <OrderingPhyMNE>f rep ord dr choudhury</ OrderingPhyMNE> <DictatingPhyMNE>f rep dict dr choudhury</DictatingPhyMNE> <CCListMNE> f rep ct mne</CCListMNE> <AdmittingPhyMNE>f pt admit dr choudhury</AdmittingPhyMNE> < AttendingPhyMNE>f pt attend dr choudhury</AttendingPhyMNE> <ConsultingPhyMNE>f pt consult dr choudhury</ConsultingPhyMNE> <FamilyPhyMNE>f pt fam dr choudhury</FamilyPhyMNE> <OtherPhyMNE>f pt other dr choudhury</OtherPhyMNE> < PrimaryPhyMNE>f pt prim care dr choudhury</PrimaryPhyMNE> <ReferringPhyMNE>f pt referring dr choudhury</ReferringPhyMNE> Patient: ABBY FOX JR Address1: [address] [facility] Rec: [id number] Address2: Acct ID: [id number] [facility] Zip: [place] [address] Date: 1940 Sex: M Room/Bed: W256-2 Ref Phy: No Doctor, Assigned SC: TAYLOR Att Phy: Shamir Robins D.O. Report #: [id number] Megan Phy: No Doctor, Assigned Test: VS Admit Phy: Thai Gardner MD Reconditioning Associate: DAVE Interpreting Phy: Oleg Navarro MD Diagnosis: HISTORY OF TTP, RIGHT LOWER LOBE PNEUMONIA Ordering Phy: Leslie Sawyer MD Service Date: 06/01/17 Admit Date: 05/31/1708/13/17 MNE: PWRSCRIBE CONF: DICTATED BY: Oleg Navarro M.D.]] CC: Leslie Sawyer ., Shamir Witt D.O. No Doctor, Assigned Endcc: [~ rep ct add3]] VIDEO SWALLOW HISTORY: CXR showed R pleural effusion, ?aspiration PNA TECHNIQUE: Video fluoroscopic evaluation of swallowing was performed in the AP and lateral projections by the speech pathology staff. The patient is fed nectar-thick and thin liquid barium, a barium coated wafer, and barium pudding. FLUOROSCOPY TIME: 1.9 minutes. A cine loop submitted.. COMPARISON STUDY: None. FINDINGS: There is normal hyoid excursion and epiglottic deflection. There are a few episodes of penetration with the thin liquid and nectar thick liquid barium. No aspiration identified. Swallowing function is within normal limits. IMPRESSION: 1. No aspiration identified. 2. Please see the speech pathologist report for detailed findings and recommendations. Electronically signed by: Oleg Navarro M.D. 06/01/2017 2:02 PM Patient Name: ABBY FOX JR Unit Number: [id number] Dictated: 05/31/178 Transcribed: 05/31/17 153 JA Printed Date/Time: [~ rep prt dt]/[~ rep prt tm] [~ rep ct labl] - [~ rep ct ivnm] [facility] [place] [address] Dictated: 05/31/17 1538 Transcribed: 05/31/17 1538 JA Printed Date/Time: [~ rep prt dt]/[~ rep prt tm] [~ rep ct labl] - [~ rep ct ivnm] Patient: ABBY FOX JR Address1: [address] [facility] Rec: [id number] Address2: Acct ID: [id number] [facility] Zip: [place] [address] Date: 1940 Sex: M Room/Bed: [facility] Ref Phy: No Doctor, Assigned SC: Rosa Att Phy: Sandy Streeter M.D. Report #: [id number] Megan Phy: No Doctor, Assigned Test: VDLEU Admit Phy: Thai Gardner MD Reconditioning Associate: PREMA Interpreting Phy: Manny Topete MD Diagnosis: HISTORY OF TTP, RIGHT LOWER LOBE PNEUMONIA Ordering Phy: Leslie Sawyer MD Service Date: 05/31/17 Admit Date: 05/31/1708/13/17 MNE: PWRSCRIBE CONF: DICTATED BY: Manny Topete MD]] CC: Leslie Sawyer MD No Doctor, Assigned Sandy Streeter M.D. Endcc: [~ rep ct add3]] LEFT LOWER EXTREMITY VENOUS DOPPLER CLINICAL HISTORY: Left calf pain. COMPARISON STUDY: No previous studies for comparison. TECHNIQUE: Sonography of the deep venous system of the left lower extremity was performed. Compression and augmentation were evaluated. FINDINGS: The common femoral, superficial femoral and popliteal veins were compressible. Augmentation was normal. Flow was shown within the deep calf vessels. IMPRESSION: No evidence of deep venous thrombus within the left lower extremity. Electronically signed by: Manny Topete M.D. 05/31/2017 3:38 PM Dictated Date/Time: 05/31/2017 3:38 PM The status of this report is Signed. Draft = Not yet reviewed or approved by Radiologist. Signed = Reviewed and approved by Radiologist. <AttendingPhy>Sandy Streeter M.D.</AttendingPhy> <FamilyPhy>No Doctor, Assigned </FamilyPhy> <PrimaryPhy>No Doctor, Assigned</PrimaryPhy> <UnitNumber>[id number] </UnitNumber> <VisitNumber>[id number]</VisitNumber> <PatientName>ABBY FOX </PatientName> <DateOfBirth>1940</DateOfBirth> <Location>C.2E</Location > <ServiceDate>05/31/17</ServiceDate> <MNE>ESINDI</MNE> <OrderingPhy>Leslie Sawyer MD</OrderingPhy> <OrderingPhyMNE>f rep ord dr choudhury</OrderingPhyMNE> < DictatingPhyMNE>f rep dict dr choudhury</DictatingPhyMNE> <CCListMNE>f rep ct mne</ CCListMNE> <AdmittingPhyMNE>f pt admit dr choudhury</AdmittingPhyMNE> <AttendingPhyMNE >f pt attend dr choudhury</AttendingPhyMNE> <ConsultingPhyMNE>f pt consult dr choudhury</ConsultingPhyMNE> <FamilyPhyMNE>f pt fam dr choudhury</FamilyPhyMNE> <OtherPhyMNE>f pt other dr choudhury</OtherPhyMNE> < PrimaryPhyMNE>f pt prim care dr choudhury</PrimaryPhyMNE> <ReferringPhyMNE>f pt referring dr choudhury</ReferringPhyMNE> Patient Name: ABBY FOX JR Unit Number: [id number] Dictated: 05/31/171620 Transcribed: 05/31/171620 [place]APARRO Printed Date/Time: [~ rep prt dt]/[~ rep prt tm] [~ rep ct labl] - [~ rep ct ivnm] [facility] Radiology [place] [address] Dictated: 05/31/171620 Transcribed: 05/31/171620 [place]O Printed Date/Time: [~ rep prt dt]/[~ rep prt tm] [~ rep ct labl] - [~ rep ct ivnm] Patient: ABBY FOX JR Address1: [address] [facility] Rec: [id number] Address2: Acct ID: [id number] [facility] Zip: [place] [address] Date: 1940 Sex: M Room/Bed: [facility] Ref Phy: No Doctor, Assigned SC: Rosa Att Phy: Sandy Streeter M.D. Report #: [id number] Megan Phy: No Doctor, Assigned Test: CXWO Admit Phy: Thai Gardner MD Reconditioning Associate: PULAMollyM Interpreting Phy: Manny Topete MD Diagnosis: HISTORY OF TTP, RIGHT LOWER LOBE PNEUMONIA Ordering Phy: Leslie Sawyer MD Service Date: 05/31/17 Admit Date: 05/31/1708/13/17 MNE: PWRSCRIBE CONF: DICTATED BY: Manny Topete MD]] CC: Leslie Sawyer MD No Doctor, Assigned Sandy Streeter M.D. Endcc: [~ rep ct add3]] CT OF THE CHEST WITHOUT IV CONTRAST CLINICAL HISTORY: SOB, pulmonary congestion on CXR COMPARISON STUDY: Chest CT June 17, 2013 and chest radiograph performed earlier today. CT DOSE: 488.84 mGy.cm TECHNIQUE: Axial images of the chest were obtained without IV contrast. Images were reviewed in the axial, sagittal, and coronal planes. IV contrast was not administered for this examination. A dose lowering technique was utilized adhering to the principles of ALARA. FINDINGS: The heart is mildly enlarged. There is no pericardial effusion. No enlarged thoracic lymph nodes are identified on this unenhanced exam. There is a prominent subcarinal lymph node. A moderate to large right pleural effusion is noted. There is a moderate left pleural effusion. Lungs are suboptimally assessed due to respiratory motion. There is no pneumothorax. There is extensive right lower lobe volume loss with airspace opacity. This suggest subpleural compressive atelectasis of the right lower lobe. There is extensive left lower lobe volume loss which suggest atelectasis. There are mild groundglass opacities within the lungs. No central obstructing mass is identified. No suspicious osseous lesions are present. There is a left hepatic lobe cyst. Calcifications within the right hepatic lobe are incidentally noted. Anasarca is noted. IMPRESSION: 1. Moderate to large right pleural effusion and moderate left pleural effusion. Bilateral lower lobe opacities with significant volume loss, right more severe than left. This favors compressive atelectasis. 2. Mild cardiomegaly. 3. Mild groundglass opacities within the lungs. This favors mild pulmonary edema although an infectious process could appear similar. Electronically signed by: Manny Topete M.D. 05/31/2017 4:28 PM Dictated Date/Time: 05/31/2017 4:21 PM The status of this report is Signed. Draft = Not yet reviewed or approved by Radiologist. Signed = Reviewed and approved by Radiologist. <AttendingPhy>Sandy Streeter M.D.</AttendingPhy> <FamilyPhy>No Doctor, Assigned </FamilyPhy> <PrimaryPhy>No Doctor, Assigned</PrimaryPhy> <UnitNumber>[id number] </UnitNumber> <VisitNumber>[id number]</VisitNumber> <PatientName>ABBY FOX JR</PatientName> <DateOfBirth>1940</DateOfBirth> <Location>C.2E</Location > <ServiceDate>05/31/17</ServiceDate> <MNE>ESINDI</MNE> <OrderingPhy>Leslie Sawyer MD</OrderingPhy> <OrderingPhyMNE>f rep ord dr choudhury</OrderingPhyMNE> < DictatingPhyMNE>f rep dict dr choudhury</DictatingPhyMNE> <CCListMNE>f rep ct kei</ CCListMNE> <AdmittingPhyMNE>f pt admit dr choudhury</AdmittingPhyMNE> <AttendingPhyMNE >f pt attend dr choudhury</AttendingPhyMNE> <ConsultingPhyMNE>f pt consult dr choudhury</ConsultingPhyMNE> <FamilyPhyMNE>f pt fam dr choudhury</FamilyPhyMNE> <OtherPhyMNE>f pt other dr choudhury</OtherPhyMNE> < PrimaryPhyMNE>f pt prim care dr choudhury</PrimaryPhyMNE> <ReferringPhyMNE>f pt referring dr choudhury</ReferringPhyMNE> (Leslie Sawyer MD) Medication Reconciliation New Medications: Furosemide (Lasix) 80 Mg Tab 1 TAB PO DAILY for 30 Days, #30 TAB 0 Refills Metronidazole (Metronidazole) 500 Mg Tab 500 MG PO TID for 10 Days, #30 TAB Potassium Chloride (Klor-Con M20) 20 Meq Tabcr 40 MEQ PO DAILY for 30 Days, #30 MEQ 0 Refills Continued Medications: Acetaminophen (Tylenol) 325 Mg Tab 650 MG PO Q4 PRN for Pain or Fever dont exceed 3gm/24hr Amlodipine (Norvasc) 10 Mg Tab 10 MG PO DAILY, TAB Bromfenac Sodium (Ophth) (Bromfenac) 0.09 % Opal 1 DROP OPL DAILY Calcium Acetate (Phoslo 667 Mg) 667 Mg Cap 1 CAP PO TIDM for 30 Days, CAP 5 Refills Difluprednate (Durezol) 0.05 % Emu 1 DROP OPL DAILY Fluticasone Propionate (Nasal) (Flonase Allergy Relief) 50 Mcg/Act Spr 2 SPRAYS JAMILAH BID Hydralazine HCl (Hydralazine HCl) 25 Mg Tab 25 MG PO TID Lansoprazole (Prevacid) 30 Mg Capcr 30 MG PO QAM Ondansetron Hcl (Zofran) 4 Mg Tab 4 MG PO Q6 PRN for Nausea Ranitidine (Zantac) 150 Mg Tab 150 MG PO DAILY, TAB Discontinued Medications: Furosemide (Lasix) 40 Mg Tab 40 MG PO QAM Referrals At Discharge Follow up Referrals: Pet Feeder Referral - Within 1-2 Weeks @ [facility] with Kei Ricks D.O. Discharge Exam Patient was seen at the bedside. No acute events overnight. Patient states that he is doing well and his diarrhea has improved. Denies SOB or chest pain. Review of Systems: Constitutional: No fever, No chills Respiratory: No cough, No dyspnea on exertion Cardiovascular: No chest pain Abdomen: + diarrhea, No pain, No nausea, No vomiting, No GI bleeding Musculoskeletal: No muscle pain Genitourinary - Male: No hematuria, No dysuria Integumentary: No rash Physical Exam: General Appearance: WD/WN, no apparent distress Neck: supple, trachea midline Respiratory/Chest: chest non-tender, lungs clear, normal breath sounds, no respiratory distress, no accessory muscle use Cardiovascular: regular rate, rhythm Abdomen / GI: normal bowel sounds, non tender, soft Extremities: no calf tenderness, + pedal edema (b/l LE edema, mostly on ankle, which has improved) Neurologic/Psychiatric: alert, normal mood/affect, oriented x 3 Skin: normal color, warm/dry, no rash (Leslie Sawyer MD) Hospital Course This is a 76 y/o male with resolving TTP-HUS and DARLINE presented to the hospital with increasing SOB and weakness. He was recently admitted to [facility] on 05/16 and transferred to [facility] on 05/20 due to TTP-HUS 2/2 presumed GI etiology. He received RBC transfusion in [facility] and never needed plasmapheresis. [id number] was normal. Review of [facility] records indicated that Hb this time is stable compared to Hb at [facility]. His DARLINE continues to resolve slowly as well. Renal function has mildly improved. CXR showed right lower lobe airspace opacity, represents PNA vs pulmonary edema. Patient was empirically started on Vanco and Zosyn. Nasal swab for MRSA was negative and BCx didn't grow anything. He was initially switched to PO augmentin and then d/haven after having negative BCx. Given afebrile, no leukocytosis and SOB with lying down the RLL opacity was most likely 2/2 pulmonary effusion. * Acute Kidney Injury - Nephrology was consulted and Dr. Ricks evaluated the patient. He started him on Lasix with goal net negative fluid balance of approximately 1-2L daily. His creatinine continues to improve. On discharge his creatine was 1.9. Patient was discharge home on Lasix 80mg daily and potassium 40meq daily. Follow up with Dr. Ricks in 1 week. 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 Patient received 2 units of blood because of drop is in hgb. Consulted heme/onc. Dr. Starks saw the patient and didn't recommended any intervention this time. Hb as stable on discharge, 9.9. * Acute hypoxia secondary to pleural effusion - Patient initially requiring oxygen supplement; he slowly transitioned to RA with diuresing. Left LE venous dropper showed no evidence of DVT. Echo (06/01 ) showed no wall abnormalities, LV is hyperdynamic with EF >70% * Diarrhea - C.diff - Patient start having diarrhea for 2 days. C. diff was postitive. Started him on Metronidazole 500mg TID. On discharge patient was given metronidazole 500mg TID [id number] to complete 14 days course. Patient will follow up with Dr. Ricks in 1 week. Patient was discharge home with Lasix 80mg daily, potassium 40meq daily and Metronidazole 500mg TID [id number]. All of his home medications were continued. Total Time Spent: Greater than 30 minutes This includes examination of the patient, discharge planning, medication reconciliation, and communication with other providers. (Leslie Sawyer MD) Resident Physician Supervision Note: I was present with Dr. Sawyer during the history and exam. I discussed the case with the resident and agree with the findings and plan as documented in the note. Documented By: Shamir Robins Total Time Spent: Greater than 30 minutes I spent 45 minutes preparing this patient's discharge along with the resident physician. This included clarifying medications with consultants and relaying this information to the patient aging for follow-up next week. (Shamir Robins.,D.O.) Discharge Instructions Please refer to the electronic Patient Visit Report (Discharge Instructions) for additional information. (Leslie Sawyer MD)
[2017-07-13] MEDS ORDERED: HYDR25TA4 PO (09:20)
== END 2017-06-04 14:36 | disposition home or self-care (01) | DRG 186 ==
LOC: EDBD 02:41 → C.EDB 02:45 → C.2E 05:46 → ENRESERV 05:59 → C.MS2W 06-01 10:22 → ENRESERV 06-01 10:53
PROVIDERS: ADMIT Student in an Organized Health Care Education/Training Program; ATTEND Family Medicine
DX: J90 Pleural effusion, not elsewhere classified (principal); J96.01 Acute respiratory failure with hypoxia; N17.0 Acute kidney failure with tubular necrosis; M31.1 Thrombotic microangiopathy; D59.3 Hemolytic-uremic syndrome; J81.0 Acute pulmonary edema; D59.4 Other nonautoimmune hemolytic anemias; A04.7 Enterocolitis due to Clostridium difficile; E87.70 Fluid overload, unspecified; I10 Essential (primary) hypertension; K21.9 Gastro-esophageal reflux disease without esophagitis; M19.90 Unspecified osteoarthritis, unspecified site; N40.0 Benign prostatic hyperplasia without lower urinary tract symptoms; G89.29 Other chronic pain; M54.9 Dorsalgia, unspecified; Z79.899 Other long term (current) drug therapy

== ENCOUNTER → 2017-06-15 | Outpatient (CLI) | payer OTHER, MEDICARE ==
[~2017-06-15] MED LIST changes: +ACET-1311 PO; +AMLO-114 PO; +APR/25 PO; +BROM0.0911 OPL; +CALC667C4 PO; -CLBCRM30 EXT; -CYAN100020 PO; +DIFL0.0519 OPL; +FURO80TA63 PO; +HYDR25TA4 PO; +LANS30CA12 PO; +MCRK20 PO; +MTR500 PO; +ONDA4TAB46 PO; -SODI650T8 PO; +ZNTT/150 PO
[2017-06-15 15:02] LABS: BASO % 0.5 %; BASO ABS # 0.05 K/uL (0-0.2); COMPLETE YES; EOS % 1.4 %; HEMATOCRIT 31.4 % (42-52); IG% 0.2 %; LYMPH % 9.4 %; LYMPH ABS # 0.88 K/uL (1.2-3.4); MEAN CELL VOLUME 88.7 fL (80-100); MEAN CORPUSCULAR HEMOGLOBIN 29.7 pg (25-34); MEAN CORPUSCULAR HGB CONC 33.4 g/dl (32-36); MEAN PLATELET VOLUME 8.3 fL (7.4-10.4); MONO % 6.1 %; NEUT % 82.4 %; PLATELET COUNT 294 K/uL (130-400); RED BLOOD COUNT 3.54 M/uL (4.7-6.1); WHITE BLOOD COUNT 9.35 K/uL (4.8-10.8)
[2017-06-15 15:24] LABS: BLOOD UREA NITROGEN 33 mg/dl (7-18); BUN/CREATININE RATIO 17.1 (10-20); CARBON DIOXIDE 24 mmol/L (21-32); CHLORIDE 108 mmol/L (98-107); GLUCOSE 107 mg/dl (70-99); POTASSIUM 4.6 mmol/L (3.5-5.1); SODIUM 138 mmol/L (136-145)
[2017-06-15 15:25] LABS: PHOSPHORUS 3.3 mg/dl (2.5-4.9)
== END | disposition home or self-care (01) ==
LOC: C.LAB1850 13:48
PROVIDERS: ATTEND Internal Medicine Nephrology
DX: N28.9 Disorder of kidney and ureter, unspecified (principal)

== ENCOUNTER → 2017-06-29 | Outpatient (CLI) | payer OTHER, MEDICARE ==
--- NOTE | 2017-06-29 12:34 | DIAGNOSTIC IMAGING REPORT ---
CHEST 2 VIEWS ROUTINE CLINICAL HISTORY: N28.9 Acute renal [id number] COMPARISON STUDY: 06/03/2017 FINDINGS: The cardiac and mediastinal contours are normal. There is no evidence of focal pulmonary consolidation. There is no evidence of failure. No pleural effusions are visualized.[ There are several mild thoracic compression deformities. IMPRESSION: Interval resolution of the small bilateral pleural effusions. No active disease in the chest. Electronically signed by: Shabbir Soriano M.D. 06/29/2017 12:33 PM Dictated Date/Time: 06/29/2017 12:32 PM
--- NOTE | 2017-06-29 12:35 | DIAGNOSTIC IMAGING REPORT ---
DECUBITUS VIEWS THE CHEST 2 VIEWS CLINICAL HISTORY: J90 Bilateral pleural [id number] COMPARISON STUDY: 06/03/2017 FINDINGS: There is been interval resolution of the small bilateral pleural effusions. No layering fluid is visualized in either decubitus view. IMPRESSION: No pleural effusions are visualized. Electronically signed by: Shabbir Soriano M.D. 06/29/2017 12:33 PM Dictated Date/Time: 06/29/2017 12:33 PM
== END | disposition home or self-care (01) ==
LOC: C.RAD1850 11:56
PROVIDERS: ATTEND Internal Medicine Nephrology
DX: N28.9 Disorder of kidney and ureter, unspecified (principal); J90 Pleural effusion, not elsewhere classified

== ENCOUNTER → 2017-07-21 | Day surgery (SDC) | payer OTHER, MEDICARE ==
[2017-07-13 09:21] VITALS: Ht 180.3 cm; Wt 77.3 kg
[~2017-07-21] VITALS: Ht 180.3 cm; Wt 77.3 kg
[~2017-07-21] MED LIST changes: +500ML BSS 0.3ML EPI 1:1000PF IRRIG ONE; +ACETAMINOPHEN 325 MG TAB PO PRN; +AMVISC PLUS 0.8ML SYRINGE INT OCU ONE; -APR/25 PO; +ATROPINE SULFATE 0.1 MG/ML 5ML SYR IV PRN; -BROM0.0911 OPL; +BSS FLUSH ONE; -CALC667C4 PO; -DIFL0.0519 OPL; +EpHEDrine SULFATE INJ 50 MG/ML AMP IV PRN; +EpINEphrine INJ 1MG/ML AMP 1 MG/ML AMP ONE; -FURO80TA63 PO; +LACTATED RINGER'S 1000ML 500 ML IV SCH; -LANS30CA12 PO; +LIDOCAINE 3.5% OPH GEL PER APPLICATION CHARGE ONE; +LIDOCAINE HCL 1% MPF 2 ML VIAL ONE; -MCRK20 PO; +MIDAZOLAM HCL 1 MG/ML 2ML VIAL ONE; +MIX: 4ML BSS 1ML EPI 1:1000 PF INSTIL ONE; -MTR500 PO; +OCUCOAT 1 ML SOLN IO ONE; -ONDA4TAB46 PO; +POVIDONE-IODINE OP SOLN 30 ML BTL ONE; +PROPARACAINE 0.5% OP SOLN PER DROP CHARGE OPR SCH; +TOBRAMYCIN/DEXAMETHASONE OPH OINT PER APPLN CHARGE ONE
[2017-07-21] MEDS: PHENYLEPHRINE HCL 2.5% OP SOLN PER DROP CHARGE OPR SCH ×2 (09:42→09:47)
[2017-07-21] MEDS: TROPICAMIDE 1% OP SOLN PER DROP CHARGE OPR SCH ×2 (09:43→09:48)
[2017-07-21] MEDS: CYCLOPENTOLATE HCL 1% OP SOLN PER DROP CHARGE OPR SCH ×2 (09:44→09:49)
[2017-07-21] MEDS: KETOROLAC 0.5% OP SOLN PER DROP CHARGE OPR SCH ×2 (09:45→09:50)
[2017-07-21] MEDS: GATIFLOXACIN OP SOLN PER DROP CHARGE OPR SCH ×2 (09:46→09:56)
--- NOTE | 2017-07-21 10:57 | Discharge Instructions-SurgCtr ---
Discharge Instructions Date of Service Jul 21, 2017. Visit Reason for Visit: Cataract Right Eye Discharge Discharge Diagnosis / Problem: cataract Discharge Goals Goal(s): Improve function Activity Recommendations Activity Limitations: per Instructions/Follow-up section Anesthesia . Post Anesthesia Instructions: If you have had General Anesthesia or IV Sedation: * Do not drive today. * Resume driving when surgeon permits. * Do not make important decisions or sign legal documents today. * Call surgeon for: 1. Temperature elevations greater than 101 degrees F. 2. Uncontrollable pain. 3. Excessive bleeding. 4. Persistent nausea and vomiting. 5. Medication intolerance (nausea, vomiting or rash). * For nausea and vomiting use only clear liquids such as: tea, soda, bouillon until nausea subsides, then gradually increase diet as tolerated. * If you have any concerns or questions, call your surgeon's office. If physician is unavailable and it is an emergency, call 911 or go to the nearest emergency room. . Diet Recommendations Home Diet: resume previous diet Procedures Procedures Performed: Right Cataract Phacoemulsification With Intraocular Lens Implant Pending Studies Studies pending at discharge: no Medical Emergencies . Who to Call and When: Medical Emergencies: If at any time you feel your situation is an emergency, please call 911 immediately. . Non-Emergent Contact Non-Emergency issues call your: Floor Director . . "Provider Documentation" section prepared by Timothy Salazar. .
--- NOTE | 2017-07-21 10:58 | [facility] Operative Report ---
Operative Report Date of Service Jul 21, 2017. Operative Report 1. PREOPERATIVE DIAGNOSIS: Cataract of the right eye. 2. POSTOPERATIVE DIAGNOSIS: Same. 3. PROCEDURE: Phacoemulsification with intraocular lens implantation of the right eye. SURGEON: Dr. Timothy Salazar. ANESTHESIA: Topical Lidocaine gel, 1% Non- Preserved intracameral Lidocaine, and monitored intravenous sedation. INDICATIONS FOR THE PROCEDURE: The patient is a 76 - year-old male with a history of cataract of the right eye causing significant visual impairment. The details of the proposed procedure were explained to the patient who asked appropriate questions and following discussion of all risks, benefits and alternatives agreed to have the procedure done. 4. OPERATION AND FINDINGS: DESCRIPTION OF PROCEDURE: After informed consent was obtained, the patient was brought to the Operating Room at the [facility]. The patient was placed in a supine position and then the right eye was prepped and draped in the usual sterile fashion for intraocular surgery. A drop of topical Lidocaine gel was placed in the operative eye. A wire lid speculum was then placed in the fornices. A corneal paracentesis was then created temporally. The Non-Preserved Lidocaine was then instilled into the anterior chamber. The anterior chamber was then pressurized with viscoelastic. A 2.0 mm clear corneal incision was then created temporally. A cystotome was inserted into the anterior chamber and used to create a tear in the anterior lens capsule. This capsular tear was then used to create a small flap and the flap was dragged in a counterclockwise direction in order to create a continuous curvilinear capsulorrhexis. Hydrodissection was accomplished with balanced salt solution. Phacoemulsification of the lens nucleus was then performed in a standard [id number] technique. The phaco time was 24 seconds with an average power of 11 %. The remaining cortical material was removed using irrigation aspiration. The capsular bag was then filled with viscoelastic. A Elliot [id number] +21.0 diopters lens was then loaded into the injector and injected into the capsular bag. The remaining viscoelastic was removed with the irrigation aspiration handpiece. The wound was hydrated and then checked and found to be watertight. The intraocular pressure was checked and found to be adequate. The wire lid speculum was removed and the patient's face was cleaned and dried. TobraDex ointment was placed in the inferior fornix. The patient was discharged to the Recovery Room having tolerated the procedure well. There were no complications. The patient will be seen tomorrow in the office for follow-up. I attest to the content of the Intraoperative Record and any orders documented therein. Any exceptions are noted below.
--- NOTE | 2017-07-21 11:28 | Anesthesia Progress Nt - [facility] ---
Anesthesia Post Op Note Date & Time Jul 21, 2017 at 11:27 Vital Signs Pain Intensity: 0 Vital Signs Past 12 Hours Date Time Temp Pulse Resp B/P (MAP) Pulse Ox O2 Delivery O2 Flow Rate FiO2 07/21/17 11:00 36.6 70 16 160/77 (104) 99 Room Air 07/21/17 09:33 36.6 64 16 156/81 (106) 97 Room Air Notes Mental Status: alert / awake / arousable, participated in evaluation Pt Amnestic to Procedure: Yes Nausea / Vomiting: adequately controlled Pain: adequately controlled Airway Patency, RR, SpO2: stable & adequate BP & HR: stable & adequate Hydration State: stable & adequate Anesthetic Complications: no major complications apparent
[2017-07-21 11:44] VITALS: BP 154/79; PULSE 73; TEMP 36.5; O2SAT 97
== END | disposition home or self-care (01) ==
LOC: X.SURG 09:06
PROVIDERS: ATTEND Ophthalmology
DX: H26.9 Unspecified cataract (principal); K21.9 Gastro-esophageal reflux disease without esophagitis; M19.90 Unspecified osteoarthritis, unspecified site; N40.0 Benign prostatic hyperplasia without lower urinary tract symptoms; I10 Essential (primary) hypertension; D59.3 Hemolytic-uremic syndrome; Z98.42 Cataract extraction status, left eye; Z87.891 Personal history of nicotine dependence; G47.33 Obstructive sleep apnea (adult) (pediatric); Z86.2 Personal history of diseases of the blood and blood-forming organs and certain disorders involving the immune mechanism

== ENCOUNTER → 2017-08-10 | Outpatient (CLI) | payer OTHER, MEDICARE ==
[~2017-08-10] MED LIST changes: -500ML BSS 0.3ML EPI 1:1000PF IRRIG ONE; -ACETAMINOPHEN 325 MG TAB PO PRN; -AMVISC PLUS 0.8ML SYRINGE INT OCU ONE; -ATROPINE SULFATE 0.1 MG/ML 5ML SYR IV PRN; -BSS FLUSH ONE; -EpHEDrine SULFATE INJ 50 MG/ML AMP IV PRN; -EpINEphrine INJ 1MG/ML AMP 1 MG/ML AMP ONE; -LACTATED RINGER'S 1000ML 500 ML IV SCH; -LIDOCAINE 3.5% OPH GEL PER APPLICATION CHARGE ONE; -LIDOCAINE HCL 1% MPF 2 ML VIAL ONE; -MIDAZOLAM HCL 1 MG/ML 2ML VIAL ONE; -MIX: 4ML BSS 1ML EPI 1:1000 PF INSTIL ONE; -OCUCOAT 1 ML SOLN IO ONE; -POVIDONE-IODINE OP SOLN 30 ML BTL ONE; -PROPARACAINE 0.5% OP SOLN PER DROP CHARGE OPR SCH; -TOBRAMYCIN/DEXAMETHASONE OPH OINT PER APPLN CHARGE ONE
[2017-08-10 14:36] LABS: HEMATOCRIT 38.2 % (42-52); MEAN CELL VOLUME 86.8 fL (80-100); MEAN CORPUSCULAR HEMOGLOBIN 29.1 pg (25-34); MEAN CORPUSCULAR HGB CONC 33.5 g/dl (32-36); MEAN PLATELET VOLUME 8.4 fL (7.4-10.4); PLATELET COUNT 267 K/uL (130-400); WHITE BLOOD COUNT 6.14 K/uL (4.8-10.8)
[2017-08-10 14:59] LABS: BLOOD UREA NITROGEN 33 mg/dl (7-18); BUN/CREATININE RATIO 27.4 (10-20); CALCIUM 9.4 mg/dl (8.5-10.1); CARBON DIOXIDE 27 mmol/L (21-32); CHLORIDE 107 mmol/L (98-107); CREATININE 1.22 mg/dl (0.60-1.40); GLUCOSE 81 mg/dl (70-99); MAGNESIUM 2.5 mg/dl (1.8-2.4); POTASSIUM 4.2 mmol/L (3.5-5.1); SODIUM 141 mmol/L (136-145)
[2017-08-10 15:00] LABS: PHOSPHORUS 3.4 mg/dl (2.5-4.9)
== END | disposition home or self-care (01) ==
LOC: C.LAB1850 13:02
PROVIDERS: ATTEND Internal Medicine Nephrology
DX: N28.9 Disorder of kidney and ureter, unspecified (principal); M31.1 Thrombotic microangiopathy

== ENCOUNTER → 2017-09-28 | Outpatient (CLI) | payer OTHER, MEDICARE ==
[2017-09-28 13:59] LABS: BLOOD UREA NITROGEN 39 mg/dl (7-18); BUN/CREATININE RATIO 29.9 (10-20); CARBON DIOXIDE 24 mmol/L (21-32); CHLORIDE 105 mmol/L (98-107); GLUCOSE 89 mg/dl (70-99); POTASSIUM 4.7 mmol/L (3.5-5.1); SODIUM 136 mmol/L (136-145)
[2017-09-28 14:00] LABS: PHOSPHORUS 3.5 mg/dl (2.5-4.9)
== END | disposition home or self-care (01) ==
LOC: C.LAB1850 11:11
PROVIDERS: ATTEND Internal Medicine Nephrology
DX: M31.1 Thrombotic microangiopathy (principal)

== ENCOUNTER → 2018-01-18 | Outpatient (CLI) | payer OTHER, MEDICARE ==
[~2018-01-18] MED LIST changes: +RANI150T85 PO; -ZNTT/150 PO
[2018-01-18 15:03] LABS: ALBUMIN 3.9 gm/dl (3.4-5.0); BLOOD UREA NITROGEN 25 mg/dl (7-18); CALCIUM 9.2 mg/dl (8.5-10.1); CARBON DIOXIDE 26 mmol/L (21-32); CREATININE 1.18 mg/dl (0.60-1.40); GLUCOSE 90 mg/dl (70-99); PHOSPHORUS 3.9 mg/dl (2.5-4.9); POTASSIUM 4.5 mmol/L (3.5-5.1); SODIUM 131 mmol/L (136-145)
== END | disposition home or self-care (01) ==
LOC: C.LAB1850 10:37
PROVIDERS: ATTEND Internal Medicine Nephrology
DX: I10 Essential (primary) hypertension (principal)

== ENCOUNTER 2023-02-18 05:20 | Observation (INO) ==
--- NOTE | 2023-01-30 10:07 | PAT Medication Instructions ---
Medication Instructions Date of Service January 30, 2023 Home Medications Medication Instructions Recorded furosemide 20 mg tablet 20 mg PO QAM #90 tabs 12/20/21 sildenafil 100 mg tablet 100 mg PO DAILY PRN sexual 02/05/22 activity #10 tabs hydralazine 100 mg tablet 100 mg PO BID #180 tabs 04/29/22 fluticasone propionate 50 1 spray intranasal DAILY PRN 07/17/22 mcg/actuation nasal Allergy Symptoms #15.8 mL spray,suspension (Flonase Allergy Relief) meloxicam 7.5 mg tablet 7.5 mg PO BID pain #180 tabs 08/06/22 tadalafil 5 mg tablet (Cialis) 5 mg PO QPM #90 tabs 09/18/22 omeprazole 20 mg capsule,delayed 20 mg PO HS #90 caps 10/27/22 release losartan 50 mg tablet 50 mg PO BID #180 tabs 01/01/23 glucosamine 375 xe-apngqysog-vfi no1 500 mg-C 15 mg-romy 0.5 mg tablet (Lndfposptti-Rkyrzlroqiq-HDN Complex) 1 tab PO BID vit C 250 mg-vit E 90 mg-zinc 40 mg-copper 1 cf-kzuaka-mtysoo capsule (PreserVision AREDS-2) 1 tab PO BID furosemide 20 mg tablet 20 mg PO QAM sildenafil 100 mg tablet 100 mg PO DAILY PRN melatonin 10 mg capsule 20 mg PO HS PRN hydralazine 100 mg tablet 100 mg PO BID fluticasone propionate 50 mcg/actuation nasal spray,suspension (Flonase Allergy Relief) 1 spray intranasal DAILY PRN meloxicam 7.5 mg tablet 7.5 mg PO BID tadalafil 5 mg tablet (Cialis) 5 mg PO QPM omeprazole 20 mg capsule,delayed release 20 mg PO HS losartan 50 mg tablet 50 mg PO BID cyanocobalamin (vitamin B-12) 1,000 mcg tablet 1,000 mcg PO QAM doxazosin 1 mg tablet 1 mg PO QAM finasteride 5 mg tablet 5 mg PO QAM gabapentin 300 mg capsule 600 mg PO BID lactobacillus comb no.10 20 billion cell capsule (Probiotic) 20,000 mmu cells PO QAM Continue as directed fluticasone propionate 50 mcg/actuation nasal spray,suspension (Flonase Allergy Relief) 1 spray intranasal DAILY PRN(if needed) ASK your surgeon for instructions meloxicam 7.5 mg tablet 7.5 mg PO BID STOP taking 2 weeks before surgery (or as soon as possible if surgery is within 2 weeks) glucosamine 375 vo-slxjqmrdf-vpv no1 500 mg-C 15 mg-romy 0.5 mg tablet (Iuxtkqsuumy-Hjfzilsnshl-TRR Complex) 1 tab PO BID vit C 250 mg-vit E 90 mg-zinc 40 mg-copper 1 se-cwvruh-ellisg capsule (PreserVision AREDS-2) 1 tab PO BID STOP taking 24 hours before surgery sildenafil 100 mg tablet 100 mg PO DAILY PRN tadalafil 5 mg tablet (Cialis) 5 mg PO QPM DO NOT take the morning of surgery furosemide 20 mg tablet 20 mg PO QAM losartan 50 mg tablet 50 mg PO BID cyanocobalamin (vitamin B-12) 1,000 mcg tablet 1,000 mcg PO QAM lactobacillus comb no.10 20 billion cell capsule (Probiotic) 20,000 mmu cells PO QAM Take morning of surgery With a small sip of water, OTHERWISE NOTHING TO EAT OR DRINK AFTER MIDNIGHT: hydralazine 100 mg tablet 100 mg PO BID doxazosin 1 mg tablet 1 mg PO QAM finasteride 5 mg tablet 5 mg PO QAM gabapentin 300 mg capsule 600 mg PO BID Take evening before surgery melatonin 10 mg capsule 20 mg PO HS PRN(if needed) hydralazine 100 mg tablet 100 mg PO BID omeprazole 20 mg capsule,delayed release 20 mg PO HS losartan 50 mg tablet 50 mg PO BID gabapentin 300 mg capsule 600 mg PO BID Other Notes If you have any questions please call us at [phone] or [phone] or [phone] or [phone]
--- NOTE | 2023-02-02 11:53 | Anesthesiology Consultation ---
Date of Service February 02, 2023 Assessment & Plan (1) Encounter for pre-operative examination: Chart Review Chart Review: Acceptable Risk for Surgery (pending PCP clearance 02/10/23) and Patient seen in Pre Admission Testing - Awaiting PCP clearance 02/10/23 -Pt is NOT an Outpatient Joint candidate due to age Per PAT appt on 02/02/23, patient denies any recent travel or large group activities. Pt is vaccinated for Covid. Will leave to surgeon's discretion if preop Covid testing needed. Educated on importance of using Covid precautions one week prior to surgery Teaching & Discussion Pre-Anesthesia Teaching/Discussion Notes: Instructed NPO after midnight before surgery,except medications with 15 cc of water. Medication instructions provid ed according to the PAT guidelines. History Surgery Operation Date: 02/18/23 07:00 Proposed Procedures p Right Total Shoulder Arthroplasty - Jose Luis Huynh MD Height/Weight Height: 5 ft 10 in Weight: 83.6 kg Allergies Allergy/AdvReac Type Severity Reaction Status Date / Time No Known Allergies Allergy Verified 02/02/23 15:37 Medications Home Medications Medication Instructions Recorded Confirmed Last Taken glucosamine 375 tv-olhhexfgb-qju 1 tab PO BID 07/05/19 02/02/23 10/06/21 08:00 no1 500 mg-C 15 mg-romy 0.5 mg tablet (Atnrcxbdtuq-Eihuvtwxxrv-UVR Complex) vit C 250 mg-vit E 90 mg-zinc 40 1 tab PO BID 07/05/19 02/02/23 10/06/21 08:00 mg-copper 1 yg-kmsaum-xrxphr capsule (PreserVision AREDS-2) furosemide 20 mg tablet 20 mg PO QAM #90 tabs 12/20/21 02/02/23 Unknown sildenafil 100 mg tablet 100 mg PO DAILY PRN sexual 02/05/22 02/02/23 Unknown activity #10 tabs melatonin 10 mg capsule 20 mg PO HS PRN Sleep 02/12/22 02/02/23 Unknown hydralazine 100 mg tablet 100 mg PO BID #180 tabs 04/29/22 02/02/23 Unknown fluticasone propionate 50 1 spray intranasal DAILY PRN 07/17/22 02/02/23 Unknown mcg/actuation nasal Allergy Symptoms #15.8 mL spray,suspension (Flonase Allergy Relief) meloxicam 7.5 mg tablet 7.5 mg PO BID pain #180 tabs 08/06/22 02/02/23 Unknown tadalafil 5 mg tablet (Cialis) 5 mg PO QPM #90 tabs 09/18/22 02/02/23 Unknown omeprazole 20 mg capsule,delayed 20 mg PO HS #90 caps 10/27/22 02/02/23 Unknown release losartan 50 mg tablet 50 mg PO BID #180 tabs 01/01/23 02/02/23 Unknown cyanocobalamin (vitamin B-12) 1,000 mcg PO QAM 01/29/23 02/02/23 Unknown 1,000 mcg tablet doxazosin 1 mg tablet 1 mg PO QAM 01/29/23 02/02/23 Unknown finasteride 5 mg tablet 5 mg PO QAM 01/29/23 02/02/23 Unknown gabapentin 300 mg capsule 600 mg PO BID 01/29/23 02/02/23 Unknown lactobacillus comb no.10 20 20,000 mmu cells PO QAM 01/29/23 02/02/23 Unknown billion cell capsule (Probiotic) Past Medical History Medical History Basal cell carcinoma of nose removed BPH (benign prostatic hyperplasia) Chronic back pain Dyspnea on exertion Chronic- only with strenuous activity Hearing deficit Hearing aids bilaterally History of COVID-04 February 2022 > not hospitalized History of hemolytic uremic syndrome Around 2017- d/t ecoli from bad meat--received blood products, no longer has any issues Hypertension Osteoarthritis Sleep apnea cpap Spinal cord stimulator status placed in 2020 at [facility] [place] instructed to bring remote Spinal stenosis Exercise / Class Metabolic Activity II 4-5 Yardwork/Stairs/Walk up hill (one flight of stairs - no chest pain or SOB ) Past Family History Family History Mother Family history of pancreatic cancer Breast cancer Uncle Colorectal cancer Father Stroke Other Alzheimer disease Coronary heart disease No family history of adverse response to anesthesia Denies family history of Ovarian cancer Prostate cancer Myocardial infarction Past Surgical History Surgical History H/O hernia repair H/O lumbar discectomy H/O sinus surgery x2 with Dr. Lewis History of arthroscopy of right shoulder History of bilateral cataract extraction History of colonoscopy (2014) History of lumbar laminectomy History of oral surgery "shortened tongue and is screwed to chin" S/P UPPP (uvulopalatopharyngoplasty) Status post Mohs surgery x2 Past Anesthesia History No Hx of Anesthesia Complications and No Family Hx of Anesthesia Complications Social History Smoking Status: Former smoker Do You Dip or Chew Tobacco: No Smoking End Date: 1981 Hx Alcohol Use: Yes Alcohol type: beer, wine and hard liquor alcohol intake frequency: 0-2 drinks per day (2 drinks/day) Hx Substance Use: No substance use type: does not use Review of Systems Patient denies chest pain, shortness of breath at rest, reflux, cough, wheezing, palpitations. No hx of seizures, stroke, [place]. No hx of blood clots. Physical Exam Vital Signs VITALS BP 149/79 P 67 TEMP 97.7 SP02 95% RESP 16 Constitutional no acute distress ENMT Mouth: no TMJ clicking Thyromental Distance: > or= 3.5 Finger Breadths (3.5) Mallampati Class: I Full dentures on top and bottom Neck + limited neck extension Respiratory normal respiratory effort; no respiratory distress Auscultation: lungs clear to auscultation bilaterally; no wheezes Mild course breath sounds to lung bases Cardiovascular Rate/Rhythm: regular rate and regular rhythm Heart Sounds: no murmur Vessels: no carotid bruit Occ skipped beat Musculoskeletal Spine: no pain with cervical ROM Extremities: extremities normal to inspection Psychiatric Orientation: alert Lab Results Anesthesia Preop Results Results Anesthesia Widget: WBC 4.28 K/ul (4.8-10.8) L 01/29/23 Hgb 12.6 g/dl (14.0-18.0) L 01/29/23 Hct 37.5 % (42.0-52.0) L 01/29/23 Plt 205 K/uL (130-400) 01/29/23 Na 137 mmol/L (136-145) 01/29/23 K 4.3 mmol/L (3.5-5.1) 01/29/23 Cl 105 mmol/L (98-107) 01/29/23 CO2 27 mmol/L (21-32) 01/29/23 BUN 18 mg/dl (6-23) 01/29/23 Creat 0.96 mg/dl (0.6-1.4) 01/29/23 Glucose Level 85 mg/dl (70-99(Fasting)) 01/29/23 PT 10.9 Seconds (9.0-12.0) 02/02/23 PTT 30.5 Seconds (21.0-31.0) 02/02/23 INR 1.0 (0.9-1.1) 02/02/23 TSH 1.157 uIu/ml (0.300-4.500) 01/29/23 Urine Color Yellow 02/02/23 Urine Appearance Clear (Clear) 02/02/23 Urine pH 7.0 (4.5-7.5) 02/02/23 Urine Specific [place] 1.011 (1.000-1.030) 02/02/23 Urine Protein Negative (Negative) 02/02/23 Urine Glucose (UA) Negative (Negative) 02/02/23 Urine Ketones Negative (Negative) 02/02/23 Urine Blood Negative (Negative) 02/02/23 Urine Nitrite Negative (Negative) 02/02/23 Urine Bilirubin Negative (Negative) 02/02/23 Urine Urobilinogen Negative (Negative) 02/02/23 Urine Leukocyte Esterase Negative (Negative) 02/02/23 Blood Type A Positive 02/02/23 Antibody Screen NEGATIVE 02/02/23 Testing Laboratory Results 01/29/23= URINE CULTURE: No growth Electrocardiogram Date: 02/02/23 Sinus rhythm with PACs at 64 bpm Right bundle branch block Left anterior fascicular block Bifascicular block When compared to EKG from February 24, 2022T wave inversion no longer evident in anterior leads per cardio (RBBB and LAFB present since at least 10/26/19 per review of records) Chest X-Ray Date: 02/02/23 FINDINGS: Cardiac mediastinal and hilar silhouettes are unchanged. Mild hyperinflation with diaphragmatic flattening. There is no pneumothorax, pleural effusion, airspace consolidation or pulmonary edema. Degenerative changes of the shoulders and spine. Spinal stimulator leads are noted within the imaged portions appearing intact terminating thoracic spine. Mild chronic appearing thoracic compression deformities. Chronic moderate T3 compression fracture. IMPRESSION: No acute process. Stress Test Date: 10/28/19 Resting EF: 55 to 60% Resting LV Function: normal Normal stress echocardiogram at 5.7 METS and peak heart rate at 84% predicted maximum. No exercise-induced chest pain No EKG changes Baseline echocardiogram notes normal LV systolic function, mild to moderate TR. Borderline cLVH. EF 55-60%. RVSP 30-40mmHg COVID-19 Risk Screen Screening Information COVID-19 Screen Date: 02/02/23 Exposure 21 Days Family/Household +COVID Last 21 Days: No Exposure 10 Days Any COVID Exposure Last 10 Days: No Symptoms Last 10 Days Experienced COVID Sx Last 10 Days: No + COVID 0-90 Days COVID + in Last 0-90 Days: No Risk Plan COVID Risk Plan: No Risk Identified Patient Education COVID Preop Screening Education Complete: Yes
[2023-02-18] MEDS ORDERED: TRANEXAMIC ACID 1,000 MG **IV Pre-op IV SCH (06:00)
[2023-02-18] MEDS ORDERED: LR 15ML/HR IV SCH (06:00)
[2023-02-18] MEDS ORDERED: ceFAZolin 2000MG 2,000 MG/15 ML SYR IV SCH (06:00)
[2023-02-18] MEDS ORDERED: LR 60ML/HR IV SCH (06:00)
[2023-02-18] MEDS ORDERED: BUPIVACAINE 0.5 % 5 MG/1 ML PF 10ML VIAL ONE (06:19)
--- NOTE | 2023-02-18 06:20 | History & Physical Bridge Note ---
Date of Service February 18, 2023 History & Physical Bridge Note I have examined the patient, reviewed the History & Physical and in the interval since the performance of the History & Physical I have noted the following changes of clinical significance:consent obtained/site verified/went over possibilities of partial versus total replacement based on clinical operative tissue findings of bone and rotator cuff. no changes noted
[2023-02-18] MEDS ORDERED: fentaNYL citrate PF 100 MCG/2 ML VIAL ONE (06:26)
[2023-02-18] MEDS ORDERED: LIDOCAINE 2% 2 ML VIAL/AMP(20MG/ML) INFIL ONE (06:27)
[2023-02-18] MEDS ORDERED: ROCURONIUM BROMIDE 10 MG/ML 5 ML VIAL IV ONE ×3 (06:27→07:59)
[2023-02-18] MEDS ORDERED: ONDANSETRON INJ 2 MG/ML 2 ML VIAL ONE ×2 (06:27→07:33)
[2023-02-18] MEDS ORDERED: PROPOFOL IV EMULSION 10 MG/ML 20 ML VIAL IV ONE (06:27)
[2023-02-18] MEDS ORDERED: THROMBIN FOR SOLN 20000 UNIT KIT ONE (06:40)
[2023-02-18] MEDS ORDERED: ONDANSETRON INJ 2 MG/ML 2 ML VIAL IV PRN ×2 (07:21→10:41)
[2023-02-18] MEDS ORDERED: NALOXONE HCL 0.4 MG/1 ML VIAL/CARP IV PRN ×2 (07:21→10:41)
[2023-02-18] MEDS ORDERED: PROMETHAZINE HCL 12.5 MG in SODIUM CHLORIDE 0.9% 50 ML IV PRN (07:21)
[2023-02-18] MEDS ORDERED: HYDROmorphone INJ 1 MG/ML SYRINGE IV PRN (07:21)
[2023-02-18] MEDS ORDERED: ATROPINE SULFATE 0.1 MG/ML 10ML SYR IV PRN (07:21)
[2023-02-18] MEDS ORDERED: ePHEDrine sulfate 50 MG/ML AMP IV PRN (07:21)
[2023-02-18] MEDS ORDERED: LABETALOL HCL IV 5 MG/ML 20ML IV PRN (07:21)
[2023-02-18] MEDS ORDERED: FLUMAZENIL 0.1 MG/1 ML 10 ML VIAL IV PRN (07:21)
[2023-02-18] MEDS ORDERED: fentaNYL citrate PF 100 MCG/2 ML VIAL IV PRN (07:21)
[2023-02-18] MEDS ORDERED: ePHEDrine sulfate 50 MG/ML SYR ONE (07:32)
[2023-02-18] MEDS ORDERED: DEXAMETHASONE SOD INJ 4 MG/ML VIAL ONE (07:33)
[2023-02-18] MEDS ORDERED: ePHEDrine sulfate 50 MG/ML AMP ONE (09:09)
[2023-02-18] MEDS ORDERED: NEOSTIGMINE METHYLSULFATE 1 MG/ML 10ML VIAL ONE (09:12)
[2023-02-18] MEDS ORDERED: GLYCOPYRROLATE 0.2 MG/ML VIAL ONE (09:12)
--- NOTE | 2023-02-18 09:20 | Post Operative Brief Note ---
Immediate Post Op Note v1 Date of Surgery February 18, 2023 Pre & Post Diagnosis Operation Date: 02/18/23 07:00 Pre-Op Diagnosis: Right Shoulder Degenerative Joint Disease Post-Op Diagnosis: Right Shoulder Degenerative Joint Disease I identified the patient and participated in the time-out.: Yes Procedure Operation Date: 02/18/23 07:00 Actual Procedures p Right Total Shoulder Arthroplasty(Right) - Jose Luis Huynh MD Surgeon Jose Luis Huynh MD Barn Hand Deshaun/Macarena Estimated Blood Loss 100 Findings Consistent with Post-Op Diagnosis
--- NOTE | 2023-02-18 09:36 | Operative Report ---
please finalize Post Operative Report Pre & Post Diagnosis Operation Date: 02/18/23 07:00 Pre-Op Diagnosis: Right Shoulder Degenerative Joint Disease Post-Op Diagnosis: Right Shoulder Degenerative Joint Disease I identified the patient and participated in the time-out.: Yes Procedure Operation Date: 02/18/23 07:00 Actual Procedures p Right Total Shoulder Arthroplasty(Right) - Jose Luis Huynh MD Surgeon KELLY Huynh MD Operations Lieutenant Deshaun/Macarena Estimated Blood Loss 100 Findings Consistent with Post-Op Diagnosis severe disease /see operative report Specimens see operative report Drains none Complications none Disposition Accompanied Patient To Recovery: Yes Indications This 82-year-old male presented to the office with complaints of persisting right shoulder pain. He had tried conservative care measures without improvement. He elected to proceed with surgical intervention after being educated about potential risks and outcomes. Preoperative imaging was obtained. Description of Procedure The patient was administered a regional block and then taken to the operating room where he was given general anesthesia. He was prepped and draped in the usual sterile fashion. Please see Dr. Huynh's operative report for specifics of the procedure. I was present for the entire case from initial pa tient positioning through final wound closure. Assistance was provided in tissue retraction, hemostasis, trial implant placement, final implant placement, and final wound closure. The patient was taken to the recovery room in satisfactory condition. I attest to the content of the Intraoperative Record and any orders documented therein. Any exceptions are noted below.
--- NOTE | 2023-02-18 10:14 | Progress Notes ---
DATE OF SERVICE: 02/18/2023. SUBJECTIVE: Postop check status post right total shoulder replacement. The patient is resting comfo rtably in bed in the PACU. He denies any chest pain, shortness of breath, fever, chills, nausea, vom iting or headache. He has block in place. His pain is well controlled. He does move his fingers. Has decreased sensat ion in and around the shoulder based on the block. X-rays, AP of the shoulder reveals excellent alignment of the implant. ASSESSMENT AND PLAN: Status post right total shoulder replacement. Continue with postoperative care pathway. Discharge home tomorrow. PT with 40 degrees abduction, 40 degrees of forward flexion, no extension. Rotation from belly to 0. Job ID: [id number]
--- NOTE | 2023-02-18 10:21 | Discharge Summary (DS) ---
DATE OF ADMISSION: 02/18/2023. DATE OF POTENTIAL DISCHARGE: 02/19/2023. CHIEF COMPLAINT: Right shoulder pain. HISTORY OF PRESENT ILLNESS: The patient underwent elective right total shoulder replacement. [facility] has been uneventful. His pain is well managed. His postoperative x-rays look exce llent. PAST MEDICAL HISTORY: Remarkable for hernia repair, sinus surgery, previous shoulder surgery, catara ct surgery, colonoscopies, airway surgery, Mohs surgery. MEDICAL HISTORY: Remarkable for basal cell carcinoma of the nose, back pain, dyspnea on exertion, gr oss hematuria, hemolytic uremic syndrome, hypertension, osteoarthritis, sleep apnea, spinal stenosis. FAMILY HISTORY: Remarkable for breast cancer and pancreatic cancer. SOCIAL HISTORY: Reveals he is a former smoker with cigarettes. Social alcohol. Lives with his spou se. Uses a CPAP. Has dentures. PREADMISSION MEDICATIONS: Listed in his medication reconciliation. ASSESSMENT: Status post right total shoulder replacement. Continue with care pathway. The patient elected to stay here rather than go home today. He will be discharged tomorrow if he does well overn [facility]. Job ID: [id number]
[2023-02-18] MEDS ORDERED: oxyCODONE HCL IR 5 MG TAB (IMMEDIATE RELEASE) PO PRN (10:41)
[2023-02-18] MEDS ORDERED: traMADol HCL 50 MG TABLET PO PRN (10:41)
[2023-02-18] MEDS ORDERED: MELATONIN 3 MG TAB PO PRN (10:41)
[2023-02-18] MEDS ORDERED: TAMSULOSIN HCL 0.4 MG CAP PO PRN (10:41)
[2023-02-18] MEDS ORDERED: bisacodyL 10 MG SUPP PR PRN (10:41)
[2023-02-18] MEDS ORDERED: diphenhydrAMINE 50 MG/ML VIAL IV PRN (10:41)
[2023-02-18] MEDS ORDERED: METOCLOPRAMIDE HCL INJ 5 MG/ML 2 ML VIAL IV PRN (10:41)
[2023-02-18] MEDS ORDERED: HYDROmorphone INJ 0.5 MG/0.5 ML SYR IV PRN (10:41)
[2023-02-18] MEDS ORDERED: ALUMINUM/MAGNESIUM SUSP 30 ML UDC PO PRN (10:41)
[2023-02-18] MEDS ORDERED: SODIUM CHLORIDE 0.9% 1000ML 1,000 ML IV SCH (10:41)
[2023-02-18] MEDS ORDERED: MAGNESIUM HYDROXIDE SUSP 30 ML UDC PO PRN (10:41)
[2023-02-18] MEDS ORDERED: FLUTICASONE PROPIONATE NA SPR 16 GM BTL NAE PRN (10:41)
--- NOTE | 2023-02-18 10:45 | XRay Report ---
XR shoulder RT 1V CLINICAL HISTORY: Status post right total shoulder arthroplasty. COMPARISON STUDY: Right shoulder 03/28/2022. FINDINGS: Status post a right total shoulder arthroplasty. The hardware appears intact. No fracture o r dislocation. Skin wilton are in place. IMPRESSION: Status post a right total shoulder arthroplasty. No evidence for hardware complication o n this single image. ACT 112: Negative or not required by law. Electronically signed by: Oleg Navarro M.D. 02/18/2023 10:44 AM
--- NOTE | 2023-02-18 10:55 | Operative Report (OR) ---
DATE OF PROCEDURE: 02/18/2023. SURGEON: Jose Luis Huynh MD. DISTRICT ADMINISTRATIVE ASSISTANT: Dr. Meade. SECOND DISTRICT ADMINISTRATIVE ASSISTANT: Julio Fiore PA-C. PREOPERATIVE DIAGNOSIS: Osteoarthritis, right shoulder, severe. POSTOPERATIVE DIAGNOSIS: Osteoarthritis, right shoulder, severe. OPERATION PERFORMED: Hybrid total shoulder replacement with cemented glenoid porous coated humeral stem, right shoulder. Biceps tenodesis, right shoulder. SUMMARY OF IMPLANTS: Size 48 glenoid, size 14 porous stem, size 48 x 18 standard head. ESTIMATED BLOOD LOSS: Roughly 100 mL CRYSTALLOID: Per anesthesia. PATHOLOGY: Pending on bone. PERIOPERATIVE SITUATION: Medically cleared male with intractable shoulder pain with physical exam, x-ray and MRI scan consistent with severe disease. He has significant limitations of motion secondary to contracture and pain. Preoperative evaluation was consistent with a reasonable rotator cuff and reasonable glenoid. It was discussed with him in detail regarding options including CTA head to total shoulder arthroplasty. DESCRIPTION OF PROCEDURE: The patient was appropriately identified, site verified, consent verified. Antibiotics were confirmed as being given. The shoulder was prepped and draped in usual routine fashion. The patient in a light beach chair position. An anterior deltopectoral approach was utilized. The cephalic vein was identified and retracted with the deltoid. Clavipectoral fascia was opened. The biceps was then identified and used as a landmark to find the tuberosity. It was then transected after it was tagged. The subscapularis was then peeled off the tuberosity. An excellent tissue was obtained. There was huge osteophytes both on the glenoid and on the humerus. These were carefully resected with care taken to protect the axillary nerve. At no time was it encountered. It was palpated and kept out of the way. Everything was worked off bone. There was no over penetration. Once all the osteophytes and mobilization was performed and a good exposure of the glenoid was performed and the seating hole made, it was adjusted once and then once that was made, all of the reaming was carried out and get more osteophytes resected off the anterior inferior glenoid and posterior inferior glenoid. Once that was all cleared, the seating holes were then made with the guide. The trial then fit extremely well. After this was irrigated with Betadine and Pulsavac, the permanent was cemented into position. After 14 minutes, everything was cleaned out, everything looked excellent. The humerus was delivered into the wound and then serial broaching carried up to a 14, everything looked excellent. Seating holes were then made in the tuberosity with the drill bit and two #2 fiber wires were placed. These were then also wrapped around the permanent stem as well as going through bone. The area was irrigated with Pulsavac, and Betadine and the permanent stem seated. The sutures reduced with the stem. Everything looked excellent. The head was then placed and reduced and the shoulder was at 50% translation posteriorly had excellent stability with 40 degrees of external rotation. The wound was then irrigated one final time and then the subscapularis and rotator interval closed with #1 Vicryl and #1 Ethibond. Excellent coverage was obtained. Biceps was then tenodesed to the sutures as well. There were 4 sutures into the subscapularis, 2 were placed multiple times through the tissue and they were tied down to the bone. Excellent repair was obtained. The sutures were then all trimmed. The wound was irrigated one final time and then closed with 2-0 plain, 2-0 for the deltopectoral fascia, 2-0 plain for the subcutaneous tissue and wilton for skin. Appropriate dressing applied. The patient was transferred to recovery room in satisfactory condition, having tolerated the procedure well. Job ID: [id number] [facility]
--- NOTE | 2023-02-18 11:07 | Anesthesiology Progress Note ---
Date of Service February 18, 2023 Anesthesia Post Procedure Vital Signs Vital Signs: Temp Pulse Pulse Resp BP Pulse Ox O2 Del Method 02/18/23 10:53 36.4 C L 72 18 129/67 91 Room Air 02/18/23 10:25 36.7 C 70 18 135/69 93 Room Air 02/18/23 10:15 36.4 C L 71 18 140/71 93 Room Air 02/18/23 10:05 71 12 142/63 H 93 Room Air 02/18/23 09:55 73 17 147/71 H 92 Room Air 02/18/23 09:45 70 17 158/73 H 92 Room Air 02/18/23 09:35 35.5 C L 74 23 159/84 H 93 Room Air 02/18/23 05:40 36.7 C 70 20 178/76 H 96 Room Air Transfer of Care Handoff Completed per policy Notes Mental Status: alert / awake / arousable Patient Amnestic to Procedure: Yes Nausea / Vomiting: adequately controlled Pain: adequately controlled Airway Patency, RR, SpO2: stable & adequate BP & HR: stable & adequate Hydration State: stable & adequate Anesthetic Complications: no major complications apparent
--- NOTE | 2023-02-18 13:46 | Post Operative Brief Note ---
Immediate Post Op Note v1 Date of Surgery February 18, 2023 Pre & Post Diagnosis Operation Date: 02/18/23 07:00 Pre-Op Diagnosis: Right Shoulder Degenerative Joint Disease Post-Op Diagnosis: Right Shoulder Degenerative Joint Disease I identified the patient and participated in the time-out.: Yes Procedure Operation Date: 02/18/23 07:00 Actual Procedures p Right Total Shoulder Arthroplasty(Right) - Jose Luis Huynh MD Surgeon Jose Luis Huynh MD Key Holder Yessica/Macarena Estimated Blood Loss 100 Findings Consistent with Post-Op Diagnosis
[2023-02-18] MEDS: ACETAMINOPHEN 500 MG TAB PO SCH ×2 (14:22→22:48)
[2023-02-18] MEDS ORDERED: TRANEXAMIC ACID / 0.7% NACL 1,000 MG/100 ML BAG IV SCH (16:00)
[2023-02-18] MEDS: FERROUS GLUCONATE 324 MG TAB PO SCH (17:26)
[2023-02-18] MEDS: ASCORBIC ACID 500 MG TAB PO SCH (17:26)
[2023-02-18] MEDS ORDERED: COUGH DROP (SUGAR FREE) LOZ 24 LOZ/1 BOX BUCCAL STA (18:13)
[2023-02-18] MEDS ORDERED: COUGH DROP (SUGAR FREE) LOZ 24 LOZ/1 BOX BUCCAL ONE (18:14)
[2023-02-18] MEDS: ceFAZolin 2000MG 2,000 MG/15 ML SYR IV SCH (18:28)
[2023-02-18] MEDS: GABAPENTIN 300 MG CAP PO SCH (20:22)
[2023-02-18] MEDS: LOSARTAN POTASSIUM 50 MG TAB PO SCH (20:22)
[2023-02-18] MEDS: DOCUSATE SODIUM 100 MG CAP PO SCH (20:22)
[2023-02-18] MEDS: hydrALAZINE TAB 50 MG TAB PO SCH (20:22)
[2023-02-18] MEDS ORDERED: SENNA 8.6 MG TAB PO SCH (21:00)
[2023-02-19] MEDS: ceFAZolin 2000MG 2,000 MG/15 ML SYR IV SCH (01:34)
--- NOTE | 2023-02-19 06:18 | Progress Notes ---
SUBJECTIVE: Postop check status post right total shoulder replacement. The patient is sitting up in bed, has no major issues. He denies any chest pain, shortness of breath, fever, chills, nausea, vomiting or headache. OBJECTIVE: Vital signs are stable. He is afebrile. Neurovascular check, median, radial, ulnar, suprascapular, and axillary nerves are normal. Wound dressing clean, dry and intact. Adjusted the sling. ASSESSMENT AND PLAN: Overall, doing well. He does not require a three-night stay. He can be discharged to [place] today. He is medically stable. His physical therapy needs to be followed carefully. His range of motion restrictions are abduction to 40 degrees, forward flexion to 40 degrees, rotation from belly to 0 degrees of external rotation.No extension . He cannot do any combined movements. He can do resisted wrist and hand exercises, elbow flexion, extension, pronation, and supination. He should not do any lifting with his shoulder. Everything should be passive in those restricted limitations noted above. He should wear a sling / except when he is doing his restricted limited exercises. Dressing change later today by SY. He can be discharged today. Again, does not require three-night stay. Job ID: [id number] [facility]
[2023-02-19] MEDS: ACETAMINOPHEN 500 MG TAB PO SCH (06:26)
[2023-02-19] MEDS: hydrALAZINE TAB 50 MG TAB PO SCH (07:23)
[2023-02-19] MEDS: GABAPENTIN 300 MG CAP PO SCH (07:23)
[2023-02-19] MEDS: ASCORBIC ACID 500 MG TAB PO SCH (07:23)
[2023-02-19] MEDS: FERROUS GLUCONATE 324 MG TAB PO SCH (07:23)
[2023-02-19] MEDS: LOSARTAN POTASSIUM 50 MG TAB PO SCH (07:23)
[2023-02-19] MEDS: DOCUSATE SODIUM 100 MG CAP PO SCH (07:24)
[2023-02-19 07:27] LABS: Basophils # (auto) 0.02 K/uL (0-0.2); Basophils % (auto) 0.3 %; Eosinophils # (auto) 0.03 K/uL (0-0.50); Eosinophils % (auto) 0.4 %; Hematocrit (blood only) 35.8 % (42.0-52.0); Hemoglobin 12.1 g/dl (14.0-18.0); Immature Granulocytes # (auto) 0.02 K/uL (0.01-0.20); Immature Granulocytes % (auto) 0.3 %; Lymphocytes # (auto) 0.98 K/uL (1.2-3.4); Lymphocytes % (auto) 13.1 %; Mean Corpuscular Hemoglobin 30.5 pg (25.0-34.0); Mean Corpuscular Hgb Conc 33.8 g/dL (32.0-36.0); Mean Corpuscular Volume 90.2 fL (80.0-100.0); Mean Platelet Volume 8.8 fL (9.4-12.4); Monocytes # (auto) 0.75 K/uL (0.11-0.59); Neutrophils % (auto) 75.9 %; Platelet Count 183 K/uL (130-400); RDW Coefficient of Variation 13.1 % (11.5-14.5); RDW Standard Deviation 43.2 fL (36.4-46.3); Red Blood Count 3.97 M/uL (4.70-6.10)
[2023-02-19 07:47] LABS: BUN Creatinine Ratio 16.9 (10-20); Calcium 8.8 mg/dl (8.6-10.3); Creatinine Clr Calc Pharmacy 67.2 ml/min; Est GFR (African American) 92.9 ml/min; Est GFR (Non-African American) 80.2 ml/min; Potassium 4.1 mmol/L (3.5-5.1)
[2023-02-19] MEDS ORDERED: dexAMETHasone 10 MG in SYRINGE 0 ML IV SCH (08:00)
[2023-02-19] MEDS ORDERED: ASPIRIN 325 MG ECTAB PO SCH (09:00)
[2023-02-19] MEDS ORDERED: MULTIVITAMIN TAB PO SCH (09:00)
[2023-02-19] MEDS ORDERED: DOXAZOSIN MESYLATE 1 MG TAB PO SCH (09:00)
--- NOTE | 2023-02-19 09:19 | Orthopedic Progress Note ---
Date of Service February 19, 2023 Assessment & Plan (1) Status post total shoulder arthroplasty: Plan: The patient was educated regarding today's findings. Conservative care measures were discussed. His dressing was changed today by me. He will be discharged to [facility] home today. Importance of following his range restrictions was discussed extensively with the patient. He may do active motion of the fingers, wrist, and elbow. Passive motion only of the shoulder. Range restriction is 40 degrees forward flexion, 40 degrees abduction, no extension, and no external rotation beyond neutral. Passive rotation can be from belly to neutral. Follow-up in the office in 2 weeks as scheduled for staple removal. Prescription for Percocet has already been sent to his pharmacy. Call the office with any other concerns. Admission and Anticipated Discharge Date Admission Date: February 18, 2023 Subjective This 82-year-old male is seen today in his room. He is 1 day status post right total shoulder arthroplasty. He has no complaints at this point. He feels he is ready for discharge. He plans on going to [facility] for rehab. He denies any chest pain, shortness of breath, nausea, vomiting, or abdominal pain. Shoulder pain has been managed. He is currently wearing a sling. Review of Systems Review of Systems: Unchanged from yesterday. Physical Exam Physical Exam: General: Well-developed, elderly male, in no acute distress. Sitting in bed. Alert and oriented. His sling is in place. Skin: Warm and dry with good turgor. No rashes. No ecchymosis or edema. Postsurgical dressing is in place on his right shoulder. There is no visible drainage. Musculoskeletal: The patient has intact motor function of his fingers, wrist, and elbow. Shoulder motion was not attempted. His postsurgical dressing was removed. There is no significant edema, erythema, or drainage. Neurologic: Gross sensation is intact across the right arm by soft touch. He has blunted sensation to the thumb, index, and long fingers. This is likely residual from his block. Peripheral pulses are 2+. Results & Data Vital Signs (Past 12 Hours) Vital Signs Temp Pulse Resp BP Pulse Ox O2 Del Method 02/19/23 06:05 36.7 C 67 16 165/77 H 95 Room Air 02/19/23 01:45 36.4 C L 66 15 161/74 H 94 Room Air 02/18/23 22:49 36.7 C 66 18 151/77 H 94 Room Air, Nasal CPAP Laboratory Results CBC obtained this morning shows a white count of 7.5. H&H of 12.1 and 35.8. Platelets are normal at 183,000. PRP is entirely unremarkable.
[2023-02-19] MEDS ORDERED: PANTOprazole 40 MG TAB PO SCH (21:00)
== END 2023-02-19 10:50 ==
LOC: 3E 05:20 → ASU 05:20